=== PATIENT | female | born 1940 | race Caucasian/White ===

== ENCOUNTER 2017-01-26 20:40 | Observation (INO) | payer MEDICARE, BC, MEDICAID ==
[2017-01-26] MEDS ORDERED: methylPREDNISolone Sodium Succinate 125 MG/2 ML SDV IVPUSH ONE (20:51)
[2017-01-26] MEDS ORDERED: Albuterol/Ipratropium 3.0-0.5 MG/3 ML Neb Soln NEB ONE (20:51)
[2017-01-26] MEDS ORDERED: LORazepam 2 MG/ML MDV IVPUSH ONE (20:51)
[2017-01-26] MEDS ORDERED: Morphine 2 MG/ML Syringe IVPUSH PRN (22:24)
[2017-01-26] MEDS ORDERED: Ondansetron 4 MG/2 ML SDV IV PRN (22:24)
[2017-01-26] MEDS ORDERED: Furosemide 20 MG/2 ML VIAL IVPUSH ONE (22:24)
[2017-01-26] MEDS ORDERED: LORazepam 2 MG/ML MDV IV PRN (22:24)
[2017-01-26] MEDS ORDERED: Ketorolac 30 MG/ML SDV IM PRN (22:24)
[2017-01-26] MEDS ORDERED: Non-Formulary Medication 1 Each (Fluticasone/Salmeterol [Advair 250-50 Diskus] 1 EACH) INH SCH (22:30)
--- NOTE | 2017-01-26 23:43 | ER ---
DATE SEEN: 01/26/2017 TIME SEEN: 2224 hours. REASON FOR VISIT: Shortness of breath. HISTORY OF PRESENT ILLNESS: This is a 76-year-old female coming with shortness of breath and wheezing that started suddenly, and called the ambulance. Has a history of COPD and continues to smoke. She also complains of leg pain and swelling bilaterally, cough x3 days. No fever. PAST MEDICAL HISTORY: COPD; diabetic neuropathy; type 2 diabetes, uncontrolled. ALLERGIES: Reviewed. MEDICATIONS: Reviewed. PHYSICAL EXAMINATION: GENERAL: Not in any cardiopulmonary distress. VITAL SIGNS: Blood pressure is 145/60, temperature is 99.0. EARS, NOSE, AND THROAT: Negative. CHEST: End-expiratory rhonchi. CARDIOVASCULAR: Normal. EXTREMITIES: 1+ nonpitting edema. Right extremity is tender. LABORATORY DATA: White cell count is 15.1. Troponin 0.01. Chest x-ray nonacute. IMPRESSION: Chronic obstructive pulmonary disease exacerbation. PLAN: I will admit for observation. I gave one dose of DuoNeb and 0.5 mg of Xanax, also lorazepam. She declined Solu-Medrol. We will continue with the DuoNeb p.r.n. and Dr. Hernandez will take over in the morning. /[id number] HANNAH/DEN
[2017-01-27] MEDS: Sodium Chloride 0.9% 10 ML Syringe FLUSH PRN ×2 (00:09→01:08)
[2017-01-27] MEDS ORDERED: ADVAIR INH SCH (00:32)
[2017-01-27] MEDS ORDERED: Bisacodyl 10 MG Supp ONE (03:58)
[2017-01-27] MEDS ORDERED: Bisacodyl 10 MG Supp RECTAL PRN (04:00)
[2017-01-27] MEDS ORDERED: Levothyroxine 75 MCG Tab**OWN MED PO SCH (06:00)
[2017-01-27] MEDS ORDERED: Albuterol/Ipratropium 3.0-0.5 MG/3 ML Neb Soln NEB SCH (07:00)
[2017-01-27 08:41] VITALS: BP 107/52
--- NOTE | 2017-01-27 10:41 | PCM.HP ---
H&P History of Present Illness - General Date of Service: 01/27/17 Source of Information: Patient History Limitations: Reports: No limitations - History of Present Illness Initial Comments - Free Text/Narative: This is a 76-year-old female patient with a history of COPD. She states she had leg swelling yesterday and excruciating pain the costs her to be short of breath. So she called the ambulance and came to the ER. She was admitted for observation. She refused any treatment including steroids. Chest x-ray showed no CHF or pneumonia. Patient states she's feeling better now. Legs still swollen. She has a little bit of a cough. No fevers, chills. But she says she feels warm and cold all the time but never has a fever. Bilateral Leg Pain Score (Numeric/FACES): 10 - Related Data Allergies/Adverse Reactions: Allergies Allergy/AdvReac Type Severity Reaction Status Date / Time perfume Allergy Intermediate Shortness Verified 01/26/17 20:52 of Breath ceftriaxone sodium Allergy Hives Verified 01/26/17 20:52 [From Rocephin] ciprofloxacin [From Cipro] Allergy Hives Verified 01/26/17 20:52 ciprofloxacin HCl Allergy Hives Verified 01/26/17 20:52 [From Cipro] Penicillins Allergy Hives Verified 01/26/17 20:52 pneumococcal vaccine Allergy Swelling Verified 01/26/17 20:52 [Pneumococcal Vaccine] Home Medications: Home Meds Albuterol [Ventolin HFA] 2 puff INH Q4HR PRN 03/07/14 [History] Levothyroxine 75 mcg PO DAILY@0600 05/22/15 [History] Simvastatin [Zocor] 20 mg PO BEDTIME 05/23/15 [History] Fluticasone/Salmeterol [Advair 250-50 Diskus] 1 each INH BID 10/10/16 [History] Furosemide [Lasix] 40 mg PO DAILY@0600 10/11/16 [History] Past Medical History HEENT History: Reports: Cataract, Impaired vision Cardiovascular History: Reports: SOB on exertion Respiratory History: Reports: COPD Gastrointestinal History: Reports: Bowel obstruction, Other (see below) Other Gastrointestinal History: Had abdominal surgery but patient is not certain what was all involved. 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 Psychiatric History: Reports: Anxiety Endocrine/Metabolic History: Reports: Diabetes, type II, Other (see below) Other Endocrine/Metabolic History: Thyroidectomy 2007 Oncologic (Cancer) History: Reports: Colon, Other (see below) Other Oncologic History: according to the report. pt denies. Dermatologic History: Reports: Cellulitis, Other (see below) Other Dermatologic History: Lymphedema. - Infectious Disease History Infectious Disease History: Reports: Chicken pox, Mumps, Other (see below) Other Infectious Disease History: She is not certain if she had Rubella or Rubeola. - Past Surgical History HEENT Surgical History: Reports: Cataract surgery, Other (see below) Other HEENT Surgeries/Procedures: Excess skin removed from the eyelid. GI Surgical History: Reports: Cholecystectomy Female Surgical History: Reports: Other (see below) Other Female Surgeries/Procedures: Vag hyst. Endocrine Surgical History: Reports: Thyroidectomy Social & Family History - Family History Family Medical History: Noncontributory Dermatologic: Reports: None Oncologic: Reports: Other (see below) Other Oncologic Family History: Patient doesn't recall the type. - Tobacco Use Smoking Status *Q: Current Every Day Smoker Years of Tobacco use: 65 Packs/Tins Daily: 0.5 Used Tobacco, but Quit: Yes Month Tobacco Last Used: Nov Second Hand Smoke Exposure: Yes - Caffeine Use Caffeine Use: Reports: Coffee - Alcohol Use Days Per Week of Alcohol Use: 0 - Recreational Drug Use Recreational Drug Use: No - Living Situation & Occupation Living situation: Reports: alone H&P Review of Systems - Review of Systems: Review Of Systems: See Below General: Reports: no symptoms HEENT: Reports: no symptoms Pulmonary: Reports: Shortness of Breath, Cough, Sputum Cardiovascular: Reports: no symptoms Gastrointestinal: Reports: No symptoms Genitourinary: Reports: no symptoms Musculoskeletal: Reports: other (Bilateral leg pain) Skin: Reports: no symptoms Psychiatric: Reports: no symptoms Neurological: Reports: No Symptoms Hematologic/Lymphatic: Reports: no symptoms Exam - Exam Exam: See Below - Vital Signs Vital Signs: Last Vital Signs Temp 97.5 F 01/27/17 08:40 Pulse 76 01/27/17 08:40 Resp 18 01/27/17 08:40 BP 107/52 L 01/27/17 08:40 Pulse Ox 93 L 01/27/17 08:40 Weight: 204 lb 11.2 oz - Exam General: alert, oriented, cooperative HEENT: PERRLA, EACs clear, EOMI, Hearing intact, Mucosa moist & pink, Posterior pharynx clear, TMs clear Neck: supple, trachea midline, 2 Lungs: Clear to auscultation, Normal respiratory effort, Decreased breath sounds. No: Crackles, Rales, Rhonchi Cardiovascular: regular rate, regular rhythm. No: systolic murmur, diastolic murmur Abdomen: normal bowel sounds, soft. No: guarding, rigidity, rebound, tenderness Back Exam: normal inspection, full range of motion Extremities: edema (Bilateral legs 1-2+) Skin: warm Neuro Extensive - Mental Status: alert, oriented x3, normal cognition Neuro Extensive - Motor, Sensory, Reflexes: normal gait Psychiatric: alert, agitated - Patient Data Result Diagrams: 01/26/17 21:10 01/26/17 21:10 *Q Meaningful Use (ADM) - VTE *Q VTE Criteria *Q: - Stroke *Q Stroke Criteria *Q: - AMI *Q AMI Criteria *Q: - Problem List (1) COPD with exacerbation SNOMED Code(s): 966862952, 046942825 ICD Code: J44.1 - CHRONIC OBSTRUCTIVE PULMONARY DISEASE W (ACUTE) EXACERBATION Status: Acute (2) Leg edema SNOMED Code(s): 732935590 ICD Code: R60.0 - LOCALIZED EDEMA Status: Acute Qualifiers: Laterality: bilateral Qualified Code(s): R60.0 - Localized edema Problem List Initiated/Reviewed/Updated: Yes Orders Last 24hrs: Active Orders 24 hr Category Date Time Status Ready for Discharge [RC] PER UNIT ROUTINE Care 01/27/17 08:58 Active Saline Lock Insert [OM.PC] Routine Oth 01/27/17 00:02 Ordered Assessment/Plan Comment:: The patient was admitted for observation. She feels better now. She wants to go home. She does not want any steroids, Lasix or anything for pain. She states she will use her home medications. She also refuses home health. So I will discharge her to home on her regular medicines and 2. She can follow-up with her primary in 7-10 days. Before that if she's decompensating.
--- NOTE | 2017-01-27 10:42 | PCM.DCSUM1 ---
Discharge Summary - Hospital Course Free Text/Narrative:: Patient was admitted. She received some nebulizer treatments and her normal O2. She refuses corticosteroids. She refused any Lasix. By the morning she felt much better and stated she wanted to go home. He did not want to stay. She did not want anything for pain or for her leg swelling. She also refused home health care. Brief History: This is a 76-year-old female patient with a history of COPD. She states she had leg swelling yesterday and excruciating pain the costs her to be short of breath. So she called the ambulance and came to the ER. She was admitted for observation. She refused any treatment including steroids. Chest x-ray showed no CHF or pneumonia. Patient states she's feeling better now. Legs still swollen. She has a little bit of a cough. No fevers, chills. But she says she feels warm and cold all the time but never has a fever. - Discharge Data Discharge Date: 01/27/17 Discharge Disposition: Home, Self-Care 01 Condition: Fair - Discharge Diagnosis/Problem(s) (1) COPD with exacerbation SNOMED Code(s): 069084763, [id number] ICD Code: J44.1 - CHRONIC OBSTRUCTIVE PULMONARY DISEASE W (ACUTE) EXACERBATION Status: Acute (2) Leg edema SNOMED Code(s): 070649850 ICD Code: R60.0 - LOCALIZED EDEMA Status: Acute Qualifiers: Laterality: bilateral Qualified Code(s): R60.0 - Localized edema - Patient Instructions Diet: Regular Diet as Tolerated Activity: As Tolerated Driving: May Drive Today Showering/Bathing: May Shower Notify Provider of: Increased Pain, Swelling and Redness Other/Special Instructions: 1. Recheck with Dr. Alanis in 7-10 days. - Discharge Plan Home Medications: Home Meds Albuterol [Ventolin HFA] 2 puff INH Q4HR PRN 03/07/14 [History] Levothyroxine 75 mcg PO DAILY@0600 05/22/15 [History] Simvastatin [Zocor] 20 mg PO BEDTIME 05/23/15 [History] Fluticasone/Salmeterol [Advair 250-50 Diskus] 1 each INH BID 10/10/16 [History] Furosemide [Lasix] 40 mg PO DAILY@0600 10/11/16 [History] Patient Handouts: Chronic Obstructive Pulmonary Disease Exacerbation, Easy-to- Read Forms: ED Department Discharge Referrals: Tushar Lopez MD [Primary Care Provider] - - Discharge Summary/Plan Comment DC Time >30 min.: No - Patient Data Vitals - Most Recent: Last Vital Signs Temp 97.5 F 01/27/17 08:40 Pulse 76 01/27/17 08:40 Resp 18 01/27/17 08:40 BP 107/52 L 01/27/17 08:40 Pulse Ox 93 L 01/27/17 08:40 Weight - Most Recent: 204 lb 11.2 oz I&O - Last 24 hours: Intake & Output 01/26/17 01/27/17 01/27/17 22:59 06:59 14:59 Intake Total 100 200 Output Total 0 Balance 100 200 Med Orders - Current: Current Medications Discontinued Medications Albuterol/Ipratropium (Duoneb 3.0-0.5 Mg/3 Ml) 3 ml NEB ONETIME ONE Stop: 01/26/17 20:52 Last Admin: 01/26/17 21:33 Dose: 3 ml Albuterol/Ipratropium (Duoneb 3.0-0.5 Mg/3 Ml) 3 ml NEB QIDRT [facility] Last Admin: 01/27/17 07:40 Dose: 3 ml Bisacodyl (Dulcolax) 10 mg RECTAL DAILY PRN PRN Reason: Constipation Last Admin: 01/27/17 04:03 Dose: 10 mg Bisacodyl (Dulcolax) Confirm Administered Dose 10 mg .ROUTE .STK-MED ONE Stop: 01/27/17 03:59 Last Admin: 01/27/17 04:03 Dose: Not Given Furosemide (Lasix) 20 mg IVPUSH ONETIME ONE Stop: 01/26/17 22:25 Last Admin: 01/27/17 00:06 Dose: 20 mg Ketorolac Tromethamine (Toradol) 15 mg IM Q6H PRN PRN Reason: Pain (moderate 4-6) Levothyroxine Sodium (Levothyroxine) 75 mcg PO DAILY@0600 [facility] Last Admin: 01/27/17 05:27 Dose: 75 mcg Lorazepam (Ativan) 0.5 mg IVPUSH ONETIME ONE Stop: 01/26/17 20:52 Last Admin: 01/26/17 21:33 Dose: 0.5 mg Lorazepam (Ativan) 0.5 mg IV Q6H PRN PRN Reason: Anxiety Methylprednisolone Sodium Succinate (Solu-Medrol) 125 mg IVPUSH ONETIME ONE Stop: 01/26/17 20:52 Last Admin: 01/26/17 22:17 Dose: Not Given Morphine Sulfate (Morphine) 2 mg IVPUSH Q4H PRN PRN Reason: Breakthrough Pain Last Admin: 01/27/17 01:07 Dose: 2 mg Non-Formulary Medication (Fluticasone/Salmeterol [Advair 250-50 Diskus]) 1 each INH BID [facility] Last Admin: 01/27/17 00:26 Dose: 1 each Ondansetron HCl (Zofran) 4 mg IV Q4H PRN PRN Reason: Nausea/Vomiting Patient's Own Medication 1 Each Advair 250/50 0 each INH BID MYKE Last Admin: 01/27/17 08:49 Dose: 1 each Simvastatin (Zocor) 20 mg PO BEDTIME MYKE Sodium Chloride (Saline Flush) 10 ml FLUSH ASDIRECTED PRN PRN Reason: Keep Vein Open Last Admin: 01/27/17 01:08 Dose: 10 ml *Q Meaningful Use (DIS) - VTE *Q VTE Criteria *Q: - Stroke *Q Stroke Criteria *Q: - AMI *Q AMI Criteria *Q:
--- NOTE | 2017-01-27 12:33 | CR ---
INDICATION: COPD. CHEST: A single AP upright portable view of the chest, 01/26/2017, was compared with 11/03/2016 and 10/10/2016, revealing the heart to appear fairly normal in size and shape. The aorta is calcified slightly in the arch area. Overlying EKG leads are noted. The lungs appear to be hyperaerated, suggesting COPD. Heavy markings at the lung bases are again noted, likely fibrotic in nature, and due to overlying breast tissue. No consolidating pneumonia or definite effusion was seen. IMPRESSION: 1. No definite acute process. 2. Probable COPD. 3. Mild ASD aorta. 4. Heavy markings at the lung bases likely fibrotic in nature, but making it difficult to entirely exclude minimal patchy bronchopneumonia. Report was called to Dr. Hernandez at approximately 1010 hours, 01/27/2017. [facility]
[2017-01-27] MEDS ORDERED: Simvastatin 20 MG Tab PO SCH (21:00)
== END 2017-01-27 09:45 | disposition home or self-care (01) ==
LOC: FB.ED 20:40 → FB.MS 22:29
PROVIDERS: ADMIT Family Medicine; ATTEND Family Medicine
DX: J44.1 Chronic obstructive pulmonary disease with (acute) exacerbation (principal); R60.0 Localized edema; F41.9 Anxiety disorder, unspecified; E11.9 Type 2 diabetes mellitus without complications; E89.0 Postprocedural hypothyroidism; F17.200 Nicotine dependence, unspecified, uncomplicated; R06.02 Shortness of breath; Z85.038 Personal history of other malignant neoplasm of large intestine; Z90.49 Acquired absence of other specified parts of digestive tract; Z90.710 Acquired absence of both cervix and uterus; Z98.890 Other specified postprocedural states; Z79.899 Other long term (current) drug therapy; Z91.048 Other nonmedicinal substance allergy status; Z88.1 Allergy status to other antibiotic agents; Z88.0 Allergy status to penicillin; Z88.7 Allergy status to serum and vaccine
CPT/HCPCS: 36415; 71010; 80053; 83880; 84484; 85025; 94640; 94664; 96374; 96375; 99285; A9270; G0378; J1940; J2060; J2270; J7050; J7620; 99218; 99283

== ENCOUNTER 2019-02-02 02:42 | Emergency (ER) | payer MEDICARE, BC, MEDICAID ==
[2019-02-02] MEDS ORDERED: Albuterol/Ipratropium 3.0-0.5 MG/3 ML Neb Soln NEB ONE (02:49)
[2019-02-02] MEDS ORDERED: Ondansetron 4 MG/2 ML SDV IVPUSH ONE (02:49)
[2019-02-02] MEDS ORDERED: methylPREDNISolone Sodium Succinate 125 MG/2 ML SDV IVPUSH ONE (02:49)
[2019-02-02] MEDS ORDERED: Pantoprazole 40 MG Vial IVPUSH ONE (02:51)
--- NOTE | 2019-02-02 02:57 | EDM.PDOC ---
ED HPI GENERAL MEDICAL PROBLEM - General Stated Complaint: ABD PAIN Time Seen by Provider: 02/02/19 02:42 Source of Information: Reports: Patient, EMS History Limitations: Reports: Respiratory Distress - History of Present Illness INITIAL COMMENTS - FREE TEXT/NARRATIVE: 78 y.o.w.f with a H/O COPD on 4 liters home O2 by [place], lives at her own home, came by EMS to the Ed due to upper and lower abd. pain. No Trauma. No F/C. Pt was tender to palpitation at her mid upper abd. and did not allow to be palpated at her lower abd. Last BM SUTURE WINDER HAND. No urinary symptoms. Pt has a breathing machine at home. No C/P no F/C. No other acute med issues. BP 117/54 Pulse ox 90% on 4 liters O2 by NV, RR 16 Pulse 76 Temp 36.9 Onset Date: 02/01/19 Onset Time: 22:00 Duration: Hour(s):, Getting Worse, Intermittent Location: Reports: Chest, Abdomen Quality: Reports: Dull, Same as Previous Episode Severity: Moderate Improves with: Reports: Rest Worsens with: Reports: Movement Context: Reports: Other Associated Symptoms: Reports: Shortness of Breath - Related Data Allergies Allergy/AdvReac Type Severity Reaction Status Date / Time perfume Allergy Intermediate Shortness Verified 02/02/19 08:46 of Breath ceftriaxone sodium Allergy Hives Verified 02/02/19 08:46 [From Rocephin] ciprofloxacin [From Cipro] Allergy Hives Verified 02/02/19 08:46 ciprofloxacin HCl Allergy Hives Verified 02/02/19 08:46 [From Cipro] Penicillins Allergy Hives Verified 02/02/19 08:46 pneumococcal vaccine Allergy Swelling Verified 02/02/19 08:46 [Pneumococcal Vaccine] Home Meds: Home Meds Albuterol [Ventolin HFA] 2 puff INH Q4HR PRN 03/07/14 [History] Levothyroxine 75 mcg PO DAILY@0600 05/22/15 [History] Simvastatin [Zocor] 20 mg PO BEDTIME 05/23/15 [History] Fluticasone/Salmeterol [Advair 250-50 Diskus] 1 each INH BID 10/10/16 [History] Furosemide [Lasix] 40 mg PO DAILY@0600 01/03/17 [History] Past Medical History HEENT History: Reports: Cataract, Impaired Vision Cardiovascular History: Reports: SOB on Exertion Respiratory History: Reports: COPD Gastrointestinal History: Reports: Bowel Obstruction, Other (See Below) Other Gastrointestinal History: Had abdominal surgery but patient is not certain what was all involved. SOCIAL DIRECTOR History: Reports: Musculoskeletal History: Reports: Other (See Below) Other Musculoskeletal History: Possibly some arthritis. Psychiatric History: Reports: Anxiety Endocrine/Metabolic History: Reports: Diabetes, Type II, Other (See Below) Other Endocrine/Metabolic History: Thyroidectomy 2007 Oncologic (Cancer) History: Reports: Colon, Other (See Below) Other Oncologic History: according to the report. pt denies. Dermatologic History: Reports: Cellulitis, Other (See Below) Other Dermatologic History: Lymphedema. - Infectious Disease History Infectious Disease History: Reports: Chicken Pox, Mumps, Other (See Below) Other Infectious Disease History: She is not certain if she had Rubella or Rubeola. - Past Surgical History HEENT Surgical History: Reports: Cataract Surgery, Other (See Below) Female Surgical History: Reports: Other (See Below) Social & Family History - Family History Family Medical History: Noncontributory Dermatologic: Reports: None Oncologic: Reports: Other (See Below) Other Oncologic Family History: Patient doesn't recall the type. - Caffeine Use Caffeine Use: Reports: Coffee - Living Situation & Occupation Living situation: Reports: Alone ED ROS GENERAL - Review of Systems Review Of Systems: See Below Constitutional: Reports: No Symptoms HEENT: Reports: No Symptoms Respiratory: Reports: Shortness of Breath Cardiovascular: Reports: No Symptoms Endocrine: Reports: No Symptoms GI/Abdominal: Reports: Abdominal Pain (upper and lower abd. ) : Reports: No Symptoms Musculoskeletal: Reports: No Symptoms Skin: Reports: No Symptoms Neurological: Reports: No Symptoms Psychiatric: Reports: No Symptoms Hematologic/Lymphatic: Reports: No Symptoms Immunologic: Reports: No Symptoms ED EXAM, GI/ABD - Physical Exam Exam: See Below Exam Limited By: Respiratory Distress General Appearance: Alert, WD/WN, Moderate Distress Eyes: Bilateral: Normal Appearance Ears: Normal External Exam Nose: Normal Inspection, Normal Mucosa Throat/Mouth: Normal Lips, Normal Oropharynx, Normal Voice, No Airway Compromise Head: Atraumatic, Normocephalic Neck: Normal Inspection, Supple, Non-Tender Respiratory/Chest: Respiratory Distress, Decreased Breath Sounds Cardiovascular: Normal Peripheral Pulses, Regular Rate, Rhythm, No Edema, No Gallop GI/Abdominal Exam: Tender (mid upper and loawe abd.) (Female) Exam: Deferred Rectal (Female) Exam: Deferred Back Exam: Normal Inspection, Full Range of Motion Extremities: Normal Inspection, Normal Range of Motion, Non-Tender, No Pedal Edema, Normal Capillary Refill Neurological: Alert, Oriented, CN II-XII Intact, Normal Cognition Psychiatric: Normal Affect, Normal Mood Skin Exam: Warm, Dry, Intact, Normal Color, No Rash Lymphatic: No Adenopathy Course - Vital Signs Text/Narrative:: 78 y.o.w.f with a H/O COPD on 4 liters home O2 by [place], lives at her own home, came by EMS to the Ed due to upper and lower abd. pain. No Trauma. No F/C. Pt was tender to palpitation at her mid upper abd. and did not allow to be palpated at her lower abd. Last BM SUTURE WINDER HAND. No urinary symptoms. Pt has a breathing machine at home. No C/P no F/C. No other acute med issues. BP 117/54 Pulse ox 90% on 4 liters O2 by [place], RR 16 Pulse 76 Temp 36.9 PE: WNWD W F in resp distress and abd. pain Imaging: Pt Refused Labs/IV: Pt refused Impression: COPD, epigastric pain Tx: Duoneb, Solu Medrol Reexam: Pt stated she fels 100% better and wants to be D/C'd. Her abd pain subsided. She has a neb machine at home and has enough Albut/Atrovent at home. Pt refuse I Vs, lab work NS and further neb Txs and meds. Pt had now bilat air movement. Her pulse ox was 94% on 4 liters home O2 Plan: D/C with instructions Last Recorded V/S: Last Vital Signs Temp 36.9 C 02/02/19 03:06 Pulse 70 02/02/19 05:30 Resp 18 02/02/19 05:30 BP 116/54 L 02/02/19 05:30 Pulse Ox 94 L 02/02/19 05:30 - Orders/Labs/Meds Orders: Active Orders 24 hr Category Date Time Status RT Aerosol Therapy [RC] ASDIRECTED Care 02/02/19 02:49 Active UA W/MICROSCOPIC [URIN] Stat Lab 02/02/19 02:51 Ordered Labs: Laboratory Tests 02/02/19 02/02/19 02/02/19 Range/Units 03:10 03:10 03:10 WBC 8.1 (4.5-12.0) X10-3/uL RBC 4.30 (3.23-5.20) x10(6)uL Hgb 12.3 (11.5-15.5) g/dL Hct 37.4 (30.0-51.3) % MCV 87.1 (80-96) fL MCH 28.6 (27.7-33.6) pg MCHC 32.8 (32.2-35.4) g/dL RDW 14.4 (11.5-15.5) % Plt Count 341 (125-369) X10(3)uL MPV 7.7 (7.4-10.4) fL Neut % (Auto) 72.5 (46-82) % Lymph % (Auto) 17.6 (13-37) % Morehouse % (Auto) 4.7 (4-12) % Eos % (Auto) 5 (1.0-5.0) % Baso % (Auto) 1 (0-2) % Neut # (Auto) 5.8 (1.6-8.3) # Lymph # (Auto) 1.4 (0.6-5.0) # Morehouse # (Auto) 0.4 (0.0-1.3) # Eos # (Auto) 0.4 (0.0-0.8) # Baso # (Auto) 0.1 (0.0-0.2) # PT 8.9 (8.7-11.1) INR 0.92 (0.89-1.13) Sodium 140 (135-145) mmol/L Potassium 3.5 (3.5-5.3) mmol/L Chloride 99 L (100-110) mmol/L Carbon Dioxide 37 H (21-32) mmol/L BUN 21 H (7-18) mg/dL Creatinine 1.0 (0.55-1.02) mg/dL Est Cr Clr Drug Dosing TNP Estimated GFR (MDRD) 54 L (>60) BUN/Creatinine Ratio 21.0 H (9-20) Glucose 177 H (80-116) mg/dL Calcium 9.7 (8.6-10.2) mg/dL Total Bilirubin (0.1-1.3) mg/dL Direct Bilirubin (0.10-0.20) mg/dL AST (5-25) IU/L ALT (12-36) U/L Alkaline Phosphatase (56-112) IU/L Total Protein (6.0-8.0) g/dL Albumin (3.2-4.6) g/dL Amylase (25-115) U/L 02/02/19 Range/Units 03:10 WBC (4.5-12.0) X10-3/uL RBC (3.23-5.20) x10(6)uL Hgb (11.5-15.5) g/dL Hct (30.0-51.3) % MCV (80-96) fL MCH (27.7-33.6) pg MCHC (32.2-35.4) g/dL RDW (11.5-15.5) % Plt Count (125-369) X10(3)uL MPV (7.4-10.4) fL Neut % (Auto) (46-82) % Lymph % (Auto) (13-37) % Morehouse % (Auto) (4-12) % Eos % (Auto) (1.0-5.0) % Baso % (Auto) (0-2) % Neut # (Auto) (1.6-8.3) # Lymph # (Auto) (0.6-5.0) # Morehouse # (Auto) (0.0-1.3) # Eos # (Auto) (0.0-0.8) # Baso # (Auto) (0.0-0.2) # PT (8.7-11.1) INR (0.89-1.13) Sodium (135-145) mmol/L Potassium (3.5-5.3) mmol/L Chloride (100-110) mmol/L Carbon Dioxide (21-32) mmol/L BUN (7-18) mg/dL Creatinine (0.55-1.02) mg/dL Est Cr Clr Drug Dosing Estimated GFR (MDRD) (>60) BUN/Creatinine Ratio (9-20) Glucose (80-116) mg/dL Calcium (8.6-10.2) mg/dL Total Bilirubin 0.3 (0.1-1.3) mg/dL Direct Bilirubin 0.09 L (0.10-0.20) mg/dL AST 18 (5-25) IU/L ALT 24 (12-36) U/L Alkaline Phosphatase 100 (56-112) IU/L Total Protein 7.2 (6.0-8.0) g/dL Albumin 3.9 (3.2-4.6) g/dL Amylase 59 (25-115) U/L Meds: Medications Discontinued Medications Generic Name Dose Route Start Last Admin Trade Name Freq PRN Reason Stop Dose Admin Albuterol/Ipratropium 3 ml 02/02/19 02:49 02/02/19 03:50 Duoneb 3.0-0.5 Mg/3 Ml NEB 02/02/19 02:50 3 ml ONETIME ONE Administration Al Hydroxide/Mg Hydroxide 15 0 ml 02/02/19 03:52 02/02/19 08:49 ml/ Lidocaine HCl 15 ml PO 02/02/19 03:53 Not Given ONETIME ONE Methylprednisolone Sodium Succinate 125 mg 02/02/19 02:49 02/02/19 08:48 Solu-Medrol IVPUSH 02/02/19 02:50 Not Given ONETIME ONE Ondansetron HCl 8 mg 02/02/19 02:49 02/02/19 08:48 Zofran IVPUSH 02/02/19 02:50 Not Given ONETIME ONE Ondansetron HCl 4 mg 02/02/19 04:39 02/02/19 08:48 Zofran Odt PO 02/02/19 04:40 Not Given ONETIME STA Pantoprazole Sodium 40 mg 02/02/19 02:51 02/02/19 08:48 Protonix Iv IVPUSH 02/02/19 02:52 Not Given ONETIME ONE Departure - Departure Time of Disposition: 05:18 Disposition: Home, Self-Care 01 Condition: Good Clinical Impression: Epigastric abdominal pain COPD (chronic obstructive pulmonary disease) Qualifiers: COPD type: COPD with acute exacerbation Qualified Code(s): J44.1 - Chronic obstructive pulmonary disease with (acute) exacerbation - Discharge Information Instructions: Gastritis, Adult, [id number], Chronic Obstructive Pulmonary Disease, [id number] Referrals: Tushar Lopez MD [Primary Care Provider] - Forms: ED Department Discharge Additional Instructions: Please cont your current meds, please f/u with your PMD, come back if your symptoms get worse acutely - My Orders Last 24 Hours: My Active Orders 02/02/19 02:49 RT Aerosol Therapy [RC] ASDIRECTED 02/02/19 02:51 UA W/MICROSCOPIC [URIN] Stat - Assessment/Plan Last 24 Hours: My Active Orders 02/02/19 02:49 RT Aerosol Therapy [RC] ASDIRECTED 02/02/19 02:51 UA W/MICROSCOPIC [URIN] Stat
[2019-02-02] MEDS ORDERED: Alum Hydroxide/Mag Hydroxide 15 ML, Lidocaine 2% 15 ML PO ONE ×2 (03:52)
[2019-02-02] MEDS ORDERED: Ondansetron 4 MG Tab.DIS PO STA (04:39)
[2019-02-02 09:08] VITALS: BP 116/54
== END 2019-02-02 05:30 | disposition home or self-care (01) ==
LOC: FB.ED 02:42
DX: J44.1 Chronic obstructive pulmonary disease with (acute) exacerbation (principal); E11.9 Type 2 diabetes mellitus without complications; R10.13 Epigastric pain; Z88.1 Allergy status to other antibiotic agents; Z79.899 Other long term (current) drug therapy
CPT/HCPCS: 36415; 80048; 80076; 82150; 85025; 85610; 94640; 99284; J7620-GY

== ENCOUNTER 2019-05-10 20:40 | Emergency (ER) | payer MEDICARE, BC ==
[2019-05-10 21:00] VITALS: PULSE 85
--- NOTE | 2019-05-10 22:01 | EDM.PDOC ---
ED HPI GENERAL MEDICAL PROBLEM - General Chief Complaint: Lower Extremity Injury/Pain Stated Complaint: DIFFICULTY BREATHING Time Seen by Provider: 05/10/19 21:30 Source of Information: Reports: Patient History Limitations: Reports: No Limitations - History of Present Illness INITIAL COMMENTS - FREE TEXT/NARRATIVE: c/o swell and red LE b/l very pleasant pt who lives alone in [facility], states she has had swelling in her legs for past 5m son took her directly to [facility] 2w ago and she was admitted and given meds in her IV, she thinks she was given an antbx altho after 5d she was not sent home on one, d/c meds were the same as admission meds, swelling and redness did go down, now has come back saw PCP Dr Lopez 3d ago, no change in meds, no labs done, she had a f/u with Dr Lopez today but did not have a ride to his office comes via EMS to ED vehemently denies falling at home in recent months, uses walker was given oxycontin at [facility] in [place], says "I do not want that stuff", "I am not a pill popper" no f/c/d, no n/v, good appetite vss here has been putting baby oil on her legs 4m ago with WBC 8.1, BUN/creat 21/1.0, BNP 20 from 2y ago, last trop neg does smoke a few cigs daily, had 3 cigs today on O2 4 l/min via NC 24h/d at home Treatments TREE SCOUT: Reports: Oxygen Bilateral lower legs Pain Score (Numeric/FACES): 10 - Related Data Allergies Allergy/AdvReac Type Severity Reaction Status Date / Time perfume Allergy Intermediate Shortness Verified 05/10/19 20:49 of Breath ceftriaxone sodium Allergy Hives Verified 05/10/19 20:49 [From Rocephin] ciprofloxacin [From Cipro] Allergy Hives Verified 05/10/19 20:49 ciprofloxacin HCl Allergy Hives Verified 05/10/19 20:49 [From Cipro] Penicillins Allergy Hives Verified 05/10/19 20:49 pneumococcal vaccine Allergy Swelling Verified 05/10/19 20:49 [Pneumococcal Vaccine] Home Meds: Home Meds Albuterol [Ventolin HFA] 2 puff INH Q4HR PRN 03/07/14 [History] Simvastatin [Zocor] 20 mg PO BEDTIME 05/23/15 [History] Furosemide [Lasix] 40 mg PO DAILY 10/11/16 [History] ALPRAZolam [Alprazolam] 0.25 mg BID 05/10/19 [History] Fluticasone/Salmeterol [Advair 250-50 Diskus] 1 puff BID 05/10/19 [History] Levothyroxine [Synthroid] 100 mcg PO ACBREAKFAST 05/10/19 [History] metFORMIN HCl [Metformin HCl ER] 500 mg DAILY 05/10/19 [History] Past Medical History HEENT History: Reports: Cataract, Impaired Vision Cardiovascular History: Reports: High Cholesterol, SOB on Exertion Respiratory History: Reports: COPD Other Respiratory History: O2 con't @ 4L/NC Gastrointestinal History: Reports: Bowel Obstruction, Other (See Below) Other Gastrointestinal History: Had abdominal surgery but patient is not certain what was all involved. 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 Neurological History: Reports: Migraines Psychiatric History: Reports: Anxiety Endocrine/Metabolic History: Reports: Diabetes, Type II, Obesity/BMI 30+ Other Endocrine/Metabolic History: Thyroidectomy 2007 Hematologic History: Reports: Blood Transfusion(s) Oncologic (Cancer) History: Reports: Colon, Other (See Below) Other Oncologic History: according to the report. pt denies. Dermatologic History: Reports: Cellulitis, Other (See Below) Other Dermatologic History: Lymphedema. - Infectious Disease History Infectious Disease History: Reports: Chicken Pox, Measles, Mumps Other Infectious Disease History: She is not certain if she had Rubella or Rubeola. - Past Surgical History Head Surgeries/Procedures: Reports: None HEENT Surgical History: Reports: Adenoidectomy, Cataract Surgery, Tonsillectomy , Other (See Below) Other HEENT Surgeries/Procedures: bilat cataract surgery, GI Surgical History: Reports: Cholecystectomy, Colon, Colonoscopy, EGD, Hernia Repair/Other Female Surgical History: Reports: Hysterectomy, Other (See Below) Endocrine Surgical History: Reports: Thyroidectomy Social & Family History - Family History Family Medical History: Noncontributory Dermatologic: Reports: None Oncologic: Reports: Other (See Below) Other Oncologic Family History: Patient doesn't recall the type. - Tobacco Use Smoking Status *Q: Current Every Day Smoker Years of Tobacco use: 65 Packs/Tins Daily: 0.2 - Caffeine Use Caffeine Use: Reports: Coffee - Recreational Drug Use Recreational Drug Use: No - Living Situation & Occupation Living situation: Reports: Alone Review of Systems - Review of Systems Review Of Systems: See Below Constitutional: Reports: No Symptoms Eyes: Reports: No Symptoms Ears: Reports: No Symptoms Nose: Reports: No Symptoms Mouth/Throat: Reports: No Symptoms Respiratory: Reports: No Symptoms Cardiovascular: Reports: No Symptoms GI/Abdominal: Reports: No Symptoms Genitourinary: Reports: No Symptoms Musculoskeletal: Reports: No Symptoms Skin: Reports: Rash, Erythema, Other (swell LEs) Neurological: Reports: No Symptoms Psychiatric: Reports: No Symptoms ED EXAM, GENERAL - Physical Exam Exam: See Below Exam Limited By: No Limitations General Appearance: Alert, WD/WN, No Apparent Distress Nose: Normal Inspection, Normal Mucosa, No Blood Throat/Mouth: Normal Inspection, Normal Lips Head: Atraumatic Neck: Normal Inspection, Supple, Non-Tender, Full Range of Motion. No: Lymphadenopathy (R), Lymphadenopathy (L) Respiratory/Chest: Other (fair AE, scattered exp wheeze, dec'd AE at bases, dry crackles on inspiration at bases, no dyspnea, no cough, no retractions, no purse lips, no accessory muscles) Cardiovascular: Regular Rate, Rhythm, Other (2/6 STARLA at LSB, quiet precordium) GI/Abdominal: Normal Bowel Sounds, Soft, Non-Tender, No Organomegaly, No Distention Back Exam: Normal Inspection, Full Range of Motion Extremities: Other (2+ edema to knees, symmetric, shiny hairless skin, some epidermal peel altho limited, skin soft and pliable (pt has been putting baby oil on both LEs), some redness up 1/3 pretib b/l without warmth, c/w plethoric skin with stasis, no hyperpigmentation, no ulcers, no weeping, skin intact) Neurological: Alert, Oriented, CN II-XII Intact, Normal Cognition, No Motor/ Sensory Deficits Psychiatric: Normal Affect, Normal Mood Skin Exam: Warm, Intact Lymphatic: No Adenopathy Course - Vital Signs Last Recorded V/S: Last Vital Signs Temp 36.8 C 08/02/19 20:40 Pulse 85 05/10/19 20:40 Resp 20 05/10/19 20:40 BP 142/53 H 05/10/19 20:40 Pulse Ox 93 L 05/10/19 20:40 - Orders/Labs/Meds Labs: Laboratory Tests 05/10/19 05/10/19 05/10/19 Range/Units 21:00 21:00 21:00 WBC 9.6 (4.5-12.0) X10-3/uL RBC 4.42 (3.23-5.20) x10(6)uL Hgb 12.3 (11.5-15.5) g/dL Hct 38.7 (30.0-51.3) % MCV 87.5 (80-96) fL MCH 27.9 (27.7-33.6) pg MCHC 31.8 L (32.2-35.4) g/dL RDW 14.7 (11.5-15.5) % Plt Count 430 H (125-369) X10(3)uL MPV 8.3 (7.4-10.4) fL Neut % (Auto) 74.0 (46-82) % Lymph % (Auto) 16.3 (13-37) % [place] % (Auto) 6.3 (4-12) % Eos % (Auto) 3 (1.0-5.0) % Baso % (Auto) 0 (0-2) % Neut # (Auto) 7.1 (1.6-8.3) # Lymph # (Auto) 1.6 (0.6-5.0) # [place] # (Auto) 0.6 (0.0-1.3) # Eos # (Auto) 0.3 (0.0-0.8) # Baso # (Auto) 0.0 (0.0-0.2) # Sodium 143 (135-145) mmol/L Potassium 3.5 (3.5-5.3) mmol/L Chloride 98 L (100-110) mmol/L Carbon Dioxide 41 H* (21-32) mmol/L BUN 16 (7-18) mg/dL Creatinine 0.9 (0.55-1.02) mg/dL Est Cr Clr Drug Dosing 43.77 mL/min Estimated GFR (MDRD) > 60 (>60) BUN/Creatinine Ratio 17.8 (9-20) Glucose 182 H (80-116) mg/dL Calcium 9.8 (8.6-10.2) mg/dL C-Reactive Protein 0.6 (0.5-0.9) mg/dL - Re-Assessments/Exams Free Text/Narrative Re-Assessment/Exam: 05/10/19 22:37 labs reviewed, no evidence of infection (WBC wnl, CRP wnl, no shift), bicarb 41 renal function wnl will increase furosemide from 40 mg qd to 60 mg qd, there is some risk of volume contraction alkalosis altho options are limited pt not able to use support stockings as she cannot put them on by herself, however she and Dr Lopez are discussing moving into a fci Departure - Departure Time of Disposition: 22:40 Disposition: DC/Tfer to Medicaid [facility] Condition: Good Clinical Impression: Venous stasis dermatitis of both lower extremities - Discharge Information *PRESCRIPTION DRUG MONITORING PROGRAM REVIEWED*: Not Applicable *COPY OF PRESCRIPTION DRUG MONITORING REPORT IN PATIENT ESTRELLA: Not Applicable Instructions: Stasis Dermatitis, Peripheral Edema Referrals: Tushar Lopez MD [Primary Care Provider] - Forms: ED Department Discharge Additional Instructions: Continue current meds. For fluid and swelling, increase furosemide 40 mg from 1 tab daily to 1 and 1/2 tabs daily. Elevated your legs as high as your heart for 30 minutes 1 to 2 times daily. Use support stockings when out of bed. Obtain help from family and friends to put them on. For pain, take acetaminophen 325 mg 2 tabs 4 times a day. See Dr Lopez in 4-5 days. Call your Physician or Return to Emergency Department if: * Your condition worsens in any way. * You develop fever greater than 100.4. * You have vomiting that does not stop with medications. * You have pain that is not controlled with medications.
[2019-05-10 23:23] VITALS: BP 135/68
== END 2019-05-10 22:58 | disposition home or self-care (01) ==
LOC: FB.ED 20:40
DX: I87.2 Venous insufficiency (chronic) (peripheral) (principal); E11.9 Type 2 diabetes mellitus without complications; F41.9 Anxiety disorder, unspecified; F17.210 Nicotine dependence, cigarettes, uncomplicated; J44.9 Chronic obstructive pulmonary disease, unspecified; E78.00 Pure hypercholesterolemia, unspecified; Z79.899 Other long term (current) drug therapy; Z88.1 Allergy status to other antibiotic agents; Z88.7 Allergy status to serum and vaccine; Z88.0 Allergy status to penicillin; Z91.09 Other allergy status, other than to drugs and biological substances
CPT/HCPCS: 36415; 80048; 85025; 86140; 99283

== ENCOUNTER 2020-02-04 03:39 | Emergency (ER) | payer MEDICARE, BC ==
[2020-02-04] MEDS ORDERED: Albuterol/Ipratropium 3.0-0.5 MG/3 ML Neb Soln NEB STA (04:18)
[2020-02-04] MEDS ORDERED: methylPREDNISolone Sodium Succinate 125 MG/2 ML SDV IVPUSH STA (04:18)
[2020-02-04] MEDS ORDERED: Morphine 2 MG/ML Syringe IVPUSH ONE (04:19)
--- NOTE | 2020-02-04 04:26 | EDM.PDOC ---
ED HPI GENERAL MEDICAL PROBLEM - General Chief Complaint: Respiratory Problem Time Seen by Provider: 02/04/20 03:45 Source of Information: Reports: Patient History Limitations: Reports: No Limitations - History of Present Illness INITIAL COMMENTS - FREE TEXT/NARRATIVE: Patient presented to the ED because of increasing dyspnea for several days. There is no increase in cough or sputum production, no fever or chills. She has a h/o COPD and is on home O2 VNC and neb treatment but didn't provide much relief. - Related Data Allergies Allergy/AdvReac Type Severity Reaction Status Date / Time perfume Allergy Intermediate Shortness Verified 05/10/19 20:49 of Breath ceftriaxone sodium Allergy Hives Verified 05/10/19 20:49 [From Rocephin] ciprofloxacin [From Cipro] Allergy Hives Verified 05/10/19 20:49 ciprofloxacin HCl Allergy Hives Verified 05/10/19 20:49 [From Cipro] Penicillins Allergy Hives Verified 05/10/19 20:49 pneumococcal vaccine Allergy Swelling Verified 05/10/19 20:49 [Pneumococcal Vaccine] Home Meds: Home Meds Albuterol [Ventolin HFA] 2 puff INH Q4HR PRN 03/07/14 [History] Simvastatin [Zocor] 20 mg PO BEDTIME 05/23/15 [History] Furosemide [Lasix] 40 mg PO DAILY 10/11/16 [History] ALPRAZolam [Alprazolam] 0.25 mg BID 05/10/19 [History] Fluticasone Propion/Salmeterol [Advair 250-50 Diskus] 1 puff BID 05/10/19 [ History] Levothyroxine [Synthroid] 100 mcg PO ACBREAKFAST 05/10/19 [History] metFORMIN HCl [Metformin HCl ER] 500 mg DAILY 05/10/19 [History] Azithromycin [Zithromax] 250 mg PO DAILY #6 tablet 02/04/20 [Rx] predniSONE [Prednisone] 40 mg PO DAILY #10 tablet 02/04/20 [Rx] Past Medical History HEENT History: Reports: Cataract, Impaired Vision Cardiovascular History: Reports: High Cholesterol, SOB on Exertion Respiratory History: Reports: COPD Other Respiratory History: O2 con't @ 4L/NC Gastrointestinal History: Reports: Bowel Obstruction, Other (See Below) Other Gastrointestinal History: Had abdominal surgery but patient is not certain what was all involved. 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 Neurological History: Reports: Migraines Psychiatric History: Reports: Anxiety Endocrine/Metabolic History: Reports: Diabetes, Type II, Obesity/BMI 30+ Other Endocrine/Metabolic History: Thyroidectomy 2007 Hematologic History: Reports: Blood Transfusion(s) Oncologic (Cancer) History: Reports: Colon, Other (See Below) Other Oncologic History: according to the report. pt denies. Dermatologic History: Reports: Cellulitis, Other (See Below) Other Dermatologic History: Lymphedema. - Infectious Disease History Infectious Disease History: Reports: Chicken Pox, Measles, Mumps Other Infectious Disease History: She is not certain if she had Rubella or Rubeola. - Past Surgical History Head Surgeries/Procedures: Reports: None HEENT Surgical History: Reports: Adenoidectomy, Cataract Surgery, Tonsillectomy , Other (See Below) Other HEENT Surgeries/Procedures: bilat cataract surgery, GI Surgical History: Reports: Cholecystectomy, Colon, Colonoscopy, EGD, Hernia Repair/Other Female Surgical History: Reports: Hysterectomy, Other (See Below) Endocrine Surgical History: Reports: Thyroidectomy Social & Family History - Family History Family Medical History: Noncontributory Dermatologic: Reports: None Oncologic: Reports: Other (See Below) Other Oncologic Family History: Patient doesn't recall the type. - Caffeine Use Caffeine Use: Reports: Coffee - Living Situation & Occupation Living situation: Reports: Alone ED ROS GENERAL - Review of Systems Review Of Systems: See Below Constitutional: Reports: No Symptoms HEENT: Reports: No Symptoms Respiratory: Reports: No Symptoms Cardiovascular: Reports: No Symptoms Endocrine: Reports: No Symptoms GI/Abdominal: Reports: No Symptoms : Reports: No Symptoms Musculoskeletal: Reports: No Symptoms Skin: Reports: No Symptoms ED EXAM, GENERAL - Physical Exam Exam: See Below Exam Limited By: No Limitations General Appearance: Alert Ears: Normal TMs Nose: Normal Inspection, Normal Mucosa Throat/Mouth: Normal Inspection Head: Atraumatic, Normocephalic Neck: Normal Inspection, Supple Respiratory/Chest: No Respiratory Distress, Wheezing Cardiovascular: Normal Peripheral Pulses, Regular Rate, Rhythm, No Edema, No JVD , No Murmur, No Rub Course - Vital Signs Text/Narrative:: breathing improved with the above treatment. She has everything that what she need in treating her COPD exacerbation at home which includes: oxygen.neb treatments. I will start her on steroids for 5 days and z-misa x 5 days. Last Recorded V/S: Last Vital Signs Temp 36.1 C 02/04/20 03:39 Pulse 74 02/04/20 03:39 Resp 14 02/04/20 03:39 BP 124/39 L 02/04/20 03:39 Pulse Ox 100 02/04/20 03:39 - Orders/Labs/Meds Orders: Active Orders 24 hr Category Date Time Status EKG Documentation Completion [RC] ASDIRECTED Care 02/04/20 04:17 Active RT Aerosol Therapy [RC] ASDIRECTED Care 02/04/20 04:18 Active Chest 1V Frontal [CR] Stat Exams 02/04/20 04:16 Taken PRO B-TYPE NATRIUR PEPT,BNPPRO [CHEM] Stat Lab 02/04/20 04:35 Received TROPONIN I [CHEM] Stat Lab 02/04/20 04:35 Received Sodium Chloride 0.9% [Normal Saline] 1,000 ml Med 02/04/20 05:00 Active IV ASDIRECTED EKG 12 Lead [EK] Routine Ther 02/04/20 04:16 Ordered Medication Orders Sodium Chloride (Normal Saline) 1,000 mls @ 999 mls/hr IV ASDIRECTED MYKE Last Admin: 02/04/20 04:52 Dose: 999 mls/hr Labs: Laboratory Tests 02/04/20 02/04/20 Range/Units 04:35 04:35 WBC 9.9 (4.5-12.0) X10-3/uL RBC 3.97 (3.23-5.20) x10(6)uL Hgb 11.4 L (11.5-15.5) g/dL Hct 34.7 (30.0-51.3) % MCV 87.4 (80-96) fL MCH 28.8 (27.7-33.6) pg MCHC 32.9 (32.2-35.4) g/dL RDW 13.5 (11.5-15.5) % Plt Count 363 (125-369) X10(3)uL MPV 7.3 L (7.4-10.4) fL Neut % (Auto) 80.3 (46-82) % Lymph % (Auto) 10.7 L (13-37) % [place] % (Auto) 5.3 (4-12) % Eos % (Auto) 3 (1.0-5.0) % Baso % (Auto) 0 (0-2) % Neut # (Auto) 8.0 (1.6-8.3) # Lymph # (Auto) 1.1 (0.6-5.0) # [place] # (Auto) 0.5 (0.0-1.3) # Eos # (Auto) 0.3 (0.0-0.8) # Baso # (Auto) 0.0 (0.0-0.2) # Sodium 142 (135-145) mmol/L Potassium 3.6 (3.5-5.3) mmol/L Chloride 97 L (100-110) mmol/L Carbon Dioxide 42 H* (21-32) mmol/L BUN 22 H (7-18) mg/dL Creatinine 1.0 (0.55-1.02) mg/dL Est Cr Clr Drug Dosing TNP Estimated GFR (MDRD) 53 L (>60) BUN/Creatinine Ratio 22.0 H (9-20) Glucose 166 H (80-116) mg/dL Calcium 9.2 (8.6-10.2) mg/dL Total Bilirubin 0.4 (0.1-1.3) mg/dL AST 22 D (5-25) IU/L ALT 24 (12-36) U/L Alkaline Phosphatase 121 H (56-112) IU/L Total Protein 7.5 (6.0-8.0) g/dL Albumin 3.6 (3.2-4.6) g/dL Globulin 3.9 g/dL Albumin/Globulin Ratio 0.9 Meds: Medications Generic Name Dose Route Start Last Admin Trade Name Freq PRN Reason Stop Dose Admin Sodium Chloride 1,000 mls @ 999 mls/hr 02/04/20 05:00 02/04/20 04:52 Normal Saline IV 999 mls/hr ASDIRECTED MYKE Administration Discontinued Medications Generic Name Dose Route Start Last Admin Trade Name Freq PRN Reason Stop Dose Admin Albuterol/Ipratropium 6 ml 02/04/20 04:18 02/04/20 04:29 Duoneb 3.0-0.5 Mg/3 Ml NEB 02/04/20 04:19 6 ml NOW STA Administration Methylprednisolone Sodium Succinate 125 mg 02/04/20 04:18 02/04/20 04:28 Solu-Medrol IVPUSH 02/04/20 04:19 125 mg NOW STA Administration Morphine Sulfate 4 mg 02/04/20 04:19 02/04/20 04:28 Morphine IVPUSH 02/04/20 04:20 4 mg ONETIME ONE Administration Departure - Departure Time of Disposition: 05:30 Disposition: Home, Self-Care 01 Condition: Good Clinical Impression: COPD exacerbation, COPD with exacerbation - Discharge Information Prescriptions: Azithromycin [Zithromax] 250 mg PO DAILY #6 tablet predniSONE [Prednisone] 40 mg PO DAILY #10 tablet Referrals: Tushar Lopez MD [Primary Care Provider] - Forms: ED Department Discharge Additional Instructions: Please read discharge instructions on COPD exacerbation use your oxygen at home @ 2-4 liters/min z-misa as directed neb treatment every 4-6 hours as needed for shortness of breath and wheezing prednisone 20 mg, take 2 tablets daily for 5 days starting this morning miralax poder(buy 1 large can at [employer]), dissolve 2 scoops in 2 glasses of water and drink th entire solution with 1 bottle of magnesium citrate(over the counter). repeat this once daily until you have a good bowel movement. Sepsis Event Note - Evaluation Sepsis Screening Result: No Definite Risk - Focused Exam Vital Signs: Vital Signs Temp Pulse Resp BP Pulse Ox 02/04/20 03:39 36.1 C 74 14 124/39 L 100 Date Exam was Performed: 02/04/20 Time Exam was Performed: 05:06 - My Orders Last 24 Hours: My Active Orders 02/04/20 04:16 Chest 1V Frontal [CR] Stat EKG 12 Lead [EK] Routine 02/04/20 04:17 EKG Documentation Completion [RC] ASDIRECTED 02/04/20 04:18 RT Aerosol Therapy [RC] ASDIRECTED 02/04/20 04:35 PRO B-TYPE NATRIUR PEPT,BNPPRO [CHEM] Stat TROPONIN I [CHEM] Stat 02/04/20 05:00 Sodium Chloride 0.9% [Normal Saline] 1,000 ml IV ASDIRECTED - Assessment/Plan Last 24 Hours: My Active Orders 02/04/20 04:16 Chest 1V Frontal [CR] Stat EKG 12 Lead [EK] Routine 02/04/20 04:17 EKG Documentation Completion [RC] ASDIRECTED 02/04/20 04:18 RT Aerosol Therapy [RC] ASDIRECTED 02/04/20 04:35 PRO B-TYPE NATRIUR PEPT,BNPPRO [CHEM] Stat TROPONIN I [CHEM] Stat 02/04/20 05:00 Sodium Chloride 0.9% [Normal Saline] 1,000 ml IV ASDIRECTED
[2020-02-04] MEDS ORDERED: Sodium Chloride 0.9% 1,000 ML IV SCH (05:00)
[2020-02-04 07:12] VITALS: BP 140/62; PULSE 75
--- NOTE | 2020-02-04 10:22 | CR ---
INDICATION: Dyspnea. CHEST ONE VIEW: Portable AP upright view of the chest 02/04/2020 was compared with 01/26/2017 and 11/03/2016. The heart did not appear grossly enlarged allowing for the AP positioning. The aorta is calcified in the arch area. Overlying EKG leads are noted. A definite active infiltrate or effusion was not identified with pulmonary markings slightly less prominent than on the last examination -- no consolidating pneumonia or effusion was identified. The lungs may be somewhat hyperaerated. PA and lateral views of the chest may be helpful for further evaluation when clinically possible. IMPRESSION: No definite acute process -- PA and lateral views of the chest may be helpful for further evaluation, when clinically possible. MTDD
== END 2020-02-04 05:35 | disposition home or self-care (01) ==
LOC: FB.ED 03:39
DX: J44.1 Chronic obstructive pulmonary disease with (acute) exacerbation (principal); E11.9 Type 2 diabetes mellitus without complications; Z79.84 Long term (current) use of oral hypoglycemic drugs; E66.9 Obesity, unspecified; Z68.42 Body mass index [BMI] 45.0-49.9, adult; F41.9 Anxiety disorder, unspecified; Z91.09 Other allergy status, other than to drugs and biological substances; Z88.1 Allergy status to other antibiotic agents; Z88.0 Allergy status to penicillin; E78.00 Pure hypercholesterolemia, unspecified
CPT/HCPCS: 36415; 71045; 80053; 83880; 84484; 85025; 93005; 94640; 96361; 96374; 96375; 99284; 99285-25; J2270; J2930; J7030; J7620-GY

== ENCOUNTER 2020-02-16 18:55 | Emergency (ER) | payer MEDICARE, BC ==
[2020-02-16] MEDS ORDERED: Albuterol 0.083% 2.5 MG/3 ML Neb Soln INH ONE (18:56)
[2020-02-16] MEDS ORDERED: methylPREDNISolone Sodium Succinate 125 MG/2 ML SDV IVPUSH ONE (19:23)
--- NOTE | 2020-02-16 19:32 | EDM.PDOC ---
ED HPI GENERAL MEDICAL PROBLEM - General Chief Complaint: Respiratory Problem Stated Complaint: SOB Time Seen by Provider: 02/16/20 19:21 Source of Information: Reports: Patient, Other History Limitations: Reports: No Limitations - History of Present Illness INITIAL COMMENTS - FREE TEXT/NARRATIVE: 79 yo F with h/o chronic respiratory Failure secondary to Oxygen dependent COPD. Presents to the ER with SOB, generalized weakness and chest congestion. Symptoms have been ongoing for the past several days and seem to be getting worse. Patient reports that she ran out of her Nebs. No fever, recent travel, Chest pain, abdominal pain, Nausea or vomiting. Patient presented to the ER for further evaluation. Onset: Other (ongoing for the past several days. ) Duration: Getting Worse, Intermittent, Recurring Location: Reports: Chest Worsens with: Reports: Breathing - Related Data Allergies Allergy/AdvReac Type Severity Reaction Status Date / Time perfume Allergy Intermediate Shortness Verified 02/16/20 19:20 of Breath ceftriaxone sodium Allergy Hives Verified 02/16/20 19:20 [From Rocephin] ciprofloxacin [From Cipro] Allergy Hives Verified 02/16/20 19:20 ciprofloxacin HCl Allergy Hives Verified 02/16/20 19:20 [From Cipro] Penicillins Allergy Hives Verified 02/16/20 19:20 pneumococcal vaccine Allergy Swelling Verified 02/16/20 19:20 [Pneumococcal Vaccine] Home Meds: Home Meds Albuterol [Ventolin HFA] 2 puff INH Q4HR PRN 03/07/14 [History] Simvastatin [Zocor] 20 mg PO BEDTIME 05/23/15 [History] Furosemide [Lasix] 40 mg PO DAILY 10/11/16 [History] ALPRAZolam [Alprazolam] 0.25 mg PO BID 05/10/19 [History] Fluticasone Propion/Salmeterol [Advair 250-50 Diskus] 1 puff INH BID 05/10/19 [ History] Levothyroxine [Synthroid] 100 mcg PO ACBREAKFAST 05/10/19 [History] metFORMIN HCl [Metformin HCl ER] 500 mg PO DAILY 05/10/19 [History] Albuterol Sulfate 2.5 mg IH QID 02/16/20 [History] Azithromycin [Zithromax] 250 mg PO DAILY #6 tab 02/16/20 [Rx] predniSONE 40 mg PO DAILY 5 Days #10 tab 02/16/20 [Rx] Past Medical History HEENT History: Reports: Cataract, Impaired Vision Cardiovascular History: Reports: High Cholesterol, SOB on Exertion Respiratory History: Reports: COPD Other Respiratory History: O2 con't @ 4L/NC Gastrointestinal History: Reports: Bowel Obstruction, Other (See Below) Other Gastrointestinal History: Had abdominal surgery but patient is not certain what was all involved. Genitourinary History: Reports: UTI, Recurrent [employer] M[employer]ER History: Reports: Other [employer] M[employer]ER History: Musculoskeletal History: Reports: Arthritis Other Musculoskeletal History: Possibly some arthritis. Neurological History: Reports: Migraines Psychiatric History: Reports: Anxiety Endocrine/Metabolic History: Reports: Diabetes, Type II, Obesity/BMI 30+ Other Endocrine/Metabolic History: Thyroidectomy 2007 Hematologic History: Reports: Blood Transfusion(s) Oncologic (Cancer) History: Reports: Colon, Other (See Below) Other Oncologic History: according to the report. pt denies. Dermatologic History: Reports: Cellulitis, Other (See Below) Other Dermatologic History: Lymphedema. - Infectious Disease History Infectious Disease History: Reports: Chicken Pox, Measles, Mumps Other Infectious Disease History: She is not certain if she had Rubella or Rubeola. - Past Surgical History Head Surgeries/Procedures: Reports: None HEENT Surgical History: Reports: Adenoidectomy, Cataract Surgery, Tonsillectomy , Other (See Below) Other HEENT Surgeries/Procedures: bilat cataract surgery, GI Surgical History: Reports: Cholecystectomy, Colon, Colonoscopy, EGD, Hernia Repair/Other Female Surgical History: Reports: Hysterectomy, Other (See Below) Endocrine Surgical History: Reports: Thyroidectomy Social & Family History - Family History Family Medical History: Noncontributory Dermatologic: Reports: None Oncologic: Reports: Other (See Below) Other Oncologic Family History: Patient doesn't recall the type. - Caffeine Use Caffeine Use: Reports: Coffee - Living Situation & Occupation Living situation: Reports: Alone ED ROS GENERAL - Review of Systems Review Of Systems: See Below Constitutional: Reports: Malaise, Weakness HEENT: Reports: No Symptoms Respiratory: Reports: Shortness of Breath, Wheezing, Sputum Cardiovascular: Reports: Dyspnea on Exertion, Edema (mild ankle edema) Endocrine: Reports: No Symptoms GI/Abdominal: Reports: No Symptoms : Reports: No Symptoms Musculoskeletal: Reports: No Symptoms Skin: Reports: No Symptoms Neurological: Reports: No Symptoms Psychiatric: Reports: No Symptoms Hematologic/Lymphatic: Reports: No Symptoms Immunologic: Reports: No Symptoms ED EXAM, GENERAL - Physical Exam Exam: See Below Exam Limited By: No Limitations General Appearance: Alert, WD/WN, No Apparent Distress Eye Exam: Bilateral Eye: PERRL Nose: Normal Inspection, Normal Mucosa Throat/Mouth: Normal Inspection, Normal Lips, Normal Oropharynx Head: Atraumatic, Normocephalic Neck: Normal Inspection, Supple, Non-Tender, Full Range of Motion Respiratory/Chest: Wheezing, Other (Bilateral wheezze.) Cardiovascular: No JVD, No Murmur GI/Abdominal: Normal Bowel Sounds, Soft, Non-Tender, No Organomegaly Back Exam: Normal Inspection, Full Range of Motion Extremities: Pedal Edema (mild ankle edema) Neurological: Alert, Oriented, CN II-XII Intact, Normal Cognition, Normal Gait, Normal Reflexes Psychiatric: Normal Affect, Normal Mood Lymphatic: No Adenopathy Course - Vital Signs Last Recorded V/S: Last Vital Signs Temp 36.1 C 02/16/20 18:55 Pulse 74 02/16/20 18:55 Resp 16 02/16/20 18:55 BP 130/95 H 02/16/20 18:55 Pulse Ox 97 02/16/20 18:55 - Orders/Labs/Meds Orders: Active Orders 24 hr Category Date Time Status Oxygen Therapy, ED [RC] ASDIRECTED Care 02/16/20 19:00 Active RT Aerosol Therapy [RC] ASDIRECTED Care 02/16/20 19:27 Active CXR [Chest 2V] [CR] Stat Exams 02/16/20 19:22 Taken Albuterol/Ipratropium [DuoNeb 3.0-0.5 MG/3 ML] Med 02/16/20 19:30 Active 3 ml NEB Q1H Sodium Chloride 0.9% [Saline Flush] Med 02/16/20 20:16 Active 10 ml FLUSH ASDIRECTED PRN Medication Orders Albuterol/Ipratropium (Duoneb 3.0-0.5 Mg/3 Ml) 3 ml NEB Q1H MYKE Last Admin: 02/16/20 20:52 Dose: 3 ml Admin: 02/16/20 19:45 Dose: 3 ml Sodium Chloride (Saline Flush) 10 ml FLUSH ASDIRECTED PRN PRN Reason: Keep Vein Open Last Admin: 02/16/20 20:17 Dose: 10 ml Labs: Laboratory Tests 02/16/20 02/16/20 02/16/20 Range/Units 19:30 19:30 19:30 WBC 9.3 (4.5-12.0) X10-3/uL RBC 3.95 (3.23-5.20) x10(6)uL Hgb 11.5 (11.5-15.5) g/dL Hct 35.1 (30.0-51.3) % MCV 88.7 (80-96) fL MCH 29.1 (27.7-33.6) pg MCHC 32.8 (32.2-35.4) g/dL RDW 14.1 (11.5-15.5) % Plt Count 374 H (125-369) X10(3)uL Sodium 141 (135-145) mmol/L Potassium 4.1 (3.5-5.3) mmol/L Chloride 102 D (100-110) mmol/L Carbon Dioxide 41 H* (21-32) mmol/L BUN 12 D (7-18) mg/dL Creatinine 0.8 (0.55-1.02) mg/dL Est Cr Clr Drug Dosing TNP Estimated GFR (MDRD) > 60 (>60) BUN/Creatinine Ratio 15.0 (9-20) Glucose 171 H (80-116) mg/dL Calcium 8.8 (8.6-10.2) mg/dL Total Bilirubin 0.2 (0.1-1.3) mg/dL AST 16 D (5-25) IU/L ALT 24 (12-36) U/L Alkaline Phosphatase 105 (56-112) IU/L C-Reactive Protein 3.3 H* (0.5-0.9) mg/dL NT-Pro-B Natriuret Pep (<=450) pg/mL Total Protein 6.8 (6.0-8.0) g/dL Albumin 3.1 L (3.2-4.6) g/dL Globulin 3.7 g/dL Albumin/Globulin Ratio 0.8 02/16/20 Range/Units 19:30 WBC (4.5-12.0) X10-3/uL RBC (3.23-5.20) x10(6)uL Hgb (11.5-15.5) g/dL Hct (30.0-51.3) % MCV (80-96) fL MCH (27.7-33.6) pg MCHC (32.2-35.4) g/dL RDW (11.5-15.5) % Plt Count (125-369) X10(3)uL Sodium (135-145) mmol/L Potassium (3.5-5.3) mmol/L Chloride (100-110) mmol/L Carbon Dioxide (21-32) mmol/L BUN (7-18) mg/dL Creatinine (0.55-1.02) mg/dL Est Cr Clr Drug Dosing Estimated GFR (MDRD) (>60) BUN/Creatinine Ratio (9-20) Glucose (80-116) mg/dL Calcium (8.6-10.2) mg/dL Total Bilirubin (0.1-1.3) mg/dL AST (5-25) IU/L ALT (12-36) U/L Alkaline Phosphatase (56-112) IU/L C-Reactive Protein (0.5-0.9) mg/dL NT-Pro-B Natriuret Pep 157 (<=450) pg/mL Total Protein (6.0-8.0) g/dL Albumin (3.2-4.6) g/dL Globulin g/dL Albumin/Globulin Ratio Meds: Medications Generic Name Dose Route Start Last Admin Trade Name Freq PRN Reason Stop Dose Admin Albuterol/Ipratropium 3 ml 02/16/20 19:30 02/16/20 20:52 Duoneb 3.0-0.5 Mg/3 Ml NEB 3 ml Q1H MYKE Administration Sodium Chloride 10 ml 02/16/20 20:16 02/16/20 20:17 Saline Flush FLUSH 10 ml ASDIRECTED PRN Administration Keep Vein Open Discontinued Medications Generic Name Dose Route Start Last Admin Trade Name Freq PRN Reason Stop Dose Admin Methylprednisolone Sodium Succinate 125 mg 02/16/20 19:23 02/16/20 20:15 Solu-Medrol IVPUSH 02/16/20 19:24 125 mg ONETIME ONE Administration Departure - Departure Time of Disposition: 21:26 Disposition: Home, Self-Care 01 Condition: Fair Clinical Impression: COPD, Moderate chronic obstructive pulmonary disease, COPD with exacerbation, Alkalosis, metabolic - Discharge Information *PRESCRIPTION DRUG MONITORING PROGRAM REVIEWED*: Not Applicable *COPY OF PRESCRIPTION DRUG MONITORING REPORT IN PATIENT ESTRELLA: Not Applicable Prescriptions: Azithromycin [Zithromax] 250 mg PO DAILY #6 tab predniSONE 40 mg PO DAILY 5 Days #10 tab Instructions: Chronic Obstructive Pulmonary Disease Exacerbation, [id number] , Shortness of Breath, Adult, [id number] Referrals: Tushar Lopez MD [Primary Care Provider] - Forms: ED Department Discharge Additional Instructions: Follow with PCP in 3-5 days Return if symptoms worsen Please Hold Lasix for 2 days due to Contraction Alkalosis Call your Physician or Return to Emergency Department if: * Your condition worsens in any way. * You develop fever greater than 100.4. * You have vomitting that does not stop with medications. * You have pain that is not controlled with medications. Sepsis Event Note - Evaluation Sepsis Screening Result: No Definite Risk - Focused Exam Vital Signs: Vital Signs Temp Pulse Resp BP Pulse Ox 02/16/20 18:55 36.1 C 74 16 130/95 H 97 Date Exam was Performed: 02/16/20 Time Exam was Performed: 21:23 - My Orders Last 24 Hours: My Active Orders 02/16/20 19:00 Oxygen Therapy, ED [RC] ASDIRECTED 02/16/20 19:22 CXR [Chest 2V] [CR] Stat 02/16/20 19:27 RT Aerosol Therapy [RC] ASDIRECTED 02/16/20 19:30 Albuterol/Ipratropium [DuoNeb 3.0-0.5 MG/3 ML] 3 ml NEB Q1H 02/16/20 20:16 Sodium Chloride 0.9% [Saline Flush] 10 ml FLUSH ASDIRECTED PRN - Assessment/Plan Last 24 Hours: My Active Orders 02/16/20 19:00 Oxygen Therapy, ED [RC] ASDIRECTED 02/16/20 19:22 CXR [Chest 2V] [CR] Stat 02/16/20 19:27 RT Aerosol Therapy [RC] ASDIRECTED 02/16/20 19:30 Albuterol/Ipratropium [DuoNeb 3.0-0.5 MG/3 ML] 3 ml NEB Q1H 02/16/20 20:16 Sodium Chloride 0.9% [Saline Flush] 10 ml FLUSH ASDIRECTED PRN
[2020-02-16] MEDS: Albuterol/Ipratropium 3.0-0.5 MG/3 ML Neb Soln NEB SCH ×2 (19:45→20:52)
[2020-02-16] MEDS ORDERED: Sodium Chloride 0.9% 10 ML Syringe FLUSH PRN (20:16)
[2020-02-16 21:35] VITALS: BP 133/49; PULSE 68
== END 2020-02-16 21:45 | disposition home or self-care (01) ==
LOC: FB.ED 18:55
DX: J44.1 Chronic obstructive pulmonary disease with (acute) exacerbation (principal); E87.3 Alkalosis; E78.00 Pure hypercholesterolemia, unspecified; F41.9 Anxiety disorder, unspecified; E11.9 Type 2 diabetes mellitus without complications; E66.9 Obesity, unspecified; Z91.048 Other nonmedicinal substance allergy status; Z88.1 Allergy status to other antibiotic agents; Z88.0 Allergy status to penicillin; Z88.7 Allergy status to serum and vaccine; Z79.899 Other long term (current) drug therapy; Z79.84 Long term (current) use of oral hypoglycemic drugs
CPT/HCPCS: 36415; 71046; 80053; 83880; 85027; 86140; 94640; 96374; 99285; J2930; J7620-GY

== ENCOUNTER 2020-04-23 21:07 | Emergency (ER) | payer MEDICARE, BC, OTHER ==
[2020-04-23] MEDS ORDERED: predniSONE 20 MG Tab PO ONE (21:08)
[2020-04-23] MEDS ORDERED: Albuterol/Ipratropium 3.0-0.5 MG/3 ML Neb Soln NEB ONE (21:39)
[2020-04-23] MEDS ORDERED: LORazepam 2 MG/ML SDV IVPUSH ONE (21:39)
--- NOTE | 2020-04-23 21:54 | EDM.PDOC ---
ED HPI GENERAL MEDICAL PROBLEM - General Chief Complaint: Respiratory Problem Stated Complaint: SOB Time Seen by Provider: 04/23/20 21:49 Source of Information: Reports: Patient History Limitations: Reports: No Limitations - History of Present Illness INITIAL COMMENTS - FREE TEXT/NARRATIVE: Jacey has had difficulty breathing since this morning. She has end stage COPD on 4 L of home o2. She was not responding to home nebs, No fever or cough.No chest pain. Jacey was at [facility] 1 month ago for COPD exacerbation. She has anxiety,DM2,untreated,and peripheral neuropathy.She also continues to smoke. - Related Data Allergies Allergy/AdvReac Type Severity Reaction Status Date / Time perfume Allergy Intermediate Shortness Verified 04/23/20 21:11 of Breath ceftriaxone sodium Allergy Hives Verified 04/23/20 21:11 [From Rocephin] ciprofloxacin [From Cipro] Allergy Hives Verified 04/23/20 21:11 ciprofloxacin HCl Allergy Hives Verified 04/23/20 21:11 [From Cipro] Penicillins Allergy Hives Verified 04/23/20 21:11 pneumococcal vaccine Allergy Swelling Verified 04/23/20 21:11 [Pneumococcal Vaccine] Home Meds: Home Meds Albuterol [Ventolin HFA] 2 puff INH Q4HR PRN 03/07/14 [History] Simvastatin [Zocor] 20 mg PO BEDTIME 05/23/15 [History] Furosemide [Lasix] 40 mg PO DAILY 10/11/16 [History] ALPRAZolam [Alprazolam] 0.25 mg PO BID 05/10/19 [History] Fluticasone Propion/Salmeterol [Advair 250-50 Diskus] 1 puff INH BID 05/10/19 [History] Levothyroxine [Synthroid] 100 mcg PO ACBREAKFAST 05/10/19 [History] Albuterol Sulfate 2.5 mg IH QID 02/16/20 [History] Past Medical History HEENT History: Reports: Cataract, Impaired Vision Cardiovascular History: Reports: High Cholesterol, SOB on Exertion Respiratory History: Reports: Bronchitis, Recurrent, COPD Other Respiratory History: Uses home O2. Gastrointestinal History: Reports: Bowel Obstruction, Other (See Below) Other Gastrointestinal History: Had abdominal surgery but patient is not certain what was all involved. 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 Hematologic History: Reports: Blood Transfusion(s) Oncologic (Cancer) History: Reports: Colon, Other (See Below) Other Oncologic History: According to the report, patient denies. Dermatologic History: Reports: Cellulitis, Other (See Below) Other Dermatologic History: Lymphedema. - Infectious Disease History Infectious Disease History: Reports: Mumps Other Infectious Disease History: She is not certain if she had Rubella or Rubeola. - Past Surgical History Head Surgeries/Procedures: Reports: None HEENT Surgical History: Reports: Adenoidectomy, Cataract Surgery, Tonsillectomy, Other (See Below) Other HEENT Surgeries/Procedures: Bilateral cataract surgery. GI Surgical History: Reports: Cholecystectomy, Colon, Colonoscopy, EGD, Hernia Repair/Other Female Surgical History: Reports: Hysterectomy Endocrine Surgical History: Reports: Thyroidectomy Musculoskeletal Surgical History: Reports: None Social & Family History - Family History Family Medical History: Noncontributory Dermatologic: Reports: None Oncologic: Reports: Other (See Below) Other Oncologic Family History: Patient doesn't recall the type. - Tobacco Use Smoking Status *Q: Current Every Day Smoker Years of Tobacco use: 65 Packs/Tins Daily: 0.2 - Caffeine Use Caffeine Use: Reports: Coffee, Tea - Recreational Drug Use Recreational Drug Use: No - Living Situation & Occupation Living situation: Reports: Alone ED ROS GENERAL - Review of Systems Review Of Systems: Comprehensive ROS is negative, except as noted in HPI. ED EXAM, GENERAL - Physical Exam Exam: See Below Exam Limited By: No Limitations General Appearance: Alert, WD/WN, Mild Distress Ears: Normal External Exam Ear Exam: Bilateral Ear: Auricle Normal, Canal Normal, TM normal Nose: Normal Inspection Throat/Mouth: Normal Inspection Head: Atraumatic, Normocephalic Respiratory/Chest: No Accessory Muscle Use, Decreased Breath Sounds, Other (Mouth Breathing) GI/Abdominal: Normal Bowel Sounds, Soft (Female) Exam: Deferred Rectal (Female) Exam: Deferred Extremities: Normal Inspection Neurological: Alert, Oriented, CN II-XII Intact EKG INTERPRETATION EKG Date: 04/23/20 Rhythm: NSR Course - Vital Signs Last Recorded V/S: Last Vital Signs Temp 97.9 F 04/23/20 21:07 Pulse 73 04/23/20 22:52 Resp 21 H 04/23/20 22:52 BP 116/42 L 04/23/20 22:52 Pulse Ox 96 04/23/20 22:52 - Orders/Labs/Meds Orders: Active Orders 24 hr Category Date Time Status EKG Documentation Completion [RC] ASDIRECTED Care 04/23/20 21:24 Active Oxygen Therapy Adult [Oxygen Therapy, ED] [RC] Care 04/23/20 21:07 Active ASDIRECTED RT Aerosol Therapy [RC] ASDIRECTED Care 04/23/20 21:39 Active Chest 1V Frontal [CR] Stat Exams 04/23/20 21:24 Taken EKG 12 Lead [EK] Routine Ther 04/23/20 21:24 Ordered Labs: Laboratory Tests 04/23/20 04/23/20 04/23/20 Range/Units 21:22 21:22 21:22 WBC 10.1 (4.5-12.0) X10-3/uL RBC 4.30 (3.23-5.20) x10(6)uL Hgb 11.6 (11.5-15.5) g/dL Hct 37.6 (30.0-51.3) % MCV 87.4 (80-96) fL MCH 27.0 L (27.7-33.6) pg MCHC 30.9 L (32.2-35.4) g/dL RDW 14.1 (11.5-15.5) % Plt Count 420 H (125-369) X10(3)uL MPV 7.2 L (7.4-10.4) fL Neut % (Auto) 72.2 (46-82) % Lymph % (Auto) 15.6 (13-37) % [place] % (Auto) 7.8 (4-12) % Eos % (Auto) 4 (1.0-5.0) % Baso % (Auto) 1 (0-2) % Neut # (Auto) 7.2 (1.6-8.3) # Lymph # (Auto) 1.6 (0.6-5.0) # [place] # (Auto) 0.8 (0.0-1.3) # Eos # (Auto) 0.4 (0.0-0.8) # Baso # (Auto) 0.1 (0.0-0.2) # POC VBG pH (7.31-7.41) POC VBG pCO2 (41-51) mmHG POC VBG HCO3 (23-28) mmol/L POC VBG Total CO2 (24-29) mmol/L POC VBG Base Excess (-2-3) mmol/L Sodium 142 (135-145) mmol/L Potassium 4.2 (3.5-5.3) mmol/L Chloride 99 L (100-110) mmol/L Carbon Dioxide 44 H* (21-32) mmol/L BUN 19 H (7-18) mg/dL Creatinine 0.9 (0.55-1.02) mg/dL Est Cr Clr Drug Dosing 43.05 mL/min Estimated GFR (MDRD) > 60 (>60) BUN/Creatinine Ratio 21.1 H (9-20) Glucose 186 H (80-116) mg/dL Calcium 9.2 (8.6-10.2) mg/dL Total Bilirubin 0.3 (0.1-1.3) mg/dL AST 15 (5-25) IU/L ALT 18 D (12-36) U/L Alkaline Phosphatase 124 H (56-112) IU/L Troponin I 21.6 (4.0-60.3) pg/mL NT-Pro-B Natriuret Pep 43 (<=450) pg/mL Total Protein 7.6 (6.0-8.0) g/dL Albumin 3.8 (3.2-4.6) g/dL Globulin 3.8 g/dL Albumin/Globulin Ratio 1.0 SARS Virus RNA (PCR) (NEGATIVE) 04/23/20 04/23/20 Range/Units 21:22 21:48 WBC (4.5-12.0) X10-3/uL RBC (3.23-5.20) x10(6)uL Hgb (11.5-15.5) g/dL Hct (30.0-51.3) % MCV (80-96) fL MCH (27.7-33.6) pg MCHC (32.2-35.4) g/dL RDW (11.5-15.5) % Plt Count (125-369) X10(3)uL MPV (7.4-10.4) fL Neut % (Auto) (46-82) % Lymph % (Auto) (13-37) % [place] % (Auto) (4-12) % Eos % (Auto) (1.0-5.0) % Baso % (Auto) (0-2) % Neut # (Auto) (1.6-8.3) # Lymph # (Auto) (0.6-5.0) # [place] # (Auto) (0.0-1.3) # Eos # (Auto) (0.0-0.8) # Baso # (Auto) (0.0-0.2) # POC VBG pH 7.44 H (7.31-7.41) POC VBG pCO2 61.2 H (41-51) mmHG POC VBG HCO3 41.2 H (23-28) mmol/L POC VBG Total CO2 43 H (24-29) mmol/L POC VBG Base Excess 17 H (-2-3) mmol/L Sodium (135-145) mmol/L Potassium (3.5-5.3) mmol/L Chloride (100-110) mmol/L Carbon Dioxide (21-32) mmol/L BUN (7-18) mg/dL Creatinine (0.55-1.02) mg/dL Est Cr Clr Drug Dosing mL/min Estimated GFR (MDRD) (>60) BUN/Creatinine Ratio (9-20) Glucose (80-116) mg/dL Calcium (8.6-10.2) mg/dL Total Bilirubin (0.1-1.3) mg/dL AST (5-25) IU/L ALT (12-36) U/L Alkaline Phosphatase (56-112) IU/L Troponin I (4.0-60.3) pg/mL NT-Pro-B Natriuret Pep (<=450) pg/mL Total Protein (6.0-8.0) g/dL Albumin (3.2-4.6) g/dL Globulin g/dL Albumin/Globulin Ratio SARS Virus RNA (PCR) Negative (NEGATIVE) Meds: Medications Discontinued Medications Generic Name Dose Route Start Last Admin Trade Name Sophie PRN Reason Stop Dose Admin Albuterol/Ipratropium 3 ml 04/23/20 21:39 04/23/20 21:48 Duoneb 3.0-0.5 Mg/3 Ml NEB 04/23/20 21:40 3 ml ONETIME ONE Administration Lorazepam 0.5 mg 04/23/20 21:39 04/23/20 21:47 Ativan IVPUSH 04/23/20 21:40 0.5 mg ONETIME ONE Administration Departure - Departure Time of Disposition: 23:53 Disposition: Home, Self-Care 01 Clinical Impression: COPD (chronic obstructive pulmonary disease) - Discharge Information Instructions: Chronic Obstructive Pulmonary Disease, Home Oxygen Use, Adult, Prednisone tablets Referrals: PCP,None [Primary Care Provider] - Forms: ED Department Discharge Additional Instructions: Hooked to your oxygen concentrator at home mari and somebody from [facility] will visit you tomorrow and bring you oxygen tank. Take the prednisone 1 tablet 2x a day. Follow up with your Primary Care Provider as needed. May come bcak here at the Emergency room if you develop chest pain with roc rtness of breath or any other concerning signs and symptoms. Sepsis Event Note (ED) - Evaluation Sepsis Screening Result: No Definite Risk - Focused Exam Vital Signs: Vital Signs Temp Pulse Resp BP Pulse Ox Pulse Ox 04/23/20 22:52 73 21 H 116/42 L 96 04/23/20 22:45 96 17 112/34 L 95 04/23/20 22:04 74 17 115/40 L 97 04/23/20 21:07 97.9 F 82 25 H 149/74 H 3 L 100 - Problem List & Annotations (1) COPD (chronic obstructive pulmonary disease) SNOMED Code(s): 50442779 Code(s): J44.9 - CHRONIC OBSTRUCTIVE PULMONARY DISEASE, UNSPECIFIED Status: Acute Current Visit: Yes Qualifiers: COPD type: COPD with acute exacerbation Qualified Code(s): J44.1 - Chronic obstructive pulmonary disease with (acute) exacerbation (2) Diabetes mellitus type 2 SNOMED Code(s): 43272159 Code(s): E11.9 - TYPE 2 DIABETES MELLITUS WITHOUT COMPLICATIONS Status: Chronic Current Visit: No Annotation/Comment:: A1c mildly elevated to 6.8%. No bs over 200 mg/dL. (3) Tobacco abuse disorder SNOMED Code(s): 414722537 Code(s): Z72.0 - TOBACCO USE Status: Chronic Current Visit: No Annotation/Comment:: Offered nicotine patch. Patient declined. (4) Neuropathy, peripheral SNOMED Code(s): 876950086 Code(s): G62.9 - POLYNEUROPATHY, UNSPECIFIED Status: Chronic Current Visit: No Annotation/Comment:: Ultram on a as necessary basis. (5) Venous stasis dermatitis of both lower extremities SNOMED Code(s): 60672397 Code(s): I87.2 - VENOUS INSUFFICIENCY (CHRONIC) (PERIPHERAL) Status: Acute Current Visit: No - Problem List Review Problem List Initiated/Reviewed/Updated: Yes - My Orders Last 24 Hours: My Active Orders 04/23/20 21:07 Oxygen Therapy Adult [Oxygen Therapy, ED] [RC] ASDIRECTED 04/23/20 21:24 EKG Documentation Completion [RC] ASDIRECTED Chest 1V Frontal [CR] Stat EKG 12 Lead [EK] Routine 04/23/20 21:39 RT Aerosol Therapy [RC] ASDIRECTED - Assessment/Plan Last 24 Hours: My Active Orders 04/23/20 21:07 Oxygen Therapy Adult [Oxygen Therapy, ED] [RC] ASDIRECTED 04/23/20 21:24 EKG Documentation Completion [RC] ASDIRECTED Chest 1V Frontal [CR] Stat EKG 12 Lead [EK] Routine 04/23/20 21:39 RT Aerosol Therapy [RC] ASDIRECTED Plan: Alllabs reviewed,including COVID. CXR neg. DC home with Pred 20 mg po bid.
[2020-04-23 22:53] VITALS: BP 116/42; PULSE 73
== END 2020-04-24 | disposition home or self-care (01) ==
LOC: FB.ED 21:07
DX: J44.9 Chronic obstructive pulmonary disease, unspecified (principal); F41.9 Anxiety disorder, unspecified; E11.9 Type 2 diabetes mellitus without complications; E03.9 Hypothyroidism, unspecified; E66.9 Obesity, unspecified; F17.210 Nicotine dependence, cigarettes, uncomplicated; Z68.32 Body mass index [BMI] 32.0-32.9, adult; Z20.828 Contact with and (suspected) exposure to other viral communicable diseases; Z91.048 Other nonmedicinal substance allergy status; Z88.1 Allergy status to other antibiotic agents; Z88.0 Allergy status to penicillin; Z88.8 Allergy status to other drugs, medicaments and biological substances; E78.00 Pure hypercholesterolemia, unspecified; Z99.81 Dependence on supplemental oxygen
CPT/HCPCS: 36415; 71045; 80053; 82803; 83880; 84484; 85025; 93005; 94640; 96374; 99285; J2060; J7512; U0002; 99284; J7620-GY

== ENCOUNTER 2020-07-06 18:58 | Inpatient (IN) | payer MEDICARE, BC, OTHER ==
--- NOTE | 2020-07-06 19:49 | EDM.PDOC ---
ED HPI GENERAL MEDICAL PROBLEM - General Chief Complaint: Respiratory Problem Stated Complaint: SOB Time Seen by Provider: 07/06/20 19:15 Source of Information: Reports: Patient History Limitations: Reports: No Limitations - History of Present Illness INITIAL COMMENTS - FREE TEXT/NARRATIVE: Patient presented to the ED because of dyspnea and weakness which started 1 week ago and is progressively getting worse. There is no associated fever, chills, cough or cold symptoms. There is no chest pain, leg edema. She also c/o abdominal pain over the LLQ and suprapubic area. Denies any nausea/vomiting but has been constipated for 1 week now. No urinary symptoms such as dysuria, urgency or frequency. She has a history of COPD on home oxygen and neb treatments but have not been helping her dyspnea. She also has a history of CAD, underwent an angiogram and echo 4 years ago and she doesn't know the results of the test mentioned. Treatments [employer] DIRECTOR: Reports: Oxygen - Related Data Allergies Allergy/AdvReac Type Severity Reaction Status Date / Time perfume Allergy Intermediate Shortness Verified 07/06/20 19:05 of Breath ceftriaxone sodium Allergy Hives Verified 07/06/20 19:05 [From Rocephin] ciprofloxacin [From Cipro] Allergy Hives Verified 07/06/20 19:05 ciprofloxacin HCl Allergy Hives Verified 07/06/20 19:05 [From Cipro] Penicillins Allergy Hives Verified 07/06/20 19:05 pneumococcal vaccine Allergy Swelling Verified 07/06/20 19:05 [Pneumococcal Vaccine] Home Meds: Home Meds Albuterol [Ventolin HFA] 2 puff INH Q4HR PRN 03/07/14 [History] Simvastatin [Zocor] 20 mg PO BEDTIME 05/23/15 [History] Furosemide [Lasix] 40 mg PO DAILY 10/11/16 [History] Fluticasone Propion/Salmeterol [Advair 250-50 Diskus] 1 puff INH BID 05/10/19 [History] Levothyroxine [Synthroid] 100 mcg PO ACBREAKFAST 05/10/19 [History] Albuterol Sulfate 2.5 mg IH QID 02/16/20 [History] ALPRAZolam [Xanax] 0.5 mg PO BID 07/06/20 [History] metFORMIN [Glucophage XR] 500 mg PO DAILY 07/06/20 [History] Past Medical History HEENT History: Reports: Cataract, Impaired Vision Cardiovascular History: Reports: High Cholesterol, SOB on Exertion Respiratory History: Reports: Bronchitis, Recurrent, COPD Other Respiratory History: Uses home O2. Gastrointestinal History: Reports: Bowel Obstruction, Other (See Below) Other Gastrointestinal History: Had abdominal surgery but patient is not certain what was all involved. Genitourinary History: Reports: UTI, Recurrent DOMESTIC TRAVEL CONSULTANT History: Reports: Other DOMESTIC TRAVEL CONSULTANT History: Musculoskeletal History: Reports: Arthritis, Fracture Other Musculoskeletal History: Possibly some arthritis, hx fx R 3rd digit, R gt toe Neurological History: Reports: Migraines Psychiatric History: Reports: Anxiety Endocrine/Metabolic History: Reports: Diabetes, Type II, Hypothyroidism, Obesity/BMI 30+ Other Endocrine/Metabolic History: Thyroidectomy 2007. Hematologic History: Reports: Blood Transfusion(s) Oncologic (Cancer) History: Reports: Colon, Other (See Below) Other Oncologic History: According to the report, patient denies. Dermatologic History: Reports: Cellulitis, Other (See Below) Other Dermatologic History: Lymphedema. - Infectious Disease History Infectious Disease History: Reports: Mumps Other Infectious Disease History: She is not certain if she had Rubella or Rubeola. - Past Surgical History Head Surgeries/Procedures: Reports: None HEENT Surgical History: Reports: Adenoidectomy, Cataract Surgery, Tonsillectomy, Other (See Below) Other HEENT Surgeries/Procedures: Bilateral cataract surgery. GI Surgical History: Reports: Cholecystectomy, Colon, Colonoscopy, EGD, Hernia Repair/Other Female Surgical History: Reports: Hysterectomy Endocrine Surgical History: Reports: Thyroidectomy Musculoskeletal Surgical History: Reports: None Social & Family History - Family History Family Medical History: Noncontributory Dermatologic: Reports: None Oncologic: Reports: Other (See Below) Other Oncologic Family History: Patient doesn't recall the type. - Tobacco Use Smoking Status *Q: Current Every Day Smoker Years of Tobacco use: 68 Packs/Tins Daily: 0.1 - Caffeine Use Caffeine Use: Reports: Coffee - Recreational Drug Use Recreational Drug Use: No - Living Situation & Occupation Living situation: Reports: Alone ED ROS GENERAL - Review of Systems Review Of Systems: See Below Constitutional: Reports: Weakness, Fatigue HEENT: Reports: No Symptoms Respiratory: Reports: Shortness of Breath, Wheezing Cardiovascular: Reports: No Symptoms Endocrine: Reports: No Symptoms GI/Abdominal: Reports: Abdominal Pain, Constipation : Reports: No Symptoms Musculoskeletal: Reports: No Symptoms Skin: Reports: No Symptoms Neurological: Reports: No Symptoms Psychiatric: Reports: No Symptoms ED EXAM, GENERAL - Physical Exam Exam: See Below Exam Limited By: No Limitations General Appearance: Alert, No Apparent Distress Eye Exam: Bilateral Eye: PERRL Ears: Normal External Exam, Normal Canal, Hearing Grossly Normal Nose: Normal Inspection, Normal Mucosa, No Blood Throat/Mouth: Normal Inspection, Normal Lips, Normal Teeth, Normal Gums, Normal Oropharynx, Normal Voice Head: Atraumatic, Normocephalic Neck: Normal Inspection, Supple, Non-Tender, Full Range of Motion Respiratory/Chest: Decreased Breath Sounds, Rales, Wheezing Cardiovascular: Normal Peripheral Pulses, Regular Rate, Rhythm, No Edema, No Gallop, No JVD, No Murmur, No Rub GI/Abdominal: Normal Bowel Sounds, Soft, Other (tenderness over the LLQ and suprapubia area) Back Exam: Normal Inspection, Full Range of Motion Extremities: Normal Inspection, Normal Range of Motion, Non-Tender, No Pedal Edema, Normal Capillary Refill Neurological: Alert, Oriented, CN II-XII Intact, Normal Cognition Psychiatric: Normal Affect, Normal Mood Skin Exam: Warm Course - Vital Signs Text/Narrative:: Labs/EKG/CXR/CT abd-pelvis was discussed with patient and verbalized full understanding Duoneb x1 Solumedrol 125 mg IV Bactrim DS po x1 Ativan 1 mg IV x1 NS @ 125 ml/hr Last Recorded V/S: Last Vital Signs Temp 36.4 C 07/06/20 21:35 Pulse 74 07/06/20 21:35 Resp 20 07/06/20 21:35 BP 122/43 L 07/06/20 21:35 Pulse Ox 96 07/06/20 21:35 - Orders/Labs/Meds Orders: Active Orders 24 hr Category Date Time Status Patient Status [ADT] Routine ADT 07/06/20 21:36 Ordered EKG Documentation Completion [RC] ASDIRECTED Care 07/06/20 19:23 Active Intake and Output [RC] QSHIFT Care 07/06/20 21:41 Ordered Oxygen Therapy [RC] PRN Care 07/06/20 21:36 Ordered Oxygen Therapy, ED [RC] ASDIRECTED Care 07/06/20 19:00 Active Pulse Oximetry [RC] CONTINUOUS Care 07/06/20 21:41 Ordered RT Aerosol Therapy [RC] ASDIRECTED Care 07/06/20 21:47 Ordered Up With Assistance [RC] ASDIRECTED Care 07/06/20 21:36 Ordered VTE/DVT Education [RC] Per Unit Routine Care 07/06/20 21:36 Ordered Vital Signs [RC] Q4H Care 07/06/20 21:36 Ordered Heart Healthy Diet [DIET] Diet 07/07/20 Breakfast Ordered Abdomen Pelvis w Cont [CT] Stat Exams 07/06/20 19:36 Ordered Chest 1V Frontal [CR] Stat Exams 07/06/20 19:22 Taken BASIC METABOLIC PANEL,BMP [CHEM] AM Lab 07/07/20 05:11 Ordered CULTURE URINE [RM] Stat Lab 07/06/20 21:36 Ordered Albuterol [Proventil Neb Soln] Med 07/06/20 21:36 Ordered 2.5 mg NEB Q2H PRN Albuterol/Ipratropium [DuoNeb 3.0-0.5 MG/3 ML] Med 07/07/20 07:00 Ordered 3 ml NEB QIDRT Docusate Sodium/Sennosides [Senna Plus] Med 07/06/20 21:36 Ordered 1 tab PO BID PRN Enoxaparin [Lovenox] Med 07/06/20 21:45 Ordered 40 mg SUBCUT Q24H Ondansetron [Zofran] Med 07/06/20 21:36 Ordered 4 mg IV Q4H PRN Sodium Chloride 0.9% @ 125 MLS/HR (1000ml) Med 07/06/20 21:45 Ordered Sodium Chloride 0.9% [Normal Saline] 1,000 ml IV ASDIRECTED Sodium Chloride 0.9% [Saline Flush] Med 07/06/20 19:34 Active 10 ml FLUSH ASDIRECTED PRN Sulfamethoxazole/Trimethoprim [Septra DS] Med 07/06/20 22:00 Ordered 1 tab PO BID methylPREDNISolone Sod Succ [Solu-MEDROL] Med 07/06/20 21:45 Ordered 125 mg IVPUSH Q8H Saline Lock Insert [OM.PC] Routine Oth 07/06/20 19:34 Ordered Sequential Compression Device [OM.PC] Per Unit Routine Oth 07/06/20 21:42 Ordered Resuscitation Status Routine Resus Stat 07/06/20 21:36 Ordered EKG 12 Lead [EK] Routine Ther 07/06/20 19:22 Ordered Medication Orders Albuterol (Proventil Neb Soln) 2.5 mg NEB Q2H PRN PRN Reason: Shortness Of Breath/wheezing Albuterol/Ipratropium (Duoneb 3.0-0.5 Mg/3 Ml) 3 ml NEB QIDRT MYKE Enoxaparin Sodium (Lovenox) 40 mg SUBCUT Q24H MYKE Sodium Chloride (Normal Saline) 1,000 mls @ 125 mls/hr IV ASDIRECTED MYKE Methylprednisolone Sodium Succinate (Solu-Medrol) 125 mg IVPUSH Q8H MYKE Ondansetron HCl (Zofran) 4 mg IV Q4H PRN PRN Reason: Nausea/Vomiting Senna/Docusate Sodium (Senna Plus) 1 tab PO BID PRN PRN Reason: Constipation Sodium Chloride (Saline Flush) 10 ml FLUSH ASDIRECTED PRN PRN Reason: Keep Vein Open Last Admin: 07/06/20 20:15 Dose: 10 ml Documented by: ULICES Trimethoprim/Sulfamethoxazole (Septra Ds) 1 tab PO BID [facility] Labs: Laboratory Tests 07/06/20 07/06/20 07/06/20 Range/Units 19:10 19:10 19:10 WBC 9.3 (4.5-12.0) X10-3/uL RBC 4.14 (3.23-5.20) x10(6)uL Hgb 11.2 L (11.5-15.5) g/dL Hct 36.3 (30.0-51.3) % MCV 87.6 (80-96) fL MCH 27.0 L (27.7-33.6) pg MCHC 30.9 L (32.2-35.4) g/dL RDW 14.0 (11.5-15.5) % Plt Count 349 (125-369) X10(3)uL MPV 7.5 (7.4-10.4) fL Neut % (Auto) 69.1 (46-82) % Lymph % (Auto) 16.9 (13-37) % Winn % (Auto) 7.2 (4-12) % Eos % (Auto) 4 (1.0-5.0) % Baso % (Auto) 3 H (0-2) % Neut # (Auto) 6.3 (1.6-8.3) # Lymph # (Auto) 1.6 (0.6-5.0) # Winn # (Auto) 0.7 (0.0-1.3) # Eos # (Auto) 0.4 (0.0-0.8) # Baso # (Auto) 0.3 H (0.0-0.2) # Sodium 144 (135-145) mmol/L Potassium 4.1 (3.5-5.3) mmol/L Chloride 95 L (100-110) mmol/L Carbon Dioxide 45 H* (21-32) mmol/L BUN 17 (7-18) mg/dL Creatinine 0.7 (0.55-1.02) mg/dL Est Cr Clr Drug Dosing 55.35 mL/min Estimated GFR (MDRD) > 60 (>60) BUN/Creatinine Ratio 24.3 H (9-20) Glucose 166 H (80-116) mg/dL Calcium 9.7 (8.6-10.2) mg/dL Total Bilirubin 0.4 (0.1-1.3) mg/dL AST 18 D (5-25) IU/L ALT 16 D (12-36) U/L Alkaline Phosphatase 125 H (56-112) IU/L Troponin I 18.3 (4.0-60.3) pg/mL NT-Pro-B Natriuret Pep 100 (<=450) pg/mL Total Protein 7.2 (6.0-8.0) g/dL Albumin 3.6 (3.2-4.6) g/dL Globulin 3.6 g/dL Albumin/Globulin Ratio 1.0 Amylase 56 (25-115) U/L Lipase 68 L (73-393) U/L TSH, Ultra Sensitive 3.64 (0.36-3.74) IU/mL Urine Color (YELLOW) Urine Appearance (CLEAR) Urine pH (5.0-6.5) Ur Specific [place] (1.010-1.025) Urine Protein (NEGATIVE) mg/dL Urine Glucose (UA) (NORMAL) mg/dL Urine Ketones (NEGATIVE) mg/dL Urine Occult Blood (NEGATIVE) Urine Nitrite (NEGATIVE) Urine Bilirubin (NEGATIVE) Urine Urobilinogen (NEGATIVE) mg/dL Ur Leukocyte Esterase (NEGATIVE) Urine RBC (0-5) Urine WBC (0-5) Ur Squamous Epith Cells (NS,R,O) Urine Bacteria (NS) 07/06/20 Range/Units 21:10 WBC (4.5-12.0) X10-3/uL RBC (3.23-5.20) x10(6)uL Hgb (11.5-15.5) g/dL Hct (30.0-51.3) % MCV (80-96) fL MCH (27.7-33.6) pg MCHC (32.2-35.4) g/dL RDW (11.5-15.5) % Plt Count (125-369) X10(3)uL MPV (7.4-10.4) fL Neut % (Auto) (46-82) % Lymph % (Auto) (13-37) % Winn % (Auto) (4-12) % Eos % (Auto) (1.0-5.0) % Baso % (Auto) (0-2) % Neut # (Auto) (1.6-8.3) # Lymph # (Auto) (0.6-5.0) # Winn # (Auto) (0.0-1.3) # Eos # (Auto) (0.0-0.8) # Baso # (Auto) (0.0-0.2) # Sodium (135-145) mmol/L Potassium (3.5-5.3) mmol/L Chloride (100-110) mmol/L Carbon Dioxide (21-32) mmol/L BUN (7-18) mg/dL Creatinine (0.55-1.02) mg/dL Est Cr Clr Drug Dosing mL/min Estimated GFR (MDRD) (>60) BUN/Creatinine Ratio (9-20) Glucose (80-116) mg/dL Calcium (8.6-10.2) mg/dL Total Bilirubin (0.1-1.3) mg/dL AST (5-25) IU/L ALT (12-36) U/L Alkaline Phosphatase (56-112) IU/L Troponin I (4.0-60.3) pg/mL NT-Pro-B Natriuret Pep (<=450) pg/mL Total Protein (6.0-8.0) g/dL Albumin (3.2-4.6) g/dL Globulin g/dL Albumin/Globulin Ratio Amylase (25-115) U/L Lipase (73-393) U/L TSH, Ultra Sensitive (0.36-3.74) IU/mL Urine Color Yellow (YELLOW) Urine Appearance Slightly cloudy (CLEAR) Urine pH 5.0 (5.0-6.5) Ur Specific [place] 1.005 L (1.010-1.025) Urine Protein Trace (NEGATIVE) mg/dL Urine Glucose (UA) Normal (NORMAL) mg/dL Urine Ketones Negative (NEGATIVE) mg/dL Urine Occult Blood Moderate H (NEGATIVE) Urine Nitrite Negative (NEGATIVE) Urine Bilirubin Negative (NEGATIVE) Urine Urobilinogen Normal (NEGATIVE) mg/dL Ur Leukocyte Esterase Large H (NEGATIVE) Urine RBC 10-20 H (0-5) Urine WBC 5-10 H (0-5) Ur Squamous Epith Cells Moderate H (NS,R,O) Urine Bacteria Few H (NS) Meds: Medications Generic Name Dose Route Start Last Admin Trade Name Freq PRN Reason Stop Dose Admin Albuterol 2.5 mg 07/06/20 21:36 Proventil Neb Soln NEB Q2H PRN Shortness Of Breath/wheezing Albuterol/Ipratropium 3 ml 07/07/20 07:00 Duoneb 3.0-0.5 Mg/3 Ml NEB QIDRT MYKE Enoxaparin Sodium 40 mg 07/06/20 21:45 Lovenox SUBCUT Q24H MYKE Sodium Chloride 1,000 mls @ 125 mls/hr 07/06/20 21:45 Normal Saline IV ASDIRECTED MYKE Methylprednisolone Sodium Succinate 125 mg 07/06/20 21:45 Solu-Medrol IVPUSH Q8H MYKE Ondansetron HCl 4 mg 07/06/20 21:36 Zofran IV Q4H PRN Nausea/Vomiting Senna/Docusate Sodium 1 tab 07/06/20 21:36 Senna Plus PO BID PRN Constipation Sodium Chloride 10 ml 07/06/20 19:34 07/06/20 20:15 Saline Flush FLUSH 10 ml ASDIRECTED PRN Administration Keep Vein Open Trimethoprim/Sulfamethoxazole 1 tab 07/06/20 22:00 Septra Ds PO BID MYKE Discontinued Medications Generic Name Dose Route Start Last Admin Trade Name Freq PRN Reason Stop Dose Admin Iopamidol 100 ml 07/06/20 19:50 07/06/20 20:10 Isovue-370 (76%) IV 07/06/20 19:51 100 ml . DIRECTED ONE Administration Lorazepam 1 mg 07/06/20 20:07 07/06/20 20:12 Ativan IVPUSH 07/06/20 20:08 1 mg NOW STA Administration Departure - Departure Time of Disposition: 21:00 Disposition: Refer to Observation Condition: Good Clinical Impression: Weakness, UTI (urinary tract infection), Dehydration, COPD exacerbation, Constipation - Discharge Information Forms: ED Department Discharge Sepsis Event Note (ED) - Evaluation Sepsis Screening Result: No Definite Risk - Focused Exam Vital Signs: Vital Signs Temp Temp Pulse Pulse Resp BP BP 07/06/20 21:35 36.4 C 74 20 122/43 L 07/06/20 18:58 36.3 C 80 22 H 141/54 H Pulse Ox 07/06/20 21:35 96 07/06/20 18:58 97 - My Orders Last 24 Hours: My Active Orders 07/06/20 19:00 Oxygen Therapy, ED [RC] ASDIRECTED 07/06/20 19:22 Chest 1V Frontal [CR] Stat EKG 12 Lead [EK] Routine 07/06/20 19:23 EKG Documentation Completion [RC] ASDIRECTED 07/06/20 19:34 Sodium Chloride 0.9% [Saline Flush] 10 ml FLUSH ASDIRECTED PRN Saline Lock Insert [OM.PC] Routine 07/06/20 19:36 Abdomen Pelvis w Cont [CT] Stat 07/06/20 21:36 Patient Status [ADT] Routine Oxygen Therapy [RC] PRN Up With Assistance [RC] ASDIRECTED VTE/DVT Education [RC] Per Unit Routine Vital Signs [RC] Q4H CULTURE URINE [RM] Stat Albuterol [Proventil Neb Soln] 2.5 mg NEB Q2H PRN Docusate Sodium/Sennosides [Senna Plus] 1 tab PO BID PRN Ondansetron [Zofran] 4 mg IV Q4H PRN Resuscitation Status Routine 07/06/20 21:41 Intake and Output [RC] QSHIFT Pulse Oximetry [RC] CONTINUOUS 07/06/20 21:42 Sequential Compression Device [OM.PC] Per Unit Routine 07/06/20 21:45 Enoxaparin [Lovenox] 40 mg SUBCUT Q24H Sodium Chloride 0.9% @ 125 MLS/HR (1000ml) Sodium Chloride 0.9% [Normal Saline] 1,000 ml IV ASDIRECTED methylPREDNISolone Sod Succ [Solu-MEDROL] 125 mg IVPUSH Q8H 07/06/20 21:47 RT Aerosol Therapy [RC] ASDIRECTED 07/06/20 22:00 Sulfamethoxazole/Trimethoprim [Septra DS] 1 tab PO BID 07/07/20 05:11 BASIC METABOLIC PANEL,BMP [CHEM] AM 07/07/20 Breakfast Heart Healthy Diet [DIET] 07/07/20 07:00 Albuterol/Ipratropium [DuoNeb 3.0-0.5 MG/3 ML] 3 ml NEB QIDRT - Assessment/Plan Last 24 Hours: My Active Orders 07/06/20 19:00 Oxygen Therapy, ED [RC] ASDIRECTED 07/06/20 19:22 Chest 1V Frontal [CR] Stat EKG 12 Lead [EK] Routine 07/06/20 19:23 EKG Documentation Completion [RC] ASDIRECTED 07/06/20 19:34 Sodium Chloride 0.9% [Saline Flush] 10 ml FLUSH ASDIRECTED PRN Saline Lock Insert [OM.PC] Routine 07/06/20 19:36 Abdomen Pelvis w Cont [CT] Stat 07/06/20 21:36 Patient Status [ADT] Routine Oxygen Therapy [RC] PRN Up With Assistance [RC] ASDIRECTED VTE/DVT Education [RC] Per Unit Routine Vital Signs [RC] Q4H CULTURE URINE [RM] Stat Albuterol [Proventil Neb Soln] 2.5 mg NEB Q2H PRN Docusate Sodium/Sennosides [Senna Plus] 1 tab PO BID PRN Ondansetron [Zofran] 4 mg IV Q4H PRN Resuscitation Status Routine 07/06/20 21:41 Intake and Output [RC] QSHIFT Pulse Oximetry [RC] CONTINUOUS 07/06/20 21:42 Sequential Compression Device [OM.PC] Per Unit Routine 07/06/20 21:45 Enoxaparin [Lovenox] 40 mg SUBCUT Q24H Sodium Chloride 0.9% @ 125 MLS/HR (1000ml) Sodium Chloride 0.9% [Normal Saline] 1,000 ml IV ASDIRECTED methylPREDNISolone Sod Succ [Solu-MEDROL] 125 mg IVPUSH Q8H 07/06/20 21:47 RT Aerosol Therapy [RC] ASDIRECTED 07/06/20 22:00 Sulfamethoxazole/Trimethoprim [Septra DS] 1 tab PO BID 07/07/20 05:11 BASIC METABOLIC PANEL,BMP [CHEM] AM 07/07/20 Breakfast Heart Healthy Diet [DIET] 07/07/20 07:00 Albuterol/Ipratropium [DuoNeb 3.0-0.5 MG/3 ML] 3 ml NEB QIDRT
[2020-07-06] MEDS ORDERED: Iopamidol 755 Mg/ML 100 ML Bottle IV ONE (19:50)
[2020-07-06] MEDS ORDERED: LORazepam 2 MG/ML SDV IVPUSH STA (20:07)
[2020-07-06] MEDS: Sodium Chloride 0.9% 10 ML Syringe FLUSH PRN (20:15)
[2020-07-06] MEDS ORDERED: Ondansetron 4 MG/2 ML SDV IV PRN (21:36)
[2020-07-06] MEDS ORDERED: Sodium Chloride 0.9% 1,000 ML IV SCH (21:45)
[2020-07-06] MEDS: Sulfamethoxazole/Trimethoprim 800-160 MG Tab PO SCH (21:58)
[2020-07-06] MEDS: methylPREDNISolone Sodium Succinate 125 MG/2 ML SDV IVPUSH SCH (21:58)
[2020-07-06] MEDS: Enoxaparin 40 MG/0.4 ML Syringe SUBCUT SCH (22:04)
[2020-07-07] MEDS: Albuterol 0.083% 2.5 MG/3 ML Neb Soln NEB PRN ×3 (00:55→08:51)
[2020-07-07] MEDS ORDERED: Furosemide 40 MG/4 ML VIAL IVPUSH ONE (03:54)
[2020-07-07] MEDS ORDERED: Albuterol/Ipratropium 3.0-0.5 MG/3 ML Neb Soln ONE (04:59)
[2020-07-07] MEDS: Albuterol/Ipratropium 3.0-0.5 MG/3 ML Neb Soln NEB SCH ×4 (06:06→20:15)
[2020-07-07] MEDS: methylPREDNISolone Sodium Succinate 125 MG/2 ML SDV IVPUSH SCH ×3 (06:06→20:47)
[2020-07-07] MEDS ORDERED: Sodium Phosphate,Monobasic/Sodium Phosphate,Dibasic Enema 133 ML Bottle RECTAL ONE (08:45)
[2020-07-07] MEDS: Sulfamethoxazole/Trimethoprim 800-160 MG Tab PO SCH (08:51)
--- NOTE | 2020-07-07 09:06 | PCM.HP.2 ---
H&P History of Present Illness - General Date of Service: 07/07/20 Admit Problem/Dx: Admission Diagnosis/Problem Admission Diagnosis/Problem COPD with acute lower respiratory infection Source of Information: Patient, Old Records History Limitations: Reports: No Limitations - History of Present Illness Initial Comments - Free Text/Narative: Jacey was admitted through the ED last night due to respiratory distress,weakness. She presented with progressive SOB x 1 week,associated with profound weakness. She has a h/o SAMRA,COPD( endstage).uncontrolled DM2 and chronic constipation. She further has a h/o Tobacco abuse. She denied fever,chest pain or unitary symptoms.Rota lives alone. - Related Data Allergies/Adverse Reactions: Allergies Allergy/AdvReac Type Severity Reaction Status Date / Time perfume Allergy Intermediate Shortness Verified 07/06/20 19:05 of Breath ceftriaxone sodium Allergy Hives Verified 07/06/20 19:05 [From Rocephin] ciprofloxacin [From Cipro] Allergy Hives Verified 07/06/20 19:05 ciprofloxacin HCl Allergy Hives Verified 07/06/20 19:05 [From Cipro] Penicillins Allergy Hives Verified 07/06/20 19:05 pneumococcal vaccine Allergy Swelling Verified 07/06/20 19:05 [Pneumococcal Vaccine] Home Medications: Home Meds Albuterol [Ventolin HFA] 2 puff INH Q4HR PRN 03/07/14 [History] Simvastatin [Zocor] 20 mg PO BEDTIME 05/23/15 [History] Furosemide [Lasix] 40 mg PO DAILY 10/11/16 [History] Fluticasone Propion/Salmeterol [Advair 250-50 Diskus] 1 puff INH BID 05/10/19 [History] Levothyroxine [Synthroid] 100 mcg PO ACBREAKFAST 05/10/19 [History] Albuterol Sulfate 2.5 mg IH QID 02/16/20 [History] ALPRAZolam [Xanax] 0.5 mg PO BID PRN 07/06/20 [History] metFORMIN [Glucophage XR] 500 mg PO DAILY 07/06/20 [History] Past Medical History HEENT History: Reports: Cataract, Impaired Vision Cardiovascular History: Reports: High Cholesterol, SOB on Exertion Respiratory History: Reports: Bronchitis, Recurrent, COPD Other Respiratory History: Uses home O2. Gastrointestinal History: Reports: Bowel Obstruction, Other (See Below) Other Gastrointestinal History: Had abdominal surgery but patient is not certain what was all involved. Genitourinary History: Reports: UTI, Recurrent [employer] History: Reports: Other OB/BYN History: Musculoskeletal History: Reports: Arthritis, Fracture Other Musculoskeletal History: Possibly some arthritis, hx fx R 3rd digit, R gt toe Neurological History: Reports: Migraines Psychiatric History: Reports: Anxiety Endocrine/Metabolic History: Reports: Diabetes, Type II, Hypothyroidism, Obesity/BMI 30+ Other Endocrine/Metabolic History: Thyroidectomy 2007. Hematologic History: Reports: Blood Transfusion(s) Oncologic (Cancer) History: Reports: Colon, Other (See Below) Other Oncologic History: According to the report, patient denies. Dermatologic History: Reports: Cellulitis, Other (See Below) Other Dermatologic History: Lymphedema. - Infectious Disease History Infectious Disease History: Reports: Mumps Other Infectious Disease History: She is not certain if she had Rubella or Rubeola. - Past Surgical History Head Surgeries/Procedures: Reports: None HEENT Surgical History: Reports: Adenoidectomy, Cataract Surgery, Tonsillectomy, Other (See Below) Other HEENT Surgeries/Procedures: Bilateral cataract surgery. GI Surgical History: Reports: Cholecystectomy, Colon, Colonoscopy, EGD, Hernia Repair/Other Female Surgical History: Reports: Hysterectomy Endocrine Surgical History: Reports: Thyroidectomy Musculoskeletal Surgical History: Reports: None Social & Family History - Family History Family Medical History: Noncontributory Dermatologic: Reports: None Oncologic: Reports: Other (See Below) Other Oncologic Family History: Patient doesn't recall the type. - Tobacco Use Smoking Status *Q: Current Every Day Smoker Years of Tobacco use: 50 Packs/Tins Daily: 1 Second Hand Smoke Exposure: Yes - Caffeine Use Caffeine Use: Reports: Coffee Other Caffeine Use: 3-5 cups coffee/day - Recreational Drug Use Recreational Drug Use: No - Living Situation & Occupation Living situation: Reports: Alone H&P Review of Systems - Review of Systems: Review Of Systems: Comprehensive ROS is negative, except as noted in HPI. Exam - Exam Exam: See Below - Vital Signs Vital Signs: Last Vital Signs Temp 97.8 F 07/07/20 08:00 Pulse 85 07/07/20 08:00 Resp 20 07/07/20 08:00 BP 114/65 07/07/20 08:00 Pulse Ox 88 L 07/07/20 08:00 Weight: 86.296 kg - Exam Quality Assessment: Supplemental Oxygen General: Alert, Oriented, 4 HEENT: PERRLA, Hearing Intact, Mucosa Moist & [place], Nares Patent, Normal Nasal Septum, Posterior Pharynx Clear, Conjunctiva Clear, EOMI, EACs Clear, TMs Clear Neck: Supple, Trachea Midline, 2 Lungs: Rhonchi Cardiovascular: Regular Rate, Regular Rhythm GI/Abdominal Exam: Tender (Female) Exam: Deferred Rectal (Female) Exam: Deferred Back Exam: Normal Inspection, Full Range of Motion, NT Extremities: Joint Swelling Skin: Warm, Dry, Intact Neurological: Cranial Nerves Intact, Reflexes Equal Bilateral Neuro Extensive - Mental Status: Alert, Oriented x3, Normal Mood/Affect, Normal Cognition Neuro Extensive - Motor, Sensory, Reflexes: CN II-XII Intact, Normal Gait, Normal Reflexes Psychiatric: Alert - Patient Data Lab Results Last 24 hrs: Laboratory Results - last 24 hr 07/06/20 07/06/20 07/06/20 Range/Units 19:10 19:10 19:10 WBC 9.3 (4.5-12.0) X10-3/uL RBC 4.14 (3.23-5.20) x10(6)uL Hgb 11.2 L (11.5-15.5) g/dL Hct 36.3 (30.0-51.3) % MCV 87.6 (80-96) fL MCH 27.0 L (27.7-33.6) pg MCHC 30.9 L (32.2-35.4) g/dL RDW 14.0 (11.5-15.5) % Plt Count 349 (125-369) X10(3)uL MPV 7.5 (7.4-10.4) fL Neut % (Auto) 69.1 (46-82) % Lymph % (Auto) 16.9 (13-37) % [place] % (Auto) 7.2 (4-12) % Eos % (Auto) 4 (1.0-5.0) % Baso % (Auto) 3 H (0-2) % Neut # (Auto) 6.3 (1.6-8.3) # Lymph # (Auto) 1.6 (0.6-5.0) # [place] # (Auto) 0.7 (0.0-1.3) # Eos # (Auto) 0.4 (0.0-0.8) # Baso # (Auto) 0.3 H (0.0-0.2) # Sodium 144 (135-145) mmol/L Potassium 4.1 (3.5-5.3) mmol/L Chloride 95 L (100-110) mmol/L Carbon Dioxide 45 H* (21-32) mmol/L BUN 17 (7-18) mg/dL Creatinine 0.7 (0.55-1.02) mg/dL Est Cr Clr Drug Dosing 55.35 mL/min Estimated GFR (MDRD) > 60 (>60) BUN/Creatinine Ratio 24.3 H (9-20) Glucose 166 H (80-116) mg/dL Calcium 9.7 (8.6-10.2) mg/dL Total Bilirubin 0.4 (0.1-1.3) mg/dL AST 18 D (5-25) IU/L ALT 16 D (12-36) U/L Alkaline Phosphatase 125 H (56-112) IU/L Troponin I 18.3 (4.0-60.3) pg/mL NT-Pro-B Natriuret Pep 100 (<=450) pg/mL Total Protein 7.2 (6.0-8.0) g/dL Albumin 3.6 (3.2-4.6) g/dL Globulin 3.6 g/dL Albumin/Globulin Ratio 1.0 Amylase 56 (25-115) U/L Lipase 68 L (73-393) U/L TSH, Ultra Sensitive 3.64 (0.36-3.74) IU/mL Urine Color (YELLOW) Urine Appearance (CLEAR) Urine pH (5.0-6.5) Ur Specific [place] (1.010-1.025) Urine Protein (NEGATIVE) mg/dL Urine Glucose (UA) (NORMAL) mg/dL Urine Ketones (NEGATIVE) mg/dL Urine Occult Blood (NEGATIVE) Urine Nitrite (NEGATIVE) Urine Bilirubin (NEGATIVE) Urine Urobilinogen (NEGATIVE) mg/dL Ur Leukocyte Esterase (NEGATIVE) Urine RBC (0-5) Urine WBC (0-5) Ur Squamous Epith Cells (NS,R,O) Urine Bacteria (NS) 09/28/20 Range/Units 21:10 WBC (4.5-12.0) X10-3/uL RBC (3.23-5.20) x10(6)uL Hgb (11.5-15.5) g/dL Hct (30.0-51.3) % MCV (80-96) fL MCH (27.7-33.6) pg MCHC (32.2-35.4) g/dL RDW (11.5-15.5) % Plt Count (125-369) X10(3)uL MPV (7.4-10.4) fL Neut % (Auto) (46-82) % Lymph % (Auto) (13-37) % [place] % (Auto) (4-12) % Eos % (Auto) (1.0-5.0) % Baso % (Auto) (0-2) % Neut # (Auto) (1.6-8.3) # Lymph # (Auto) (0.6-5.0) # [place] # (Auto) (0.0-1.3) # Eos # (Auto) (0.0-0.8) # Baso # (Auto) (0.0-0.2) # Sodium (135-145) mmol/L Potassium (3.5-5.3) mmol/L Chloride (100-110) mmol/L Carbon Dioxide (21-32) mmol/L BUN (7-18) mg/dL Creatinine (0.55-1.02) mg/dL Est Cr Clr Drug Dosing mL/min Estimated GFR (MDRD) (>60) BUN/Creatinine Ratio (9-20) Glucose (80-116) mg/dL Calcium (8.6-10.2) mg/dL Total Bilirubin (0.1-1.3) mg/dL AST (5-25) IU/L ALT (12-36) U/L Alkaline Phosphatase (56-112) IU/L Troponin I (4.0-60.3) pg/mL NT-Pro-B Natriuret Pep (<=450) pg/mL Total Protein (6.0-8.0) g/dL Albumin (3.2-4.6) g/dL Globulin g/dL Albumin/Globulin Ratio Amylase (25-115) U/L Lipase (73-393) U/L TSH, Ultra Sensitive (0.36-3.74) IU/mL Urine Color Yellow (YELLOW) Urine Appearance Slightly cloudy (CLEAR) Urine pH 5.0 (5.0-6.5) Ur Specific [place] 1.005 L (1.010-1.025) Urine Protein Trace (NEGATIVE) mg/dL Urine Glucose (UA) Normal (NORMAL) mg/dL Urine Ketones Negative (NEGATIVE) mg/dL Urine Occult Blood Moderate H (NEGATIVE) Urine Nitrite Negative (NEGATIVE) Urine Bilirubin Negative (NEGATIVE) Urine Urobilinogen Normal (NEGATIVE) mg/dL Ur Leukocyte Esterase Large H (NEGATIVE) Urine RBC 10-20 H (0-5) Urine WBC 5-10 H (0-5) Ur Squamous Epith Cells Moderate H (NS,R,O) Urine Bacteria Few H (NS) Result Diagrams: 07/06/20 19:10 07/06/20 19:10 EKG INTERPRETATION Rhythm: NSR Sepsis Event Note - Evaluation Sepsis Screening Result: No Definite Risk - Focused Exam Vital Signs: Vital Signs Temp Pulse Resp BP Pulse Ox Pulse Ox 07/07/20 08:00 97.8 F 85 20 114/65 88 L 07/07/20 06:18 83 18 88 L 07/07/20 06:06 88 L 07/07/20 03:41 98.1 F 85 22 H 131/51 L 88 L 07/07/20 03:25 83 L 07/07/20 01:15 87 20 90 L 07/06/20 22:30 97.8 F 84 18 163/53 H 92 L 07/06/20 21:35 97.6 F 74 20 122/43 L 96 - Problem List (1) COPD exacerbation SNOMED Code(s): 573100854 ICD Code: J44.1 - CHRONIC OBSTRUCTIVE PULMONARY DISEASE W (ACUTE) EXACERBATION Status: Acute Current Visit: Yes (2) Constipation SNOMED Code(s): 16919358 ICD Code: K59.00 - CONSTIPATION, UNSPECIFIED Status: Acute Current Visit: Yes Qualifiers: Constipation type: slow transit constipation Qualified Code(s): K59.01 - Slow transit constipation (3) Weakness SNOMED Code(s): 65245803 ICD Code: R53.1 - WEAKNESS Status: Acute Current Visit: Yes (4) Alkalosis, metabolic SNOMED Code(s): 5026122 ICD Code: E87.3 - ALKALOSIS Status: Acute Current Visit: No (5) Diabetes mellitus type 2 SNOMED Code(s): 68893158 ICD Code: E11.9 - TYPE 2 DIABETES MELLITUS WITHOUT COMPLICATIONS Status: Chronic Current Visit: No Problem Details: A1c mildly elevated to 6.8%. No bs over 200 mg/dL. (6) Hypothyroidism SNOMED Code(s): 89576342 ICD Code: E03.9 - HYPOTHYROIDISM, UNSPECIFIED Status: Chronic Current Visit: No Problem Details: TSH elevated and restarted her levothyroxine at prior dose. have her in clinic for recheck in 4 wks. (7) Neuropathy, peripheral SNOMED Code(s): 338505955 ICD Code: G62.9 - POLYNEUROPATHY, UNSPECIFIED Status: Chronic Current Visit: No Problem Details: Ultram on a as necessary basis. (8) Non-adherence to medical treatment SNOMED Code(s): 020842005 ICD Code: Z91.19 - PATIENT'S NONCOMPLIANCE W OTH MEDICAL TREATMENT AND ANGELA MEN Status: Chronic Priority: High Current Visit: No Problem Details: Education chronic conditions, medical management, indications, side effects and risks nonadherence. (9) Supplemental oxygen dependent SNOMED Code(s): 155406317070 ICD Code: Z99.81 - DEPENDENCE ON SUPPLEMENTAL OXYGEN Status: Chronic Priority: High Current Visit: No Problem Details: (10) Tobacco abuse disorder SNOMED Code(s): 021077924 ICD Code: Z72.0 - TOBACCO USE Status: Chronic Current Visit: No Problem Details: Offered nicotine patch. Patient declined. (11) Anxiety SNOMED Code(s): 08428852 ICD Code: F41.9 - ANXIETY DISORDER, UNSPECIFIED Status: Acute Current Visit: Yes (12) Asymptomatic bacteriuria SNOMED Code(s): 560475248 ICD Code: R82.71 - BACTERIURIA Status: Acute Current Visit: Yes Problem List Initiated/Reviewed/Updated: Yes Orders Last 24hrs: Active Orders 24 hr Category Date Time Status Patient Status Manage Transfer [TRANSFER] Routine ADT 07/07/20 08:39 Active Patient Status [ADT] Routine ADT 07/06/20 21:36 Active Blood Glucose Check, Bedside [RC] TIDMEALS Care 07/07/20 08:42 Active Insert Cam Catheter [Insert Urinary Catheter] [OM.PC] Care 07/07/20 04:00 Ordered Q24H Intake and Output [RC] 06,14,22 Care 07/06/20 21:41 Active Oxygen Therapy [RC] PRN Care 07/06/20 21:36 Active RT Aerosol Therapy [RC] ASDIRECTED Care 07/06/20 21:47 Active Remove Cam Catheter [Urinary Catheter Removal] [RC] Care 07/07/20 08:45 Active PER UNIT ROUTINE Up With Assistance [RC] ASDIRECTED Care 07/06/20 21:36 Active Urinary Catheter Assessment [RC] QSHIFT Care 07/07/20 03:55 Active VTE/DVT Education [RC] Per Unit Routine Care 07/06/20 21:36 Active Vital Signs [RC] 08,12,16,20,00,04 Care 07/06/20 21:36 Active OT Evaluation and Treatment [CONS] Routine Cons 07/07/20 08:42 Active PT Evaluation and Treatment [CONS] Routine Cons 07/07/20 08:42 Active Consistent Carbohydrate Diet [DIET] Diet 07/07/20 Lunch Active Heart Healthy Diet [DIET] Diet 07/07/20 Breakfast Active Abdomen Pelvis w Cont [CT] Stat Exams 07/06/20 19:36 Taken Chest 1V Frontal [CR] Stat Exams 07/06/20 19:22 Taken BASIC METABOLIC PANEL,BMP [CHEM] AM Lab 07/07/20 05:11 Ordered BASIC METABOLIC PANEL,BMP [CHEM] AM Lab 07/08/20 05:11 Ordered CORONAVIRUS COVID-19 PCR PHL Routine Lab 07/07/20 08:42 Ordered CULTURE URINE [RM] Stat Lab 07/06/20 21:10 Received GLYCOSYLATED HEMOGLOBIN,HGBA1C [CHEM] Routine Lab 07/07/20 08:42 Ordered ALPRAZolam [Xanax] Med 07/07/20 08:45 Active 0.5 mg PO BID PRN Albuterol [Proventil Neb Soln] Med 07/06/20 21:36 Active 2.5 mg NEB Q2H PRN Albuterol/Ipratropium [DuoNeb 3.0-0.5 MG/3 ML] Med 07/07/20 07:00 Active 3 ml NEB QIDRT Docusate Sodium/Sennosides [Senna Plus] Med 07/06/20 21:36 Active 1 tab PO BID PRN Enoxaparin [Lovenox] Med 07/06/20 21:45 Active 40 mg SUBCUT Q24H Furosemide [Lasix] Med 07/07/20 09:00 Active 40 mg PO DAILY Insulin Lispro [HumaLOG] Med 07/07/20 12:00 Active See Protocol SUBCUT TIDMEALS Levothyroxine [Synthroid] Med 07/07/20 09:00 Active 100 mcg PO DAILY@0600 Mometasone/Formoterol [Dulera 200-5 MCG] Med 07/07/20 09:00 Active 2 puff IH BID Ondansetron [Zofran] Med 07/06/20 21:36 Active 4 mg IV Q4H PRN Simvastatin [Zocor] Med 07/07/20 21:00 Active 20 mg PO BEDTIME Sodium Chloride 0.9% [Saline Flush] Med 07/06/20 19:34 Active 10 ml FLUSH ASDIRECTED PRN Sulfamethoxazole/Trimethoprim [Septra DS] Med 07/06/20 22:00 Active 1 tab PO BID metFORMIN [Glucophage XR] Med 07/07/20 09:00 Hold 500 mg PO DAILY methylPREDNISolone Sod Succ [Solu-MEDROL] Med 07/06/20 21:45 Active 125 mg IVPUSH Q8H Saline Lock Insert [OM.PC] Routine Oth 07/06/20 19:34 Ordered Sequential Compression Device [OM.PC] Per Unit Routine Oth 07/06/20 21:42 Ordered Resuscitation Status Routine Resus Stat 07/06/20 21:36 Ordered EKG 12 Lead [EK] Routine Ther 07/06/20 19:22 Ordered Medication Orders Albuterol (Proventil Neb Soln) 2.5 mg NEB Q2H PRN PRN Reason: Shortness Of Breath/wheezing Last Admin: 07/07/20 08:51 Dose: 2.5 mg Documented by: Admin: 07/07/20 03:25 Dose: 2.5 mg Documented by: Admin: 07/07/20 00:55 Dose: 2.5 mg Documented by: SANAM Albuterol/Ipratropium (Duoneb 3.0-0.5 Mg/3 Ml) 3 ml NEB QIDRT MYKE Last Admin: 07/07/20 06:06 Dose: 3 ml Documented by: SANAM Alprazolam (Xanax) 0.5 mg PO BID PRN PRN Reason: Anxiety Enoxaparin Sodium (Lovenox) 40 mg SUBCUT Q24H [facility] Last Admin: 07/06/20 22:04 Dose: 40 mg Documented by: ULICES Furosemide (Lasix) 40 mg PO DAILY [facility] Insulin Human Lispro (Humalog) 0 unit SUBCUT TIDMEALS [facility]; Protocol Levothyroxine Sodium (Synthroid) 100 mcg PO DAILY@0600 [facility] Metformin HCl (Glucophage Xr) 500 mg PO DAILY [facility] Methylprednisolone Sodium Succinate (Solu-Medrol) 125 mg IVPUSH Q8H [facility] Last Admin: 07/07/20 06:06 Dose: 125 mg Documented by: Admin: 07/06/20 21:58 Dose: 125 mg Documented by: ULICES Mometasone Furoate/Formoterol Fumar (Dulera 200-5 Mcg) 2 puff IH BID [facility] Ondansetron HCl (Zofran) 4 mg IV Q4H PRN PRN Reason: Nausea/Vomiting Senna/Docusate Sodium (Senna Plus) 1 tab PO BID PRN PRN Reason: Constipation Last Admin: 07/06/20 22:04 Dose: 1 tab Documented by: ULICES Simvastatin (Zocor) 20 mg PO BEDTIME [facility] Sodium Chloride (Saline Flush) 10 ml FLUSH ASDIRECTED PRN PRN Reason: Keep Vein Open Last Admin: 07/06/20 20:15 Dose: 10 ml Documented by: ULICES Trimethoprim/Sulfamethoxazole (Septra Ds) 1 tab PO BID [facility] Last Admin: 07/07/20 08:51 Dose: 1 tab Documented by: Admin: 07/06/20 21:58 Dose: 1 tab Documented by: ULICES Assessment/Plan Comment:: Admit to inpatient. I have continued O2 supplementation to maintain sats at 88%. I recommend no antibiotics at this time,but Soulemdrol should suffice. I did order COVID. Try Enema for constipation.PT and OT for strengthening. Accu checks. BENNETT cam.
[2020-07-07] MEDS: Levothyroxine 100 MCG Tab PO SCH (09:54)
[2020-07-07 09:55] LABS: HEMOGLOBIN A1C 7.7 % (<5.7)
[2020-07-07] MEDS: Furosemide 40 MG Tab PO SCH (09:55)
[2020-07-07] MEDS: Formoterol/Mometasone 200-5 MCG 8.8 GM Inhaler IH SCH ×2 (09:55→20:14)
[2020-07-07] MEDS ORDERED: Insulin Lispro 100 Unit/ML 3 ML KwikPen SUBCUT ONE (11:51)
[2020-07-07] MEDS: Insulin Lispro 100 Unit/ML 3 ML KwikPen SUBCUT SCH ×2 (11:52→17:46)
[2020-07-07] MEDS: Sodium Chloride 0.9% 10 ML Syringe FLUSH PRN ×2 (13:21→20:48)
[2020-07-07] MEDS ORDERED: Acetaminophen 325 MG Tab PO PRN (16:20)
[2020-07-07] MEDS: Simvastatin 20 MG Tab PO SCH (20:15)
[2020-07-07] MEDS: Enoxaparin 40 MG/0.4 ML Syringe SUBCUT SCH (20:46)
[2020-07-08] MEDS: Levothyroxine 100 MCG Tab PO SCH (05:47)
[2020-07-08] MEDS: methylPREDNISolone Sodium Succinate 125 MG/2 ML SDV IVPUSH SCH ×3 (05:51→21:00)
[2020-07-08] MEDS: Sodium Chloride 0.9% 10 ML Syringe FLUSH PRN ×3 (05:56→21:10)
[2020-07-08] MEDS: Albuterol/Ipratropium 3.0-0.5 MG/3 ML Neb Soln NEB SCH ×4 (06:00→20:55)
[2020-07-08] MEDS: Insulin Lispro 100 Unit/ML 3 ML KwikPen SUBCUT SCH ×3 (08:18→17:49)
[2020-07-08] MEDS: Formoterol/Mometasone 200-5 MCG 8.8 GM Inhaler IH SCH ×2 (08:18→20:54)
[2020-07-08] MEDS: Furosemide 40 MG Tab PO SCH (08:19)
--- NOTE | 2020-07-08 19:22 | PCM.PN ---
- General Info Date of Service: 07/08/20 Subjective Update: Doing better. Still Short of breath on ambulation,sugars stabilizing - Review of Systems General: Reports: Weakness Pulmonary: Reports: Shortness of Breath, Cough Cardiovascular: Reports: Dyspnea on Exertion Gastrointestinal: Reports: Constipation Genitourinary: Reports: No Symptoms Musculoskeletal: Reports: No Symptoms - Patient Data Vitals - Most Recent: Last Vital Signs Temp 97.1 F 07/08/20 16:00 Pulse 74 07/08/20 16:00 Resp 20 07/08/20 16:00 BP 120/62 07/08/20 16:00 Pulse Ox 93 L 07/08/20 16:00 Weight - Most Recent: 86.296 kg I&O - Last 24 Hours: Intake & Output 07/08/20 07/08/20 07/08/20 06:59 14:59 22:59 Intake Total 200 Output Total 600 Balance -400 Lab Results Last 24 Hours: Laboratory Results - last 24 hr 07/08/20 07/08/20 07/08/20 Range/Units 07:51 11:13 17:05 POC Glucose 274 H 314 H 285 H (74-100) mg/dL Que Results Last 24 Hours: Microbiology 07/06/20 21:10 Urine Culture - Final Urine, Clean Catch MIXED POSITIVE BERTRAM DAY 2 Med Orders - Current: Current Medications Acetaminophen (Tylenol) 650 mg PO Q4H PRN PRN Reason: Pain Albuterol (Proventil Neb Soln) 2.5 mg NEB Q2H PRN PRN Reason: Shortness Of Breath/wheezing Last Admin: 07/07/20 08:51 Dose: 2.5 mg Documented by: Albuterol/Ipratropium (Duoneb 3.0-0.5 Mg/3 Ml) 3 ml NEB QIDRT [facility] Last Admin: 07/08/20 16:41 Dose: 3 ml Documented by: Alprazolam (Xanax) 0.5 mg PO BID PRN PRN Reason: Anxiety Enoxaparin Sodium (Lovenox) 40 mg SUBCUT Q24H [facility] Last Admin: 07/07/20 20:46 Dose: 40 mg Documented by: Furosemide (Lasix) 40 mg PO DAILY [facility] Last Admin: 07/08/20 08:19 Dose: 40 mg Documented by: Insulin Human Lispro (Humalog) 0 unit SUBCUT TIDMEALS [facility]; Protocol Last Admin: 07/08/20 17:49 Dose: 3 unit Documented by: Levothyroxine Sodium (Synthroid) 100 mcg PO DAILY@0600 [facility] Last Admin: 07/08/20 05:47 Dose: 100 mcg Documented by: Metformin HCl (Glucophage Xr) 500 mg PO DAILY [facility] Methylprednisolone Sodium Succinate (Solu-Medrol) 125 mg IVPUSH Q8H [facility] Last Admin: 07/08/20 14:56 Dose: 125 mg Documented by: Mometasone Furoate/Formoterol Fumar (Dulera 200-5 Mcg) 2 puff IH BID [facility] Last Admin: 07/08/20 08:18 Dose: 2 puff Documented by: Ondansetron HCl (Zofran) 4 mg IV Q4H PRN PRN Reason: Nausea/Vomiting Senna/Docusate Sodium (Senna Plus) 1 tab PO BID PRN PRN Reason: Constipation Last Admin: 07/06/20 22:04 Dose: 1 tab Documented by: Simvastatin (Zocor) 20 mg PO BEDTIME [facility] Last Admin: 07/07/20 20:15 Dose: 20 mg Documented by: Sodium Chloride (Saline Flush) 10 ml FLUSH ASDIRECTED PRN PRN Reason: Keep Vein Open Last Admin: 07/08/20 14:57 Dose: 10 ml Documented by: Discontinued Medications Albuterol/Ipratropium (Duoneb 3.0-0.5 Mg/3 Ml) Confirm Administered Dose 3 ml .ROUTE .STK-MED ONE Stop: 07/07/20 05:00 Last Admin: 07/07/20 06:13 Dose: Not Given Documented by: Furosemide (Lasix) 40 mg IVPUSH NOW ONE Stop: 07/07/20 03:55 Last Admin: 07/07/20 04:24 Dose: 40 mg Documented by: Sodium Chloride (Normal Saline) 1,000 mls @ 125 mls/hr IV ASDIRECTED [facility] Last Admin: 07/06/20 21:55 Dose: 125 mls/hr Documented by: Iopamidol (Isovue-370 (76%)) 100 ml IV . DIRECTED ONE Stop: 07/06/20 19:51 Last Admin: 07/06/20 20:10 Dose: 100 ml Documented by: Lorazepam (Ativan) 1 mg IVPUSH NOW STA Stop: 07/06/20 20:08 Last Admin: 07/06/20 20:12 Dose: 1 mg Documented by: Sodium Biphosphate/Sodium Phosphate (Fleet Enema) 133 ml RECTAL ONETIME ONE Stop: 07/07/20 08:46 Last Admin: 07/07/20 10:34 Dose: 133 ml Documented by: Trimethoprim/Sulfamethoxazole (Septra Ds) 1 tab PO BID [facility] Last Admin: 07/07/20 08:51 Dose: 1 tab Documented by: - Exam Quality Assessment: Supplemental Oxygen General: Alert HEENT: Pupils Equal Lungs: Clear to Auscultation Cardiovascular: Regular Rate Sepsis Event Note - Evaluation Sepsis Screening Result: No Definite Risk - Focused Exam Vital Signs: Vital Signs Temp Pulse Resp BP Pulse Ox 07/08/20 16:00 97.1 F 74 20 120/62 93 L 07/08/20 08:00 97.1 F 75 20 125/65 89 L - Problem List & Annotations (1) COPD exacerbation SNOMED Code(s): 900744139 Code(s): J44.1 - CHRONIC OBSTRUCTIVE PULMONARY DISEASE W (ACUTE) EXACERBATION Status: Acute Current Visit: Yes (2) Constipation SNOMED Code(s): 90339761 Code(s): K59.00 - CONSTIPATION, UNSPECIFIED Status: Acute Current Visit: Yes Qualifiers: Constipation type: slow transit constipation Qualified Code(s): K59.01 - Slow transit constipation (3) Weakness SNOMED Code(s): 51863536 Code(s): R53.1 - WEAKNESS Status: Acute Current Visit: Yes (4) Alkalosis, metabolic SNOMED Code(s): 1921249 Code(s): E87.3 - ALKALOSIS Status: Acute Current Visit: No (5) Diabetes mellitus type 2 SNOMED Code(s): 29360969 Code(s): E11.9 - TYPE 2 DIABETES MELLITUS WITHOUT COMPLICATIONS Status: Chronic Current Visit: No Annotation/Comment:: A1c mildly elevated to 6.8%. No bs over 200 mg/dL. (6) Hypothyroidism SNOMED Code(s): 59312527 Code(s): E03.9 - HYPOTHYROIDISM, UNSPECIFIED Status: Chronic Current Visit: No Annotation/Comment:: TSH elevated and restarted her levothyroxine at prior dose. have her in clinic for recheck in 4 wks. (7) Neuropathy, peripheral SNOMED Code(s): 921079239 Code(s): G62.9 - POLYNEUROPATHY, UNSPECIFIED Status: Chronic Current Visit: No Annotation/Comment:: Ultram on a as necessary basis. (8) Non-adherence to medical treatment SNOMED Code(s): 234006673 Code(s): Z91.19 - PATIENT'S NONCOMPLIANCE W OTH MEDICAL TREATMENT AND REGIMEN Status: Chronic Priority: High Current Visit: No Annotation/Comment:: Education chronic conditions, medical management, indications, side effects and risks nonadherence. (9) Supplemental oxygen dependent SNOMED Code(s): 471054618229 Code(s): Z99.81 - DEPENDENCE ON SUPPLEMENTAL OXYGEN Status: Chronic Priority: High Current Visit: No Annotation/Comment:: (10) Tobacco abuse disorder SNOMED Code(s): 710818888 Code(s): Z72.0 - TOBACCO USE Status: Chronic Current Visit: No Annotation/Comment:: Offered nicotine patch. Patient declined. (11) Anxiety SNOMED Code(s): 13323702 Code(s): F41.9 - ANXIETY DISORDER, UNSPECIFIED Status: Acute Current Visit: Yes (12) Asymptomatic bacteriuria SNOMED Code(s): 525413019 Code(s): R82.71 - BACTERIURIA Status: Acute Current Visit: Yes - Problem List Review Problem List Initiated/Reviewed/Updated: Yes - My Orders Last 24 Hours: My Active Orders 07/07/20 21:00 Simvastatin [Zocor] 20 mg PO BEDTIME 07/08/20 08:03 Communication Order [RC] ASDIRECTED 07/09/20 09:00 metFORMIN [Glucophage XR] 500 mg PO DAILY - Plan Plan:: Continue curent therapy. PT and OT to consult. One more day of IV abx. Possible DC on Monday
[2020-07-08] MEDS: Simvastatin 20 MG Tab PO SCH (20:55)
[2020-07-08] MEDS: Enoxaparin 40 MG/0.4 ML Syringe SUBCUT SCH (21:02)
[2020-07-08] MEDS: ALPRAZolam 0.5 MG Tab PO PRN (22:54)
[2020-07-09] MEDS: methylPREDNISolone Sodium Succinate 125 MG/2 ML SDV IVPUSH SCH (06:22)
[2020-07-09] MEDS: Levothyroxine 100 MCG Tab PO SCH (06:22)
[2020-07-09] MEDS: Sodium Chloride 0.9% 10 ML Syringe FLUSH PRN (06:32)
[2020-07-09] MEDS: Albuterol/Ipratropium 3.0-0.5 MG/3 ML Neb Soln NEB SCH ×4 (06:32→21:23)
[2020-07-09] MEDS: Insulin Lispro 100 Unit/ML 3 ML KwikPen SUBCUT SCH ×3 (08:14→18:28)
[2020-07-09] MEDS: Formoterol/Mometasone 200-5 MCG 8.8 GM Inhaler IH SCH ×2 (08:14→21:21)
[2020-07-09] MEDS: metFORMIN 500 MG Tab.ER PO SCH (08:15)
[2020-07-09] MEDS: Furosemide 40 MG Tab PO SCH (08:15)
[2020-07-09] MEDS ORDERED: Aluminum Hydroxide/Magnesium Hydroxide Susp 30 ML Cup PO ONE (14:01)
[2020-07-09] MEDS: predniSONE 20 MG Tab PO SCH (18:30)
--- NOTE | 2020-07-09 21:09 | PCM.PN ---
- General Info Date of Service: 07/09/20 Subjective Update: Doing better. Still Short of breath on ambulation,sugars stabilizing Functional Status: Reports: Pain Controlled - Review of Systems General: Reports: No Symptoms HEENT: Reports: No Symptoms Pulmonary: Reports: Shortness of Breath Cardiovascular: Reports: No Symptoms Gastrointestinal: Reports: Nausea - Patient Data Vitals - Most Recent: Last Vital Signs Temp 97.8 F 07/09/20 16:00 Pulse 85 07/09/20 16:00 Resp 18 07/09/20 16:00 BP 134/58 L 07/09/20 16:00 Pulse Ox 94 L 07/09/20 16:00 Weight - Most Recent: 86.296 kg I&O - Last 24 Hours: Intake & Output 07/09/20 07/09/20 07/09/20 06:59 14:59 22:59 Intake Total 200 Output Total 600 Balance -400 Lab Results Last 24 Hours: Laboratory Results - last 24 hr 07/09/20 07/09/20 07/09/20 Range/Units 06:24 11:14 17:30 Glucose (80-116) mg/dL POC Glucose 349 H 373 H 464 H* (74-100) mg/dL 07/09/20 Range/Units 17:55 Glucose 377 H (80-116) mg/dL POC Glucose (74-100) mg/dL Med Orders - Current: Current Medications Acetaminophen (Tylenol) 650 mg PO Q4H PRN PRN Reason: Pain Albuterol (Proventil Neb Soln) 2.5 mg NEB Q2H PRN PRN Reason: Shortness Of Breath/wheezing Last Admin: 07/07/20 08:51 Dose: 2.5 mg Documented by: Albuterol/Ipratropium (Duoneb 3.0-0.5 Mg/3 Ml) 3 ml NEB QIDRT [facility] Last Admin: 07/09/20 17:31 Dose: 3 ml Documented by: Alprazolam (Xanax) 0.5 mg PO BID PRN PRN Reason: Anxiety Last Admin: 07/08/20 22:54 Dose: 0.5 mg Documented by: Enoxaparin Sodium (Lovenox) 40 mg SUBCUT Q24H [facility] Last Admin: 07/08/20 21:02 Dose: 40 mg Documented by: Furosemide (Lasix) 40 mg PO DAILY [facility] Last Admin: 07/09/20 08:15 Dose: 40 mg Documented by: Insulin Human Lispro (Humalog) 0 unit SUBCUT TIDMEALS [facility]; Protocol Last Admin: 07/09/20 18:28 Dose: 5 unit Documented by: Levothyroxine Sodium (Synthroid) 100 mcg PO DAILY@0600 [facility] Last Admin: 07/09/20 06:22 Dose: 100 mcg Documented by: Metformin HCl (Glucophage Xr) 500 mg PO DAILY [facility] Last Admin: 07/09/20 08:15 Dose: 500 mg Documented by: Mometasone Furoate/Formoterol Fumar (Dulera 200-5 Mcg) 2 puff IH BID [facility] Last Admin: 07/09/20 08:14 Dose: 2 puff Documented by: Ondansetron HCl (Zofran) 4 mg IV Q4H PRN PRN Reason: Nausea/Vomiting Prednisone (Prednisone) 20 mg PO BIDMEALS [facility] Last Admin: 07/09/20 18:30 Dose: 20 mg Documented by: Senna/Docusate Sodium (Senna Plus) 1 tab PO BID PRN PRN Reason: Constipation Last Admin: 07/06/20 22:04 Dose: 1 tab Documented by: Simvastatin (Zocor) 20 mg PO BEDTIME [facility] Last Admin: 07/08/20 20:55 Dose: 20 mg Documented by: Sodium Chloride (Saline Flush) 10 ml FLUSH ASDIRECTED PRN PRN Reason: Keep Vein Open Last Admin: 07/09/20 06:32 Dose: 10 ml Documented by: Discontinued Medications Al Hydroxide/Mg Hydroxide (Mag-Al Susp) 30 ml PO ONETIME ONE Stop: 07/09/20 14:02 Last Admin: 07/09/20 15:08 Dose: 30 ml Documented by: Albuterol/Ipratropium (Duoneb 3.0-0.5 Mg/3 Ml) Confirm Administered Dose 3 ml .ROUTE .STK-MED ONE Stop: 07/07/20 05:00 Last Admin: 07/07/20 06:13 Dose: Not Given Documented by: Furosemide (Lasix) 40 mg IVPUSH NOW ONE Stop: 07/07/20 03:55 Last Admin: 07/07/20 04:24 Dose: 40 mg Documented by: Sodium Chloride (Normal Saline) 1,000 mls @ 125 mls/hr IV ASDIRECTED [facility] Last Admin: 07/06/20 21:55 Dose: 125 mls/hr Documented by: Iopamidol (Isovue-370 (76%)) 100 ml IV . DIRECTED ONE Stop: 07/06/20 19:51 Last Admin: 07/06/20 20:10 Dose: 100 ml Documented by: Lorazepam (Ativan) 1 mg IVPUSH NOW STA Stop: 07/06/20 20:08 Last Admin: 07/06/20 20:12 Dose: 1 mg Documented by: Methylprednisolone Sodium Succinate (Solu-Medrol) 125 mg IVPUSH Q8H [facility] Last Admin: 07/09/20 06:22 Dose: 125 mg Documented by: Sodium Biphosphate/Sodium Phosphate (Fleet Enema) 133 ml RECTAL ONETIME ONE Stop: 07/07/20 08:46 Last Admin: 07/07/20 10:34 Dose: 133 ml Documented by: Trimethoprim/Sulfamethoxazole (Septra Ds) 1 tab PO BID [facility] Last Admin: 07/07/20 08:51 Dose: 1 tab Documented by: - Exam Quality Assessment: Supplemental Oxygen General: Alert, Other Neck: Supple Lungs: Clear to Auscultation Cardiovascular: Regular Rate Sepsis Event Note - Evaluation Sepsis Screening Result: No Definite Risk - Focused Exam Vital Signs: Vital Signs Temp Pulse Resp BP Pulse Ox 07/09/20 16:00 97.8 F 85 18 134/58 L 94 L - Problem List & Annotations (1) COPD exacerbation SNOMED Code(s): 104341162 Code(s): J44.1 - CHRONIC OBSTRUCTIVE PULMONARY DISEASE W (ACUTE) EXACERBATION Status: Acute Current Visit: Yes (2) Constipation SNOMED Code(s): 28436661 Code(s): K59.00 - CONSTIPATION, UNSPECIFIED Status: Acute Current Visit: Yes Qualifiers: Constipation type: slow transit constipation Qualified Code(s): K59.01 - Slow transit constipation (3) Weakness SNOMED Code(s): 49855497 Code(s): R53.1 - WEAKNESS Status: Acute Current Visit: Yes (4) Alkalosis, metabolic SNOMED Code(s): 7616099 Code(s): E87.3 - ALKALOSIS Status: Acute Current Visit: No (5) Diabetes mellitus type 2 SNOMED Code(s): 91122806 Code(s): E11.9 - TYPE 2 DIABETES MELLITUS WITHOUT COMPLICATIONS Status: Chronic Current Visit: No Annotation/Comment:: A1c mildly elevated to 6.8%. No bs over 200 mg/dL. (6) Hypothyroidism SNOMED Code(s): 28651470 Code(s): E03.9 - HYPOTHYROIDISM, UNSPECIFIED Status: Chronic Current Visit: No Annotation/Comment:: TSH elevated and restarted her levothyroxine at prior dose. have her in clinic for recheck in 4 wks. (7) Neuropathy, peripheral SNOMED Code(s): 397953175 Code(s): G62.9 - POLYNEUROPATHY, UNSPECIFIED Status: Chronic Current Visit: No Annotation/Comment:: Ultram on a as necessary basis. (8) Non-adherence to medical treatment SNOMED Code(s): 308295778 Code(s): Z91.19 - PATIENT'S NONCOMPLIANCE W OTH MEDICAL TREATMENT AND REGIMEN Status: Chronic Priority: High Current Visit: No Annotation/Comment:: Education chronic conditions, medical management, indications, side effects and risks nonadherence. (9) Supplemental oxygen dependent SNOMED Code(s): 838456572425 Code(s): Z99.81 - DEPENDENCE ON SUPPLEMENTAL OXYGEN Status: Chronic Priority: High Current Visit: No Annotation/Comment:: (10) Tobacco abuse disorder SNOMED Code(s): 205637368 Code(s): Z72.0 - TOBACCO USE Status: Chronic Current Visit: No Annotation/Comment:: Offered nicotine patch. Patient declined. (11) Anxiety SNOMED Code(s): 42410178 Code(s): F41.9 - ANXIETY DISORDER, UNSPECIFIED Status: Acute Current Vi sit: Yes (12) Asymptomatic bacteriuria SNOMED Code(s): 275873277 Code(s): R82.71 - BACTERIURIA Status: Acute Current Visit: Yes - Problem List Review Problem List Initiated/Reviewed/Updated: Yes - My Orders Last 24 Hours: My Active Orders 07/09/20 08:23 Peripheral IV Discontinue [OM.PC] Routine 07/09/20 09:00 metFORMIN [Glucophage XR] 500 mg PO DAILY 07/09/20 18:00 predniSONE 20 mg PO BIDMEALS - Plan Plan:: Continue curent therapy. PT and OT to consult.Change Solumedrol to oral. DC home tomorrow
[2020-07-09] MEDS: Simvastatin 20 MG Tab PO SCH (21:21)
[2020-07-09] MEDS: ALPRAZolam 0.5 MG Tab PO PRN (21:25)
[2020-07-09] MEDS: Enoxaparin 40 MG/0.4 ML Syringe SUBCUT SCH (21:26)
[2020-07-10] MEDS: Levothyroxine 100 MCG Tab PO SCH (05:06)
[2020-07-10] MEDS: ALPRAZolam 0.5 MG Tab PO PRN (05:12)
[2020-07-10] MEDS: Albuterol/Ipratropium 3.0-0.5 MG/3 ML Neb Soln NEB SCH (06:03)
[2020-07-10 06:06] VITALS: PULSE 68
[2020-07-10 06:44] VITALS: BP 138/69
[2020-07-10] MEDS: predniSONE 20 MG Tab PO SCH (08:51)
[2020-07-10] MEDS: metFORMIN 500 MG Tab.ER PO SCH (08:51)
[2020-07-10] MEDS: Furosemide 40 MG Tab PO SCH (08:51)
[2020-07-10] MEDS: Formoterol/Mometasone 200-5 MCG 8.8 GM Inhaler IH SCH (08:52)
--- NOTE | 2020-07-10 21:56 | DISCH ---
DISCHARGE DATE: 07/10/2020 PRIMARY FINAL DIAGNOSIS: Severe exacerbation of chronic obstructive pulmonary disease. OTHER DIAGNOSES: Chronic osteoarthritis, type 2 diabetes, hypothyroidism, anxiety. OPERATIONS: None. COMPLICATIONS: None. SUMMARY: Jacey is an 80-year-old woman with history of COPD who was admitted through the emergency room because of an exacerbation of shortness of breath. She was also having chronic constipation problems. On admission, she was started on vigorous pulmonary toilet, steroids, and given laxatives and enema and suppository. Over the subsequent two days, her breathing slowly improved. She continued to remain on 4 L of nasal cannula oxygen and then had a cough that was initially productive of yellow-green phlegm and is now clear. By 07/10/2020, she was strong enough for discharge. She is sent home to continue medications as follows: Prednisone 10 mg b.i.d. x1 week, albuterol nebulizer q.i.d., Ventolin inhaler two puffs every 4 hours p.r.n., simvastatin 20 mg daily, metformin 500 mg daily, levothyroxine 100 mcg daily, furosemide 40 mg daily, Advair 250 one puff b.i.d., Senokot-S one b.i.d., alprazolam 0.5 mg b.i.d., Tylenol p.r.n., MiraLAX 1 scoop full daily. She is to have follow up with Dr. Lopez as an outpatient. We will have home health care follow her for evaluation of her lungs, breathing, oxygen requirements, medications, etc. /[id number] ALFRED/DEN
== END 2020-07-10 10:50 | disposition home health service (06) | DRG 191 ==
LOC: FB.ED 18:58 → FB.MS 21:52 → OBSVTOIN 07-07 08:39
PROVIDERS: ADMIT Emergency Medicine; ATTEND Family Medicine
DX: J44.0 Chronic obstructive pulmonary disease with (acute) lower respiratory infection (principal); J44.1 Chronic obstructive pulmonary disease with (acute) exacerbation; E87.3 Alkalosis; N39.0 Urinary tract infection, site not specified; E03.9 Hypothyroidism, unspecified; R53.1 Weakness; M19.90 Unspecified osteoarthritis, unspecified site; H54.7 Unspecified visual loss; K59.09 Other constipation; E78.00 Pure hypercholesterolemia, unspecified; Z87.440 Personal history of urinary (tract) infections; F41.9 Anxiety disorder, unspecified; Z20.828 Contact with and (suspected) exposure to other viral communicable diseases; E89.0 Postprocedural hypothyroidism; Z98.42 Cataract extraction status, left eye; Z98.41 Cataract extraction status, right eye; Z98.890 Other specified postprocedural states; Z90.49 Acquired absence of other specified parts of digestive tract; Z90.710 Acquired absence of both cervix and uterus; F17.210 Nicotine dependence, cigarettes, uncomplicated; E66.9 Obesity, unspecified; F17.200 Nicotine dependence, unspecified, uncomplicated; K59.01 Slow transit constipation; E11.42 Type 2 diabetes mellitus with diabetic polyneuropathy; Z91.048 Other nonmedicinal substance allergy status; R82.71 Bacteriuria; E86.0 Dehydration; Z88.1 Allergy status to other antibiotic agents; Z88.0 Allergy status to penicillin; Z88.7 Allergy status to serum and vaccine; Z88.8 Allergy status to other drugs, medicaments and biological substances; Z98.49 Cataract extraction status, unspecified eye; Z79.890 Hormone replacement therapy; Z79.84 Long term (current) use of oral hypoglycemic drugs; Z79.899 Other long term (current) drug therapy; Z91.19 Patient's noncompliance with other medical treatment and regimen; Z99.81 Dependence on supplemental oxygen; Z68.32 Body mass index [BMI] 32.0-32.9, adult
CPT/HCPCS: 36415; 51702 ×2; 71045; 74177; 80053; 81001; 82150; 83690; 83880; 84443; 84484; 85025; 87086; 93005; 94640 ×3; 96361 ×4; 96374; 96375 ×3; 96376; 99283; 99285 ×2; A9270 ×2; G0378 ×3; J1650; J1940; J2060; J2930 ×2; J7030; Q9967; 80048; 82947; 82962; 83036; 94760; 99222; 99231; 99232; 99238; J1815; J7512; J7620-GY; U0002

== ENCOUNTER 2020-12-20 19:09 | Emergency (ER) | payer MEDICARE, BC ==
[2020-12-20] MEDS ORDERED: methylPREDNISolone Sodium Succinate 125 MG/2 ML SDV IVPUSH ONE (19:28)
[2020-12-20] MEDS ORDERED: Azithromycin 500 MG in Sodium Chloride 0.9% 250 ML IV ONE (19:29)
[2020-12-20] MEDS ORDERED: Budesonide 0.5 MG/2 ML Neb Susp NEB ONE (19:34)
--- NOTE | 2020-12-20 19:35 | EDM.PDOC ---
ED HPI GENERAL MEDICAL PROBLEM - General Chief Complaint: Respiratory Problem Stated Complaint: SOB Time Seen by Provider: 12/20/20 19:15 Source of Information: Reports: Patient History Limitations: Reports: No Limitations - History of Present Illness INITIAL COMMENTS - FREE TEXT/NARRATIVE: brought in by EMS states she developed sob today about 2 pm used Neb at 430pm and breathing still worse no fever has COPD on 4 litersof oxygen at home states she is not in contact with any one with COVId Does not take test and has not recieved vaccines Onset: Today Onset Date: 12/20/20 Onset Time: 14:00 Duration: Getting Worse Location: Reports: Chest Quality: Reports: Dull Severity: Moderate Improves with: Reports: None Worsens with: Reports: None Associated Symptoms: Denies: Cough - Related Data Allergies Allergy/AdvReac Type Severity Reaction Status Date / Time perfume Allergy Intermediate Shortness Verified 07/06/20 19:05 of Breath ceftriaxone sodium Allergy Hives Verified 07/06/20 19:05 [From Rocephin] ciprofloxacin [From Cipro] Allergy Hives Verified 07/06/20 19:05 ciprofloxacin HCl Allergy Hives Verified 07/06/20 19:05 [From Cipro] Penicillins Allergy Hives Verified 07/06/20 19:05 pneumococcal vaccine Allergy Swelling Verified 07/06/20 19:05 [Pneumococcal Vaccine] Home Meds: Home Meds Albuterol [Ventolin HFA] 2 puff INH Q4HR PRN 03/07/14 [History] Simvastatin [Zocor] 20 mg PO BEDTIME 05/23/15 [History] Furosemide [Lasix] 40 mg PO DAILY 10/11/16 [History] Fluticasone Propion/Salmeterol [Advair 250-50 Diskus] 1 puff INH BID 05/10/19 [History] Levothyroxine [Synthroid] 100 mcg PO ACBREAKFAST 05/10/19 [History] Albuterol Sulfate 2.5 mg IH QID 02/16/20 [History] ALPRAZolam [Xanax] 0.5 mg PO BID PRN 07/06/20 [History] metFORMIN [Glucophage XR] 500 mg PO DAILY 07/06/20 [History] Docusate Sodium/Sennosides [Senna Plus] 1 tab PO BID PRN tablet 10/02/20 [Rx] Lactulose [Chronulac] 20 gm PO DAILY PRN #500 ml 07/10/20 [Rx] predniSONE [Prednisone] 10 mg PO BID #15 tablet 07/10/20 [Rx] Azithromycin [Zithromax] 500 mg PO DAILY #7 tab 12/20/20 [Rx] predniSONE [Prednisone] 40 mg PO DAILY #10 tablet 12/20/20 [Rx] Past Medical History HEENT History: Reports: Cataract, Impaired Vision Cardiovascular History: Reports: High Cholesterol, SOB on Exertion Respiratory History: Reports: Bronchitis, Recurrent, COPD Other Respiratory History: Uses home O2. Gastrointestinal History: Reports: Bowel Obstruction, Other (See Below) Other Gastrointestinal History: Had abdominal surgery but patient is not certain what was all involved. 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 Hematologic History: Reports: Blood Transfusion(s) Oncologic (Cancer) History: Reports: Colon, Other (See Below) Other Oncologic History: According to the report, patient denies. Dermatologic History: Reports: Cellulitis, Other (See Below) Other Dermatologic History: Lymphedema. - Infectious Disease History Infectious Disease History: Reports: Mumps Other Infectious Disease History: She is not certain if she had Rubella or Rubeola. - Past Surgical History Head Surgeries/Procedures: Reports: None HEENT Surgical History: Reports: Adenoidectomy, Cataract Surgery, Tonsillectomy, Other (See Below) Other HEENT Surgeries/Procedures: Bilateral cataract surgery. GI Surgical History: Reports: Cholecystectomy, Colon, Colonoscopy, EGD, Hernia Repair/Other Female Surgical History: Reports: Hysterectomy Endocrine Surgical History: Reports: Thyroidectomy Musculoskeletal Surgical History: Reports: None Social & Family History - Family History Family Medical History: No Pertinent Family History Dermatologic: Reports: None Oncologic: Reports: Other (See Below) Other Oncologic Family History: Patient doesn't recall the type. - Caffeine Use Caffeine Use: Reports: Coffee Other Caffeine Use: 3-5 cups coffee/day - Living Situation & Occupation Living situation: Reports: Alone ED ROS GENERAL - Review of Systems Review Of Systems: See Below Constitutional: Reports: No Symptoms, Malaise, Weakness HEENT: Reports: No Symptoms Respiratory: Reports: Shortness of Breath, Wheezing, Cough Cardiovascular: Reports: No Symptoms Endocrine: Reports: No Symptoms GI/Abdominal: Reports: No Symptoms Musculoskeletal: Reports: No Symptoms Skin: Reports: No Symptoms Neurological: Reports: No Symptoms Psychiatric: Reports: No Symptoms Hematologic/Lymphatic: Reports: No Symptoms Immunologic: Reports: No Symptoms ED EXAM, GENERAL - Physical Exam Exam: See Below Exam Limited By: No Limitations General Appearance: Alert, WD/WN, Mild Distress Eye Exam: Bilateral Eye: EOMI Nose: Normal Inspection Throat/Mouth: Normal Oropharynx Head: Atraumatic, Normocephalic Neck: Supple, Non-Tender Respiratory/Chest: Decreased Breath Sounds, Rales, Rhonchi, Wheezing Cardiovascular: Regular Rate, Rhythm GI/Abdominal: Soft, Non-Tender Back Exam: Normal Inspection, Decreased Range of Motion Extremities: Normal Inspection, Non-Tender, No Pedal Edema Neurological: Alert, Oriented, CN II-XII Intact, Normal Cognition, Normal Gait Psychiatric: Normal Affect, Normal Mood Skin Exam: Warm Course - Vital Signs Last Recorded V/S: Last Vital Signs Temp 36.4 C 12/20/20 19:15 Pulse 77 12/20/20 21:08 Resp 16 12/20/20 19:15 BP 140/55 L 12/20/20 19:15 Pulse Ox 94 L 12/20/20 21:34 - Orders/Labs/Meds Orders: Active Orders 24 hr Category Date Time Status Chest 1V Frontal [CR] Stat Exams 12/20/20 19:27 Taken Labs: Laboratory Tests 12/20/20 12/20/20 12/20/20 Range/Units 19:40 19:40 19:40 WBC 8.7 (3.0-10.3) x10-3/uL RBC 4.05 (3.60-5.20) x10(6)uL Hgb 11.3 L (11.4-15.5) g/dL Hct 35.8 (34.2-48.2) % MCV 88.5 (76.7-100.5) fL MCH 27.9 (23.9-33.9) pg MCHC 31.5 L (31.9-34.8) g/dL RDW 14.7 (12.3-16.5) % Plt Count 334 (151-488) x10(3)uL MPV 8.1 (7.1-12.4) fL Neut % (Auto) 76.9 H (30.8-76.2) % Lymph % (Auto) 11.4 L (18.4-52.1) % [place] % (Auto) 7.3 (4.4-15.7) % Eos % (Auto) 3.6 (0.6-8.1) % Baso % (Auto) 0.8 (0.2-1.5) % Neut # (Auto) 6.7 H (1.5-6.3) x10-3/uL Lymph # (Auto) 1.0 (1.0-4.4) x10-3/uL [place] # (Auto) 0.6 (0.3-1.0) x10-3/uL Eos # (Auto) 0.3 (0.0-0.8) x10-3/uL Baso # (Auto) 0.1 (0.0-0.1) x10-3/uL D-Dimer, Quantitative 0.48 (0.0-0.59) mg/LFEU POC VBG pH (7.32-7.43) pH Units POC VBG pCO2 (41-51) mmHg POC VBG HCO3 (21-29) mmol/L VBG Base Excess (-2-3) mmol/L O2 Delivery Device Sodium 142 (135-145) mmol/L Potassium 4.3 (3.5-5.3) mmol/L Chloride 98 L (100-110) mmol/L Carbon Dioxide 42 H* (21-32) mmol/L BUN 20 H (7-18) mg/dL Creatinine 1.0 (0.55-1.02) mg/dL Est Cr Clr Drug Dosing TNP Estimated GFR (MDRD) 53 L (>60) BUN/Creatinine Ratio 20.0 (9-20) Glucose 206 H D (80-116) mg/dL Calcium 8.7 (8.6-10.2) mg/dL Total Bilirubin 0.3 (0.1-1.3) mg/dL AST 16 D (5-25) IU/L ALT 19 D (12-36) U/L Alkaline Phosphatase 98 (56-112) IU/L NT-Pro-B Natriuret Pep (<=450) pg/mL Total Protein 7.1 (6.0-8.0) g/dL Albumin 3.4 (3.2-4.6) g/dL Globulin 3.7 g/dL Albumin/Globulin Ratio 0.9 SARS-CoV-2 RNA (ERINN) (NEGATIVE) 12/20/20 12/20/20 12/20/20 Range/Units 19:40 19:40 20:36 WBC (3.0-10.3) x10-3/uL RBC (3.60-5.20) x10(6)uL Hgb (11.4-15.5) g/dL Hct (34.2-48.2) % MCV (76.7-100.5) fL MCH (23.9-33.9) pg MCHC (31.9-34.8) g/dL RDW (12.3-16.5) % Plt Count (151-488) x10(3)uL MPV (7.1-12.4) fL Neut % (Auto) (30.8-76.2) % Lymph % (Auto) (18.4-52.1) % [place] % (Auto) (4.4-15.7) % Eos % (Auto) (0.6-8.1) % Baso % (Auto) (0.2-1.5) % Neut # (Auto) (1.5-6.3) x10-3/uL Lymph # (Auto) (1.0-4.4) x10-3/uL [place] # (Auto) (0.3-1.0) x10-3/uL Eos # (Auto) (0.0-0.8) x10-3/uL Baso # (Auto) (0.0-0.1) x10-3/uL D-Dimer, Quantitative (0.0-0.59) mg/LFEU POC VBG pH 7.32 (7.32-7.43) pH Units POC VBG pCO2 82 H (41-51) mmHg POC VBG HCO3 42 H (21-29) mmol/L VBG Base Excess 16 H (-2-3) mmol/L O2 Delivery Device Nasal cannula Sodium (135-145) mmol/L Potassium (3.5-5.3) mmol/L Chloride (100-110) mmol/L Carbon Dioxide (21-32) mmol/L BUN (7-18) mg/dL Creatinine (0.55-1.02) mg/dL Est Cr Clr Drug Dosing Estimated GFR (MDRD) (>60) BUN/Creatinine Ratio (9-20) Glucose (80-116) mg/dL Calcium (8.6-10.2) mg/dL Total Bilirubin (0.1-1.3) mg/dL AST (5-25) IU/L ALT (12-36) U/L Alkaline Phosphatase (56-112) IU/L NT-Pro-B Natriuret Pep 134 (<=450) pg/mL Total Protein (6.0-8.0) g/dL Albumin (3.2-4.6) g/dL Globulin g/dL Albumin/Globulin Ratio SARS-CoV-2 RNA (ERINN) Negative (NEGATIVE) Meds: Medications Discontinued Medications Generic Name Dose Route Start Last Admin Trade Name Freq PRN Reason Stop Dose Admin Albuterol/Ipratropium 3 ml 12/20/20 21:30 12/20/20 21:34 Albuterol/Ipratropium 3.0-0.5 Mg/3 Ml Neb Soln NEB 12/20/20 21:31 3 ml ONETIME ONE Administration Budesonide 0.5 mg 12/20/20 19:34 12/20/20 21:08 Budesonide 0.5 Mg/2 Ml Neb Susp NEB 12/20/20 19:35 0.5 mg ONETIME ONE Administration Azithromycin 500 mg/ Sodium 250 mls @ 250 mls/hr 12/20/20 19:29 12/20/20 20:43 Chloride IV 12/20/20 20:28 250 mls/hr ONETIME ONE Administration Methylprednisolone Sodium Succinate 125 mg 12/20/20 19:28 12/20/20 20:43 Methylprednisolone Sodium Succinate 125 Mg/2 Ml Sdv IVPUSH 12/20/20 19:29 125 mg ONETIME ONE Administration - Re-Assessments/Exams Free Text/Narrative Re-Assessment/Exam: 12/21/20 01:09 had Kang virus screen then then was given IV solumedrol NEB x2 and iv zithromax breathing stabilized and she was discharged home on oral meds Departure - Departure Time of Disposition: 22:30 Disposition: Home, Self-Care 01 Condition: Fair Clinical Impression: COPD, Moderate chronic obstructive pulmonary disease, Acute bronchiolitis - Discharge Information *PRESCRIPTION DRUG MONITORING PROGRAM REVIEWED*: Not Applicable *COPY OF PRESCRIPTION DRUG MONITORING REPORT IN PATIENT ESTRELLA: Not Applicable Prescriptions: predniSONE [Prednisone] 40 mg PO DAILY #10 tablet Azithromycin [Zithromax] 500 mg PO DAILY #7 tab Instructions: Chronic Obstructive Pulmonary Disease Exacerbation, [id number], Form - COPD Action Plan Referrals: PCP,None [Primary Care Provider] - Forms: ED Department Discharge Additional Instructions: 1) patient encouraged to keep oxygen via nasal cannula to <4 liters 2) Call PCP with any concerns Sepsis Event Note (ED) - Focused Exam Vital Signs: Vital Signs Temp Pulse Resp BP Pulse Ox Pulse Ox 12/20/20 21:34 94 L 12/20/20 21:08 77 93 L 12/20/20 19:15 36.4 C 16 140/55 L 94 L 12/20/20 19:09 36.4 C 80 16 140/55 L 94 L - My Orders Last 24 Hours: My Active Orders 12/20/20 19:27 Chest 1V Frontal [CR] Stat - Assessment/Plan Last 24 Hours: My Active Orders 12/20/20 19:27 Chest 1V Frontal [CR] Stat
[2020-12-20 20:00] LABS: HCO3 VENOUS,POC 42 mmol/L (21-29); PCO2 VENOUS,POC 82 mmHg (41-51); PH VENOUS,POC 7.32 pH Units (7.32-7.43)
[2020-12-20 20:01] LABS: BASE EXCESS VENOUS,POC 16 mmol/L (-2-3)
[2020-12-20 21:28] VITALS: BP 140/55
[2020-12-20] MEDS ORDERED: Albuterol/Ipratropium 3.0-0.5 MG/3 ML Neb Soln NEB ONE (21:30)
[2020-12-20 23:19] VITALS: PULSE 77
--- NOTE | 2020-12-21 12:00 | CR ---
INDICATION: Shortness of breath. CHEST, ONE VIEW: AP upright view of the chest was obtained 12/20/20 and compared with 07/06/20 and 04/23/20. The heart did not appear grossly enlarged. Overlying EKG leads are noted. The aorta is calcified in the arch area. There appears to be some chronic infiltrate which appears more prominent at the left lung base with heavy markings at the right lung base. These findings may be on the basis of areas of patchy pneumonia with one area of somewhat nodular density at the left lower lung field laterally. The possibility of an abscess or even a neoplasm cannot be entirely excluded. This should be correlated clinically. The lungs appear to be somewhat hyperaerated. IMPRESSION: 1. Heavy markings at both lung bases with a somewhat nodular area at the left lung base. Findings may be on the basis of infectious disease but should be correlated clinically as fibrosis and/or neoplasia is difficult to entirely exclude in the area of nodularity. 2. ASD aorta. 3. Hyperaeration suggested. MTDD
== END 2020-12-20 22:30 | disposition home or self-care (01) ==
LOC: FB.ED 19:09
DX: J44.0 Chronic obstructive pulmonary disease with (acute) lower respiratory infection (principal); J21.9 Acute bronchiolitis, unspecified; E78.00 Pure hypercholesterolemia, unspecified; E11.9 Type 2 diabetes mellitus without complications; E03.9 Hypothyroidism, unspecified; E66.9 Obesity, unspecified; Z68.33 Body mass index [BMI] 33.0-33.9, adult; Z79.899 Other long term (current) drug therapy; Z79.84 Long term (current) use of oral hypoglycemic drugs; Z91.048 Other nonmedicinal substance allergy status; Z88.1 Allergy status to other antibiotic agents; Z88.0 Allergy status to penicillin; Z88.7 Allergy status to serum and vaccine; Z20.822 Contact with and (suspected) exposure to COVID-19
CPT/HCPCS: 36410; 36415; 71045; 80053; 83880; 85025; 85379; 94640; 96365; 96375; 99283; 99285-25; J0456; J2930; J7050; J7620-GY; U0002

== ENCOUNTER 2021-02-01 20:21 | Emergency (ER) | payer MEDICARE, BC ==
[2021-02-01] MEDS ORDERED: LORazepam 2 MG/ML SDV IM STA (20:57)
--- NOTE | 2021-02-01 21:16 | EDM.PDOC ---
ED HPI GENERAL MEDICAL PROBLEM - General Chief Complaint: General Stated Complaint: Weakness, Anxiety Time Seen by Provider: 02/01/21 20:50 Source of Information: Reports: Patient, Family History Limitations: Reports: No Limitations - History of Present Illness INITIAL COMMENTS - FREE TEXT/NARRATIVE: Patient presented to the Ed because of weakness and anxiety for several days. She is taking xanax 0.5 mg however it doesn't seem to help anymore according to her. She c/o dyspnea due to her COPD and is on home oxygen at 4L/min. She still smokes inspite of her COPD. There is no fever/chills/cough or cold symptoms. There is no associated N/V/D. - Related Data Allergies Allergy/AdvReac Type Severity Reaction Status Date / Time perfume Allergy Intermediate Shortness Verified 07/06/20 19:05 of Breath ceftriaxone sodium Allergy Hives Verified 07/06/20 19:05 [From Rocephin] ciprofloxacin [From Cipro] Allergy Hives Verified 07/06/20 19:05 ciprofloxacin HCl Allergy Hives Verified 07/06/20 19:05 [From Cipro] Penicillins Allergy Hives Verified 07/06/20 19:05 pneumococcal vaccine Allergy Swelling Verified 07/06/20 19:05 [Pneumococcal Vaccine] Home Meds: Home Meds Albuterol [Ventolin HFA] 2 puff INH Q4HR PRN 03/07/14 [History] Simvastatin [Zocor] 20 mg PO BEDTIME 05/23/15 [History] Furosemide [Lasix] 40 mg PO DAILY 10/11/16 [History] Fluticasone Propion/Salmeterol [Advair 250-50 Diskus] 1 puff INH BID 05/10/19 [History] Levothyroxine [Synthroid] 100 mcg PO ACBREAKFAST 05/10/19 [History] Albuterol Sulfate 2.5 mg IH QID 02/16/20 [History] ALPRAZolam [Xanax] 0.5 mg PO BID PRN 07/06/20 [History] metFORMIN [Glucophage XR] 500 mg PO DAILY 07/06/20 [History] Docusate Sodium/Sennosides [Senna Plus] 1 tab PO BID PRN tablet 07/10/20 [Rx] Lactulose [Chronulac] 20 gm PO DAILY PRN #500 ml 07/10/20 [Rx] predniSONE [Prednisone] 10 mg PO BID #15 tablet 07/10/20 [Rx] Azithromycin [Zithromax] 500 mg PO DAILY #7 tab 12/20/20 [Rx] predniSONE [Prednisone] 40 mg PO DAILY #10 tablet 12/20/20 [Rx] Past Medical History HEENT History: Reports: Cataract, Impaired Vision Cardiovascular History: Reports: High Cholesterol, SOB on Exertion Respiratory History: Reports: Bronchitis, Recurrent, COPD Other Respiratory History: Uses home O2. Gastrointestinal History: Reports: Bowel Obstruction, Other (See Below) Other Gastrointestinal History: Had abdominal surgery but patient is not certain what was all involved. 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 Hematologic History: Reports: Blood Transfusion(s) Oncologic (Cancer) History: Reports: Colon, Other (See Below) Other Oncologic History: According to the report, patient denies. Dermatologic History: Reports: Cellulitis, Other (See Below) Other Dermatologic History: Lymphedema. - Infectious Disease History Infectious Disease History: Reports: Mumps Other Infectious Disease History: She is not certain if she had Rubella or Rubeola. - Past Surgical History Head Surgeries/Procedures: Reports: None HEENT Surgical History: Reports: Adenoidectomy, Cataract Surgery, Tonsillectomy, Other (See Below) Other HEENT Surgeries/Procedures: Bilateral cataract surgery. GI Surgical History: Reports: Cholecystectomy, Colon, Colonoscopy, EGD, Hernia Repair/Other Female Surgical History: Reports: Hysterectomy Endocrine Surgical History: Reports: Thyroidectomy Musculoskeletal Surgical History: Reports: None Social & Family History - Family History Family Medical History: No Pertinent Family History Dermatologic: Reports: None Oncologic: Reports: Other (See Below) Other Oncologic Family History: Patient doesn't recall the type. - Caffeine Use Caffeine Use: Reports: Coffee Other Caffeine Use: 3-5 cups coffee/day - Living Situation & Occupation Living situation: Reports: Alone ED ROS GENERAL - Review of Systems Review Of Systems: See Below Constitutional: Reports: Weakness, Fatigue HEENT: Reports: No Symptoms Respiratory: Reports: Shortness of Breath, Cough Cardiovascular: Reports: No Symptoms Endocrine: Reports: No Symptoms GI/Abdominal: Reports: No Symptoms : Reports: No Symptoms Musculoskeletal: Reports: No Symptoms Skin: Reports: No Symptoms Neurological: Reports: No Symptoms Psychiatric: Reports: No Symptoms ED EXAM, GENERAL - Physical Exam Exam: See Below Exam Limited By: No Limitations General Appearance: Alert, No Apparent Distress Ears: Normal External Exam, Normal [place] Nose: Normal Inspection, Normal Mucosa Throat/Mouth: Normal Inspection, Normal Lips Head: Atraumatic, Normocephalic Neck: Normal Inspection, Supple, Non-Tender, Full Range of Motion Respiratory/Chest: No Respiratory Distress, Lungs Clear, Normal Breath Sounds, No Accessory Muscle Use, Chest Non-Tender Cardiovascular: Normal Peripheral Pulses, Regular Rate, Rhythm, No Edema, No JVD, No Murmur, No Rub GI/Abdominal: Normal Bowel Sounds, Soft, Non-Tender, No Organomegaly, No Distention, No Abnormal Bruit, No Mass Back Exam: Normal Inspection, Full Range of Motion Extremities: Normal Inspection, Normal Range of Motion, Non-Tender, No Pedal Edema Neurological: Alert, Oriented, CN II-XII Intact Course - Vital Signs Text/Narrative:: Labs-pending Refused CXR,UA Ativan 1 mg IM Patient want to leeave LUCA after she had her ativan. She said I just want you to mail the result. I told her she need to request the medical records. - Orders/Labs/Meds Orders: Active Orders 24 hr Category Date Time Status UA W/MICROSCOPIC [URIN] Stat Lab 02/01/21 20:56 Ordered Labs: Laboratory Tests 02/01/21 02/01/21 02/01/21 Range/Units 21:10 21:10 21:10 WBC 9.1 (3.0-10.3) x10-3/uL RBC 4.35 (3.60-5.20) x10(6)uL Hgb 12.1 (11.4-15.5) g/dL Hct 38.0 (34.2-48.2) % MCV 87.4 (76.7-100.5) fL MCH 27.7 (23.9-33.9) pg MCHC 31.7 L (31.9-34.8) g/dL RDW 14.6 (12.3-16.5) % Plt Count 324 (151-488) x10(3)uL MPV 7.6 (7.1-12.4) fL Neut % (Auto) 74.2 (30.8-76.2) % Lymph % (Auto) 15.7 L (18.4-52.1) % [place] % (Auto) 7.2 (4.4-15.7) % Eos % (Auto) 2.3 (0.6-8.1) % Baso % (Auto) 0.6 (0.2-1.5) % Neut # (Auto) 6.7 H (1.5-6.3) x10-3/uL Lymph # (Auto) 1.4 (1.0-4.4) x10-3/uL [place] # (Auto) 0.7 (0.3-1.0) x10-3/uL Eos # (Auto) 0.2 (0.0-0.8) x10-3/uL Baso # (Auto) 0.1 (0.0-0.1) x10-3/uL Sodium 141 (135-145) mmol/L Potassium 3.9 (3.5-5.3) mmol/L Chloride 96 L (100-110) mmol/L Carbon Dioxide 45 H* (21-32) mmol/L BUN 16 (7-18) mg/dL Creatinine 0.9 (0.55-1.02) mg/dL Est Cr Clr Drug Dosing TNP Estimated GFR (MDRD) > 60 (>60) BUN/Creatinine Ratio 17.8 (9-20) Glucose 185 H (80-116) mg/dL Calcium 8.6 (8.6-10.2) mg/dL Total Bilirubin 0.3 (0.1-1.3) mg/dL AST 14 D (5-25) IU/L ALT 17 D (12-36) U/L Alkaline Phosphatase 135 H (56-112) IU/L Troponin I 21.8 (4.0-60.3) pg/mL Total Protein 7.5 (6.0-8.0) g/dL Albumin 3.5 (3.2-4.6) g/dL Globulin 4.0 g/dL Albumin/Globulin Ratio 0.9 Meds: Medications Discontinued Medications Generic Name Dose Route Start Last Admin Trade Name Sophie PRN Reason Stop Dose Admin Lorazepam 1 mg 02/01/21 20:57 02/01/21 21:04 Lorazepam 2 Mg/Ml Sdv IM 02/01/21 20:58 1 mg NOW STA Administration Departure - Departure Time of Disposition: 21:20 Disposition: Home, Self-Care 01 Condition: Good Clinical Impression: Anxiety, Weakness COPD (chronic obstructive pulmonary disease) Qualifiers: COPD type: COPD with acute exacerbation Qualified Code(s): J44.1 - Chronic obstructive pulmonary disease with (acute) exacerbation - Discharge Information Instructions: Weakness, [id number], Managing Anxiety, Adult Referrals: PCP,None [Primary Care Provider] - Forms: ED Department Discharge Additional Instructions: Please read discharge instructions on anxiety and weakness Continue your medications Follow up this week for your anxiety - My Orders Last 24 Hours: My Active Orders 02/01/21 20:56 UA W/MICROSCOPIC [URIN] Stat - Assessment/Plan Last 24 Hours: My Active Orders 02/01/21 20:56 UA W/MICROSCOPIC [URIN] Stat
[2021-02-02 09:18] VITALS: BP 147/55; PULSE 73
== END 2021-02-01 21:40 | disposition home or self-care (01) ==
LOC: FB.ED 20:21
DX: F41.9 Anxiety disorder, unspecified (principal); J44.1 Chronic obstructive pulmonary disease with (acute) exacerbation; E78.00 Pure hypercholesterolemia, unspecified; E03.9 Hypothyroidism, unspecified; E11.9 Type 2 diabetes mellitus without complications; E66.8 Other obesity; Z68.31 Body mass index [BMI] 31.0-31.9, adult; Z88.0 Allergy status to penicillin; Z88.1 Allergy status to other antibiotic agents; Z91.048 Other nonmedicinal substance allergy status; Z88.7 Allergy status to serum and vaccine; Z79.84 Long term (current) use of oral hypoglycemic drugs
CPT/HCPCS: 36415; 80053; 84484; 85025; 96372; 99285; J2060

== ENCOUNTER 2021-02-05 10:04 | Emergency (ER) | payer MEDICARE, BC ==
--- NOTE | 2021-02-05 10:27 | EDM.PDOC ---
ED HPI GENERAL MEDICAL PROBLEM - General Time Seen by Provider: 02/05/21 10:15 Source of Information: Reports: Patient History Limitations: Reports: No Limitations - History of Present Illness INITIAL COMMENTS - FREE TEXT/NARRATIVE: c/o RLQ pain on O2 via NC, 3.5 l/min at home altho does retain CO2 into the 80s, placed on 3 l/min here here in ED 4d ago with c/o weakness, w/u neg lives alone in apartment now with pain/ache in RLQ x 3h, had a small BM not eaten today no f/c/d at home, no fever by EMS or here PMH: includes end stage COPD labs: 4d ago: CBC neg, B/cr 16/0.2, CO2 45 1y ago: CRP 3.3, A1C 7.7 4y ago: BNP 20 R abdomen Pain Score (Numeric/FACES): 3 - Related Data Allergies Allergy/AdvReac Type Severity Reaction Status Date / Time perfume Allergy Intermediate Shortness Verified 02/02/21 09:07 of Breath ceftriaxone sodium Allergy Hives Verified 02/02/21 09:07 [From Rocephin] ciprofloxacin [From Cipro] Allergy Hives Verified 02/02/21 09:07 ciprofloxacin HCl Allergy Hives Verified 02/02/21 09:07 [From Cipro] Penicillins Allergy Hives Verified 02/02/21 09:07 pneumococcal vaccine Allergy Swelling Verified 02/02/21 09:07 [Pneumococcal Vaccine] Home Meds: Home Meds Albuterol [Ventolin HFA] 2 puff INH Q4HR PRN 03/07/14 [History] Simvastatin [Zocor] 20 mg PO BEDTIME 05/23/15 [History] Furosemide [Lasix] 40 mg PO DAILY 10/11/16 [History] Fluticasone Propion/Salmeterol [Advair 250-50 Diskus] 1 puff INH BID 05/10/19 [History] Levothyroxine [Synthroid] 100 mcg PO ACBREAKFAST 05/10/19 [History] Albuterol Sulfate 2.5 mg IH QID 02/16/20 [History] ALPRAZolam [Xanax] 0.5 mg PO BID PRN 07/06/20 [History] metFORMIN [Glucophage XR] 500 mg PO DAILY 07/06/20 [History] Azithromycin [Zithromax] 500 mg PO DAILY #7 tab 12/20/20 [Rx] Past Medical History HEENT History: Reports: Cataract, Impaired Vision Cardiovascular History: Reports: High Cholesterol, SOB on Exertion Respiratory History: Reports: Bronchitis, Recurrent, COPD Other Respiratory History: Uses home O2. Gastrointestinal History: Reports: Bowel Obstruction, Other (See Below) Other Gastrointestinal History: Had abdominal surgery but patient is not certain what was all involved. 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 History of fracture right 3rd digit and right great toe. Neurological History: Reports: Migraines Psychiatric History: Reports: Anxiety Endocrine/Metabolic History: Reports: Diabetes, Type II, Hypothyroidism, Obesity/BMI 30+ Other Endocrine/Metabolic History: Thyroidectomy 2007. Hematologic History: Reports: Blood Transfusion(s) Oncologic (Cancer) History: Reports: Colon, Other (See Below) Other Oncologic History: Colon CA--uncertain. Dermatologic History: Reports: Cellulitis, Other (See Below) Other Dermatologic History: Lymphedema. - Infectious Disease History Infectious Disease History: Reports: Mumps Other Infectious Disease History: She is not certain if she had Rubella or Rubeola. - Past Surgical History Head Surgeries/Procedures: Reports: None HEENT Surgical History: Reports: Adenoidectomy, Cataract Surgery, Tonsillectomy, Other (See Below) Other HEENT Surgeries/Procedures: Bilateral cataract surgery. GI Surgical History: Reports: Cholecystectomy, Colon, Colonoscopy, EGD, Hernia Repair/Other Female Surgical History: Reports: Hysterectomy Endocrine Surgical History: Reports: Thyroidectomy Musculoskeletal Surgical History: Reports: None Social & Family History - Family History Family Medical History: No Pertinent Family History Dermatologic: Reports: None Oncologic: Reports: Other (See Below) Other Oncologic Family History: Patient doesn't recall the type. - Caffeine Use Caffeine Use: Reports: Coffee Other Caffeine Use: 3-5 cups coffee/day - Living Situation & Occupation Living situation: Reports: Alone ED ROS GENERAL - Review of Systems Review Of Systems: See Below Constitutional: Reports: No Symptoms HEENT: Reports: No Symptoms Respiratory: Reports: Shortness of Breath Cardiovascular: Reports: No Symptoms Endocrine: Reports: No Symptoms GI/Abdominal: Reports: Abdominal Pain, Constipation. Denies: Nausea, Vomiting : Reports: No Symptoms Musculoskeletal: Reports: No Symptoms Skin: Reports: No Symptoms Neurological: Reports: No Symptoms Psychiatric: Reports: No Symptoms Hematologic/Lymphatic: Reports: No Symptoms Immunologic: Reports: No Symptoms ED EXAM, GI/ABD - Physical Exam Exam: See Below Exam Limited By: No Limitations General Appearance: Alert, WD/WN, Other (fatigue, mild dyspnea as per baseline) Throat/Mouth: Normal Inspection Head: Atraumatic Neck: Normal Inspection Respiratory/Chest: Other (poor AE, no cough) Cardiovascular: Regular Rate, Rhythm GI/Abdominal Exam: Other (alert, sit in w/c, mild tender to R of umbilicus, no guard/rebound) Back Exam: No: CVA Tenderness (R), CVA Tenderness (L) Extremities: No Pedal Edema Neurological: Alert, Oriented, CN II-XII Intact, Normal Cognition, No Motor/Sensory Deficits Skin Exam: Warm, Dry, Intact, Normal Color, No Rash Lymphatic: No Adenopathy Course - Vital Signs Last Recorded V/S: Last Vital Signs Temp 36.8 C 02/05/21 10:04 Pulse 79 02/05/21 10:04 Resp 24 H 02/05/21 10:04 BP 123/57 L 02/05/21 10:04 Pulse Ox 3 L 02/05/21 10:04 - Orders/Labs/Meds Orders: Active Orders 24 hr Category Date Time Status RT Aerosol Therapy [RC] ASDIRECTED Care 02/05/21 12:21 Active Abdomen 2V AP Flat Upright [CR] Stat Exams 02/05/21 10:20 Taken CORONAVIRUS COVID-19 ERINN [MOLEC] Stat Lab 02/05/21 10:17 Ordered CULTURE BLOOD [BC] Urgent Lab 02/05/21 10:20 Received CULTURE BLOOD [BC] Urgent Lab 02/05/21 10:30 Received Blood Culture x2 Reflex Set [OM.PC] Urgent Oth 02/05/21 10:17 Ordered Labs: Laboratory Tests 02/05/21 02/05/21 02/05/21 Range/Units 10:20 10:20 10:20 WBC 8.6 (3.0-10.3) x10-3/uL RBC 4.25 (3.60-5.20) x10(6)uL Hgb 12.1 (11.4-15.5) g/dL Hct 37.3 (34.2-48.2) % MCV 87.7 (76.7-100.5) fL MCH 28.5 (23.9-33.9) pg MCHC 32.5 (31.9-34.8) g/dL RDW 14.8 (12.3-16.5) % Plt Count 292 (151-488) x10(3)uL MPV 7.9 (7.1-12.4) fL Neut % (Auto) 80.2 H (30.8-76.2) % Lymph % (Auto) 11.1 L (18.4-52.1) % [place] % (Auto) 6.0 (4.4-15.7) % Eos % (Auto) 2.1 (0.6-8.1) % Baso % (Auto) 0.6 (0.2-1.5) % Neut # (Auto) 6.9 H (1.5-6.3) x10-3/uL Lymph # (Auto) 0.9 L (1.0-4.4) x10-3/uL [place] # (Auto) 0.5 (0.3-1.0) x10-3/uL Eos # (Auto) 0.2 (0.0-0.8) x10-3/uL Baso # (Auto) 0.1 (0.0-0.1) x10-3/uL POC VBG pH (7.32-7.43) pH Units POC VBG pCO2 (41-51) mmHg POC VBG HCO3 (21-29) mmol/L VBG Base Excess (-2-3) mmol/L O2 Delivery Device Sodium 140 (135-145) mmol/L Potassium 3.9 (3.5-5.3) mmol/L Chloride 94 L (100-110) mmol/L Carbon Dioxide 43 H* (21-32) mmol/L BUN 12 (7-18) mg/dL Creatinine 1.0 (0.55-1.02) mg/dL Est Cr Clr Drug Dosing TNP Estimated GFR (MDRD) 53 L (>60) BUN/Creatinine Ratio 12.0 (9-20) Glucose 200 H (80-116) mg/dL Lactic Acid (0.4-2.0) mmol/L Calcium 8.8 (8.6-10.2) mg/dL Total Bilirubin 0.3 (0.1-1.3) mg/dL AST 13 (5-25) IU/L ALT 20 D (12-36) U/L Alkaline Phosphatase 134 H (56-112) IU/L C-Reactive Protein 1.1 H (0.5-0.9) mg/dL Total Protein 7.5 (6.0-8.0) g/dL Albumin 3.6 (3.2-4.6) g/dL Globulin 3.9 g/dL Albumin/Globulin Ratio 0.9 Lipase 67 L (73-393) U/L Urine Color (YELLOW) Urine Appearance (CLEAR) Urine pH (5.0-6.5) Ur Specific [place] (1.010-1.025) Urine Protein (NEGATIVE) mg/dL Urine Glucose (UA) (NORMAL) mg/dL Urine Ketones (NEGATIVE) mg/dL Urine Occult Blood (NEGATIVE) Urine Nitrite (NEGATIVE) Urine Bilirubin (NEGATIVE) Urine Urobilinogen (NEGATIVE) mg/dL Ur Leukocyte Esterase (NEGATIVE) Urine WBC (0-5) Ur Squamous Epith Cells (NS,R,O) Ur Renal Epithelial Cell (NS) Urine Bacteria (NS) 02/05/21 02/05/21 02/05/21 Range/Units 10:20 10:20 11:05 WBC (3.0-10.3) x10-3/uL RBC (3.60-5.20) x10(6)uL Hgb (11.4-15.5) g/dL Hct (34.2-48.2) % MCV (76.7-100.5) fL MCH (23.9-33.9) pg MCHC (31.9-34.8) g/dL RDW (12.3-16.5) % Plt Count (151-488) x10(3)uL MPV (7.1-12.4) fL Neut % (Auto) (30.8-76.2) % Lymph % (Auto) (18.4-52.1) % [place] % (Auto) (4.4-15.7) % Eos % (Auto) (0.6-8.1) % Baso % (Auto) (0.2-1.5) % Neut # (Auto) (1.5-6.3) x10-3/uL Lymph # (Auto) (1.0-4.4) x10-3/uL [place] # (Auto) (0.3-1.0) x10-3/uL Eos # (Auto) (0.0-0.8) x10-3/uL Baso # (Auto) (0.0-0.1) x10-3/uL POC VBG pH 7.33 (7.32-7.43) pH Units POC VBG pCO2 90 H (41-51) mmHg POC VBG HCO3 47 H (21-29) mmol/L VBG Base Excess 21 H (-2-3) mmol/L O2 Delivery Device Nasal cannula Sodium (135-145) mmol/L Potassium (3.5-5.3) mmol/L Chloride (100-110) mmol/L Carbon Dioxide (21-32) mmol/L BUN (7-18) mg/dL Creatinine (0.55-1.02) mg/dL Est Cr Clr Drug Dosing Estimated GFR (MDRD) (>60) BUN/Creatinine Ratio (9-20) Glucose (80-116) mg/dL Lactic Acid 1.3 (0.4-2.0) mmol/L Calcium (8.6-10.2) mg/dL Total Bilirubin (0.1-1.3) mg/dL AST (5-25) IU/L ALT (12-36) U/L Alkaline Phosphatase (56-112) IU/L C-Reactive Protein (0.5-0.9) mg/dL Total Protein (6.0-8.0) g/dL Albumin (3.2-4.6) g/dL Globulin g/dL Albumin/Globulin Ratio Lipase (73-393) U/L Urine Color Yellow (YELLOW) Urine Appearance Slightly cloudy (CLEAR) Urine pH 7.0 H (5.0-6.5) Ur Specific [place] 1.010 (1.010-1.025) Urine Protein Negative (NEGATIVE) mg/dL Urine Glucose (UA) Normal (NORMAL) mg/dL Urine Ketones Negative (NEGATIVE) mg/dL Urine Occult Blood Negative (NEGATIVE) Urine Nitrite Negative (NEGATIVE) Urine Bilirubin Negative (NEGATIVE) Urine Urobilinogen Normal (NEGATIVE) mg/dL Ur Leukocyte Esterase Moderate H (NEGATIVE) Urine WBC 5-10 H (0-5) Ur Squamous Epith Cells Few H (NS,R,O) Ur Renal Epithelial Cell Few H (NS) Urine Bacteria Few H (NS) Meds: Medications Discontinued Medications Generic Name Dose Route Start Last Admin Trade Name Freq PRN Reason Stop Dose Admin Albuterol/Ipratropium 3 ml 02/05/21 12:21 Albuterol/Ipratropium 3.0-0.5 Mg/3 Ml Neb Soln NEB 02/05/21 12:22 ONETIME ONE - Re-Assessments/Exams Free Text/Narrative Re-Assessment/Exam: 02/05/21 13:32 KUB 2v d/w Dr Wood who identified nothing acute, there is stool throughout including in the R colon pt is retaining with pCO2, she uses 3 to 3.5 l/min O2 via NC at home, strongly encouraged to use no more than 2.5 l/min although 1.5 or 2 l/min would be better, pt told that too much oxygen can kill here still smoking Departure - Departure Time of Disposition: 12:50 Disposition: Home, Self-Care 01 Condition: Good Clinical Impression: Constipation Qualifiers: Constipation type: slow transit constipation Qualified Code(s): K59.01 - Slow transit constipation - Discharge Information *PRESCRIPTION DRUG MONITORING PROGRAM REVIEWED*: Not Applicable *COPY OF PRESCRIPTION DRUG MONITORING REPORT IN PATIENT ESTRELLA: Not Applicable Additional Instructions: Drink a 10-ounce bottle of magnesium citrate this afternoon and a second one in the morning. Use moist heat for 10 minutes several times a day for pain. To keep stools soft, take Miralaz 17 gm powder on your food or in 8 ounces of fluids daily. See your doctor in 1 week for further recommendations. Sepsis Event Note (ED) - Focused Exam Vital Signs: Vital Signs Temp Pulse Resp BP Pulse Ox 02/05/21 10:04 36.8 C 79 24 H 123/57 L 3 L - My Orders Last 24 Hours: My Active Orders 02/05/21 10:17 CORONAVIRUS COVID-19 ERINN [MOLEC] Stat Blood Culture x2 Reflex Set [OM.PC] Urgent 02/05/21 10:20 Abdomen 2V AP Flat Upright [CR] Stat CULTURE BLOOD [BC] Urgent 02/05/21 10:30 CULTURE BLOOD [BC] Urgent 02/05/21 12:21 RT Aerosol Therapy [RC] ASDIRECTED - Assessment/Plan Last 24 Hours: My Active Orders 02/05/21 10:17 CORONAVIRUS COVID-19 ERINN [MOLEC] Stat Blood Culture x2 Reflex Set [OM.PC] Urgent 02/05/21 10:20 Abdomen 2V AP Flat Upright [CR] Stat CULTURE BLOOD [BC] Urgent 02/05/21 10:30 CULTURE BLOOD [BC] Urgent 02/05/21 12:21 RT Aerosol Therapy [RC] ASDIRECTED
[2021-02-05 11:04] LABS: PH VENOUS,POC 7.33 pH Units (7.32-7.43)
[2021-02-05 11:05] LABS: BASE EXCESS VENOUS,POC 21 mmol/L (-2-3); HCO3 VENOUS,POC 47 mmol/L (21-29); PCO2 VENOUS,POC 90 mmHg (41-51)
[2021-02-05] MEDS ORDERED: Albuterol/Ipratropium 3.0-0.5 MG/3 ML Neb Soln NEB ONE (12:21)
[2021-02-05 15:26] VITALS: BP 145/59; PULSE 79
--- NOTE | 2021-02-05 15:41 | CR ---
INDICATION: Right flank and right lower quadrant pain - constipation. No appendectomy history. ABDOMEN, TWO-VIEW: Five images of the abdomen were obtained in supine and upright projections 02/05/21 and compared with 05/26/10. Evidence of cholecystectomy is again noted. Overlying snaps are noted. The pattern of gas and feces is nonspecific, without evidence of free air or obstruction. No organomegaly, mass lesions or pathologic calcifications are noted except for aortoiliac and femoral artery calcifications. A few phleboliths are also noted in the pelvis. Degenerative disk disease is suggested at L4-5 with narrowing of that disk space, which appears progressive compared with 2010. IMPRESSION: 1. Nonacute abdomen. 2. Postcholecystectomy. 3. ASD. MTDD
== END 2021-02-05 14:05 | disposition home or self-care (01) ==
LOC: FB.ED 10:04
DX: K59.01 Slow transit constipation (principal); E78.00 Pure hypercholesterolemia, unspecified; J44.9 Chronic obstructive pulmonary disease, unspecified; E11.9 Type 2 diabetes mellitus without complications; E03.9 Hypothyroidism, unspecified; E66.9 Obesity, unspecified; Z88.1 Allergy status to other antibiotic agents; Z88.0 Allergy status to penicillin; Z88.7 Allergy status to serum and vaccine; Z79.899 Other long term (current) drug therapy; Z79.84 Long term (current) use of oral hypoglycemic drugs; Z68.31 Body mass index [BMI] 31.0-31.9, adult; Z91.048 Other nonmedicinal substance allergy status
CPT/HCPCS: 36415; 74019; 80053; 81001; 83605; 83690; 85025; 86140; 87040; 99284-25

== ENCOUNTER 2021-02-27 18:46 | Observation (INO) | payer MEDICARE, BC ==
[2021-02-27] MEDS ORDERED: Ondansetron 4 MG/2 ML SDV IVPUSH STA (19:22)
[2021-02-27] MEDS ORDERED: Sodium Chloride 0.9% 10 ML Syringe FLUSH PRN (19:22)
[2021-02-27] MEDS ORDERED: Sodium Chloride 0.9% 1,000 ML IV SCH ×2 (19:30→21:30)
--- NOTE | 2021-02-27 20:17 | EDM.PDOC ---
ED HPI GENERAL MEDICAL PROBLEM - General Chief Complaint: General Time Seen by Provider: 02/27/21 19:25 Source of Information: Reports: Patient History Limitations: Reports: No Limitations - History of Present Illness INITIAL COMMENTS - FREE TEXT/NARRATIVE: Patient is an 80 YO WF who presented to the ED because of weakness, poor oral intake and nausea which started yesterday. Ms Paez also comlains of dysuria and frequency for 3 days, denies having any flank or abdominal pain. She said she is very weak and can't get up on her own. There is no fever but has chills and has dry cough but nothing more than usual. Denies having any dyspnea and is on home oxygen, inhalers, neb treatment for her COPD. She has a history of DM2 that is poorly controlled and is not aware that she is diabetic. - Related Data Allergies Allergy/AdvReac Type Severity Reaction Status Date / Time perfume Allergy Intermediate Shortness Verified 02/27/21 21:01 of Breath ceftriaxone sodium Allergy Hives Verified 02/27/21 21:01 [From Rocephin] ciprofloxacin [From Cipro] Allergy Hives Verified 02/27/21 21:01 ciprofloxacin HCl Allergy Hives Verified 02/27/21 21:01 [From Cipro] Penicillins Allergy Hives Verified 02/27/21 21:01 pneumococcal vaccine Allergy Swelling Verified 02/27/21 21:01 [Pneumococcal Vaccine] Home Meds: Home Meds Albuterol [Ventolin HFA] 2 puff INH Q4HR PRN 03/07/14 [History] Simvastatin [Zocor] 20 mg PO BEDTIME 05/23/15 [History] Furosemide [Lasix] 40 mg PO DAILY 10/11/16 [History] Fluticasone Propion/Salmeterol [Advair 250-50 Diskus] 1 puff INH BID 05/10/19 [History] Levothyroxine [Synthroid] 100 mcg PO ACBREAKFAST 05/10/19 [History] Albuterol Sulfate 2.5 mg IH QID 02/16/20 [History] ALPRAZolam [Xanax] 0.5 mg PO BID PRN 07/06/20 [History] metFORMIN [Glucophage XR] 500 mg PO DAILY 07/06/20 [History] Azithromycin [Zithromax] 500 mg PO DAILY #7 tab 12/20/20 [Rx] polyethylene glycoL 3350 [MiraLAX] 17 gm PO DAILY #1 cont 02/05/21 [Rx] Past Medical History HEENT History: Reports: Cataract, Impaired Vision Cardiovascular History: Reports: High Cholesterol, SOB on Exertion Respiratory History: Reports: Bronchitis, Recurrent, COPD Other Respiratory History: Uses home O2. Gastrointestinal History: Reports: Bowel Obstruction, Other (See Below) Other Gastrointestinal History: Had abdominal surgery but patient is not certain what was all involved. Genitourinary History: Reports: UTI, Recurrent [employer] History: Reports: Other [employer] History: Musculoskeletal History: Reports: Arthritis, Fracture Other Musculoskeletal History: Possibly some arthritis. History of fracture right 3rd digit and right great toe. Neurological History: Reports: Migraines Psychiatric History: Reports: Anxiety Endocrine/Metabolic History: Reports: Diabetes, Type II, Hypothyroidism, Obesity/BMI 30+ Other Endocrine/Metabolic History: Thyroidectomy 2007. Hematologic History: Reports: Blood Transfusion(s) Oncologic (Cancer) History: Reports: Colon, Other (See Below) Other Oncologic History: Colon CA--uncertain. Dermatologic History: Reports: Cellulitis, Other (See Below) Other Dermatologic History: Lymphedema. - Infectious Disease History Infectious Disease History: Reports: Mumps Other Infectious Disease History: She is not certain if she had Rubella or Rubeola. - Past Surgical History Head Surgeries/Procedures: Reports: None HEENT Surgical History: Reports: Adenoidectomy, Cataract Surgery, Tonsillectomy, Other (See Below) Other HEENT Surgeries/Procedures: Bilateral cataract surgery. GI Surgical History: Reports: Cholecystectomy, Colon, Colonoscopy, EGD, Hernia Repair/Other Other GI Surgeries/Procedures: History of pssible colon blockage. Female Surgical History: Reports: Hysterectomy Other Female Surgeries/Procedures: Vaginal hysterectomy. Endocrine Surgical History: Reports: Thyroidectomy Musculoskeletal Surgical History: Reports: None Social & Family History - Family History Family Medical History: No Pertinent Family History Dermatologic: Reports: None Oncologic: Reports: Other (See Below) Other Oncologic Family History: Patient doesn't recall the type. - Caffeine Use Caffeine Use: Reports: Coffee Other Caffeine Use: 3-5 cups coffee/day - Living Situation & Occupation Living situation: Reports: Alone ED ROS GENERAL - Review of Systems Review Of Systems: See Below Constitutional: Reports: Chills, Weakness HEENT: Reports: No Symptoms Respiratory: Reports: Cough Cardiovascular: Reports: No Symptoms Endocrine: Reports: No Symptoms GI/Abdominal: Reports: Nausea : Reports: No Symptoms Musculoskeletal: Reports: No Symptoms Skin: Reports: No Symptoms Neurological: Reports: No Symptoms Psychiatric: Reports: No Symptoms ED EXAM, GENERAL - Physical Exam Exam: See Below Exam Limited By: No Limitations General Appearance: Alert, No Apparent Distress Eye Exam: Bilateral Eye: PERRL Ears: Normal External Exam, Normal Canal Nose: Normal Inspection, Normal Mucosa, No Blood Throat/Mouth: Normal Inspection, Normal Lips, Normal Teeth Head: Atraumatic, Normocephalic Neck: Normal Inspection, Supple, Non-Tender, Full Range of Motion Respiratory/Chest: No Respiratory Distress, Lungs Clear, Normal Breath Sounds, No Accessory Muscle Use, Chest Non-Tender Cardiovascular: Normal Peripheral Pulses, Regular Rate, Rhythm, No Edema, No JVD, No Murmur, No Rub GI/Abdominal: Normal Bowel Sounds, Soft, Non-Tender, No Organomegaly, No Distention, No Abnormal Bruit Back Exam: Normal Inspection, Full Range of Motion Extremities: Normal Inspection, Normal Range of Motion, Non-Tender Neurological: Alert, Oriented, CN II-XII Intact, Normal Cognition, Normal Gait, Normal Reflexes, No Motor/Sensory Deficits Course - Vital Signs Text/Narrative:: Lab and CXR result was reviewed and discussed with patient NS 1 L bolus Zofran 4 mg IV X1 Covid test-negative Code Status: DNR/DNI Will start patient with ertapenem as she has multiple allergies:PCN,Quinolones, and Cephalosporins Last Recorded V/S: Last Vital Signs Temp 36.6 C 02/27/21 19:10 Pulse 84 02/27/21 19:10 Resp BP 134/42 L 02/27/21 19:10 Pulse Ox 97 02/27/21 19:10 - Orders/Labs/Meds Orders: Active Orders 24 hr Category Date Time Status Patient Status [ADT] Routine ADT 02/27/21 21:27 Ordered Intake and Output [RC] QSHIFT Care 02/27/21 21:29 Ordered Oxygen Therapy [RC] PRN Care 02/27/21 21:27 Ordered Pulse Oximetry [RC] PRN Care 02/27/21 21:29 Ordered RT Aerosol Therapy [RC] ASDIRECTED Care 02/27/21 21:40 Ordered RT Post Treatment Assessment [RC] Click to Edit Care 02/27/21 21:40 Ordered Up With Assistance [RC] ASDIRECTED Care 02/27/21 21:27 Ordered VTE/DVT Education [RC] Per Unit Routine Care 02/27/21 21:27 Ordered Vital Signs [RC] Q4H Care 02/27/21 21:27 Ordered Heart Healthy Diet [DIET] Diet 02/28/21 Breakfast Ordered Chest 1V Frontal [CR] Stat Exams 02/27/21 19:22 Taken BASIC METABOLIC PANEL,BMP [CHEM] AM Lab 02/28/21 05:11 Ordered CBC WITH AUTO DIFF [HEME] AM Lab 02/28/21 05:11 Ordered CULTURE BLOOD [BC] Urgent Lab 02/27/21 20:35 Received CULTURE BLOOD [BC] Urgent Lab 02/27/21 20:40 Received CULTURE URINE [RM] Stat Lab 02/27/21 20:58 Received ALPRAZolam [Xanax] Med 02/27/21 21:37 Ordered 0.5 mg PO BID PRN Albuterol [Proventil Neb Soln] Med 02/28/21 09:00 Ordered 2.5 mg INH QID Albuterol [Ventolin HFA] Med 02/27/21 21:37 Ordered 2 puff INH Q4HR PRN Docusate Sodium/Sennosides [Senna Plus] Med 02/27/21 21:27 Ordered 1 tab PO BID PRN Enoxaparin [Lovenox] Med 02/27/21 21:30 Ordered 40 mg SUBCUT Q24H Ertapenem [INVanz] 1 gm Med 02/27/21 21:45 Ordered Sodium Chloride 0.9% [Normal Saline] 50 ml IV DAILY Fluticasone Propion/Salmeterol [Advair 250-50 Diskus] Med 02/28/21 09:00 Ordered 1 puff INH BID Levothyroxine [Synthroid] Med 02/28/21 07:30 Ordered 100 mcg PO ACBREAKFAST Ondansetron [Zofran] Med 02/27/21 21:27 Ordered 4 mg IV Q4H PRN Simvastatin [Zocor] Med 02/28/21 21:00 Ordered 20 mg PO BEDTIME Sodium Chloride 0.9% @ 100 MLS/HR(1,000ml) Med 02/27/21 21:30 Ordered Sodium Chloride 0.9% [Normal Saline] 1,000 ml IV ASDIRECTED Sodium Chloride 0.9% [Normal Saline] 1,000 ml Med 02/27/21 19:30 Active IV ASDIRECTED Sodium Chloride 0.9% [Saline Flush] Med 02/27/21 19:22 Active 10 ml FLUSH ASDIRECTED PRN metFORMIN [Glucophage XR] Med 02/28/21 09:00 Ordered 500 mg PO DAILY polyethylene glycoL 3350 [MiraLAX] Med 02/28/21 09:00 Ordered 17 gm PO DAILY Blood Culture x2 Reflex Set [OM.PC] Urgent Oth 02/27/21 20:18 Ordered Saline Lock Insert [OM.PC] Routine Oth 02/27/21 19:22 Ordered Sequential Compression Device [OM.PC] Per Unit Routine Oth 02/27/21 21:29 Ordered Resuscitation Status Routine Resus Stat 02/27/21 21:27 Ordered Medication Orders Albuterol (Albuterol 8 Gm Inhaler) gm INH Q4HR PRN PRN Reason: Shortness of Breath Albuterol (Albuterol 0.083% 2.5 Mg/3 Ml Neb Soln) 2.5 mg INH QID [facility] Alprazolam (Alprazolam 0.5 Mg Tab) 0.5 mg PO BID PRN PRN Reason: Anxiety Enoxaparin Sodium (Enoxaparin 40 Mg/0.4 Ml Syringe) 40 mg SUBCUT Q24H [facility] Sodium Chloride (Normal Saline) 1,000 mls @ 999 mls/hr IV ASDIRECTED [facility] Last Admin: 02/27/21 20:25 Dose: 999 mls/hr Documented by: BRENLOR Sodium Chloride (Normal Saline) 1,000 mls @ 100 mls/hr IV ASDIRECTED [facility] Ertapenem 1 gm/ Sodium (Chloride) 50 mls @ 100 mls/hr IV DAILY [facility] Levothyroxine Sodium (Levothyroxine 100 Mcg Tab) 100 mcg PO ACBREAKFAST [facility] Metformin HCl (Metformin 500 Mg Tab.Er) 500 mg PO DAILY [facility] Non-Formulary Medication (Fluticasone Propion/Salmeterol [Advair 250-50 Diskus]) 1 puff INH BID [facility] Ondansetron HCl (Ondansetron 4 Mg/2 Ml Sdv) 4 mg IV Q4H PRN PRN Reason: Nausea/Vomiting Polyethylene Glycol (Polyethylene Glycol 3350 Powder 238 Gm Bot) 17 gm PO DAILY [facility] Senna/Docusate Sodium (Docusate Sodium/Sennosides 50-8.6 Mg Tab) 1 tab PO BID PRN PRN Reason: Constipation Simvastatin (Simvastatin 20 Mg Tab) 20 mg PO BEDTIME [facility] Sodium Chloride (Sodium Chloride 0.9% 10 Ml Syringe) 10 ml FLUSH ASDIRECTED PRN PRN Reason: Keep Vein Open Labs: Laboratory Tests 02/27/21 02/27/21 02/27/21 Range/Units 19:36 19:36 19:36 WBC 17.9 H (3.0-10.3) x10-3/uL RBC 4.11 (3.60-5.20) x10(6)uL Hgb 11.6 (11.4-15.5) g/dL Hct 36.0 (34.2-48.2) % MCV 87.5 (76.7-100.5) fL MCH 28.1 (23.9-33.9) pg MCHC 32.1 (31.9-34.8) g/dL RDW 14.4 (12.3-16.5) % Plt Count 326 (151-488) x10(3)uL MPV 7.6 (7.1-12.4) fL Add Manual Diff Yes Neutrophils % (Manual) 86 H (46-82) % Lymphocytes % (Manual) 4 L (13-37) % Monocytes % (Manual) 10 (4-12) % Sodium 141 (135-145) mmol/L Potassium 4.2 (3.5-5.3) mmol/L Chloride 96 L (100-110) mmol/L Carbon Dioxide 46 H* (21-32) mmol/L BUN 16 (7-18) mg/dL Creatinine 0.9 (0.55-1.02) mg/dL Est Cr Clr Drug Dosing TNP Estimated GFR (MDRD) > 60 (>60) BUN/Creatinine Ratio 17.8 (9-20) Glucose 222 H (80-116) mg/dL Lactic Acid (0.4-2.0) mmol/L Calcium 8.4 L (8.6-10.2) mg/dL Total Bilirubin 0.3 (0.1-1.3) mg/dL AST 14 (5-25) IU/L ALT 21 (12-36) U/L Alkaline Phosphatase 114 H (56-112) IU/L Troponin I 16.2 (4.0-60.3) pg/mL Total Protein 7.2 (6.0-8.0) g/dL Albumin 3.4 (3.2-4.6) g/dL Globulin 3.8 g/dL Albumin/Globulin Ratio 0.9 Urine Color (YELLOW) Urine Appearance (CLEAR) Urine pH (5.0-6.5) Ur Specific [place] (1.010-1.025) Urine Protein (NEGATIVE) mg/dL Urine Glucose (UA) (NORMAL) mg/dL Urine Ketones (NEGATIVE) mg/dL Urine Occult Blood (NEGATIVE) Urine Nitrite (NEGATIVE) Urine Bilirubin (NEGATIVE) Urine Urobilinogen (NEGATIVE) mg/dL Ur Leukocyte Esterase (NEGATIVE) Urine RBC (0-5) Urine WBC (0-5) Ur Squamous Epith Cells (NS,R,O) Urine Bacteria (NS) SARS-CoV-2 RNA (ERINN) (NEGATIVE) 02/27/21 02/27/21 02/27/21 Range/Units 20:40 20:45 20:58 WBC (3.0-10.3) x10-3/uL RBC (3.60-5.20) x10(6)uL Hgb (11.4-15.5) g/dL Hct (34.2-48.2) % MCV (76.7-100.5) fL MCH (23.9-33.9) pg MCHC (31.9-34.8) g/dL RDW (12.3-16.5) % Plt Count (151-488) x10(3)uL MPV (7.1-12.4) fL Add Manual Diff Neutrophils % (Manual) (46-82) % Lymphocytes % (Manual) (13-37) % Monocytes % (Manual) (4-12) % Sodium (135-145) mmol/L Potassium (3.5-5.3) mmol/L Chloride (100-110) mmol/L Carbon Dioxide (21-32) mmol/L BUN (7-18) mg/dL Creatinine (0.55-1.02) mg/dL Est Cr Clr Drug Dosing Estimated GFR (MDRD) (>60) BUN/Creatinine Ratio (9-20) Glucose (80-116) mg/dL Lactic Acid 0.8 (0.4-2.0) mmol/L Calcium (8.6-10.2) mg/dL Total Bilirubin (0.1-1.3) mg/dL AST (5-25) IU/L ALT (12-36) U/L Alkaline Phosphatase (56-112) IU/L Troponin I (4.0-60.3) pg/mL Total Protein (6.0-8.0) g/dL Albumin (3.2-4.6) g/dL Globulin g/dL Albumin/Globulin Ratio Urine Color [place] (YELLOW) Urine Appearance Slightly cloudy (CLEAR) Urine pH 5.0 (5.0-6.5) Ur Specific [place] 1.020 (1.010-1.025) Urine Protein Negative (NEGATIVE) mg/dL Urine Glucose (UA) Normal (NORMAL) mg/dL Urine Ketones 15 H (NEGATIVE) mg/dL Urine Occult Blood Moderate H (NEGATIVE) Urine Nitrite Negative (NEGATIVE) Urine Bilirubin Small H (NEGATIVE) Urine Urobilinogen 1 H (NEGATIVE) mg/dL Ur Leukocyte Esterase Large H (NEGATIVE) Urine RBC 5-10 H (0-5) Urine WBC 30-40 H (0-5) Ur Squamous Epith Cells Few H (NS,R,O) Urine Bacteria Moderate H (NS) SARS-CoV-2 RNA (ERINN) Negative (NEGATIVE) Meds: Medications Generic Name Dose Route Start Last Admin Trade Name Freq PRN Reason Stop Dose Admin Albuterol gm 02/27/21 21:37 Albuterol 8 Gm Inhaler INH Q4HR PRN Shortness of Breath Albuterol 2.5 mg 02/28/21 09:00 Albuterol 0.083% 2.5 Mg/3 Ml Neb Soln INH QID [facility] Alprazolam 0.5 mg 02/27/21 21:37 Alprazolam 0.5 Mg Tab PO BID PRN Anxiety Enoxaparin Sodium 40 mg 02/27/21 21:30 Enoxaparin 40 Mg/0.4 Ml Syringe SUBCUT Q24H [facility] Sodium Chloride 1,000 mls @ 999 mls/hr 02/27/21 19:30 02/27/21 20:25 Normal Saline IV 999 mls/hr ASDIRECTED [facility] Administration Sodium Chloride 1,000 mls @ 100 mls/hr 02/27/21 21:30 Normal Saline IV ASDIRECTED [facility] Ertapenem 1 gm/ Sodium 50 mls @ 100 mls/hr 02/27/21 21:45 Chloride IV DAILY [facility] Levothyroxine Sodium 100 mcg 02/28/21 07:30 Levothyroxine 100 Mcg Tab PO ACBREAKFAST [facility] Metformin HCl 500 mg 02/28/21 09:00 Metformin 500 Mg Tab.Er PO DAILY [facility] Non-Formulary Medication 1 puff 02/28/21 09:00 Fluticasone Propion/Salmeterol [Advair 250-50 Diskus] INH BID [facility] Ondansetron HCl 4 mg 02/27/21 21:27 Ondansetron 4 Mg/2 Ml Sdv IV Q4H PRN Nausea/Vomiting Polyethylene Glycol 17 gm 02/28/21 09:00 Polyethylene Glycol 3350 Powder 238 Gm Bot PO DAILY [facility] Senna/Docusate Sodium 1 tab 02/27/21 21:27 Docusate Sodium/Sennosides 50-8.6 Mg Tab PO BID PRN Constipation Simvastatin 20 mg 02/28/21 21:00 Simvastatin 20 Mg Tab PO BEDTIME [facility] Sodium Chloride 10 ml 02/27/21 19:22 Sodium Chloride 0.9% 10 Ml Syringe FLUSH ASDIRECTED PRN Keep Vein Open Discontinued Medications Generic Name Dose Route Start Last Admin Trade Name Freq PRN Reason Stop Dose Admin Ondansetron HCl 4 mg 02/27/21 19:22 02/27/21 20:28 Ondansetron 4 Mg/2 Ml Sdv IVPUSH 02/27/21 19:23 4 mg NOW STA Administration Departure - Departure Time of Disposition: 22:00 Disposition: Refer to Observation Condition: Good Clinical Impression: UTI (urinary tract infection), Weakness, Dehydration, Diabetes mellitus type 2 COPD (chronic obstructive pulmonary disease) Qualifiers: COPD type: COPD with acute exacerbation Qualified Code(s): J44.1 - Chronic obstructive pulmonary disease with (acute) exacerbation - Discharge Information Referrals: PCP,Unknown [Primary Care Provider] - Forms: ED Department Discharge Sepsis Event Note (ED) - Focused Exam Vital Signs: Vital Signs Temp Pulse BP Pulse Ox 02/27/21 19:10 36.6 C 84 134/42 L 97 - My Orders Last 24 Hours: My Active Orders 05/22/21 19:22 Chest 1V Frontal [CR] Stat Sodium Chloride 0.9% [Saline Flush] 10 ml FLUSH ASDIRECTED PRN Saline Lock Insert [OM.PC] Routine 02/27/21 19:30 Sodium Chloride 0.9% [Normal Saline] 1,000 ml IV ASDIRECTED 02/27/21 20:18 Blood Culture x2 Reflex Set [OM.PC] Urgent 02/27/21 20:35 CULTURE BLOOD [BC] Urgent 02/27/21 20:40 CULTURE BLOOD [BC] Urgent 02/27/21 20:58 CULTURE URINE [RM] Stat 02/27/21 21:27 Patient Status [ADT] Routine Oxygen Therapy [RC] PRN Up With Assistance [RC] ASDIRECTED VTE/DVT Education [RC] Per Unit Routine Vital Signs [RC] Q4H Docusate Sodium/Sennosides [Senna Plus] 1 tab PO BID PRN Ondansetron [Zofran] 4 mg IV Q4H PRN Resuscitation Status Routine 02/27/21 21:29 Intake and Output [RC] QSHIFT Pulse Oximetry [RC] PRN Sequential Compression Device [OM.PC] Per Unit Routine 02/27/21 21:30 Enoxaparin [Lovenox] 40 mg SUBCUT Q24H Sodium Chloride 0.9% @ 100 MLS/HR(1,000ml) Sodium Chloride 0.9% [Normal Saline] 1,000 ml IV ASDIRECTED 02/27/21 21:37 ALPRAZolam [Xanax] 0.5 mg PO BID PRN Albuterol [Ventolin HFA] 2 puff INH Q4HR PRN 02/27/21 21:40 RT Aerosol Therapy [RC] ASDIRECTED RT Post Treatment Assessment [RC] Click to Edit 02/27/21 21:45 Ertapenem [INVanz] 1 gm Sodium Chloride 0.9% [Normal Saline] 50 ml IV DAILY 02/28/21 05:11 BASIC METABOLIC PANEL,BMP [CHEM] AM CBC WITH AUTO DIFF [HEME] AM 02/28/21 Breakfast Heart Healthy Diet [DIET] 02/28/21 07:30 Levothyroxine [Synthroid] 100 mcg PO ACBREAKFAST 02/28/21 09:00 Albuterol [Proventil Neb Soln] 2.5 mg INH QID Fluticasone Propion/Salmeterol [Advair 250-50 Diskus] 1 puff INH BID metFORMIN [Glucophage XR] 500 mg PO DAILY polyethylene glycoL 3350 [MiraLAX] 17 gm PO DAILY 02/28/21 21:00 Simvastatin [Zocor] 20 mg PO BEDTIME - Assessment/Plan Last 24 Hours: My Active Orders 02/27/21 19:22 Chest 1V Frontal [CR] Stat Sodium Chloride 0.9% [Saline Flush] 10 ml FLUSH ASDIRECTED PRN Saline Lock Insert [OM.PC] Routine 02/27/21 19:30 Sodium Chloride 0.9% [Normal Saline] 1,000 ml IV ASDIRECTED 02/27/21 20:18 Blood Culture x2 Reflex Set [OM.PC] Urgent 02/27/21 20:35 CULTURE BLOOD [BC] Urgent 02/27/21 20:40 CULTURE BLOOD [BC] Urgent 02/27/21 20:58 CULTURE URINE [RM] Stat 02/27/21 21:27 Patient Status [ADT] Routine Oxygen Therapy [RC] PRN Up With Assistance [RC] ASDIRECTED VTE/DVT Education [RC] Per Unit Routine Vital Signs [RC] Q4H Docusate Sodium/Sennosides [Senna Plus] 1 tab PO BID PRN Ondansetron [Zofran] 4 mg IV Q4H PRN Resuscitation Status Routine 02/27/21 21:29 Intake and Output [RC] QSHIFT Pulse Oximetry [RC] PRN Sequential Compression Device [OM.PC] Per Unit Routine 02/27/21 21:30 Enoxaparin [Lovenox] 40 mg SUBCUT Q24H Sodium Chloride 0.9% @ 100 MLS/HR(1,000ml) Sodium Chloride 0.9% [Normal Saline] 1,000 ml IV ASDIRECTED 02/27/21 21:37 ALPRAZolam [Xanax] 0.5 mg PO BID PRN Albuterol [Ventolin HFA] 2 puff INH Q4HR PRN 02/27/21 21:40 RT Aerosol Therapy [RC] ASDIRECTED RT Post Treatment Assessment [RC] Click to Edit 02/27/21 21:45 Ertapenem [INVanz] 1 gm Sodium Chloride 0.9% [Normal Saline] 50 ml IV DAILY 02/28/21 05:11 BASIC METABOLIC PANEL,BMP [CHEM] AM CBC WITH AUTO DIFF [HEME] AM 02/28/21 Breakfast Heart Healthy Diet [DIET] 02/28/21 07:30 Levothyroxine [Synthroid] 100 mcg PO ACBREAKFAST 02/28/21 09:00 Albuterol [Proventil Neb Soln] 2.5 mg INH QID Fluticasone Propion/Salmeterol [Advair 250-50 Diskus] 1 puff INH BID metFORMIN [Glucophage XR] 500 mg PO DAILY polyethylene glycoL 3350 [MiraLAX] 17 gm PO DAILY 02/28/21 21:00 Simvastatin [Zocor] 20 mg PO BEDTIME
[2021-02-27] MEDS ORDERED: Ondansetron 4 MG/2 ML SDV IV PRN (21:27)
[2021-02-27] MEDS ORDERED: Enoxaparin 40 MG/0.4 ML Syringe SUBCUT SCH (21:30)
[2021-02-27] MEDS ORDERED: ALPRAZolam 0.5 MG Tab PO PRN (21:37)
[2021-02-27] MEDS ORDERED: Albuterol 8 GM Inhaler INH PRN (21:37)
[2021-02-27] MEDS: Ertapenem 1 GM in Sodium Chloride 0.9% 50 ML IV SCH (23:29)
[2021-02-28] MEDS ORDERED: ALPRAZOLAM 0.5 MG PO PRN (06:58)
[2021-02-28] MEDS ORDERED: ALBUTEROL INH PRN (06:58)
[2021-02-28] MEDS ORDERED: LEVOTHYROXINE 100 MCG PO SCH (07:30)
[2021-02-28] MEDS: Albuterol 0.083% 2.5 MG/3 ML Neb Soln INH SCH ×2 (08:02→10:50)
[2021-02-28] MEDS: Ertapenem 1 GM in Sodium Chloride 0.9% 50 ML IV SCH (08:41)
[2021-02-28] MEDS ORDERED: Polyethylene Glycol 3350 Powder 238 GM Bot PO SCH (09:00)
[2021-02-28] MEDS ORDERED: METFORMIN 500 MG PO SCH (09:00)
[2021-02-28] MEDS ORDERED: FLUTICASONE INH SCH (09:00)
[2021-02-28] MEDS ORDERED: SALMETEROL INH SCH (09:00)
--- NOTE | 2021-02-28 09:41 | PCM.HP.2 ---
H&P History of Present Illness - General Date of Service: 02/28/21 Admit Problem/Dx: Admission Diagnosis/Problem Admission Diagnosis/Problem Weakness Source of Information: Patient, Old Records, Provider History Limitations: Reports: No Limitations - History of Present Illness Initial Comments - Free Text/Narative: 80-year-old lady with a significant past medical history that includes COPD with home O2 use at 4 L came to the emergency room last night because she was afraid that she was sick because she had increased cough with sputum production and felt like she was going to vomit when she would cough. She also complained of weakness and dysuria. She lives alone and uses a walker at home. Urinalysis showed a possible urinary tract infection and the patient was diagnosed with COPD exacerbation. Because of multiple allergies the patient was given ertapenem in the emergency department and received a second dose of ertapenem this morning. Onset of Symptoms: Reports: Gradual - Related Data Allergies/Adverse Reactions: Allergies Allergy/AdvReac Type Severity Reaction Status Date / Time perfume Allergy Intermediate Shortness Verified 02/27/21 21:01 of Breath ceftriaxone sodium Allergy Hives Verified 02/27/21 21:01 [From Rocephin] ciprofloxacin [From Cipro] Allergy Hives Verified 02/27/21 21:01 ciprofloxacin HCl Allergy Hives Verified 02/27/21 21:01 [From Cipro] Penicillins Allergy Hives Verified 02/27/21 21:01 pneumococcal vaccine Allergy Swelling Verified 02/27/21 21:01 [Pneumococcal Vaccine] Home Medications: Home Meds Albuterol [Ventolin HFA] 2 puff INH Q4HR PRN 03/07/14 [History] Simvastatin [Zocor] 20 mg PO BEDTIME 05/23/15 [History] Furosemide [Lasix] 40 mg PO DAILY 10/11/16 [History] Fluticasone Propion/Salmeterol [Advair 250-50 Diskus] 1 puff INH BID 05/10/19 [History] Levothyroxine [Synthroid] 100 mcg PO ACBREAKFAST 05/10/19 [History] Albuterol Sulfate 2.5 mg IH QID 02/16/20 [History] ALPRAZolam [Xanax] 0.5 mg PO BID PRN 07/06/20 [History] metFORMIN [Glucophage XR] 500 mg PO DAILY 07/06/20 [History] Past Medical History HEENT History: Reports: Cataract, Impaired Vision Cardiovascular History: Reports: High Cholesterol, SOB on Exertion Respiratory History: Reports: Bronchitis, Recurrent, COPD Other Respiratory History: Uses home O2. Gastrointestinal History: Reports: Bowel Obstruction, Other (See Below) Other Gastrointestinal History: Had abdominal surgery but patient is not certain what was all involved. Genitourinary History: Reports: UTI, Recurrent FUR GLOSSER History: Reports: Other OB/BYN History: Musculoskeletal History: Reports: Arthritis, Fracture Other Musculoskeletal History: Possibly some arthritis. History of fracture right 3rd digit and right great toe. Neurological History: Reports: Migraines Psychiatric History: Reports: Anxiety Endocrine/Metabolic History: Reports: Diabetes, Type II, Hypothyroidism, Obesity/BMI 30+ Other Endocrine/Metabolic History: Thyroidectomy 2007. Hematologic History: Reports: Blood Transfusion(s) Oncologic (Cancer) History: Reports: Colon, Other (See Below) Other Oncologic History: Colon CA--uncertain. Dermatologic History: Reports: Cellulitis, Other (See Below) Other Dermatologic History: Lymphedema. - Infectious Disease History Infectious Disease History: Reports: Mumps Other Infectious Disease History: She is not certain if she had Rubella or Rubeola. - Past Surgical History Head Surgeries/Procedures: Reports: None HEENT Surgical History: Reports: Adenoidectomy, Cataract Surgery, Tonsillectomy, Other (See Below) Other HEENT Surgeries/Procedures: Bilateral cataract surgery. GI Surgical History: Reports: Cholecystectomy, Colon, Colonoscopy, EGD, Hernia Repair/Other Other GI Surgeries/Procedures: History of pssible colon blockage. Female Surgical History: Reports: Hysterectomy Other Female Surgeries/Procedures: Vaginal hysterectomy. Endocrine Surgical History: Reports: Thyroidectomy Musculoskeletal Surgical History: Reports: None Social & Family History - Family History Family Medical History: No Pertinent Family History Dermatologic: Reports: None Oncologic: Reports: Other (See Below) Other Oncologic Family History: Patient doesn't recall the type. - Tobacco Use Tobacco Use Status *Q: Light Tobacco User Years of Tobacco use: 67 Packs/Tins Daily: 0.1 - Caffeine Use Caffeine Use: Reports: Coffee Other Caffeine Use: 3-5 cups coffee/day Caffeine Use Comment: 3-4 cups/day - Recreational Drug Use Recreational Drug Use: No - Living Situation & Occupation Living situation: Reports: Alone H&P Review of Systems - Review of Systems: Review Of Systems: See Below General: Reports: Weakness HEENT: Reports: No Symptoms Pulmonary: Reports: Cough, Sputum. Denies: Shortness of Breath Cardiovascular: Reports: No Symptoms Gastrointestinal: Reports: No Symptoms Genitourinary: Denies: Dysuria Musculoskeletal: Reports: No Symptoms Skin: Reports: No Symptoms Psychiatric: Reports: No Symptoms Neurological: Reports: No Symptoms Hematologic/Lymphatic: Reports: No Symptoms Immunologic: Reports: No Symptoms Exam - Exam Exam: See Below - Vital Signs Vital Signs: Last Vital Signs Temp 37.0 C 02/28/21 00:00 Pulse 77 02/28/21 00:00 Resp 16 02/28/21 00:00 BP 128/53 L 02/28/21 00:00 Pulse Ox 96 02/28/21 00:00 Weight: 86.5 kg - Exam Quality Assessment: Supplemental Oxygen, DVT Prophylaxis, Skin Breakdown General: Alert, Oriented, Cooperative HEENT: EOMI Lungs: Decreased Breath Sounds, Crackles, Wheezing Cardiovascular: Regular Rate, Regular Rhythm, Other (Heart sounds are distant and difficult to auscultate) GI/Abdominal Exam: Normal Bowel Sounds Back Exam: Normal Inspection Extremities: Pedal Edema Peripheral Pulses: 2+: Brachial (L), Brachial (R) Skin: Warm, Dry Neurological: Cranial Nerves Intact Neuro Extensive - Mental Status: Alert, Oriented x3, Normal Mood/Affect Psychiatric: Alert, Normal Affect, Normal Mood - Patient Data Lab Results Last 24 hrs: Laboratory Results - last 24 hr 02/27/21 02/27/21 02/27/21 Range/Units 19:36 19:36 19:36 WBC 17.9 H (3.0-10.3) x10-3/uL RBC 4.11 (3.60-5.20) x10(6)uL Hgb 11.6 (11.4-15.5) g/dL Hct 36.0 (34.2-48.2) % MCV 87.5 (76.7-100.5) fL MCH 28.1 (23.9-33.9) pg MCHC 32.1 (31.9-34.8) g/dL RDW 14.4 (12.3-16.5) % Plt Count 326 (151-488) x10(3)uL MPV 7.6 (7.1-12.4) fL Neut % (Auto) (30.8-76.2) % Lymph % (Auto) (18.4-52.1) % [place] % (Auto) (4.4-15.7) % Eos % (Auto) (0.6-8.1) % Baso % (Auto) (0.2-1.5) % Neut # (Auto) (1.5-6.3) x10-3/uL Lymph # (Auto) (1.0-4.4) x10-3/uL [place] # (Auto) (0.3-1.0) x10-3/uL Eos # (Auto) (0.0-0.8) x10-3/uL Baso # (Auto) (0.0-0.1) x10-3/uL Add Manual Diff Yes Neutrophils % (Manual) 86 H (46-82) % Lymphocytes % (Manual) 4 L (13-37) % Monocytes % (Manual) 10 (4-12) % Sodium 141 (135-145) mmol/L Potassium 4.2 (3.5-5.3) mmol/L Chloride 96 L (100-110) mmol/L Carbon Dioxide 46 H* (21-32) mmol/L BUN 16 (7-18) mg/dL Creatinine 0.9 (0.55-1.02) mg/dL Est Cr Clr Drug Dosing TNP Estimated GFR (MDRD) > 60 (>60) BUN/Creatinine Ratio 17.8 (9-20) Glucose 222 H (80-116) mg/dL Lactic Acid (0.4-2.0) mmol/L Calcium 8.4 L (8.6-10.2) mg/dL Total Bilirubin 0.3 (0.1-1.3) mg/dL AST 14 (5-25) IU/L ALT 21 (12-36) U/L Alkaline Phosphatase 114 H (56-112) IU/L Troponin I 16.2 (4.0-60.3) pg/mL Total Protein 7.2 (6.0-8.0) g/dL Albumin 3.4 (3.2-4.6) g/dL Globulin 3.8 g/dL Albumin/Globulin Ratio 0.9 Urine Color (YELLOW) Urine Appearance (CLEAR) Urine pH (5.0-6.5) Ur Specific [place] (1.010-1.025) Urine Protein (NEGATIVE) mg/dL Urine Glucose (UA) (NORMAL) mg/dL Urine Ketones (NEGATIVE) mg/dL Urine Occult Blood (NEGATIVE) Urine Nitrite (NEGATIVE) Urine Bilirubin (NEGATIVE) Urine Urobilinogen (NEGATIVE) mg/dL Ur Leukocyte Esterase (NEGATIVE) Urine RBC (0-5) Urine WBC (0-5) Ur Squamous Epith Cells (NS,R,O) Urine Bacteria (NS) SARS-CoV-2 RNA (ERINN) (NEGATIVE) 02/27/21 02/27/21 02/27/21 Range/Units 20:40 20:45 20:58 WBC (3.0-10.3) x10-3/uL RBC (3.60-5.20) x10(6)uL Hgb (11.4-15.5) g/dL Hct (34.2-48.2) % MCV (76.7-100.5) fL MCH (23.9-33.9) pg MCHC (31.9-34.8) g/dL RDW (12.3-16.5) % Plt Count (151-488) x10(3)uL MPV (7.1-12.4) fL Neut % (Auto) (30.8-76.2) % Lymph % (Auto) (18.4-52.1) % [place] % (Auto) (4.4-15.7) % Eos % (Auto) (0.6-8.1) % Baso % (Auto) (0.2-1.5) % Neut # (Auto) (1.5-6.3) x10-3/uL Lymph # (Auto) (1.0-4.4) x10-3/uL [place] # (Auto) (0.3-1.0) x10-3/uL Eos # (Auto) (0.0-0.8) x10-3/uL Baso # (Auto) (0.0-0.1) x10-3/uL Add Manual Diff Neutrophils % (Manual) (46-82) % Lymphocytes % (Manual) (13-37) % Monocytes % (Manual) (4-12) % Sodium (135-145) mmol/L Potassium (3.5-5.3) mmol/L Chloride (100-110) mmol/L Carbon Dioxide (21-32) mmol/L BUN (7-18) mg/dL Creatinine (0.55-1.02) mg/dL Est Cr Clr Drug Dosing Estimated GFR (MDRD) (>60) BUN/Creatinine Ratio (9-20) Glucose (80-116) mg/dL Lactic Acid 0.8 (0.4-2.0) mmol/L Calcium (8.6-10.2) mg/dL Total Bilirubin (0.1-1.3) mg/dL AST (5-25) IU/L ALT (12-36) U/L Alkaline Phosphatase (56-112) IU/L Troponin I (4.0-60.3) pg/mL Total Protein (6.0-8.0) g/dL Albumin (3.2-4.6) g/dL Globulin g/dL Albumin/Globulin Ratio Urine Color [place] (YELLOW) Urine Appearance Slightly cloudy (CLEAR) Urine pH 5.0 (5.0-6.5) Ur Specific [place] 1.020 (1.010-1.025) Urine Protein Negative (NEGATIVE) mg/dL Urine Glucose (UA) Normal (NORMAL) mg/dL Urine Ketones 15 H (NEGATIVE) mg/dL Urine Occult Blood Moderate H (NEGATIVE) Urine Nitrite Negative (NEGATIVE) Urine Bilirubin Small H (NEGATIVE) Urine Urobilinogen 1 H (NEGATIVE) mg/dL Ur Leukocyte Esterase Large H (NEGATIVE) Urine RBC 5-10 H (0-5) Urine WBC 30-40 H (0-5) Ur Squamous Epith Cells Few H (NS,R,O) Urine Bacteria Moderate H (NS) SARS-CoV-2 RNA (ERINN) Negative (NEGATIVE) 02/28/21 02/28/21 Range/Units 06:35 06:35 WBC 9.2 (3.0-10.3) x10-3/uL RBC 3.76 (3.60-5.20) x10(6)uL Hgb 10.6 L (11.4-15.5) g/dL Hct 33.0 L (34.2-48.2) % MCV 87.9 (76.7-100.5) fL MCH 28.1 (23.9-33.9) pg MCHC 32.0 (31.9-34.8) g/dL RDW 14.4 (12.3-16.5) % Plt Count 300 (151-488) x10(3)uL MPV 7.6 (7.1-12.4) fL Neut % (Auto) 79.0 H (30.8-76.2) % Lymph % (Auto) 12.1 L (18.4-52.1) % [place] % (Auto) 5.5 (4.4-15.7) % Eos % (Auto) 3.1 (0.6-8.1) % Baso % (Auto) 0.3 (0.2-1.5) % Neut # (Auto) 7.3 H (1.5-6.3) x10-3/uL Lymph # (Auto) 1.1 (1.0-4.4) x10-3/uL [place] # (Auto) 0.5 (0.3-1.0) x10-3/uL Eos # (Auto) 0.3 (0.0-0.8) x10-3/uL Baso # (Auto) 0.0 (0.0-0.1) x10-3/uL Add Manual Diff Neutrophils % (Manual) (46-82) % Lymphocytes % (Manual) (13-37) % Monocytes % (Manual) (4-12) % Sodium 144 (135-145) mmol/L Potassium 4.5 (3.5-5.3) mmol/L Chloride 101 D (100-110) mmol/L Carbon Dioxide 44 H* (21-32) mmol/L BUN 15 (7-18) mg/dL Creatinine 0.9 (0.55-1.02) mg/dL Est Cr Clr Drug Dosing 43.05 Estimated GFR (MDRD) > 60 (>60) BUN/Creatinine Ratio 16.7 (9-20) Glucose 159 H (80-116) mg/dL Lactic Acid (0.4-2.0) mmol/L Calcium 8.1 L (8.6-10.2) mg/dL Total Bilirubin (0.1-1.3) mg/dL AST (5-25) IU/L ALT (12-36) U/L Alkaline Phosphatase (56-112) IU/L Troponin I (4.0-60.3) pg/mL Total Protein (6.0-8.0) g/dL Albumin (3.2-4.6) g/dL Globulin g/dL Albumin/Globulin Ratio Urine Color (YELLOW) Urine Appearance (CLEAR) Urine pH (5.0-6.5) Ur Specific [place] (1.010-1.025) Urine Protein (NEGATIVE) mg/dL Urine Glucose (UA) (NORMAL) mg/dL Urine Ketones (NEGATIVE) mg/dL Urine Occult Blood (NEGATIVE) Urine Nitrite (NEGATIVE) Urine Bilirubin (NEGATIVE) Urine Urobilinogen (NEGATIVE) mg/dL Ur Leukocyte Esterase (NEGATIVE) Urine RBC (0-5) Urine WBC (0-5) Ur Squamous Epith Cells (NS,R,O) Urine Bacteria (NS) SARS-CoV-2 RNA (ERINN) (NEGATIVE) Result Diagrams: 02/28/21 06:35 02/28/21 06:35 Sepsis Event Note - Evaluation Sepsis Screening Result: No Definite Risk - Focused Exam Vital Signs: Vital Signs Temp Pulse Resp BP BP Pulse Ox 02/28/21 00:00 37.0 C 77 16 128/53 L 96 02/27/21 22:30 37.1 C 81 18 111/42 L 02/27/21 22:10 36.8 C 79 16 114/44 L 96 - Problem List (1) Obesity SNOMED Code(s): 364106267, 950614899 ICD Code: E66.9 - OBESITY, UNSPECIFIED Status: Chronic Current Visit: Yes (2) Palliative care encounter SNOMED Code(s): 581526035, 422346138 ICD Code: Z51.5 - ENCOUNTER FOR PALLIATIVE CARE Status: Acute Current Visit: Yes (3) UTI (urinary tract infection) SNOMED Code(s): 96045507 ICD Code: N39.0 - URINARY TRACT INFECTION, SITE NOT SPECIFIED Status: Acute Current Visit: Yes (4) Weakness SNOMED Code(s): 78557350 ICD Code: R53.1 - WEAKNESS Status: Acute Current Visit: Yes (5) Diabetes mellitus type 2 SNOMED Code(s): 67071233 ICD Code: E11.9 - TYPE 2 DIABETES MELLITUS WITHOUT COMPLICATIONS Status: Chronic Current Visit: Yes Problem Details: A1c mildly elevated to 6.8%. No bs over 200 mg/dL. (6) COPD with exacerbation SNOMED Code(s): 671262757, 211232121 ICD Code: J44.1 - CHRONIC OBSTRUCTIVE PULMONARY DISEASE W (ACUTE) EXACERBATION Status: Acute Current Visit: No (7) Leg edema SNOMED Code(s): 729833869 ICD Code: R60.0 - LOCALIZED EDEMA Status: Chronic Current Visit: No (8) Hypothyroidism SNOMED Code(s): 67687556 ICD Code: E03.9 - HYPOTHYROIDISM, UNSPECIFIED Status: Chronic Current Visit: No Problem Details: TSH elevated and restarted her levothyroxine at prior dose. have her in clinic for recheck in 4 wks. (9) Supplemental oxygen dependent SNOMED Code(s): 440579362813 ICD Code: Z99.81 - DEPENDENCE ON SUPPLEMENTAL OXYGEN Status: Chronic Priority: High Current Visit: No Problem Details: (10) Tobacco abuse disorder SNOMED Code(s): 957904396 ICD Code: Z72.0 - TOBACCO USE Status: Chronic Current Visit: No Problem Details: Offered nicotine patch. Patient declined. Problem List Initiated/Reviewed/Updated: Yes Orders Last 24hrs: Active Orders 24 hr Category Date Time Status Patient Status [ADT] Routine ADT 02/27/21 21:27 Active Intake and Output [RC] QSHIFT Care 02/27/21 21:29 Active Oxygen Therapy [RC] PRN Care 02/27/21 21:27 Active Oxygen Therapy, ED [RC] ASDIRECTED Care 02/27/21 19:00 Active Pulse Oximetry [RC] PRN Care 02/27/21 21:29 Active RT Aerosol Therapy [RC] ASDIRECTED Care 02/27/21 21:40 Active RT Post Treatment Assessment [RC] Click to Edit Care 02/27/21 21:40 Active Up With Assistance [RC] ASDIRECTED Care 02/27/21 21:27 Active VTE/DVT Education [RC] Per Unit Routine Care 02/27/21 21:27 Active Vital Signs [RC] Q4H Care 02/27/21 21:27 Active OT Evaluation and Treatment [CONS] Routine Cons 02/27/21 21:44 Active PT Evaluation and Treatment [CONS] Routine Cons 02/27/21 21:44 Active Heart Healthy Diet [DIET] Diet 02/28/21 Breakfast Active Chest 1V Frontal [CR] Stat Exams 02/27/21 19:22 Taken CULTURE BLOOD [BC] Urgent Lab 02/27/21 20:35 Received CULTURE BLOOD [BC] Urgent Lab 02/27/21 20:40 Received CULTURE URINE [RM] Stat Lab 02/27/21 20:58 Received ALPRAZolam [Xanax] Med 02/28/21 06:58 Active 0.5 mg PO BID PRN Albuterol [Proventil Neb Soln] Med 02/28/21 09:00 Active 2.5 mg INH QID Albuterol [Ventolin HFA] Med 02/28/21 06:58 Active 0 gm INH Q4H PRN Docusate Sodium/Sennosides [Senna Plus] Med 02/27/21 21:27 Active 1 tab PO BID PRN Enoxaparin [Lovenox] Med 02/27/21 21:30 Active 40 mg SUBCUT Q24H Ertapenem [INVanz] 1 gm Med 02/27/21 22:00 Active Sodium Chloride 0.9% [Normal Saline] 50 ml IV DAILY Fluticasone Propion/Salmeterol [Advair 250-50 Diskus] Med 02/28/21 09:00 Active 1 puff INH BID Levothyroxine [Synthroid] Med 02/28/21 07:30 Active 100 mcg PO ACBREAKFAST Ondansetron [Zofran] Med 02/27/21 21:27 Active 4 mg IV Q4H PRN Simvastatin [Zocor] Med 02/28/21 21:00 Active 20 mg PO BEDTIME Sodium Chloride 0.9% [Normal Saline] 1,000 ml Med 02/27/21 19:30 Active IV ASDIRECTED Sodium Chloride 0.9% [Normal Saline] 1,000 ml Med 02/27/21 21:30 Active IV ASDIRECTED Sodium Chloride 0.9% [Saline Flush] Med 02/27/21 19:22 Active 10 ml FLUSH ASDIRECTED PRN metFORMIN [Glucophage XR] Med 02/28/21 09:00 Active 500 mg PO DAILY polyethylene glycoL 3350 [MiraLAX] Med 02/28/21 09:00 Active 17 gm PO DAILY Blood Culture x2 Reflex Set [OM.PC] Urgent Oth 02/27/21 20:18 Ordered Saline Lock Insert [OM.PC] Routine Oth 02/27/21 19:22 Ordered Sequential Compression Device [OM.PC] Per Unit Routine Oth 02/27/21 21:29 Ordered Resuscitation Status Routine Resus Stat 02/27/21 21:27 Ordered Medication Orders Albuterol (Albuterol 0.083% 2.5 Mg/3 Ml Neb Soln) 2.5 mg INH QID [facility] Last Admin: 02/28/21 08:02 Dose: 2.5 mg Documented by: AG Albuterol (Albuterol 8 Gm Inhaler Own Med) 0 gm INH Q4H PRN PRN Reason: Shortness of Breath Alprazolam (Alprazolam 0.5 Mg Tab Own Med) 0.5 mg PO BID PRN PRN Reason: Anxiety Last Admin: 02/28/21 08:04 Dose: 0.5 mg Documented by: AG Enoxaparin Sodium (Enoxaparin 40 Mg/0.4 Ml Syringe) 40 mg SUBCUT Q24H [facility] Last Admin: 02/27/21 23:01 Dose: 40 mg Documented by: JHONATHAN Sodium Chloride (Normal Saline) 1,000 mls @ 999 mls/hr IV ASDIRECTED [facility] Last Admin: 02/27/21 20:25 Dose: 999 mls/hr Documented by: BRENLOR Sodium Chloride (Normal Saline) 1,000 mls @ 100 mls/hr IV ASDIRECTED [facility] Ertapenem 1 gm/ Sodium (Chloride) 50 mls @ 100 mls/hr IV DAILY [facility] Last Admin: 02/28/21 08:41 Dose: 100 mls/hr Documented by: Admin: 02/27/21 23:29 Dose: 100 mls/hr Documented by: JHONATHAN Levothyroxine Sodium (Levothyroxine 100 Mcg Tab Own Med) 100 mcg PO ACBREAKFAST [facility] Last Admin: 02/28/21 08:01 Dose: 100 mcg Documented by: AG Metformin HCl (Metformin 500 Mg Tab.ErOwn Med) 500 mg PO DAILY [facility] Last Admin: 02/28/21 08:02 Dose: 500 mg Documented by: AG Fluticasone /Salmeterol [Advair 250-50 Diskus] Own Med 1 puff INH BID [facility] Last Admin: 02/28/21 08:01 Dose: 1 puff Documented by: AG Ondansetron HCl (Ondansetron 4 Mg/2 Ml Sdv) 4 mg IV Q4H PRN PRN Reason: Nausea/Vomiting Polyethylene Glycol (Polyethylene Glycol 3350 Powder 238 Gm Bot) 17 gm PO DAILY [facility] Last Admin: 02/28/21 08:15 Dose: Not Given Documented by: AG Senna/Docusate Sodium (Docusate Sodium/Sennosides 50-8.6 Mg Tab) 1 tab PO BID PRN PRN Reason: Constipation Simvastatin (Simvastatin 20 Mg Tab) 20 mg PO BEDTIME [facility] Sodium Chloride (Sodium Chloride 0.9% 10 Ml Syringe) 10 ml FLUSH ASDIRECTED PRN PRN Reason: Keep Vein Open Assessment/Plan Comment:: 1. Patient was admitted to observation due to possible urinary tract infection and likely COPD exacerbation. Because of multiple allergies the patient was given ertapenem, she has now received 2 doses. Laboratory reports only normal pham growth at this point on urine culture. 2. Review of the patient's medical chart shows that her lower extremity edema is chronic and that she may have had a history of lower extremity venous stasis. Her last echocardiogram was 03/08/2014 and showed normal left ventricular size with lower limit of normal ejection fraction and hypokinesis of the mid apical anterior/basal mid anteroseptal and inferior septal michael. The patient would benefit from echocardiogram. He was noted to have severe right ventricular systolic pressure/pulmonary hypertension at 73 mmHg. 3. Patient will be treated for COPD exacerbation including azithromycin but there is no significant wheezing so we will withhold prednisone at this time. 4. Continue home medications for chronic conditions 5. DVT prophylaxis: Enoxaparin 6. Disposition: Patient states that she is back to her baseline function and that she wants to go home today. We will walk the patient around the unit and if she demonstrates that she can go home she will likely be discharged today. Patient will be discharged with azithromycin. She is already on home O2, 4 L. She will be advised to follow-up with her primary care physician this week and to seek cardiology evaluation for congestive heart failure and pulmonary hypertension.
[2021-02-28] MEDS ORDERED: Azithromycin 250 MG Tab PO SCH (10:00)
--- NOTE | 2021-02-28 10:16 | PCM.DCSUM1 ---
Discharge Summary - Hospital Course Free Text/Narrative:: 80-year-old lady with past medical history significant for severe lung disease/COPD, pulmonary hypertension is seen on a cardiogram with low normal ejection fraction came to the emergency department due to nausea secondary to coughing with increased sputum production, weakness, and dysuria. Urinalysis showed a possible urinary tract infection. Due to multiple drug allergies she was given ertapenem. She received a total of 2 doses of ertapenem. Laboratory reported only growth of normal pham at this point. Patient also likely has COPD exacerbation with increased cough, sputum production. Note that she adamantly denies any shortness of breath and she denies any chest pain. Patient states that she is back to her baseline functioning. She was able to walk down the hallway with supplemental oxygen and a walker. She does use 4 L of supplemental oxygen at home and states that she walks better with her walker at home. She has no steps at her home. She requested discharge. She is back to her baseline function and will be discharged today. She will be given an additional 2 days of azithromycin for COPD exacerbation. She is highly encouraged to follow-up with her primary care physician this week. Diagnosis: Stroke: No - Discharge Data Discharge Date: 02/28/21 Discharge Disposition: Home, Self-Care 01 Condition: Fair - Referral to Home Health Primary Care Physician: PCP Unknown - Discharge Diagnosis/Problem(s) (1) Obesity SNOMED Code(s): 799561926, 045375700 ICD Code: E66.9 - OBESITY, UNSPECIFIED Status: Chronic Current Visit: Yes (2) Palliative care encounter SNOMED Code(s): 604578717, 726047401 ICD Code: Z51.5 - ENCOUNTER FOR PALLIATIVE CARE Status: Acute Current Visit: Yes (3) UTI (urinary tract infection) SNOMED Code(s): 67094145 ICD Code: N39.0 - URINARY TRACT INFECTION, SITE NOT SPECIFIED Status: Acute Current Visit: Yes (4) Weakness SNOMED Code(s): 06986371 ICD Code: R53.1 - WEAKNESS Status: Acute Current Visit: Yes (5) Diabetes mellitus type 2 SNOMED Code(s): 03073271 ICD Code: E11.9 - TYPE 2 DIABETES MELLITUS WITHOUT COMPLICATIONS Status: Chronic Current Visit: Yes Problem Details: A1c mildly elevated to 6.8%. No bs over 200 mg/dL. (6) COPD with exacerbation SNOMED Code(s): 696120583, 984888330 ICD Code: J44.1 - CHRONIC OBSTRUCTIVE PULMONARY DISEASE W (ACUTE) EXACERBATION Status: Acute Current Visit: No (7) Leg edema SNOMED Code(s): 393677850 ICD Code: R60.0 - LOCALIZED EDEMA Status: Chronic Current Visit: No (8) Hypothyroidism SNOMED Code(s): 42870328 ICD Code: E03.9 - HYPOTHYROIDISM, UNSPECIFIED Status: Chronic Current Visit: No Problem Details: TSH elevated and restarted her levothyroxine at prior dose. have her in clinic for recheck in 4 wks. (9) Supplemental oxygen dependent SNOMED Code(s): 918162478607 ICD Code: Z99.81 - DEPENDENCE ON SUPPLEMENTAL OXYGEN Status: Chronic Priority: High Current Visit: No Problem Details: (10) Tobacco abuse disorder SNOMED Code(s): 446056021 ICD Code: Z72.0 - TOBACCO USE Status: Chronic Current Visit: No Problem Details: Offered nicotine patch. Patient declined. (11) Pulmonary hypertension SNOMED Code(s): 22831893 ICD Code: I27.20 - PULMONARY HYPERTENSION, UNSPECIFIED Status: Chronic Current Visit: Yes - Patient Summary/Data Consults: Consultations 02/27/21 21:44 OT Evaluation and Treatment [CONS] Routine Please Evaluate and Treat. OT Reason for Consult: Discharge Planning This query below is only for informational purposes and is not editable. Admission Diagnosis/Problem: Weakness PT Evaluation and Treatment [CONS] Routine Please Evaluate and Treat. PT Reason for Consult: Strengthening This query below is only for informational purposes and is not editable. Admission Diagnosis/Problem: Weakness - Patient Instructions Diet: Heart Healthy Diet Driving: Do Not Drive Showering/Bathing: May Shower - Discharge Plan *PRESCRIPTION DRUG MONITORING PROGRAM REVIEWED*: Not Applicable *COPY OF PRESCRIPTION DRUG MONITORING REPORT IN PATIENT ESTRELLA: Not Applicable Prescriptions/Med Rec: Azithromycin [Zithromax] 500 mg PO DAILY #2 tablet Home Medications: Home Meds Albuterol [Ventolin HFA] 2 puff INH Q4HR PRN 03/07/14 [History] Simvastatin [Zocor] 20 mg PO BEDTIME 05/23/15 [History] Furosemide [Lasix] 40 mg PO DAILY 10/11/16 [History] Fluticasone Propion/Salmeterol [Advair 250-50 Diskus] 1 puff INH BID 05/10/19 [History] Levothyroxine [Synthroid] 100 mcg PO ACBREAKFAST 05/10/19 [History] Albuterol Sulfate 2.5 mg IH QID 02/16/20 [History] ALPRAZolam [Xanax] 0.5 mg PO BID PRN 07/06/20 [History] metFORMIN [Glucophage XR] 500 mg PO DAILY 07/06/20 [History] Azithromycin [Zithromax] 500 mg PO DAILY #2 tablet 02/28/21 [Rx] Patient Handouts: Fall Prevention in the Home, Adult, [id number], Urinary Tract Infection, Adult, [id number] Forms: ED Department Discharge Referrals: PCP,Unknown [Primary Care Provider] - Tushar Lopez MD [ED Physician] - - Discharge Summary/Plan Comment DC Time >30 min.: No Discharge Summary/Plan Comment: Review of her medical records shows echocardiogram approximately 5 years ago that showed low normal systolic function with hypokinesis of several michael. More notable was right ventricular systolic pressure of 73 mmHg. Please follow- up on urine culture for possible needed additional treatment. Patient would also benefit from cardiac and pulmonary rehabilitation. She would likely qualify for home health and/or occupational/physical therapy. - General Info Date of Service: 02/28/21 Admission Dx/Problem (Free Text: Admission Diagnosis/Problem Admission Diagnosis/Problem Weakness Functional Status: Reports: Pain Controlled, Tolerating Diet, Ambulating, Urinating - Review of Systems General: Reports: Weakness, Fatigue HEENT: Reports: No Symptoms Pulmonary: Reports: Cough. Denies: Shortness of Breath Cardiovascular: Reports: No Symptoms Gastrointestinal: Reports: No Symptoms Genitourinary: Reports: No Symptoms Musculoskeletal: Reports: No Symptoms Skin: Reports: No Symptoms Neurological: Reports: No Symptoms Psychiatric: Reports: No Symptoms - Patient Data Vitals - Most Recent: Last Vital Signs Temp 37.0 C 02/28/21 00:00 Pulse 77 02/28/21 00:00 Resp 16 02/28/21 00:00 BP 128/53 L 02/28/21 00:00 Pulse Ox 96 02/28/21 00:00 Weight - Most Recent: 86.5 kg I&O - Last 24 hours: Intake & Output 02/27/21 02/28/21 02/28/21 22:59 06:59 14:59 Intake Total 1100 420 Output Total 100 Balance 1000 420 Lab Results - Last 24 hrs: Laboratory Results - last 24 hr 02/27/21 02/27/21 02/27/21 Range/Units 19:36 19:36 19:36 WBC 17.9 H (3.0-10.3) x10-3/uL RBC 4.11 (3.60-5.20) x10(6)uL Hgb 11.6 (11.4-15.5) g/dL Hct 36.0 (34.2-48.2) % MCV 87.5 (76.7-100.5) fL MCH 28.1 (23.9-33.9) pg MCHC 32.1 (31.9-34.8) g/dL RDW 14.4 (12.3-16.5) % Plt Count 326 (151-488) x10(3)uL MPV 7.6 (7.1-12.4) fL Neut % (Auto) (30.8-76.2) % Lymph % (Auto) (18.4-52.1) % [place] % (Auto) (4.4-15.7) % Eos % (Auto) (0.6-8.1) % Baso % (Auto) (0.2-1.5) % Neut # (Auto) (1.5-6.3) x10-3/uL Lymph # (Auto) (1.0-4.4) x10-3/uL [place] # (Auto) (0.3-1.0) x10-3/uL Eos # (Auto) (0.0-0.8) x10-3/uL Baso # (Auto) (0.0-0.1) x10-3/uL Add Manual Diff Yes Neutrophils % (Manual) 86 H (46-82) % Lymphocytes % (Manual) 4 L (13-37) % Monocytes % (Manual) 10 (4-12) % Sodium 141 (135-145) mmol/L Potassium 4.2 (3.5-5.3) mmol/L Chloride 96 L (100-110) mmol/L Carbon Dioxide 46 H* (21-32) mmol/L BUN 16 (7-18) mg/dL Creatinine 0.9 (0.55-1.02) mg/dL Est Cr Clr Drug Dosing TNP Estimated GFR (MDRD) > 60 (>60) BUN/Creatinine Ratio 17.8 (9-20) Glucose 222 H (80-116) mg/dL Lactic Acid (0.4-2.0) mmol/L Calcium 8.4 L (8.6-10.2) mg/dL Total Bilirubin 0.3 (0.1-1.3) mg/dL AST 14 (5-25) IU/L ALT 21 (12-36) U/L Alkaline Phosphatase 114 H (56-112) IU/L Troponin I 16.2 (4.0-60.3) pg/mL Total Protein 7.2 (6.0-8.0) g/dL Albumin 3.4 (3.2-4.6) g/dL Globulin 3.8 g/dL Albumin/Globulin Ratio 0.9 Urine Color (YELLOW) Urine Appearance (CLEAR) Urine pH (5.0-6.5) Ur Specific [place] (1.010-1.025) Urine Protein (NEGATIVE) mg/dL Urine Glucose (UA) (NORMAL) mg/dL Urine Ketones (NEGATIVE) mg/dL Urine Occult Blood (NEGATIVE) Urine Nitrite (NEGATIVE) Urine Bilirubin (NEGATIVE) Urine Urobilinogen (NEGATIVE) mg/dL Ur Leukocyte Esterase (NEGATIVE) Urine RBC (0-5) Urine WBC (0-5) Ur Squamous Epith Cells (NS,R,O) Urine Bacteria (NS) SARS-CoV-2 RNA (ERINN) (NEGATIVE) 02/27/21 02/27/21 02/27/21 Range/Units 20:40 20:45 20:58 WBC (3.0-10.3) x10-3/uL RBC (3.60-5.20) x10(6)uL Hgb (11.4-15.5) g/dL Hct (34.2-48.2) % MCV (76.7-100.5) fL MCH (23.9-33.9) pg MCHC (31.9-34.8) g/dL RDW (12.3-16.5) % Plt Count (151-488) x10(3)uL MPV (7.1-12.4) fL Neut % (Auto) (30.8-76.2) % Lymph % (Auto) (18.4-52.1) % [place] % (Auto) (4.4-15.7) % Eos % (Auto) (0.6-8.1) % Baso % (Auto) (0.2-1.5) % Neut # (Auto) (1.5-6.3) x10-3/uL Lymph # (Auto) (1.0-4.4) x10-3/uL [place] # (Auto) (0.3-1.0) x10-3/uL Eos # (Auto) (0.0-0.8) x10-3/uL Baso # (Auto) (0.0-0.1) x10-3/uL Add Manual Diff Neutrophils % (Manual) (46-82) % Lymphocytes % (Manual) (13-37) % Monocytes % (Manual) (4-12) % Sodium (135-145) mmol/L Potassium (3.5-5.3) mmol/L Chloride (100-110) mmol/L Carbon Dioxide (21-32) mmol/L BUN (7-18) mg/dL Creatinine (0.55-1.02) mg/dL Est Cr Clr Drug Dosing Estimated GFR (MDRD) (>60) BUN/Creatinine Ratio (9-20) Glucose (80-116) mg/dL Lactic Acid 0.8 (0.4-2.0) mmol/L Calcium (8.6-10.2) mg/dL Total Bilirubin (0.1-1.3) mg/dL AST (5-25) IU/L ALT (12-36) U/L Alkaline Phosphatase (56-112) IU/L Troponin I (4.0-60.3) pg/mL Total Protein (6.0-8.0) g/dL Albumin (3.2-4.6) g/dL Globulin g/dL Albumin/Globulin Ratio Urine Color [place] (YELLOW) Urine Appearance Slightly cloudy (CLEAR) Urine pH 5.0 (5.0-6.5) Ur Specific [place] 1.020 (1.010-1.025) Urine Protein Negative (NEGATIVE) mg/dL Urine Glucose (UA) Normal (NORMAL) mg/dL Urine Ketones 15 H (NEGATIVE) mg/dL Urine Occult Blood Moderate H (NEGATIVE) Urine Nitrite Negative (NEGATIVE) Urine Bilirubin Small H (NEGATIVE) Urine Urobilinogen 1 H (NEGATIVE) mg/dL Ur Leukocyte Esterase Large H (NEGATIVE) Urine RBC 5-10 H (0-5) Urine WBC 30-40 H (0-5) Ur Squamous Epith Cells Few H (NS,R,O) Urine Bacteria Moderate H (NS) SARS-CoV-2 RNA (ERINN) Negative (NEGATIVE) 02/28/21 02/28/21 Range/Units 06:35 06:35 WBC 9.2 (3.0-10.3) x10-3/uL RBC 3.76 (3.60-5.20) x10(6)uL Hgb 10.6 L (11.4-15.5) g/dL Hct 33.0 L (34.2-48.2) % MCV 87.9 (76.7-100.5) fL MCH 28.1 (23.9-33.9) pg MCHC 32.0 (31.9-34.8) g/dL RDW 14.4 (12.3-16.5) % Plt Count 300 (151-488) x10(3)uL MPV 7.6 (7.1-12.4) fL Neut % (Auto) 79.0 H (30.8-76.2) % Lymph % (Auto) 12.1 L (18.4-52.1) % [place] % (Auto) 5.5 (4.4-15.7) % Eos % (Auto) 3.1 (0.6-8.1) % Baso % (Auto) 0.3 (0.2-1.5) % Neut # (Auto) 7.3 H (1.5-6.3) x10-3/uL Lymph # (Auto) 1.1 (1.0-4.4) x10-3/uL [place] # (Auto) 0.5 (0.3-1.0) x10-3/uL Eos # (Auto) 0.3 (0.0-0.8) x10-3/uL Baso # (Auto) 0.0 (0.0-0.1) x10-3/uL Add Manual Diff Neutrophils % (Manual) (46-82) % Lymphocytes % (Manual) (13-37) % Monocytes % (Manual) (4-12) % Sodium 144 (135-145) mmol/L Potassium 4.5 (3.5-5.3) mmol/L Chloride 101 D (100-110) mmol/L Carbon Dioxide 44 H* (21-32) mmol/L BUN 15 (7-18) mg/dL Creatinine 0.9 (0.55-1.02) mg/dL Est Cr Clr Drug Dosing 43.05 Estimated GFR (MDRD) > 60 (>60) BUN/Creatinine Ratio 16.7 (9-20) Glucose 159 H (80-116) mg/dL Lactic Acid (0.4-2.0) mmol/L Calcium 8.1 L (8.6-10.2) mg/dL Total Bilirubin (0.1-1.3) mg/dL AST (5-25) IU/L ALT (12-36) U/L Alkaline Phosphatase (56-112) IU/L Troponin I (4.0-60.3) pg/mL Total Protein (6.0-8.0) g/dL Albumin (3.2-4.6) g/dL Globulin g/dL Albumin/Globulin Ratio Urine Color (YELLOW) Urine Appearance (CLEAR) Urine pH (5.0-6.5) Ur Specific [place] (1.010-1.025) Urine Protein (NEGATIVE) mg/dL Urine Glucose (UA) (NORMAL) mg/dL Urine Ketones (NEGATIVE) mg/dL Urine Occult Blood (NEGATIVE) Urine Nitrite (NEGATIVE) Urine Bilirubin (NEGATIVE) Urine Urobilinogen (NEGATIVE) mg/dL Ur Leukocyte Esterase (NEGATIVE) Urine RBC (0-5) Urine WBC (0-5) Ur Squamous Epith Cells (NS,R,O) Urine Bacteria (NS) SARS-CoV-2 RNA (ERINN) (NEGATIVE) Med Orders - Current: Current Medications Albuterol (Albuterol 0.083% 2.5 Mg/3 Ml Neb Soln) 2.5 mg INH QID MYKE Last Admin: 02/28/21 08:02 Dose: 2.5 mg Documented by: Albuterol (Albuterol 8 Gm Inhaler Own Med) 0 gm INH Q4H PRN PRN Reason: Shortness of Breath Alprazolam (Alprazolam 0.5 Mg Tab Own Med) 0.5 mg PO BID PRN PRN Reason: Anxiety Last Admin: 02/28/21 08:04 Dose: 0.5 mg Documented by: Azithromycin (Azithromycin 250 Mg Tab) 500 mg PO DAILY [facility] Stop: 03/02/21 23:59 Enoxaparin Sodium (Enoxaparin 40 Mg/0.4 Ml Syringe) 40 mg SUBCUT Q24H [facility] Last Admin: 02/27/21 23:01 Dose: 40 mg Documented by: Ertapenem 1 gm/ Sodium (Chloride) 50 mls @ 100 mls/hr IV DAILY [facility] Last Admin: 02/28/21 08:41 Dose: 100 mls/hr Documented by: Levothyroxine Sodium (Levothyroxine 100 Mcg Tab Own Med) 100 mcg PO ACBREAKFAST [facility] Last Admin: 02/28/21 08:01 Dose: 100 mcg Documented by: Metformin HCl (Metformin 500 Mg Tab.ErOwn Med) 500 mg PO DAILY [facility] Last Admin: 02/28/21 08:02 Dose: 500 mg Documented by: Fluticasone /Salmeterol [Advair 250-50 Diskus] Own Med 1 puff INH BID [facility] Last Admin: 02/28/21 08:01 Dose: 1 puff Documented by: Ondansetron HCl (Ondansetron 4 Mg/2 Ml Sdv) 4 mg IV Q4H PRN PRN Reason: Nausea/Vomiting Polyethylene Glycol (Polyethylene Glycol 3350 Powder 238 Gm Bot) 17 gm PO DAILY [facility] Last Admin: 02/28/21 08:15 Dose: Not Given Documented by: Senna/Docusate Sodium (Docusate Sodium/Sennosides 50-8.6 Mg Tab) 1 tab PO BID PRN PRN Reason: Constipation Simvastatin (Simvastatin 20 Mg Tab) 20 mg PO BEDTIME [facility] Sodium Chloride (Sodium Chloride 0.9% 10 Ml Syringe) 10 ml FLUSH ASDIRECTED PRN PRN Reason: Keep Vein Open Discontinued Medications Albuterol (Albuterol 8 Gm Inhaler) 0 gm INH Q4H PRN PRN Reason: Shortness of Breath Alprazolam (Alprazolam 0.5 Mg Tab) 0.5 mg PO BID PRN PRN Reason: Anxiety Sodium Chloride (Normal Saline) 1,000 mls @ 999 mls/hr IV ASDIRECTED [facility] Last Admin: 02/27/21 20:25 Dose: 999 mls/hr Documented by: Sodium Chloride (Normal Saline) 1,000 mls @ 100 mls/hr IV ASDIRECTED [facility] Ondansetron HCl (Ondansetron 4 Mg/2 Ml Sdv) 4 mg IVPUSH NOW STA Stop: 02/27/21 19:23 Last Admin: 02/27/21 20:28 Dose: 4 mg Documented by: Comments:: Patient was able to sit up and stand up from her bed without assistance and stand for physical examination. She was able to walk down the hallway with the aid of a walker and with her supplemental oxygen. She can only ambulate about a dozen steps before stopping to rest while leaning on her walker. Even though she appears to be somewhat short of breath she denies any shortness of breath. - Exam Quality Assessment: Reports: Supplemental Oxygen, DVT Prophylaxis, Skin Breakdown General: Reports: Alert, Oriented, Cooperative, No Acute Distress HEENT: Reports: EOMI Lungs: Reports: Decreased Breath Sounds, Crackles, Wheezing, Other (Significantly decreased breath sounds in the bilateral lower lobes with crackles and very mild end expiratory wheezes in the upper lung lung bruce) Cardiovascular: Reports: Regular Rate, Regular Rhythm, Other (Heart sounds are distant and difficult to auscultate) GI/Abdominal Exam: Normal Bowel Sounds Back Exam: Reports: Normal Inspection Extremities: Pedal Edema Skin: Reports: Warm, Dry Neurological: Reports: No New Focal Deficit Psy/Mental Status: Reports: Alert, Normal Affect, Normal Mood
[2021-02-28 10:46] VITALS: BP 115/50; PULSE 74
[2021-02-28] MEDS ORDERED: Simvastatin 20 MG Tab PO SCH (21:00)
--- NOTE | 2021-03-01 11:13 | CR ---
INDICATION: Cough, weakness, history of COPD. CHEST, ONE VIEW: AP upright portable view of the chest 02/27/21 was compared with 12/20/20 and 07/06/20. Heavy markings remain present at the lung bases, left much greater than right but with absence of a nodular appearance seen at the left lung base on the previous study. Findings may be on the basis of fibrosis or possibly minimal patchy bronchopneumonia or chronic inflammatory disease. The lungs appear to be somewhat hyperaerated. The heart did not appear grossly enlarged. The aorta is calcified in the arch area. Overlying snaps are noted. IMPRESSION: 1/ Heavy markings at the lung bases again noted, likely fibrotic in nature but cannot exclude chronic inflammatory disease or recurrent pneumonia especially on the left. Some atelectatic change may also be present, especially on the left. 2. ASD aorta. 3. Appearance of hyperaeration. MTDD
== END 2021-02-28 11:05 | disposition home health service (06) ==
LOC: FB.ED 18:46 → FB.MS 21:27
PROVIDERS: ADMIT Emergency Medicine; ATTEND Student in an Organized Health Care Education/Training Program
DX: J44.1 Chronic obstructive pulmonary disease with (acute) exacerbation (principal); E78.00 Pure hypercholesterolemia, unspecified; E11.9 Type 2 diabetes mellitus without complications; E03.9 Hypothyroidism, unspecified; E66.9 Obesity, unspecified; F17.210 Nicotine dependence, cigarettes, uncomplicated; Z20.822 Contact with and (suspected) exposure to COVID-19; Z99.81 Dependence on supplemental oxygen; Z91.048 Other nonmedicinal substance allergy status; Z88.8 Allergy status to other drugs, medicaments and biological substances; Z88.0 Allergy status to penicillin; Z88.7 Allergy status to serum and vaccine; Z79.899 Other long term (current) drug therapy; Z79.84 Long term (current) use of oral hypoglycemic drugs; Z79.890 Hormone replacement therapy
CPT/HCPCS: 36415; 71045; 80048; 80053; 81001; 83605; 84484; 85025; 87040; 87086; 96365; 96374; 96375; 99285-25; A9270-GY; J1335; J1650; J2405; J7030; U0002

== ENCOUNTER 2021-04-08 21:25 | Emergency (ER) | payer MEDICARE, BC ==
[2021-04-08] MEDS ORDERED: Sulfamethoxazole/Trimethoprim 800-160 MG Tab PO ONE (21:26)
--- NOTE | 2021-04-08 22:19 | EDM.PDOC ---
ED HPI GENERAL MEDICAL PROBLEM - General Chief Complaint: Genitourinary Problem Stated Complaint: Dysuria,constipation Time Seen by Provider: 04/08/21 21:30 Source of Information: Reports: Patient History Limitations: Reports: No Limitations - History of Present Illness INITIAL COMMENTS - FREE TEXT/NARRATIVE: Patient presented to the ED because of constipation and dysuria, frequency for 1 day. there is no N/V, no fever,chills, flank pain. lower abd WALLY Pain Score (Numeric/FACES): 10 - Related Data Allergies Allergy/AdvReac Type Severity Reaction Status Date / Time perfume Allergy Intermediate Shortness Verified 02/27/21 21:01 of Breath ceftriaxone sodium Allergy Hives Verified 02/27/21 21:01 [From Rocephin] ciprofloxacin [From Cipro] Allergy Hives Verified 02/27/21 21:01 ciprofloxacin HCl Allergy Hives Verified 02/27/21 21:01 [From Cipro] Penicillins Allergy Hives Verified 02/27/21 21:01 pneumococcal vaccine Allergy Swelling Verified 02/27/21 21:01 [Pneumococcal Vaccine] Home Meds: Home Meds Albuterol [Ventolin HFA] 2 puff INH Q4HR PRN 03/07/14 [History] Simvastatin [Zocor] 20 mg PO BEDTIME 05/23/15 [History] Furosemide [Lasix] 40 mg PO DAILY 10/11/16 [History] Fluticasone Propion/Salmeterol [Advair 250-50 Diskus] 1 puff INH BID 05/10/19 [History] Levothyroxine [Synthroid] 100 mcg PO ACBREAKFAST 05/10/19 [History] Albuterol Sulfate 2.5 mg IH QID 02/16/20 [History] ALPRAZolam [Xanax] 0.5 mg PO BID PRN 07/06/20 [History] metFORMIN [Glucophage XR] 500 mg PO DAILY 07/06/20 [History] Azithromycin [Zithromax] 500 mg PO DAILY #2 tablet 02/28/21 [Rx] Past Medical History HEENT History: Reports: Cataract, Impaired Vision Cardiovascular History: Reports: High Cholesterol, SOB on Exertion Respiratory History: Reports: Bronchitis, Recurrent, COPD Other Respiratory History: Uses home O2. Gastrointestinal History: Reports: Bowel Obstruction, Other (See Below) Other Gastrointestinal History: Had abdominal surgery but patient is not certain what was all involved. 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 History of fracture right 3rd digit and right great toe. Neurological History: Reports: Migraines Psychiatric History: Reports: Anxiety Endocrine/Metabolic History: Reports: Diabetes, Type II, Hypothyroidism, Obesity/BMI 30+ Other Endocrine/Metabolic History: Thyroidectomy 2007. Hematologic History: Reports: Blood Transfusion(s) Oncologic (Cancer) History: Reports: Colon, Other (See Below) Other Oncologic History: Colon CA--uncertain. Dermatologic History: Reports: Cellulitis, Other (See Below) Other Dermatologic History: Lymphedema. - Infectious Disease History Infectious Disease History: Reports: Mumps Other Infectious Disease History: She is not certain if she had Rubella or Rubeola. - Past Surgical History Head Surgeries/Procedures: Reports: None HEENT Surgical History: Reports: Adenoidectomy, Cataract Surgery, Tonsillectomy, Other (See Below) Other HEENT Surgeries/Procedures: Bilateral cataract surgery. GI Surgical History: Reports: Cholecystectomy, Colon, Colonoscopy, EGD, Hernia Repair/Other Other GI Surgeries/Procedures: History of pssible colon blockage. Female Surgical History: Reports: Hysterectomy Other Female Surgeries/Procedures: Vaginal hysterectomy. Endocrine Surgical History: Reports: Thyroidectomy Musculoskeletal Surgical History: Reports: None Social & Family History - Family History Family Medical History: No Pertinent Family History Dermatologic: Reports: None Oncologic: Reports: Other (See Below) Other Oncologic Family History: Patient doesn't recall the type. - Caffeine Use Caffeine Use: Reports: Coffee Other Caffeine Use: 3-5 cups coffee/day Caffeine Use Comment: 3-4 cups/day - Living Situation & Occupation Living situation: Reports: Alone ED ROS GENERAL - Review of Systems Review Of Systems: See Below Constitutional: Reports: No Symptoms HEENT: Reports: No Symptoms Respiratory: Reports: No Symptoms Cardiovascular: Reports: No Symptoms Endocrine: Reports: No Symptoms GI/Abdominal: Reports: Constipation : Reports: Dysuria, Frequency Musculoskeletal: Reports: No Symptoms Skin: Reports: No Symptoms ED EXAM, GI/ABD - Physical Exam Exam: See Below Exam Limited By: No Limitations General Appearance: Alert, No Apparent Distress Ears: Normal External Exam, Normal Canal Nose: Normal Inspection, Normal Mucosa, No Blood Throat/Mouth: Normal Inspection, Normal Lips, Normal Teeth Head: Atraumatic, Normocephalic Neck: Normal Inspection, Supple, Non-Tender, Full Range of Motion Respiratory/Chest: No Respiratory Distress, Lungs Clear, Normal Breath Sounds Cardiovascular: Normal Peripheral Pulses, Regular Rate, Rhythm, No Edema, No Gallop, No JVD, No Murmur, No Rub GI/Abdominal Exam: Normal Bowel Sounds, Soft, Non-Tender, No Organomegaly Back Exam: Normal Inspection, Full Range of Motion Extremities: Normal Inspection, Normal Range of Motion, Non-Tender Course - Vital Signs Text/Narrative:: U/A-see result Senna S 2 tablets PO x1 Miralax 34 gm in liquid solution PO x1 Last Recorded V/S: Last Vital Signs Temp 36.7 C 04/08/21 23:00 Pulse 68 04/08/21 23:00 Resp 20 04/08/21 23:00 BP 124/50 L 04/08/21 23:00 Pulse Ox 89 L 04/08/21 23:00 - Orders/Labs/Meds Labs: Laboratory Tests 04/08/21 Range/Units 22:03 Urine Color Yellow (YELLOW) Urine Appearance Clear (CLEAR) Urine pH 5.0 (5.0-6.5) Ur Specific [place] 1.010 (1.010-1.025) Urine Protein Negative (NEGATIVE) mg/dL Urine Glucose (UA) Normal (NORMAL) mg/dL Urine Ketones Negative (NEGATIVE) mg/dL Urine Occult Blood Moderate H (NEGATIVE) Urine Nitrite Negative (NEGATIVE) Urine Bilirubin Negative (NEGATIVE) Urine Urobilinogen Normal (NEGATIVE) mg/dL Ur Leukocyte Esterase Negative (NEGATIVE) Urine RBC 0-5 (0-5) Urine WBC 0-5 (0-5) Ur Squamous Epith Cells Few H (NS,R,O) Urine Bacteria Rare H (NS) Meds: Medications Discontinued Medications Generic Name Dose Route Start Last Admin Trade Name Freq PRN Reason Stop Dose Admin Magnesium Citrate 296 ml 04/08/21 22:42 04/08/21 22:53 Magnesium Citrate Solution 296 Ml Bottle PO 04/08/21 22:43 296 ml ONETIME ONE Administration Ondansetron HCl 4 mg 04/08/21 22:44 04/08/21 22:52 Ondansetron 4 Mg Tab.Dis PO 04/08/21 22:45 4 mg NOW STA Administration Polyethylene Glycol 34 gm 04/08/21 22:42 04/08/21 22:52 Polyethylene Glycol 3350 Powder 17 Gm Packet PO 04/08/21 22:43 34 gm NOW STA Administration Senna/Docusate Sodium 2 tab 04/08/21 22:42 04/08/21 22:53 Docusate Sodium/Sennosides 50-8.6 Mg Tab PO 04/08/21 22:43 2 tab ONETIME ONE Administration Departure - Departure Time of Disposition: 22:30 Disposition: Home, Self-Care 01 Condition: Good Clinical Impression: UTI, Urinary tract infectious disease Constipation Qualifiers: Constipation type: slow transit constipation Qualified Code(s): K59.01 - Slow transit constipation - Discharge Information Instructions: Chronic Constipation, Urinary Tract Infection, Adult Referrals: Tushar Lopez MD [Primary Care Provider] - Forms: ED Department Discharge Additional Instructions: Please read discharge instructions on UTI Increase fluid intake Bactrim DS twice daily for 5 days Take the entire bottle of magnesium citrate as soon as you get home Follow up as needed Sepsis Event Note (ED) - Focused Exam Vital Signs: Vital Signs Temp Pulse Resp BP Pulse Ox 04/08/21 23:00 36.7 C 68 20 124/50 L 89 L
[2021-04-08] MEDS: Ondansetron 4 MG Tab.DIS PO STA (22:52)
[2021-04-08] MEDS: Polyethylene Glycol 3350 Powder 17 GM Packet PO STA (22:52)
[2021-04-08] MEDS: Magnesium Citrate Solution 296 ML Bottle PO ONE (22:53)
[2021-04-09 00:10] VITALS: BP 124/50; PULSE 68
== END 2021-04-08 23:20 | disposition home or self-care (01) ==
LOC: FB.ED 21:25
DX: N39.0 Urinary tract infection, site not specified (principal); E78.00 Pure hypercholesterolemia, unspecified; J44.9 Chronic obstructive pulmonary disease, unspecified; E11.9 Type 2 diabetes mellitus without complications; E03.9 Hypothyroidism, unspecified; E66.9 Obesity, unspecified; Z68.32 Body mass index [BMI] 32.0-32.9, adult; Z79.84 Long term (current) use of oral hypoglycemic drugs; Z79.899 Other long term (current) drug therapy; Z91.048 Other nonmedicinal substance allergy status; Z88.7 Allergy status to serum and vaccine; Z88.1 Allergy status to other antibiotic agents
CPT/HCPCS: 81001; 99283; A9270

== ENCOUNTER 2021-04-14 20:26 | Inpatient (IN) | payer MEDICARE, BC, MEDICAID ==
--- NOTE | 2021-04-14 21:26 | EDM.PDOC ---
ED HPI GENERAL MEDICAL PROBLEM - General Chief Complaint: General Time Seen by Provider: 04/14/21 20:40 Source of Information: Reports: Patient History Limitations: Reports: No Limitations - History of Present Illness INITIAL COMMENTS - FREE TEXT/NARRATIVE: Patient presented to the ED because of weakness and increasing dyspnea for the past 3-4 days. She normally can get get up from her chair and walk 5-6 feet with the aid of her walker without any difficulty but now she struggles just getting up up from her chair. She also c/o dyspnea and cough more than usual. there is no associated fever, chills. No nausea,vomiting or diarrhea but her ap[petite has been poor recently. Ms. 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 - Related Data Allergies Allergy/AdvReac Type Severity Reaction Status Date / Time perfume Allergy Intermediate Shortness Verified 04/14/21 21:00 of Breath ceftriaxone sodium Allergy Hives Verified 04/14/21 21:00 [From Rocephin] ciprofloxacin [From Cipro] Allergy Hives Verified 04/14/21 21:00 ciprofloxacin HCl Allergy Hives Verified 04/14/21 21:00 [From Cipro] Penicillins Allergy Hives Verified 04/14/21 21:00 pneumococcal vaccine Allergy Swelling Verified 04/14/21 21:00 [Pneumococcal Vaccine] Home Meds: Home Meds Albuterol [Ventolin HFA] 2 puff INH Q4HR PRN 03/07/14 [History] Simvastatin [Zocor] 20 mg PO BEDTIME 05/23/15 [History] Furosemide [Lasix] 40 mg PO DAILY 10/11/16 [History] Fluticasone Propion/Salmeterol [Advair 250-50 Diskus] 1 puff INH BID 05/10/19 [History] Levothyroxine [Synthroid] 100 mcg PO ACBREAKFAST 05/10/19 [History] Albuterol Sulfate 2.5 mg IH QID 02/16/20 [History] ALPRAZolam [Xanax] 0.5 mg PO BID PRN 07/06/20 [History] metFORMIN [Glucophage XR] 500 mg PO DAILY 07/06/20 [History] busPIRone [Buspar] 7.5 mg PO BID 04/14/21 [History] Past Medical History HEENT History: Reports: Cataract, Impaired Vision Cardiovascular History: Reports: High Cholesterol, SOB on Exertion Respiratory History: Reports: Bronchitis, Recurrent, COPD Other Respiratory History: Uses home O2. Gastrointestinal History: Reports: Bowel Obstruction, Other (See Below) Other Gastrointestinal History: Had abdominal surgery but patient is not certain what was all involved. Genitourinary History: Reports: UTI, Recurrent [employer] History: Reports: Other [employer] History: Musculoskeletal History: Reports: Arthritis, Fracture Other Musculoskeletal History: Possibly some arthritis. History of fracture right 3rd digit and right great toe. Neurological History: Reports: Migraines Psychiatric History: Reports: Anxiety Endocrine/Metabolic History: Reports: Diabetes, Type II, Hypothyroidism, Obesity/BMI 30+ Other Endocrine/Metabolic History: Thyroidectomy 2007. Hematologic History: Reports: Blood Transfusion(s) Oncologic (Cancer) History: Reports: Colon, Other (See Below) Other Oncologic History: Colon CA--uncertain. Dermatologic History: Reports: Cellulitis, Other (See Below) Other Dermatologic History: Lymphedema. - Infectious Disease History Infectious Disease History: Reports: Mumps Other Infectious Disease History: She is not certain if she had Rubella or Rubeola. - Past Surgical History Head Surgeries/Procedures: Reports: None HEENT Surgical History: Reports: Adenoidectomy, Cataract Surgery, Tonsillectomy, Other (See Below) Other HEENT Surgeries/Procedures: Bilateral cataract surgery. GI Surgical History: Reports: Cholecystectomy, Colon, Colonoscopy, EGD, Hernia Repair/Other Other GI Surgeries/Procedures: History of pssible colon blockage. Female Surgical History: Reports: Hysterectomy Other Female Surgeries/Procedures: Vaginal hysterectomy. Endocrine Surgical History: Reports: Thyroidectomy Musculoskeletal Surgical History: Reports: None Social & Family History - Family History Family Medical History: No Pertinent Family History Dermatologic: Reports: None Oncologic: Reports: Other (See Below) Other Oncologic Family History: Patient doesn't recall the type. - Tobacco Use Tobacco Use Status *Q: Unknown Ever Used Tobacco - Caffeine Use Caffeine Use: Reports: Coffee Other Caffeine Use: 3-5 cups coffee/day Caffeine Use Comment: 3-4 cups/day - Living Situation & Occupation Living situation: Reports: Alone ED ROS GENERAL - Review of Systems Review Of Systems: See Below Constitutional: Reports: Weakness HEENT: Reports: No Symptoms Respiratory: Reports: Cough Cardiovascular: Reports: No Symptoms Endocrine: Reports: No Symptoms GI/Abdominal: Reports: No Symptoms : Reports: No Symptoms Musculoskeletal: Reports: No Symptoms Skin: Reports: No Symptoms Neurological: Reports: No Symptoms Psychiatric: Reports: No Symptoms Hematologic/Lymphatic: Reports: No Symptoms ED EXAM, GENERAL - Physical Exam Exam: See Below Exam Limited By: No Limitations General Appearance: Alert, No Apparent Distress Ears: Normal External Exam, Normal Canal Nose: Normal Inspection, Normal Mucosa, No Blood Throat/Mouth: Normal Inspection, Normal Lips, Normal Teeth Head: Atraumatic, Normocephalic Neck: Normal Inspection, Supple, Non-Tender, Full Range of Motion Respiratory/Chest: No Respiratory Distress, Decreased Breath Sounds, Crackles Cardiovascular: Normal Peripheral Pulses, Regular Rate, Rhythm, No JVD GI/Abdominal: Normal Bowel Sounds, Soft, Non-Tender, No Organomegaly, No Distention, No Abnormal Bruit Back Exam: Normal Inspection, Full Range of Motion Extremities: Normal Inspection, Pedal Edema Neurological: Alert, Oriented, CN II-XII Intact, Normal Cognition, Normal Reflexes, No Motor/Sensory Deficits Psychiatric: Normal Affect, Normal Mood Skin Exam: Warm #1 Interpretation EKG Date: 04/14/21 Time: 21:05 Rhythm: NSR Rate (Beats/Min): 67 [place]: Normal P-Wave: Present QRS: Normal ST-T: Normal QT: Normal Comparison: No Change EKG Interpretation Comments: NSR Non-specific T wave abnormality Course - Vital Signs Text/Narrative:: Lab/EKG/CXR result was reviewed and discussed with patient Last Recorded V/S: Last Vital Signs Temp 36.9 C 04/14/21 20:35 Pulse 72 04/14/21 20:35 Resp 18 04/14/21 20:35 BP 132/51 L 04/14/21 20:35 Pulse Ox 95 04/14/21 20:35 - Orders/Labs/Meds Orders: Active Orders 24 hr Category Date Time Status Patient Status [ADT] Routine ADT 04/14/21 22:06 Active EKG Documentation Completion [RC] ASDIRECTED Care 04/14/21 20:54 Active Height and Weight [RC] DAILY Care 04/14/21 22:06 Active Oxygen Therapy [RC] PRN Care 04/14/21 22:06 Active Pulse Oximetry [RC] CONTINUOUS Care 04/14/21 22:11 Active RT Aerosol Therapy [RC] ASDIRECTED Care 04/14/21 22:16 Active Up With Assistance [RC] ASDIRECTED Care 04/14/21 22:06 Active VTE/DVT Education [RC] Per Unit Routine Care 04/14/21 22:06 Active Vital Signs [RC] Q4H Care 04/14/21 22:06 Active OT Evaluation and Treatment [CONS] Routine Cons 04/14/21 22:06 Active PT Evaluation and Treatment [CONS] Routine Cons 04/14/21 22:06 Active Heart Healthy Diet [DIET] Diet 04/15/21 Breakfast Ordered Chest 1V Frontal [CR] Stat Exams 04/14/21 20:53 Taken BASIC METABOLIC PANEL,BMP [CHEM] AM Lab 04/15/21 05:11 Ordered CBC WITH AUTO DIFF [HEME] AM Lab 04/15/21 05:11 Ordered TSH ULTRASENSITIVE [CHEM] Stat Lab 04/15/21 05:11 Ordered ALPRAZolam [Xanax] Med 04/14/21 22:18 Active 0.5 mg PO BID PRN Albuterol [Proventil Neb Soln] Med 04/14/21 22:06 Active 2.5 mg NEB Q2H PRN Albuterol/Ipratropium [DuoNeb 3.0-0.5 MG/3 ML] Med 04/14/21 22:15 Active 3 ml NEB Q6H Azithromycin [Zithromax] Med 04/14/21 22:15 Active 500 mg PO Q24H Docusate Sodium/Sennosides [Senna Plus] Med 04/14/21 22:06 Active 1 tab PO BID PRN Enoxaparin [Lovenox] Med 04/14/21 22:15 Active 40 mg SUBCUT Q24H Furosemide [Lasix] Med 04/15/21 09:00 Active 40 mg PO DAILY Levothyroxine [Synthroid] Med 04/15/21 07:30 Active 100 mcg PO ACBREAKFAST Mometasone/Formoterol [Dulera 200-5 MCG] Med 04/15/21 09:00 Active 2 puff IH BID Simvastatin [Zocor] Med 04/15/21 21:00 Active 20 mg PO BEDTIME Sodium Chloride 0.9% [Saline Flush] Med 04/14/21 20:53 Active 10 ml FLUSH ASDIRECTED PRN Sulfamethoxazole/Trimethoprim [Septra DS] Med 04/14/21 22:30 Ordered 1 tab PO BID metFORMIN [Glucophage XR] Med 04/15/21 09:00 Active 500 mg PO DAILY methylPREDNISolone Sod Succ [Solu-MEDROL] Med 04/14/21 22:15 Active 125 mg IVPUSH Q8H Saline Lock Insert [OM.PC] Routine Oth 04/14/21 20:53 Ordered Sequential Compression Device [OM.PC] Per Unit Routine Oth 04/14/21 22:11 Ordered Resuscitation Status Routine Resus Stat 04/14/21 22:06 Ordered EKG 12 Lead [EK] Routine Ther 04/14/21 20:53 Ordered Medication Orders Albuterol (Albuterol 0.083% 2.5 Mg/3 Ml Neb Soln) 2.5 mg NEB Q2H PRN PRN Reason: Dyspnea Albuterol/Ipratropium (Albuterol/Ipratropium 3.0-0.5 Mg/3 Ml Neb Soln) 3 ml NEB Q6H MYKE Alprazolam (Alprazolam 0.5 Mg Tab) 0.5 mg PO BID PRN PRN Reason: Anxiety Azithromycin (Azithromycin 500 Mg Tab) 500 mg PO Q24H MYKE Enoxaparin Sodium (Enoxaparin 40 Mg/0.4 Ml Syringe) 40 mg SUBCUT Q24H MYKE Furosemide (Furosemide 40 Mg Tab) 40 mg PO DAILY MYKE Levothyroxine Sodium (Levothyroxine 100 Mcg Tab) 100 mcg PO ACBREAKFAST MYKE Metformin HCl (Metformin 500 Mg Tab.Er) 500 mg PO DAILY MYKE Methylprednisolone Sodium Succinate (Methylprednisolone Sodium Succinate 125 Mg/2 Ml Sdv) 125 mg IVPUSH Q8H MYKE Mometasone Furoate/Formoterol Fumar (Formoterol/Mometasone 200-5 Mcg 8.8 Gm Inhaler) 2 puff IH BID MYKE Senna/Docusate Sodium (Docusate Sodium/Sennosides 50-8.6 Mg Tab) 1 tab PO BID PRN PRN Reason: Constipation Simvastatin (Simvastatin 20 Mg Tab) 20 mg PO BEDTIME MYKE Sodium Chloride (Sodium Chloride 0.9% 10 Ml Syringe) 10 ml FLUSH ASDIRECTED PRN PRN Reason: Keep Vein Open Trimethoprim/Sulfamethoxazole (Sulfamethoxazole/Trimethoprim 800-160 Mg Tab) 1 tab PO BID [facility] Labs: Laboratory Tests 04/14/21 04/14/21 04/14/21 Range/Units 21:03 21:03 21:03 WBC 8.0 (3.0-10.3) x10-3/uL RBC 3.99 (3.60-5.20) x10(6)uL Hgb 11.3 L (11.4-15.5) g/dL Hct 35.1 (34.2-48.2) % MCV 88.0 (76.7-100.5) fL MCH 28.3 (23.9-33.9) pg MCHC 32.2 (31.9-34.8) g/dL RDW 14.7 (12.3-16.5) % Plt Count 302 (151-488) x10(3)uL MPV 7.7 (7.1-12.4) fL Neut % (Auto) 72.8 (30.8-76.2) % Lymph % (Auto) 16.0 L (18.4-52.1) % Bertie % (Auto) 7.8 (4.4-15.7) % Eos % (Auto) 2.7 (0.6-8.1) % Baso % (Auto) 0.7 (0.2-1.5) % Neut # (Auto) 5.8 (1.5-6.3) x10-3/uL Lymph # (Auto) 1.3 (1.0-4.4) x10-3/uL Bertie # (Auto) 0.6 (0.3-1.0) x10-3/uL Eos # (Auto) 0.2 (0.0-0.8) x10-3/uL Baso # (Auto) 0.1 (0.0-0.1) x10-3/uL Sodium 142 (135-145) mmol/L Potassium 4.5 (3.5-5.3) mmol/L Chloride 97 L (100-110) mmol/L Carbon Dioxide 41 H* (21-32) mmol/L BUN 19 H (7-18) mg/dL Creatinine 1.1 H (0.55-1.02) mg/dL Est Cr Clr Drug Dosing 34.64 mL/min Estimated GFR (MDRD) 48 L (>60) BUN/Creatinine Ratio 17.3 (9-20) Glucose 165 H (80-116) mg/dL Calcium 9.0 (8.6-10.2) mg/dL Total Bilirubin 0.2 (0.1-1.3) mg/dL AST 14 (5-25) IU/L ALT 20 (12-36) U/L Alkaline Phosphatase 121 H (56-112) IU/L Troponin I 14.8 (4.0-60.3) pg/mL NT-Pro-B Natriuret Pep 72 (<=450) pg/mL Total Protein 7.3 (6.0-8.0) g/dL Albumin 3.5 (3.2-4.6) g/dL Globulin 3.8 g/dL Albumin/Globulin Ratio 0.9 Urine Color (YELLOW) Urine Appearance (CLEAR) Urine pH (5.0-6.5) Ur Specific [place] (1.010-1.025) Urine Protein (NEGATIVE) mg/dL Urine Glucose (UA) (NORMAL) mg/dL Urine Ketones (NEGATIVE) mg/dL Urine Occult Blood (NEGATIVE) Urine Nitrite (NEGATIVE) Urine Bilirubin (NEGATIVE) Urine Urobilinogen (NEGATIVE) mg/dL Ur Leukocyte Esterase (NEGATIVE) Urine RBC (0-5) Urine WBC (0-5) Ur Squamous Epith Cells (NS,R,O) Urine Bacteria (NS) SARS-CoV-2 RNA (ERINN) (NEGATIVE) 04/14/21 04/14/21 Range/Units 21:09 22:05 WBC (3.0-10.3) x10-3/uL RBC (3.60-5.20) x10(6)uL Hgb (11.4-15.5) g/dL Hct (34.2-48.2) % MCV (76.7-100.5) fL MCH (23.9-33.9) pg MCHC (31.9-34.8) g/dL RDW (12.3-16.5) % Plt Count (151-488) x10(3)uL MPV (7.1-12.4) fL Neut % (Auto) (30.8-76.2) % Lymph % (Auto) (18.4-52.1) % Bertie % (Auto) (4.4-15.7) % Eos % (Auto) (0.6-8.1) % Baso % (Auto) (0.2-1.5) % Neut # (Auto) (1.5-6.3) x10-3/uL Lymph # (Auto) (1.0-4.4) x10-3/uL Bertie # (Auto) (0.3-1.0) x10-3/uL Eos # (Auto) (0.0-0.8) x10-3/uL Baso # (Auto) (0.0-0.1) x10-3/uL Sodium (135-145) mmol/L Potassium (3.5-5.3) mmol/L Chloride (100-110) mmol/L Carbon Dioxide (21-32) mmol/L BUN (7-18) mg/dL Creatinine (0.55-1.02) mg/dL Est Cr Clr Drug Dosing mL/min Estimated GFR (MDRD) (>60) BUN/Creatinine Ratio (9-20) Glucose (80-116) mg/dL Calcium (8.6-10.2) mg/dL Total Bilirubin (0.1-1.3) mg/dL AST (5-25) IU/L ALT (12-36) U/L Alkaline Phosphatase (56-112) IU/L Troponin I (4.0-60.3) pg/mL NT-Pro-B Natriuret Pep (<=450) pg/mL Total Protein (6.0-8.0) g/dL Albumin (3.2-4.6) g/dL Globulin g/dL Albumin/Globulin Ratio Urine Color Yellow (YELLOW) Urine Appearance Slightly cloudy (CLEAR) Urine pH 6.5 (5.0-6.5) Ur Specific [place] 1.010 (1.010-1.025) Urine Protein Negative (NEGATIVE) mg/dL Urine Glucose (UA) Normal (NORMAL) mg/dL Urine Ketones Negative (NEGATIVE) mg/dL Urine Occult Blood Negative (NEGATIVE) Urine Nitrite Negative (NEGATIVE) Urine Bilirubin Negative (NEGATIVE) Urine Urobilinogen Normal (NEGATIVE) mg/dL Ur Leukocyte Esterase Moderate H (NEGATIVE) Urine RBC 0-5 (0-5) Urine WBC 20-30 H (0-5) Ur Squamous Epith Cells Few H (NS,R,O) Urine Bacteria Moderate H (NS) SARS-CoV-2 RNA (ERINN) Negative (NEGATIVE) Meds: Medications Generic Name Dose Route Start Last Admin Trade Name Freq PRN Reason Stop Dose Admin Albuterol 2.5 mg 04/14/21 22:06 Albuterol 0.083% 2.5 Mg/3 Ml Neb Soln NEB Q2H PRN Dyspnea Albuterol/Ipratropium 3 ml 04/14/21 22:15 Albuterol/Ipratropium 3.0-0.5 Mg/3 Ml Neb Soln NEB Q6H MYKE Alprazolam 0.5 mg 04/14/21 22:18 Alprazolam 0.5 Mg Tab PO BID PRN Anxiety Azithromycin 500 mg 04/14/21 22:15 Azithromycin 500 Mg Tab PO Q24H MYKE Enoxaparin Sodium 40 mg 04/14/21 22:15 Enoxaparin 40 Mg/0.4 Ml Syringe SUBCUT Q24H MYKE Furosemide 40 mg 04/15/21 09:00 Furosemide 40 Mg Tab PO DAILY [facility] Levothyroxine Sodium 100 mcg 04/15/21 07:30 Levothyroxine 100 Mcg Tab PO ACBREAKFAST [facility] Metformin HCl 500 mg 04/15/21 09:00 Metformin 500 Mg Tab.Er PO DAILY [facility] Methylprednisolone Sodium Succinate 125 mg 04/14/21 22:15 Methylprednisolone Sodium Succinate 125 Mg/2 Ml Sdv IVPUSH Q8H [facility] Mometasone Furoate/Formoterol Fumar 2 puff 04/15/21 09:00 Formoterol/Mometasone 200-5 Mcg 8.8 Gm Inhaler IH BID MYKE Senna/Docusate Sodium 1 tab 04/14/21 22:06 Docusate Sodium/Sennosides 50-8.6 Mg Tab PO BID PRN Constipation Simvastatin 20 mg 04/15/21 21:00 Simvastatin 20 Mg Tab PO BEDTIME MYKE Sodium Chloride 10 ml 04/14/21 20:53 Sodium Chloride 0.9% 10 Ml Syringe FLUSH ASDIRECTED PRN Keep Vein Open Trimethoprim/Sulfamethoxazole 1 tab 04/14/21 22:30 Sulfamethoxazole/Trimethoprim 800-160 Mg Tab PO BID MYKE Departure - Departure Time of Disposition: 22:45 Disposition: Admitted As Inpatient 66 Condition: Good Clinical Impression: UTI (urinary tract infection), Weakness, Diabetes, CHF (congestive heart failure), Pulmonary hypertension, Supplemental oxygen dependent, Peripheral edema, Neuropathy, peripheral COPD (chronic obstructive pulmonary disease) Qualifiers: COPD type: COPD with acute exacerbation Qualified Code(s): J44.1 - Chronic obstructive pulmonary disease with (acute) exacerbation - Discharge Information Forms: ED Department Discharge Sepsis Event Note (ED) - Evaluation Sepsis Screening Result: No Definite Risk - Focused Exam Vital Signs: Vital Signs Temp Pulse Resp BP Pulse Ox 04/14/21 20:35 36.9 C 72 18 132/51 L 95 - My Orders Last 24 Hours: My Active Orders 04/14/21 20:53 Chest 1V Frontal [CR] Stat Sodium Chloride 0.9% [Saline Flush] 10 ml FLUSH ASDIRECTED PRN Saline Lock Insert [OM.PC] Routine EKG 12 Lead [EK] Routine 04/14/21 20:54 EKG Documentation Completion [RC] ASDIRECTED 04/14/21 22:06 Patient Status [ADT] Routine Height and Weight [RC] DAILY Oxygen Therapy [RC] PRN Up With Assistance [RC] ASDIRECTED VTE/DVT Education [RC] Per Unit Routine Vital Signs [RC] Q4H OT Evaluation and Treatment [CONS] Routine PT Evaluation and Treatment [CONS] Routine Albuterol [Proventil Neb Soln] 2.5 mg NEB Q2H PRN Docusate Sodium/Sennosides [Senna Plus] 1 tab PO BID PRN Resuscitation Status Routine 04/14/21 22:11 Pulse Oximetry [RC] CONTINUOUS Sequential Compression Device [OM.PC] Per Unit Routine 04/14/21 22:15 Albuterol/Ipratropium [DuoNeb 3.0-0.5 MG/3 ML] 3 ml NEB Q6H Azithromycin [Zithromax] 500 mg PO Q24H Enoxaparin [Lovenox] 40 mg SUBCUT Q24H methylPREDNISolone Sod Succ [Solu-MEDROL] 125 mg IVPUSH Q8H 04/14/21 22:16 RT Aerosol Therapy [RC] ASDIRECTED 04/14/21 22:18 ALPRAZolam [Xanax] 0.5 mg PO BID PRN 04/14/21 22:30 Sulfamethoxazole/Trimethoprim [Septra DS] 1 tab PO BID 04/15/21 05:11 BASIC METABOLIC PANEL,BMP [CHEM] AM CBC WITH AUTO DIFF [HEME] AM TSH ULTRASENSITIVE [CHEM] Stat 04/15/21 Breakfast Heart Healthy Diet [DIET] 04/15/21 07:30 Levothyroxine [Synthroid] 100 mcg PO ACBREAKFAST 04/15/21 09:00 Furosemide [Lasix] 40 mg PO DAILY Mometasone/Formoterol [Dulera 200-5 MCG] 2 puff IH BID metFORMIN [Glucophage XR] 500 mg PO DAILY 04/15/21 21:00 Simvastatin [Zocor] 20 mg PO BEDTIME - Assessment/Plan Last 24 Hours: My Active Orders 04/14/21 20:53 Chest 1V Frontal [CR] Stat Sodium Chloride 0.9% [Saline Flush] 10 ml FLUSH ASDIRECTED PRN Saline Lock Insert [OM.PC] Routine EKG 12 Lead [EK] Routine 04/14/21 20:54 EKG Documentation Completion [RC] ASDIRECTED 04/14/21 22:06 Patient Status [ADT] Routine Height and Weight [RC] DAILY Oxygen Therapy [RC] PRN Up With Assistance [RC] ASDIRECTED VTE/DVT Education [RC] Per Unit Routine Vital Signs [RC] Q4H OT Evaluation and Treatment [CONS] Routine PT Evaluation and Treatment [CONS] Routine Albuterol [Proventil Neb Soln] 2.5 mg NEB Q2H PRN Docusate Sodium/Sennosides [Senna Plus] 1 tab PO BID PRN Resuscitation Status Routine 04/14/21 22:11 Pulse Oximetry [RC] CONTINUOUS Sequential Compression Device [OM.PC] Per Unit Routine 04/14/21 22:15 Albuterol/Ipratropium [DuoNeb 3.0-0.5 MG/3 ML] 3 ml NEB Q6H Azithromycin [Zithromax] 500 mg PO Q24H Enoxaparin [Lovenox] 40 mg SUBCUT Q24H methylPREDNISolone Sod Succ [Solu-MEDROL] 125 mg IVPUSH Q8H 04/14/21 22:16 RT Aerosol Therapy [RC] ASDIRECTED 04/14/21 22:18 ALPRAZolam [Xanax] 0.5 mg PO BID PRN 04/14/21 22:30 Sulfamethoxazole/Trimethoprim [Septra DS] 1 tab PO BID 04/15/21 05:11 BASIC METABOLIC PANEL,BMP [CHEM] AM CBC WITH AUTO DIFF [HEME] AM TSH ULTRASENSITIVE [CHEM] Stat 04/15/21 Breakfast Heart Healthy Diet [DIET] 04/15/21 07:30 Levothyroxine [Synthroid] 100 mcg PO ACBREAKFAST 04/15/21 09:00 Furosemide [Lasix] 40 mg PO DAILY Mometasone/Formoterol [Dulera 200-5 MCG] 2 puff IH BID metFORMIN [Glucophage XR] 500 mg PO DAILY 04/15/21 21:00 Simvastatin [Zocor] 20 mg PO BEDTIME
[2021-04-14] MEDS ORDERED: Albuterol 0.083% 2.5 MG/3 ML Neb Soln NEB PRN (22:06)
[2021-04-14] MEDS ORDERED: Azithromycin 500 MG Tab PO SCH (22:15)
[2021-04-14] MEDS ORDERED: Enoxaparin 40 MG/0.4 ML Syringe SUBCUT SCH (22:15)
[2021-04-14] MEDS: Albuterol/Ipratropium 3.0-0.5 MG/3 ML Neb Soln NEB SCH (23:18)
[2021-04-14] MEDS: methylPREDNISolone Sodium Succinate 125 MG/2 ML SDV IVPUSH SCH (23:21)
[2021-04-14] MEDS: Sulfamethoxazole/Trimethoprim 800-160 MG Tab PO SCH (23:22)
[2021-04-14] MEDS: Sodium Chloride 0.9% 10 ML Syringe FLUSH PRN (23:25)
[2021-04-15] MEDS: ALPRAZolam 0.5 MG Tab PO PRN ×2 (02:33→19:54)
[2021-04-15] MEDS: Albuterol/Ipratropium 3.0-0.5 MG/3 ML Neb Soln NEB SCH ×4 (03:36→21:17)
[2021-04-15] MEDS: methylPREDNISolone Sodium Succinate 125 MG/2 ML SDV IVPUSH SCH (05:26)
[2021-04-15] MEDS: Sodium Chloride 0.9% 10 ML Syringe FLUSH PRN (06:25)
[2021-04-15] MEDS: Levothyroxine 100 MCG Tab PO SCH (06:32)
[2021-04-15] MEDS ORDERED: metFORMIN 500 MG Tab.ER PO SCH (09:00)
[2021-04-15] MEDS: Formoterol/Mometasone 200-5 MCG 8.8 GM Inhaler IH SCH ×2 (09:58→21:14)
[2021-04-15] MEDS: Sulfamethoxazole/Trimethoprim 800-160 MG Tab PO SCH (09:59)
[2021-04-15] MEDS: Furosemide 40 MG Tab PO SCH (10:00)
[2021-04-15 11:42] LABS: HEMOGLOBIN A1C 8.3 % (<5.7)
--- NOTE | 2021-04-15 11:55 | CR ---
INDICATION: Difficulty in breathing for 3 to 4 days. 120 pack years smoker. CHEST ONE VIEW: An AP portable upright view of the chest was obtained 04/14/21 and compared with 02/27/21 and 12/20/20. The infiltrate at the left lung base appears to be clearing with continued heavy markings in both lung bases which may be fibrotic in nature but does make it difficult to exclude continued minimal patchy bronchopneumonia and possibly some atelectasis at the left lung base. The lungs appear to be somewhat hyperaerated as previously. The heart did not appear grossly enlarged - no definite CHF is seen. The aorta is calcified in the arch area. IMPRESSION: 1. Improving appearance of the chest overall but still difficult to exclude minimal patchy bronchopneumonia at the lung bases although the left is improved. 2. ASD aorta. 3. Appearance of hyperaeration. MTDD
[2021-04-15] MEDS: busPIRone 15 MG Tab PO SCH ×2 (12:03→21:14)
--- NOTE | 2021-04-15 12:15 | HP ---
ADMISSION DATE: 04/14/2021 CHIEF COMPLAINT: Progressive respiratory difficulty and weakness. HISTORY OF PRESENT ILLNESS: Jacey Paez is an 81-year-old female, admitted through [facility] on the evening of 04/14/2021. She presented with increasing just general malaise, difficulty to care issues, complicated weakness, and shortness of breath. She has by report end-stage COPD. Her dyspnea, weakness, and difficulty with simple ambulation at home dictated intervention and care. There had had been no increase in cough, sputum, fever, or complicating health issues. DAILY MEDICATIONS: Include: 1. Albuterol HFA 2 puffs q.i.d. p.r.n. 2. BuSpar 7.5 mg b.i.d., anxiety. 3. Albuterol per Maxi Mist q.i.d. p.r.n. 4. Alprazolam 0.5 mg b.i.d., anxiety. 5. Advair 250/50, one puff b.i.d. 6. Furosemide 40 mg 1 p.o., edema. 7. Levothyroxine 100 mcg 1 p.o. daily, hypothyroidism. 8. Metformin XR 500 mg 1 p.o., hyperlipidemia. 9. Zocor 20 mg 1 p.o. daily, hyperlipidemia. 10.Diabetes. ALLERGIES: Allergic to perfumes, ceftriaxone, ciprofloxacin, penicillins, and pneumococcal vaccine. PAST MEDICAL HISTORY: Significant for bilateral cataract surgery, thyroid surgery for benign disease, hysterectomy with ovaries intact, and laparoscopic cholecystectomy. Chronic treated illnesses include COPD, anxiety, hypothyroidism, hyperlipidemia, and diabetes mellitus. No other operative procedures, hospitalizations, unusual childhood diseases, major injuries, or fractures. SOCIAL HISTORY: . Lives alone in her own apartment. Four children, 2 sons, 2 daughters, 6 grandchildren, 6 great grandchildren. Quit smoking 2 days ago, though long-term history of smoking. No alcohol. No vaping. No chewing. FAMILY HISTORY: Thyroid disease by report. REVIEW OF SYSTEMS: CONSTITUTIONAL: Feeling poorly. EYES: Sees well. EARS: Hears well. OROPHARYNX: Upper denture, lower partial. Wears corrective eyeglasses. CV: Denies chest pain, palpitations, syncope. RESPIRATORY: Chronic cough, shortness of breath, and wheezing. GI: Irregular stools. No blood in stools. : Voiding comfortably. No blood in urine. SKIN: No lesions, eruptions, or moles. ENDOCRINE: No excessive thirst, urination. ALLERGIES: Noted. PSYCHIATRIC: Mood, anxiety. PHYSICAL EXAMINATION: VITAL SIGNS: 36.1, 140/62, 20, 89% on 4 L. GENERAL: Elderly female, appears stated age. Obvious distress. Conversation difficult. HEENT: Funduscopic benign. Conjunctivae clear. Bright tympanic membranes. Clear nasal discharge. Mouth and oropharynx: Clear. Tongue midline. NECK: Benign. Thyroid, small thyroidectomy scar. CHEST: Coarse rhonchi. Late inspiratory wheezes. HEART: No ectopy or murmur. ABDOMEN: Benign. Surgical scars well healed. No hepatosplenomegaly. : Deferred. RECTAL: Deferred. EXTREMITIES: Well perfused. Mild venous stasis changes. Peripheral pulses intact. LABORATORY STUDIES: White count 8000, repeat 9800; hemoglobin 11.3, repeat 11.4. Electrolytes satisfactory. CO2 of 41, 41; GFR 48, 41; creatinine 1.1, 1.1. Mildly elevated alkaline phosphatase. Urine noted moderate leukocytes, 20- 30 white cells, moderate bacteria. COVID negative. ASSESSMENT: 1. Declining respiratory status, end-stage chronic obstructive pulmonary disease. 2. Living situation unsettled, uncomfortable. SECONDARY DIAGNOSES: 1. Multiple surgical procedures above. 2. Ead-gpisjee-vbsrhgolp diabetes mellitus. PLAN: Meds, care, and treatment appropriate. We will use Macrobid for UTI. No respiratory antibiotic required. Culture of the urine will be followed accordingly. We will check hemoglobin A1c. Intervention and care, treatment as appropriate. Long-term care situation likely upcoming and planned. /[id number] BETTY/DEN
[2021-04-15] MEDS: metFORMIN 500 MG Tab.ER PO SCH (17:43)
[2021-04-15] MEDS ORDERED: Azithromycin 500 MG Tab PO SCH (21:00)
[2021-04-15] MEDS: Enoxaparin 40 MG/0.4 ML Syringe SUBCUT SCH (21:14)
[2021-04-15] MEDS: Nitrofurantoin Monohydrate/Macrocrystalline 100 MG Cap PO SCH (21:14)
[2021-04-15] MEDS: Simvastatin 20 MG Tab PO SCH (21:17)
[2021-04-16] MEDS: Albuterol/Ipratropium 3.0-0.5 MG/3 ML Neb Soln NEB SCH ×4 (03:39→21:47)
[2021-04-16] MEDS: Levothyroxine 100 MCG Tab PO SCH (06:35)
[2021-04-16] MEDS: metFORMIN 500 MG Tab.ER PO SCH ×2 (07:53→18:02)
[2021-04-16] MEDS: predniSONE 20 MG Tab PO SCH (07:54)
--- NOTE | 2021-04-16 08:58 | PCM.PN ---
- General Info Date of Service: 04/16/21 Admission Dx/Problem (Free Text): Weakness, fatigue, shortness of breath, end-stage COPD Subjective Update: Patient complains of whole body pain but states that the pain is well controlled. She complains of significant fatigue and lethargy Functional Status: Reports: Pain Controlled, Tolerating Diet, Ambulating, Urinating - Review of Systems General: Reports: Weakness, Fatigue, Malaise HEENT: Reports: No Symptoms Pulmonary: Reports: Shortness of Breath, Wheezing Cardiovascular: Reports: No Symptoms Gastrointestinal: Reports: No Symptoms Genitourinary: Reports: No Symptoms Musculoskeletal: Reports: Other (Arthralgias, myalgias) Skin: Reports: No Symptoms Neurological: Reports: Headache Psychiatric: Reports: Anxiety - Patient Data Vitals - Most Recent: Last Vital Signs Temp 36.8 C 04/16/21 03:30 Pulse 78 04/16/21 03:30 Resp 20 04/16/21 03:30 BP 133/57 L 04/16/21 03:30 Pulse Ox 93 L 04/16/21 03:39 Weight - Most Recent: 83.971 kg I&O - Last 24 Hours: Intake & Output 04/15/21 04/16/21 04/16/21 22:59 06:59 14:59 Intake Total 240 Output Total 350 Balance -110 Lab Results Last 24 Hours: Laboratory Results - last 24 hr 04/15/21 04/15/21 04/15/21 Range/Units 06:15 10:26 21:36 ABG pH 7.39 (7.35-7.45) ABG pCO2 60 H (35-45) mmHg ABG pO2 56 L (83-108) mmHg ABG HCO3 36 H (22-26) mmol/L ABG O2 Saturation 87 L (96-97) % ABG Base Excess 8.7 H (-2-2) Joce Test N/a O2 Delivery Device Nasal cannula POC Glucose 293 H (80-116) mg/dL Hemoglobin A1c 8.3 H (<5.7) % 04/16/21 Range/Units 06:11 ABG pH (7.35-7.45) ABG pCO2 (35-45) mmHg ABG pO2 (83-108) mmHg ABG HCO3 (22-26) mmol/L ABG O2 Saturation (96-97) % ABG Base Excess (-2-2) Joce Test O2 Delivery Device POC Glucose 155 H D (80-116) mg/dL Hemoglobin A1c (<5.7) % Que Results Last 24 Hours: Microbiology 04/15/21 04:54 Urine Culture - Preliminary Urine, Clean Catch NO GROWTH AFTER 1 DAY Med Orders - Current: Current Medications Albuterol (Albuterol 0.083% 2.5 Mg/3 Ml Neb Soln) 2.5 mg NEB Q2H PRN PRN Reason: Dyspnea Last Admin: 04/15/21 19:14 Dose: 2.5 mg Documented by: Albuterol/Ipratropium (Albuterol/Ipratropium 3.0-0.5 Mg/3 Ml Neb Soln) 3 ml NEB Q6H [facility] Last Admin: 04/16/21 03:39 Dose: 3 ml Documented by: Alprazolam (Alprazolam 0.5 Mg Tab) 0.5 mg PO BID PRN PRN Reason: Anxiety Last Admin: 04/15/21 19:54 Dose: 0.5 mg Documented by: Buspirone HCl (Buspirone 15 Mg Tab) 15 mg PO BID [facility] Last Admin: 04/15/21 21:14 Dose: 15 mg Documented by: Enoxaparin Sodium (Enoxaparin 40 Mg/0.4 Ml Syringe) 40 mg SUBCUT Q24H [facility] Last Admin: 04/15/21 21:14 Dose: 40 mg Documented by: Furosemide (Furosemide 40 Mg Tab) 40 mg PO DAILY [facility] Last Admin: 04/15/21 10:00 Dose: 40 mg Documented by: Levothyroxine Sodium (Levothyroxine 100 Mcg Tab) 100 mcg PO ACBREAKFAST [facility] Last Admin: 04/16/21 06:35 Dose: 100 mcg Documented by: Metformin HCl (Metformin 500 Mg Tab.Er) 500 mg PO BIDMEALS [facility] Last Admin: 04/16/21 07:53 Dose: 500 mg Documented by: Mometasone Furoate/Formoterol Fumar (Formoterol/Mometasone 200-5 Mcg 8.8 Gm Inhaler) 2 puff IH BID [facility] Last Admin: 04/15/21 21:14 Dose: 2 puff Documented by: Nitrofurantoin Macrocrystals (Nitrofurantoin Monohydrate/Macrocrystalline 100 Mg Cap) 100 mg PO BID [facility] Stop: 04/19/21 23:59 Last Admin: 04/15/21 21:14 Dose: 100 mg Documented by: Prednisone (Prednisone 20 Mg Tab) 20 mg PO WITHBREAKFAST [facility] Last Admin: 04/16/21 07:54 Dose: 20 mg Documented by: Senna/Docusate Sodium (Docusate Sodium/Sennosides 50-8.6 Mg Tab) 1 tab PO BID PRN PRN Reason: Constipation Simvastatin (Simvastatin 20 Mg Tab) 20 mg PO BEDTIME [facility] Last Admin: 04/15/21 21:17 Dose: 20 mg Documented by: Sodium Chloride (Sodium Chloride 0.9% 10 Ml Syringe) 10 ml FLUSH ASDIRECTED PRN PRN Reason: Keep Vein Open Last Admin: 04/15/21 06:25 Dose: 10 ml Documented by: Discontinued Medications Azithromycin (Azithromycin 500 Mg Tab) 500 mg PO Q24H [facility] Last Admin: 04/14/21 23:22 Dose: 500 mg Documented by: Azithromycin (Azithromycin 500 Mg Tab) 500 mg PO Q24H [facility] Enoxaparin Sodium (Enoxaparin 40 Mg/0.4 Ml Syringe) 40 mg SUBCUT Q24H [facility] Last Admin: 04/14/21 23:23 Dose: 40 mg Documented by: Metformin HCl (Metformin 500 Mg Tab.Er) 500 mg PO DAILY [facility] Last Admin: 04/15/21 09:58 Dose: 500 mg Documented by: Methylprednisolone Sodium Succinate (Methylprednisolone Sodium Succinate 125 Mg/2 Ml Sdv) 125 mg IVPUSH Q8H [facility] Last Admin: 04/15/21 05:26 Dose: 125 mg Documented by: Trimethoprim/Sulfamethoxazole (Sulfamethoxazole/Trimethoprim 800-160 Mg Tab) 1 tab PO BID [facility] Last Admin: 04/15/21 09:59 Dose: 1 tab Documented by: Comments:: Patient has a bedside recliner and was lying in the recliner trying to sleep when I entered the room. She was easily arousable and pleasant. She was receiving supplemental oxygen via nasal cannula - Exam Quality Assessment: Supplemental Oxygen, DVT Prophylaxis General: Alert, Oriented, Cooperative, No Acute Distress HEENT: EOMI Lungs: Crackles, Other (Significantly decreased airflow bilateral lower and mid lung bruce with crackles, poor airflow bilateral upper lung bruce) Cardiovascular: Regular Rate, Regular Rhythm, Other (Heart sounds are distant and difficult to auscultate) GI/Abdominal Exam: Normal Bowel Sounds Extremities: Normal Inspection Peripheral Pulses: 2+: Radial (L), Radial (R), Dorsalis Pedis (L), Dorsalis Pedis (R) Skin: Warm, Dry, Intact Neurological: No New Focal Deficit Psy/Mental Status: Alert, Normal Affect, Normal Mood - Patient Data Lab Results Last 24 hrs: Laboratory Results - last 24 hr 04/15/21 04/15/21 04/15/21 Range/Units 06:15 10:26 21:36 ABG pH 7.39 (7.35-7.45) ABG pCO2 60 H (35-45) mmHg ABG pO2 56 L (83-108) mmHg ABG HCO3 36 H (22-26) mmol/L ABG O2 Saturation 87 L (96-97) % ABG Base Excess 8.7 H (-2-2) Joce Test N/a O2 Delivery Device Nasal cannula POC Glucose 293 H (80-116) mg/dL Hemoglobin A1c 8.3 H (<5.7) % 04/16/21 Range/Units 06:11 ABG pH (7.35-7.45) ABG pCO2 (35-45) mmHg ABG pO2 (83-108) mmHg ABG HCO3 (22-26) mmol/L ABG O2 Saturation (96-97) % ABG Base Excess (-2-2) Joce Test O2 Delivery Device POC Glucose 155 H D (80-116) mg/dL Hemoglobin A1c (<5.7) % Result Diagrams: 04/15/21 06:15 04/15/21 06:15 Que Results Last 24 hrs: Microbiology 04/15/21 04:54 Urine Culture - Preliminary Urine, Clean Catch NO GROWTH AFTER 1 DAY Sepsis Event Note - Evaluation Sepsis Screening Result: No Definite Risk - Focused Exam Vital Signs: Vital Signs Temp Pulse Resp BP Pulse Ox Pulse Ox 04/16/21 03:39 93 L 04/16/21 03:30 36.8 C 78 20 133/57 L 93 L 04/15/21 21:17 83 04/15/21 21:15 83 18 90 L - Problem List & Annotations (1) UTI (urinary tract infection) SNOMED Code(s): 37821456 Code(s): N39.0 - URINARY TRACT INFECTION, SITE NOT SPECIFIED Status: Acute Current Visit: Yes (2) Weakness SNOMED Code(s): 84919901 Code(s): R53.1 - WEAKNESS Status: Acute Current Visit: Yes (3) Supplemental oxygen dependent SNOMED Code(s): 896782703563 Code(s): Z99.81 - DEPENDENCE ON SUPPLEMENTAL OXYGEN Status: Chronic Priority: High Current Visit: Yes Annotation/Comment:: (4) Anxiety SNOMED Code(s): 67386201 Code(s): F41.9 - ANXIETY DISORDER, UNSPECIFIED Status: Chronic Current Visit: No (5) Palliative care encounter SNOMED Code(s): 872620261, 400057144 Code(s): Z51.5 - ENCOUNTER FOR PALLIATIVE CARE Status: Acute Current Visit: No (6) Coronary arteriosclerosis, CAD SNOMED Code(s): 42772982 Code(s): I25.10 - ATHSCL HEART DISEASE OF [place] CORONARY ARTERY W/O ANG PCTRS Status: Chronic Current Visit: No Annotation/Comment:: Continue ASA 81 mg daily. (7) Diabetes mellitus type 2 SNOMED Code(s): 70416206 Code(s): E11.9 - TYPE 2 DIABETES MELLITUS WITHOUT COMPLICATIONS Status: Chronic Current Visit: No Annotation/Comment:: A1c mildly elevated to 6.8%. No bs over 200 mg/dL. (8) Hypothyroidism SNOMED Code(s): 03660775 Code(s): E03.9 - HYPOTHYROIDISM, UNSPECIFIED Status: Chronic Current Visit: No Annotation/Comment:: TSH elevated and restarted her levothyroxine at prior dose. have her in clinic for recheck in 4 wks. (9) Non-adherence to medical treatment SNOMED Code(s): 969170026 Code(s): Z91.19 - PATIENT'S NONCOMPLIANCE W OTH MEDICAL TREATMENT AND REGIMEN Status: Chronic Priority: High Current Visit: No Annotation/Comment:: Education chronic conditions, medical management, indications, side effects and risks nonadherence. (10) Tobacco abuse disorder SNOMED Code(s): 191773967 Code(s): Z72.0 - TOBACCO USE Status: Chronic Current Visit: No Annot ation/Comment:: Offered nicotine patch. Patient declined. (11) COPD with exacerbation SNOMED Code(s): 326874735, 118573349 Code(s): J44.1 - CHRONIC OBSTRUCTIVE PULMONARY DISEASE W (ACUTE) EXACERBATION Status: Acute Current Visit: No - Problem List Review Problem List Initiated/Reviewed/Updated: Yes - Plan Plan:: 1. Patient admitted due to urinary tract infection, acute exacerbation of COPD, weakness, malaise, shortness of breath. Patient has end-stage COPD and has not been able to complete activities of daily living. He has had increasing difficulties with weakness, anxiety, shortness of breath. 2. UTI: Continue nitrofurantoin. Cultures are negative to date. Patient will be given a total of 3 days nitrofurantoin. 3. COPD with exacerbation continue steroids for total of 5 days, continue breathing treatments and inhalers. 4. Continue home medications for chronic comorbidities including diabetes mellitus, anxiety 5. DVT prophylaxis: Enoxaparin, 40 mg subcu daily 6. GI prophylaxis: Protonix 40 mg daily, heart healthy diet 7. Disposition: Patient is considering discharge to [facility]. She will consult with her family members. She has agreed to remain in the hospital for treatment over the weekend and possible discharge to nursing care facility early next week.
[2021-04-16] MEDS: Formoterol/Mometasone 200-5 MCG 8.8 GM Inhaler IH SCH ×3 (09:54→21:50)
[2021-04-16] MEDS: Nitrofurantoin Monohydrate/Macrocrystalline 100 MG Cap PO SCH ×2 (09:55→21:15)
[2021-04-16] MEDS: Furosemide 40 MG Tab PO SCH (09:56)
[2021-04-16] MEDS: busPIRone 15 MG Tab PO SCH ×2 (09:56→21:15)
[2021-04-16] MEDS: Pantoprazole 40 MG Tab.CR PO SCH (09:59)
[2021-04-16] MEDS: ALPRAZolam 0.5 MG Tab PO PRN ×2 (12:08→21:53)
[2021-04-16] MEDS: Simvastatin 20 MG Tab PO SCH (21:14)
[2021-04-16] MEDS: Enoxaparin 40 MG/0.4 ML Syringe SUBCUT SCH (21:15)
[2021-04-17] MEDS: Albuterol/Ipratropium 3.0-0.5 MG/3 ML Neb Soln NEB SCH ×4 (03:56→21:41)
[2021-04-17] MEDS: Pantoprazole 40 MG Tab.CR PO SCH (06:12)
[2021-04-17] MEDS: Levothyroxine 100 MCG Tab PO SCH ×2 (06:12→06:35)
--- NOTE | 2021-04-17 08:19 | PCM.PN ---
- General Info Date of Service: 04/17/21 Admission Dx/Problem (Free Text): Weakness, fatigue, shortness of breath, end-stage COPD Subjective Update: Patient states that she feels poorly today and that she cannot think of any reason to want to live to see [place]. She just wants to go to "the place [facility] old [place] " where she can eat what she wants and smoke a cigarette when she wants Functional Status: Reports: Pain Controlled, Tolerating Diet, Ambulating, Uri nating - Review of Systems General: Reports: Weakness, Fatigue, Malaise HEENT: Reports: No Symptoms Pulmonary: Reports: Shortness of Breath, Pleuritic Chest Pain, Cough Cardiovascular: Reports: No Symptoms Gastrointestinal: Reports: No Symptoms Genitourinary: Reports: No Symptoms Musculoskeletal: Reports: No Symptoms Skin: Reports: No Symptoms Neurological: Reports: No Symptoms Psychiatric: Reports: Depression - Patient Data Vitals - Most Recent: Last Vital Signs Temp 36.8 C 04/17/21 04:00 Pulse 66 04/17/21 04:00 Resp 18 04/17/21 04:00 BP 132/51 L 04/17/21 04:00 Pulse Ox 93 L 04/17/21 04:00 Weight - Most Recent: 83.971 kg Lab Results Last 24 Hours: Laboratory Results - last 24 hr 04/16/21 04/17/21 Range/Units 17:59 05:58 POC Glucose 184 H 129 H (80-116) mg/dL Que Results Last 24 Hours: Microbiology 04/15/21 04:54 Urine Culture - Final Urine, Clean Catch MIXED POSITIVE BERTRAM DAY 2 Med Orders - Current: Current Medications Albuterol (Albuterol 0.083% 2.5 Mg/3 Ml Neb Soln) 2.5 mg NEB Q2H PRN PRN Reason: Dyspnea Last Admin: 04/15/21 19:14 Dose: 2.5 mg Documented by: Albuterol/Ipratropium (Albuterol/Ipratropium 3.0-0.5 Mg/3 Ml Neb Soln) 3 ml NEB Q6H [facility] Last Admin: 04/17/21 03:56 Dose: 3 ml Documented by: Alprazolam (Alprazolam 0.5 Mg Tab) 0.5 mg PO BID PRN PRN Reason: Anxiety Last Admin: 04/16/21 21:53 Dose: 0.5 mg Documented by: Buspirone HCl (Buspirone 15 Mg Tab) 15 mg PO BID [facility] Last Admin: 04/16/21 21:15 Dose: 15 mg Documented by: Enoxaparin Sodium (Enoxaparin 40 Mg/0.4 Ml Syringe) 40 mg SUBCUT Q24H [facility] Last Admin: 04/16/21 21:15 Dose: 40 mg Documented by: Furosemide (Furosemide 40 Mg Tab) 40 mg PO DAILY [facility] Last Admin: 04/16/21 09:56 Dose: 40 mg Documented by: Levothyroxine Sodium (Levothyroxine 100 Mcg Tab) 100 mcg PO ACBREAKFAST [facility] Last Admin: 04/17/21 06:35 Dose: Not Given Documented by: Metformin HCl (Metformin 500 Mg Tab.Er) 500 mg PO BIDMEALS [facility] Last Admin: 04/16/21 18:02 Dose: 500 mg Documented by: Mometasone Furoate/Formoterol Fumar (Formoterol/Mometasone 200-5 Mcg 8.8 Gm Inhaler) 2 puff IH BID [facility] Last Admin: 04/16/21 21:50 Dose: 2 puff Documented by: Nitrofurantoin Macrocrystals (Nitrofurantoin Monohydrate/Macrocrystalline 100 Mg Cap) 100 mg PO BID [facility] Stop: 04/19/21 23:59 Last Admin: 04/16/21 21:15 Dose: 100 mg Documented by: Pantoprazole Sodium (Pantoprazole 40 Mg Tab.Cr) 40 mg PO 0600 [facility] Last Admin: 04/17/21 06:12 Dose: 40 mg Documented by: Prednisone (Prednisone 20 Mg Tab) 20 mg PO WITHBREAKFAST [facility] Last Admin: 04/16/21 07:54 Dose: 20 mg Documented by: Senna/Docusate Sodium (Docusate Sodium/Sennosides 50-8.6 Mg Tab) 1 tab PO BID PRN PRN Reason: Constipation Simvastatin (Simvastatin 20 Mg Tab) 20 mg PO BEDTIME [facility] Last Admin: 04/16/21 21:14 Dose: 20 mg Documented by: Sodium Chloride (Sodium Chloride 0.9% 10 Ml Syringe) 10 ml FLUSH ASDIRECTED PRN PRN Reason: Keep Vein Open Last Admin: 04/15/21 06:25 Dose: 10 ml Documented by: Discontinued Medications Azithromycin (Azithromycin 500 Mg Tab) 500 mg PO Q24H [facility] Last Admin: 04/14/21 23:22 Dose: 500 mg Documented by: Azithromycin (Azithromycin 500 Mg Tab) 500 mg PO Q24H [facility] Enoxaparin Sodium (Enoxaparin 40 Mg/0.4 Ml Syringe) 40 mg SUBCUT Q24H [facility] Last Admin: 04/14/21 23:23 Dose: 40 mg Documented by: Metformin HCl (Metformin 500 Mg Tab.Er) 500 mg PO DAILY [facility] Last Admin: 04/15/21 09:58 Dose: 500 mg Documented by: Methylprednisolone Sodium Succinate (Methylprednisolone Sodium Succinate 125 Mg/2 Ml Sdv) 125 mg IVPUSH Q8H [facility] Last Admin: 04/15/21 05:26 Dose: 125 mg Documented by: Trimethoprim/Sulfamethoxazole (Sulfamethoxazole/Trimethoprim 800-160 Mg Tab) 1 tab PO BID [facility] Last Admin: 04/15/21 09:59 Dose: 1 tab Documented by: Comments:: Patient was sitting in bedside chair. She has finished her breakfast this morning but is still hungry and wants a change in her diet. She appears fatigued. Nasal cannula in place - Exam Quality Assessment: Supplemental Oxygen, DVT Prophylaxis General: Alert, Oriented, Cooperative HEENT: EOMI Lungs: Decreased Breath Sounds, Crackles, Rhonchi Cardiovascular: Regular Rate, Regular Rhythm, Murmurs GI/Abdominal Exam: Normal Bowel Sounds, Non-Tender Extremities: Pedal Edema Peripheral Pulses: 1+: Dorsalis Pedis (L), Dorsalis Pedis (R), 2+: Radial (L), Radial (R) Skin: Warm, Dry, Intact Neurological: No New Focal Deficit Psy/Mental Status: Alert, Labile Mood, Depressed, Agitated - Patient Data Lab Results Last 24 hrs: Laboratory Results - last 24 hr 04/16/21 04/17/21 Range/Units 17:59 05:58 POC Glucose 184 H 129 H (80-116) mg/dL Result Diagrams: 04/15/21 06:15 04/15/21 06:15 Que Results Last 24 hrs: Microbiology 04/15/21 04:54 Urine Culture - Final Urine, Clean Catch MIXED POSITIVE BERTRAM DAY 2 Sepsis Event Note - Evaluation Sepsis Screening Result: No Definite Risk - Focused Exam Vital Signs: Vital Signs Temp Pulse Resp BP BP Pulse Ox 04/17/21 04:00 36.8 C 66 18 132/51 L 93 L 04/17/21 03:56 66 04/17/21 02:15 36.4 C 73 18 141/64 H 93 L 04/16/21 22:00 76 04/16/21 21:00 37.2 C 70 20 124/50 L 93 L - Problem List & Annotations (1) UTI (urinary tract infection) SNOMED Code(s): 57104500 Code(s): N39.0 - URINARY TRACT INFECTION, SITE NOT SPECIFIED Status: Acute Current Visit: Yes (2) Weakness SNOMED Code(s): 10647116 Code(s): R53.1 - WEAKNESS Status: Acute Current Visit: Yes (3) Supplemental oxygen dependent SNOMED Code(s): 068407916827 Code(s): Z99.81 - DEPENDENCE ON SUPPLEMENTAL OXYGEN Status: Chronic Priority: High Current Visit: Yes Annotation/Comment:: (4) Anxiety SNOMED Code(s): 36486369 Code(s): F41.9 - ANXIETY DISORDER, UNSPECIFIED Status: Chronic Current Visit: No (5) Palliative care encounter SNOMED Code(s): 972060539, 576795530 Code(s): Z51.5 - ENCOUNTER FOR PALLIATIVE CARE Status: Acute Current Visit: No (6) Coronary arteriosclerosis, CAD SNOMED Code(s): 10427668 Code(s): I25.10 - ATHSCL HEART DISEASE OF [place] CORONARY ARTERY W/O ANG PCTRS Status: Chronic Current Visit: No Annotation/Comment:: Continue ASA 81 mg daily. (7) Diabetes mellitus type 2 SNOMED Code(s): 20013608 Code(s): E11.9 - TYPE 2 DIABETES MELLITUS WITHOUT COMPLICATIONS Status: Chronic Current Visit: No Annotation/Comment:: A1c mildly elevated to 6.8%. No bs over 200 mg/dL. (8) Hypothyroidism SNOMED Code(s): 23619900 Code(s): E03.9 - HYPOTHYROIDISM, UNSPECIFIED Status: Chronic Current Visit: No Annotation/Comment:: TSH elevated and restarted her levothyroxine at prior dose. have her in clinic for recheck in 4 wks. (9) Non-adherence to medical treatment SNOMED Code(s): 788134262 Code(s): Z91.19 - PATIENT'S NONCOMPLIANCE W OTH MEDICAL TREATMENT AND REGIMEN Status: Chronic Priority: High Current Visit: No Annotation/Comment:: Education chronic conditions, medical management, indications, side effects and risks nonadherence. (10) Tobacco abuse disorder SNOMED Code(s): 194015896 Code(s): Z72.0 - TOBACCO USE Status: Chronic Current Visit: No Annotation/Comment:: Offered nicotine patch. Patient declined. (11) COPD with exacerbation SNOMED Code(s): 809339734, 014814197 Code(s): J44.1 - CHRONIC OBSTRUCTIVE PULMONARY DISEASE W (ACUTE) EXACERBATION Status: Acute Current Visit: No - Problem List Review Problem List Initiated/Reviewed/Updated: Yes - My Orders Last 24 Hours: My Active Orders 04/16/21 09:45 Pantoprazole [ProTONIX] 40 mg PO 0600 04/17/21 Lunch Regular Diet [DIET] - Plan Plan:: 1. Patient admitted due to urinary tract infection, acute exacerbation of COPD, weakness, malaise, shortness of breath. Patient has end-stage COPD and has not been able to complete activities of daily living. She has had increasing difficulties with weakness, anxiety, shortness of breath. 2. UTI: Continue nitrofurantoin. Cultures are negative to date. 3. COPD with exacerbation continue steroids for total of 5 days, continue breathing treatments and inhalers. 4. Continue home medications for chronic comorbidities including diabetes mellitus, anxiety 5. DVT prophylaxis: Enoxaparin, 40 mg subcu daily 6. GI prophylaxis: Protonix 40 mg daily 7. Disposition: [facility] to [facility].
[2021-04-17] MEDS: Formoterol/Mometasone 200-5 MCG 8.8 GM Inhaler IH SCH ×2 (08:36→20:39)
[2021-04-17] MEDS: ALPRAZolam 0.5 MG Tab PO PRN ×2 (08:36→21:41)
[2021-04-17] MEDS: Nitrofurantoin Monohydrate/Macrocrystalline 100 MG Cap PO SCH ×2 (08:36→20:39)
[2021-04-17] MEDS: busPIRone 15 MG Tab PO SCH ×2 (08:36→20:39)
[2021-04-17] MEDS: metFORMIN 500 MG Tab.ER PO SCH ×2 (08:36→17:04)
[2021-04-17] MEDS: predniSONE 20 MG Tab PO SCH (08:36)
[2021-04-17] MEDS: Furosemide 40 MG Tab PO SCH (08:36)
[2021-04-17] MEDS: Sodium Chloride 0.9% 10 ML Syringe FLUSH PRN (15:03)
[2021-04-17] MEDS: Enoxaparin 40 MG/0.4 ML Syringe SUBCUT SCH (20:39)
[2021-04-17] MEDS: Simvastatin 20 MG Tab PO SCH (20:39)
[2021-04-18] MEDS: Albuterol/Ipratropium 3.0-0.5 MG/3 ML Neb Soln NEB SCH ×4 (04:21→20:48)
[2021-04-18] MEDS: Levothyroxine 100 MCG Tab PO SCH ×2 (05:43→06:32)
[2021-04-18] MEDS: Pantoprazole 40 MG Tab.CR PO SCH (05:43)
--- NOTE | 2021-04-18 08:35 | PCM.PN ---
- General Info Date of Service: 04/18/21 Admission Dx/Problem (Free Text): Weakness, fatigue, shortness of breath, end-stage COPD Subjective Update: Patient has no new complaints today but continues to complain of severe fatigue and states that she slept well last night but still feels like sleeping Functional Status: Reports: Pain Controlled, Tolerating Diet, Ambulating, Urinating - Review of Systems General: Reports: Weakness, Fatigue HEENT: Reports: No Symptoms Pulmonary: Reports: No Symptoms Cardiovascular: Reports: No Symptoms Gastrointestinal: Reports: No Symptoms Genitourinary: Reports: No Symptoms Musculoskeletal: Reports: No Symptoms Skin: Reports: No Symptoms Neurological: Reports: No Symptoms Psychiatric: Reports: Depression - Patient Data Vitals - Most Recent: Last Vital Signs Temp 36.6 C 04/18/21 04:20 Pulse 65 04/18/21 04:20 Resp 16 04/18/21 04:20 BP 115/48 L 04/18/21 04:20 Pulse Ox 96 04/18/21 04:20 Weight - Most Recent: 83.971 kg I&O - Last 24 Hours: Intake & Output 04/17/21 04/18/21 04/18/21 22:59 06:59 14:59 Intake Total 640 480 Balance 640 480 Lab Results Last 24 Hours: Laboratory Results - last 24 hr 04/17/21 04/17/21 04/18/21 Range/Units 11:28 17:01 05:53 POC Glucose 235 H D 303 H 153 H D (80-116) mg/dL Med Orders - Current: Current Medications Albuterol (Albuterol 0.083% 2.5 Mg/3 Ml Neb Soln) 2.5 mg NEB Q2H PRN PRN Reason: Dyspnea Last Admin: 04/15/21 19:14 Dose: 2.5 mg Documented by: Albuterol/Ipratropium (Albuterol/Ipratropium 3.0-0.5 Mg/3 Ml Neb Soln) 3 ml NEB ,,, [facility] Alprazolam (Alprazolam 0.5 Mg Tab) 0.5 mg PO BID PRN PRN Reason: Anxiety Last Admin: 04/17/21 21:41 Dose: 0.5 mg Documented by: Buspirone HCl (Buspirone 15 Mg Tab) 15 mg PO BID [place] Last Admin: 04/17/21 20:39 Dose: 15 mg Documented by: Enoxaparin Sodium (Enoxaparin 40 Mg/0.4 Ml Syringe) 40 mg SUBCUT Q24H [facility] Last Admin: 04/17/21 20:39 Dose: 40 mg Documented by: Furosemide (Furosemide 40 Mg Tab) 40 mg PO DAILY [facility] Last Admin: 04/17/21 08:36 Dose: 40 mg Documented by: Levothyroxine Sodium (Levothyroxine 100 Mcg Tab) 100 mcg PO ACBREAKFAST [facility] Last Admin: 04/18/21 06:32 Dose: Not Given Documented by: Metformin HCl (Metformin 500 Mg Tab.Er) 500 mg PO BIDMEALS [facility] Last Admin: 04/17/21 17:04 Dose: 500 mg Documented by: Mometasone Furoate/Formoterol Fumar (Formoterol/Mometasone 200-5 Mcg 8.8 Gm Inhaler) 2 puff IH BID [facility] Last Admin: 04/17/21 20:39 Dose: 2 puff Documented by: Pantoprazole Sodium (Pantoprazole 40 Mg Tab.Cr) 40 mg PO 0600 [facility] Last Admin: 04/18/21 05:43 Dose: 40 mg Documented by: Prednisone (Prednisone 20 Mg Tab) 20 mg PO WITHBREAKFAST [facility] Last Admin: 04/17/21 08:36 Dose: 20 mg Documented by: Senna/Docusate Sodium (Docusate Sodium/Sennosides 50-8.6 Mg Tab) 1 tab PO BID PRN PRN Reason: Constipation Simvastatin (Simvastatin 20 Mg Tab) 20 mg PO BEDTIME [facility] Last Admin: 04/17/21 20:39 Dose: 20 mg Documented by: Sodium Chloride (Sodium Chloride 0.9% 10 Ml Syringe) 10 ml FLUSH ASDIRECTED PRN PRN Reason: Keep Vein Open Last Admin: 04/17/21 15:03 Dose: 10 ml Documented by: Discontinued Medications Albuterol/Ipratropium (Albuterol/Ipratropium 3.0-0.5 Mg/3 Ml Neb Soln) 3 ml NEB Q6H [facility] Last Admin: 04/18/21 04:21 Dose: 3 ml Documented by: Azithromycin (Azithromycin 500 Mg Tab) 500 mg PO Q24H [facility] Last Admin: 04/14/21 23:22 Dose: 500 mg Documented by: Azithromycin (Azithromycin 500 Mg Tab) 500 mg PO Q24H [facility] Enoxaparin Sodium (Enoxaparin 40 Mg/0.4 Ml Syringe) 40 mg SUBCUT Q24H [facility] Last Admin: 04/14/21 23:23 Dose: 40 mg Documented by: Metformin HCl (Metformin 500 Mg Tab.Er) 500 mg PO DAILY [facility] Last Admin: 04/15/21 09:58 Dose: 500 mg Documented by: Methylprednisolone Sodium Succinate (Methylprednisolone Sodium Succinate 125 Mg/2 Ml Sdv) 125 mg IVPUSH Q8H [facility] Last Admin: 04/15/21 05:26 Dose: 125 mg Documented by: Nitrofurantoin Macrocrystals (Nitrofurantoin Monohydrate/Macrocrystalline 100 Mg Cap) 100 mg PO BID [facility] Stop: 04/19/21 23:59 Last Admin: 04/17/21 20:39 Dose: 100 mg Documented by: Trimethoprim/Sulfamethoxazole (Sulfamethoxazole/Trimethoprim 800-160 Mg Tab) 1 tab PO BID [facility] Last Admin: 04/15/21 09:59 Dose: 1 tab Documented by: Comments:: Patient was sitting in bedside chair, resting, awake, alert, pleasant, nasal cannula in place - Exam Quality Assessment: Supplemental Oxygen, DVT Prophylaxis General: Alert, Oriented, Cooperative, No Acute Distress HEENT: EOMI Lungs: Decreased Breath Sounds, Crackles Cardiovascular: Regular Rate, Other (Heart sounds are distant and difficult to auscultate) GI/Abdominal Exam: Normal Bowel Sounds, Non-Tender Extremities: Normal Inspection Peripheral Pulses: 1+: Dorsalis Pedis (L), Dorsalis Pedis (R), 2+: Radial (L), Radial (R) Skin: Warm, Dry, Intact Neurological: No New Focal Deficit Psy/Mental Status: Alert, Normal Affect, Normal Mood - Patient Data Lab Results Last 24 hrs: Laboratory Results - last 24 hr 04/17/21 04/17/21 04/18/21 Range/Units 11:28 17:01 05:53 POC Glucose 235 H D 303 H 153 H D (80-116) mg/dL Result Diagrams: 04/15/21 06:15 04/15/21 06:15 Sepsis Event Note - Evaluation Sepsis Screening Result: No Definite Risk - Focused Exam Vital Signs: Vital Signs Temp Pulse Resp BP Pulse Ox 04/18/21 04:20 36.6 C 65 16 115/48 L 96 04/17/21 21:41 72 04/17/21 21:40 36.6 C 72 16 116/47 L 94 L - Problem List & Annotations (1) UTI (urinary tract infection) SNOMED Code(s): 92132862 Code(s): N39.0 - URINARY TRACT INFECTION, SITE NOT SPECIFIED Status: Resolved Current Visit: Yes (2) Weakness SNOMED Code(s): 57090623 Code(s): R53.1 - WEAKNESS Status: Acute Current Visit: Yes (3) Supplemental oxygen dependent SNOMED Code(s): 861960530985 Code(s): Z99.81 - DEPENDENCE ON SUPPLEMENTAL OXYGEN Status: Chronic Priority: High Current Visit: Yes Annotation/Comment:: (4) Anxiety SNOMED Code(s): 17123037 Code(s): F41.9 - ANXIETY DISORDER, UNSPECIFIED Status: Chronic Current Visit: No (5) Palliative care encounter SNOMED Code(s): 449630535, 123098442 Code(s): Z51.5 - ENCOUNTER FOR PALLIATIVE CARE Status: Acute Current Visit: No (6) Coronary arteriosclerosis, CAD SNOMED Code(s): 46085092 Code(s): I25.10 - ATHSCL HEART DISEASE OF [place] CORONARY ARTERY W/O ANG PCTRS Status: Chronic Current Visit: No Annotation/Comment:: Continue ASA 81 mg daily. (7) Diabetes mellitus type 2 SNOMED Code(s): 35141040 Code(s): E11.9 - TYPE 2 DIABETES MELLITUS WITHOUT COMPLICATIONS Status: Chr onic Current Visit: No Annotation/Comment:: A1c mildly elevated to 6.8%. No bs over 200 mg/dL. (8) Hypothyroidism SNOMED Code(s): 57898207 Code(s): E03.9 - HYPOTHYROIDISM, UNSPECIFIED Status: Chronic Current Visit: No Annotation/Comment:: TSH elevated and restarted her levothyroxine at prior dose. have her in clinic for recheck in 4 wks. (9) Non-adherence to medical treatment SNOMED Code(s): 614969090 Code(s): Z91.19 - PATIENT'S NONCOMPLIANCE W OTH MEDICAL TREATMENT AND REGIMEN Status: Chronic Priority: High Current Visit: No Annotation/Comment:: Education chronic conditions, medical management, indications, side effects and risks nonadherence. (10) Tobacco abuse disorder SNOMED Code(s): 073170650 Code(s): Z72.0 - TOBACCO USE Status: Chronic Current Visit: No [place] otation/Comment:: Offered nicotine patch. Patient declined. (11) COPD with exacerbation SNOMED Code(s): 499878956, 213961295 Code(s): J44.1 - CHRONIC OBSTRUCTIVE PULMONARY DISEASE W (ACUTE) EXACERBATION Status: Acute Current Visit: No - Problem List Review Problem List Initiated/Reviewed/Updated: Yes - My Orders Last 24 Hours: My Active Orders 04/17/21 10:30 Consult to Hospice [CONS] Routine Regular Diet [DIET] 04/18/21 11:00 Albuterol/Ipratropium [DuoNeb 3.0-0.5 MG/3 ML] 3 ml NEB ,,16, - Plan Plan:: 1. Patient admitted due to urinary tract infection, acute exacerbation of COPD, weakness, malaise, shortness of breath. Patient has end-stage COPD and has not been able to complete activities of daily living. She has had increasing difficulties with weakness, anxiety, shortness of breath. 2. UTI: Cultures are negative to date. Stop nitrofurantoin and treatment today. 3. COPD with exacerbation continue steroids for total of 5 days, today is day 3 of 5, continue breathing treatments and inhalers. 4. Continue home medications for chronic comorbidities including diabetes mellitus, anxiety 5. DVT prophylaxis: Enoxaparin, 40 mg subcu daily 6. GI prophylaxis: Protonix 40 mg daily 7. Disposition: Patient requested discharge to assisted. Patient spoke with palliative care yesterday.
[2021-04-18] MEDS: metFORMIN 500 MG Tab.ER PO SCH ×2 (08:43→17:30)
[2021-04-18] MEDS: Formoterol/Mometasone 200-5 MCG 8.8 GM Inhaler IH SCH ×2 (08:43→20:47)
[2021-04-18] MEDS: Furosemide 40 MG Tab PO SCH (08:43)
[2021-04-18] MEDS: busPIRone 15 MG Tab PO SCH ×2 (08:43→20:47)
[2021-04-18] MEDS: predniSONE 20 MG Tab PO SCH (08:43)
[2021-04-18] MEDS: ALPRAZolam 0.5 MG Tab PO PRN ×2 (10:51→21:02)
[2021-04-18] MEDS: Simvastatin 20 MG Tab PO SCH (20:48)
[2021-04-18] MEDS: Enoxaparin 40 MG/0.4 ML Syringe SUBCUT SCH (20:48)
[2021-04-19] MEDS: Albuterol/Ipratropium 3.0-0.5 MG/3 ML Neb Soln NEB SCH ×5 (05:50→20:19)
[2021-04-19] MEDS: Pantoprazole 40 MG Tab.CR PO SCH (05:50)
[2021-04-19] MEDS: Levothyroxine 100 MCG Tab PO SCH ×2 (05:51→06:44)
[2021-04-19] MEDS: busPIRone 15 MG Tab PO SCH ×2 (08:10→20:19)
[2021-04-19] MEDS: predniSONE 20 MG Tab PO SCH (08:10)
[2021-04-19] MEDS: metFORMIN 500 MG Tab.ER PO SCH ×2 (08:10→17:51)
[2021-04-19] MEDS: Formoterol/Mometasone 200-5 MCG 8.8 GM Inhaler IH SCH ×2 (08:10→20:19)
[2021-04-19] MEDS: Furosemide 40 MG Tab PO SCH (08:11)
--- NOTE | 2021-04-19 08:17 | PCM.PN ---
- General Info Date of Service: 04/19/21 Admission Dx/Problem (Free Text): Weakness, fatigue, shortness of breath, end-stage COPD Subjective Update: Patient has no new complaints today Functional Status: Reports: Pain Controlled, Tolerating Diet, Ambulating, Urinating - Review of Systems General: Reports: Weakness, Fatigue, Malaise HEENT: Reports: No Symptoms Pulmonary: Reports: No Symptoms Cardiovascular: Reports: No Symptoms Gastrointestinal: Reports: No Symptoms Genitourinary: Reports: No Symptoms Musculoskeletal: Reports: No Symptoms Skin: Reports: No Symptoms Neurological: Reports: No Symptoms Psychiatric: Reports: Mood Lability, Agitation - Patient Data Vitals - Most Recent: Last Vital Signs Temp 37.2 C 04/19/21 07:55 Pulse 71 04/19/21 07:55 Resp 14 04/19/21 07:55 BP 108/45 L 04/19/21 07:55 Pulse Ox 93 L 04/19/21 07:55 Weight - Most Recent: 83.971 kg Lab Results Last 24 Hours: Laboratory Results - last 24 hr 04/18/21 04/19/21 Range/Units 17:28 03:36 POC Glucose 329 H D 181 H D (80-116) mg/dL Med Orders - Current: Current Medications Albuterol (Albuterol 0.083% 2.5 Mg/3 Ml Neb Soln) 2.5 mg NEB Q2H PRN PRN Reason: Dyspnea Last Admin: 04/15/21 19:14 Dose: 2.5 mg Documented by: Albuterol/Ipratropium (Albuterol/Ipratropium 3.0-0.5 Mg/3 Ml Neb Soln) 3 ml NEB 07,,16, [facility] Last Admin: 04/19/21 06:44 Dose: Not Given Documented by: Alprazolam (Alprazolam 0.5 Mg Tab) 0.5 mg PO BID PRN PRN Reason: Anxiety Last Admin: 04/18/21 21:02 Dose: 0.5 mg Documented by: Buspirone HCl (Buspirone 15 Mg Tab) 15 mg PO BID [facility] Last Admin: 04/19/21 08:10 Dose: 15 mg Documented by: Enoxaparin Sodium (Enoxaparin 40 Mg/0.4 Ml Syringe) 40 mg SUBCUT Q24H [facility] Last Admin: 04/18/21 20:48 Dose: 40 mg Documented by: Furosemide (Furosemide 40 Mg Tab) 40 mg PO DAILY [facility] Last Admin: 04/19/21 08:11 Dose: 40 mg Documented by: Levothyroxine Sodium (Levothyroxine 100 Mcg Tab) 100 mcg PO ACBREAKFAST [facility] Last Admin: 04/19/21 06:44 Dose: Not Given Documented by: Metformin HCl (Metformin 500 Mg Tab.Er) 500 mg PO BIDMEALS [facility] Last Admin: 04/19/21 08:10 Dose: 500 mg Documented by: Mometasone Furoate/Formoterol Fumar (Formoterol/Mometasone 200-5 Mcg 8.8 Gm Inhaler) 2 puff IH BID [facility] Last Admin: 04/19/21 08:10 Dose: 2 puff Documented by: Pantoprazole Sodium (Pantoprazole 40 Mg Tab.Cr) 40 mg PO 0600 [facility] Last Admin: 04/19/21 05:50 Dose: 40 mg Documented by: Prednisone (Prednisone 20 Mg Tab) 20 mg PO WITHBREAKFAST [facility] Last Admin: 04/19/21 08:10 Dose: 20 mg Documented by: Senna/Docusate Sodium (Docusate Sodium/Sennosides 50-8.6 Mg Tab) 1 tab PO BID PRN PRN Reason: Constipation Simvastatin (Simvastatin 20 Mg Tab) 20 mg PO BEDTIME [facility] Last Admin: 04/18/21 20:48 Dose: 20 mg Documented by: Sodium Chloride (Sodium Chloride 0.9% 10 Ml Syringe) 10 ml FLUSH ASDIRECTED PRN PRN Reason: Keep Vein Open Last Admin: 04/17/21 15:03 Dose: 10 ml Documented by: Discontinued Medications Albuterol/Ipratropium (Albuterol/Ipratropium 3.0-0.5 Mg/3 Ml Neb Soln) 3 ml NEB Q6H [facility] Last Admin: 04/18/21 04:21 Dose: 3 ml Documented by: Azithromycin (Azithromycin 500 Mg Tab) 500 mg PO Q24H [facility] Last Admin: 04/14/21 23:22 Dose: 500 mg Documented by: Azithromycin (Azithromycin 500 Mg Tab) 500 mg PO Q24H [facility] Enoxaparin Sodium (Enoxaparin 40 Mg/0.4 Ml Syringe) 40 mg SUBCUT Q24H [facility] Last Admin: 04/14/21 23:23 Dose: 40 mg Documented by: Metformin HCl (Metformin 500 Mg Tab.Er) 500 mg PO DAILY [facility] Last Admin: 04/15/21 09:58 Dose: 500 mg Documented by: Methylprednisolone Sodium Succinate (Methylprednisolone Sodium Succinate 125 Mg/2 Ml Sdv) 125 mg IVPUSH Q8H [facility] Last Admin: 04/15/21 05:26 Dose: 125 mg Documented by: Nitrofurantoin Macrocrystals (Nitrofurantoin Monohydrate/Macrocrystalline 100 Mg Cap) 100 mg PO BID [facility] Stop: 04/19/21 23:59 Last Admin: 04/17/21 20:39 Dose: 100 mg Documented by: Trimethoprim/Sulfamethoxazole (Sulfamethoxazole/Trimethoprim 800-160 Mg Tab) 1 tab PO BID [facility] Last Admin: 04/15/21 09:59 Dose: 1 tab Documented by: Comments:: Patient sitting in bedside chair with nasal cannula, awake, alert - Exam Quality Assessment: Supplemental Oxygen, DVT Prophylaxis General: Alert, Oriented, Cooperative, No Acute Distress Lungs: Decreased Breath Sounds, Crackles Cardiovascular: Regular Rate Extremities: Pedal Edema, Other (Trace bilateral lower extremity edema) Peripheral Pulses: 1+: Dorsalis Pedis (L), Dorsalis Pedis (R), 2+: Radial (L), Radial (R) Skin: Warm, Dry, Intact Neurological: No New Focal Deficit Psy/Mental Status: Alert, Labile Mood, Agitated - Patient Data Lab Results Last 24 hrs: Laboratory Results - last 24 hr 04/18/21 04/19/21 Range/Units 17:28 03:36 POC Glucose 329 H D 181 H D (80-116) mg/dL Result Diagrams: 04/15/21 06:15 04/15/21 06:15 Sepsis Event Note - Evaluation Sepsis Screening Result: No Definite Risk - Focused Exam Vital Signs: Vital Signs Temp Pulse Resp BP Pulse Ox Pulse Ox 04/19/21 07:55 37.2 C 71 14 108/45 L 93 L 04/19/21 05:50 36.9 C 69 18 134/45 L 94 L 94 L 04/18/21 21:00 36.8 C 72 118/55 L 95 04/18/21 20:48 95 - Problem List & Annotations (1) UTI (urinary tract infection) SNOMED Code(s): 80907890 Code(s): N39.0 - URINARY TRACT INFECTION, SITE NOT SPECIFIED Status: Resolved Current Visit: Yes (2) Weakness SNOMED Code(s): 80541928 Code(s): R53.1 - WEAKNESS Status: Acute Current Visit: Yes (3) Supplemental oxygen dependent SNOMED Code(s): 808586460683 Code(s): Z99.81 - DEPENDENCE ON SUPPLEMENTAL OXYGEN Status: Chronic Priority: High Current Visit: Yes Annotation/Comment:: (4) Anxiety SNOMED Code(s): 82528907 Code(s): F41.9 - ANXIETY DISORDER, UNSPECIFIED Status: Chronic Current Visit: No (5) Palliative care encounter SNOMED Code(s): 982923203, 167651847 Code(s): Z51.5 - ENCOUNTER FOR PALLIATIVE CARE Status: Acute Current Visit: No (6) Coronary arteriosclerosis, CAD SNOMED Code(s): 52012662 Code(s): I25.10 - ATHSCL HEART DISEASE OF [place] CORONARY ARTERY W/O ANG PCTRS Status: Chronic Current Visit: No Annotation/Comment:: Continue ASA 81 mg daily. (7) Diabetes mellitus type 2 SNOMED Code(s): 12873033 Code(s): E11.9 - TYPE 2 DIABETES MELLITUS WITHOUT COMPLICATIONS Status: Chronic Current Visit: No Annotation/Comment:: A1c mildly elevated to 6.8%. No bs over 200 mg/dL. (8) Hypothyroidism SNOMED Code(s): 32138232 Code(s): E03.9 - HYPOTHYROIDISM, UNSPECIFIED Status: Chronic Current Visit: No Annotation/Comment:: TSH elevated and restarted her levothyroxine at prior dose. have her in clinic for recheck in 4 wks. (9) Non-adherence to medical treatment SNOMED Code(s): 502987349 Code(s): Z91.19 - PATIENT'S NONCOMPLIANCE W OTH MEDICAL TREATMENT AND REGIMEN Status: Chronic Priority: High Current Visit: No Annotation/Comment:: Education chronic conditions, medical management, indications, side effects and risks nonadherence. (10) Tobacco abuse disorder SNOMED Code(s): 776818967 Code(s): Z72.0 - TOBACCO USE Status: Chronic Current Visit: No Annotation/Comment:: Offered nicotine patch. Patient declined. (11) COPD with exacerbation SNOMED Code(s): 109154245, 476837639 Code(s): J44.1 - CHRONIC OBSTRUCTIVE PULMONARY DISEASE W (ACUTE) EXACERBATION Status: Acute Current Visit: No - Problem List Review Problem List Initiated/Reviewed/Updated: Yes - My Orders Last 24 Hours: My Active Orders 04/18/21 11:00 Albuterol/Ipratropium [DuoNeb 3.0-0.5 MG/3 ML] 3 ml NEB ,,, - Plan Plan:: 1. Patient admitted due to urinary tract infection, acute exacerbation of COPD, weakness, malaise, shortness of breath. Patient has end-stage COPD and has not been able to complete activities of daily living. She has had increasing difficulties with weakness, anxiety, shortness of breath. 2. UTI: Cultures are negative to date, treatment complete, no current symptoms. 3. COPD with exacerbation continue steroids for total of 5 days, today is day 4 of 5, continue breathing treatments and inhalers. 4. Continue home medications for chronic comorbidities including diabetes mellitus, anxiety 5. DVT prophylaxis: Enoxaparin, 40 mg subcu daily 6. GI prophylaxis: Protonix 40 mg daily 7. Disposition: Patient requested discharge to halfway. Patient spoke with palliative care.
[2021-04-19] MEDS: Simvastatin 20 MG Tab PO SCH (20:18)
[2021-04-19] MEDS: Enoxaparin 40 MG/0.4 ML Syringe SUBCUT SCH (20:19)
[2021-04-20] MEDS: Pantoprazole 40 MG Tab.CR PO SCH (06:06)
[2021-04-20] MEDS: Albuterol/Ipratropium 3.0-0.5 MG/3 ML Neb Soln NEB SCH ×4 (06:07→20:31)
[2021-04-20] MEDS: Levothyroxine 100 MCG Tab PO SCH (06:35)
[2021-04-20] MEDS: metFORMIN 500 MG Tab.ER PO SCH ×2 (07:35→17:37)
[2021-04-20] MEDS: predniSONE 20 MG Tab PO SCH (07:35)
--- NOTE | 2021-04-20 08:21 | PCM.PN ---
- General Info Date of Service: 04/20/21 Admission Dx/Problem (Free Text): Weakness, fatigue, shortness of breath, end-stage COPD Subjective Update: Patient has no new complaints today Functional Status: Reports: Pain Controlled, Tolerating Diet, Ambulating, Urinating - Review of Systems General: Reports: Weakness, Fatigue HEENT: Reports: No Symptoms Pulmonary: Reports: Shortness of Breath Cardiovascular: Reports: No Symptoms Gastrointestinal: Reports: No Symptoms Genitourinary: Reports: No Symptoms Musculoskeletal: Reports: No Symptoms Skin: Reports: No Symptoms Neurological: Reports: No Symptoms Psychiatric: Reports: No Symptoms - Patient Data Vitals - Most Recent: Last Vital Signs Temp 37.0 C 04/20/21 07:41 Pulse 90 04/20/21 07:41 Resp 14 04/20/21 07:41 BP 124/52 L 04/20/21 07:41 Pulse Ox 98 04/20/21 07:41 Weight - Most Recent: 83.971 kg I&O - Last 24 Hours: Intake & Output 04/19/21 04/20/21 04/20/21 22:59 06:59 14:59 Intake Total 240 Balance 240 Lab Results Last 24 Hours: Laboratory Results - last 24 hr 04/19/21 04/20/21 Range/Units 17:48 06:10 POC Glucose 221 H 160 H (80-116) mg/dL Med Orders - Current: Current Medications Albuterol (Albuterol 0.083% 2.5 Mg/3 Ml Neb Soln) 2.5 mg NEB Q2H PRN PRN Reason: Dyspnea Last Admin: 04/15/21 19:14 Dose: 2.5 mg Documented by: Albuterol/Ipratropium (Albuterol/Ipratropium 3.0-0.5 Mg/3 Ml Neb Soln) 3 ml NEB ,,16,21 [facility] Last Admin: 04/20/21 06:07 Dose: 3 ml Documented by: Alprazolam (Alprazolam 0.5 Mg Tab) 0.5 mg PO BID PRN PRN Reason: Anxiety Last Admin: 04/18/21 21:02 Dose: 0.5 mg Documented by: Buspirone HCl (Buspirone 15 Mg Tab) 15 mg PO BID [facility] Last Admin: 04/19/21 20:19 Dose: 15 mg Documented by: Enoxaparin Sodium (Enoxaparin 40 Mg/0.4 Ml Syringe) 40 mg SUBCUT Q24H [facility] Last Admin: 04/19/21 20:19 Dose: 40 mg Documented by: Furosemide (Furosemide 40 Mg Tab) 40 mg PO DAILY [facility] Last Admin: 04/19/21 08:11 Dose: 40 mg Documented by: Levothyroxine Sodium (Levothyroxine 100 Mcg Tab) 100 mcg PO ACBREAKFAST [facility] Last Admin: 04/20/21 06:35 Dose: 100 mcg Documented by: Metformin HCl (Metformin 500 Mg Tab.Er) 500 mg PO BIDMEALS [facility] Last Admin: 04/20/21 07:35 Dose: 500 mg Documented by: Mometasone Furoate/Formoterol Fumar (Formoterol/Mometasone 200-5 Mcg 8.8 Gm Inhaler) 2 puff IH BID [facility] Last Admin: 04/19/21 20:19 Dose: 2 puff Documented by: Pantoprazole Sodium (Pantoprazole 40 Mg Tab.Cr) 40 mg PO 0600 [facility] Last Admin: 04/20/21 06:06 Dose: 40 mg Documented by: Prednisone (Prednisone 20 Mg Tab) 20 mg PO WITHBREAKFAST [facility] Last Admin: 04/20/21 07:35 Dose: 20 mg Documented by: Senna/Docusate Sodium (Docusate Sodium/Sennosides 50-8.6 Mg Tab) 1 tab PO BID PRN PRN Reason: Constipation Simvastatin (Simvastatin 20 Mg Tab) 20 mg PO BEDTIME [facility] Last Admin: 04/19/21 20:18 Dose: 20 mg Documented by: Sodium Chloride (Sodium Chloride 0.9% 10 Ml Syringe) 10 ml FLUSH ASDIRECTED PRN PRN Reason: Keep Vein Open Last Admin: 04/17/21 15:03 Dose: 10 ml Documented by: Discontinued Medications Albuterol/Ipratropium (Albuterol/Ipratropium 3.0-0.5 Mg/3 Ml Neb Soln) 3 ml NEB Q6H [facility] Last Admin: 04/18/21 04:21 Dose: 3 ml Documented by: Azithromycin (Azithromycin 500 Mg Tab) 500 mg PO Q24H [facility] Last Admin: 04/14/21 23:22 Dose: 500 mg Documented by: Azithromycin (Azithromycin 500 Mg Tab) 500 mg PO Q24H [facility] Enoxaparin Sodium (Enoxaparin 40 Mg/0.4 Ml Syringe) 40 mg SUBCUT Q24H [facility] Last Admin: 04/14/21 23:23 Dose: 40 mg Documented by: Metformin HCl (Metformin 500 Mg Tab.Er) 500 mg PO DAILY [facility] Last Admin: 04/15/21 09:58 Dose: 500 mg Documented by: Methylprednisolone Sodium Succinate (Methylprednisolone Sodium Succinate 125 Mg/2 Ml Sdv) 125 mg IVPUSH Q8H [facility] Last Admin: 04/15/21 05:26 Dose: 125 mg Documented by: Nitrofurantoin Macrocrystals (Nitrofurantoin Monohydrate/Macrocrystalline 100 Mg Cap) 100 mg PO BID [facility] Stop: 04/19/21 23:59 Last Admin: 04/17/21 20:39 Dose: 100 mg Documented by: Trimethoprim/Sulfamethoxazole (Sulfamethoxazole/Trimethoprim 800-160 Mg Tab) 1 tab PO BID [facility] Last Admin: 04/15/21 09:59 Dose: 1 tab Documented by: Comments:: Patient sitting in bedside chair awake, alert - Exam Quality Assessment: Supplemental Oxygen, DVT Prophylaxis General: Alert, Oriented, Cooperative, No Acute Distress HEENT: EOMI Lungs: Decreased Breath Sounds, Crackles, Wheezing Cardiovascular: Regular Rate, Regular Rhythm Extremities: Normal Inspection Peripheral Pulses: 1+: Dorsalis Pedis (L), Dorsalis Pedis (R), 2+: Radial (L), Radial (R) Skin: Warm, Dry, Intact Neurological: No New Focal Deficit Psy/Mental Status: Labile Mood - Patient Data Lab Results Last 24 hrs: Laboratory Results - last 24 hr 04/19/21 04/20/21 Range/Units 17:48 06:10 POC Glucose 221 H 160 H (80-116) mg/dL Result Diagrams: 04/15/21 06:15 04/15/21 06:15 Sepsis Event Note - Evaluation Sepsis Screening Result: No Definite Risk - Focused Exam Vital Signs: Vital Signs Temp Pulse Resp BP Pulse Ox Pulse Ox 04/20/21 07:41 37.0 C 90 14 124/52 L 98 04/20/21 06:11 65 95 04/20/21 02:34 94 L 04/19/21 23:55 37.0 C 73 16 119/41 L 94 L 04/19/21 20:27 62 04/19/21 20:23 64 94 L - Problem List & Annotations (1) UTI (urinary tract infection) SNOMED Code(s): 79136793 Code(s): N39.0 - URINARY TRACT INFECTION, SITE NOT SPECIFIED Status: Resolved Current Visit: Yes (2) Weakness SNOMED Code(s): 09932511 Code(s): R53.1 - WEAKNESS Status: Acute Current Visit: Yes (3) Supplemental oxygen dependent SNOMED Code(s): 432712004914 Code(s): Z99.81 - DEPENDENCE ON SUPPLEMENTAL OXYGEN Status: Chronic Priority: High Current Visit: Yes Annotation/Comment:: (4) Anxiety SNOMED Code(s): 66877372 Code(s): F41.9 - ANXIETY DISORDER, UNSPECIFIED Status: Chronic Current Visit: No (5) Palliative care encounter SNOMED Code(s): 010572390, 032143066 Code(s): Z51.5 - ENCOUNTER FOR PALLIATIVE CARE Status: Acute Current Visit: No (6) Coronary arteriosclerosis, CAD SNOMED Code(s): 78198659 Code(s): I25.10 - ATHSCL HEART DISEASE OF [place] CORONARY ARTERY W/O ANG PCTRS Status: Chronic Current Visit: No Annotation/Comment:: Continue ASA 81 mg daily. (7) Diabetes mellitus type 2 SNOMED Code(s): 89886011 Code(s): E11.9 - TYPE 2 DIABETES MELLITUS WITHOUT COMPLICATIONS Status: Chronic Current Visit: No Annotation/Comment:: A1c mildly elevated to 6.8%. No bs over 200 mg/dL. (8) Hypothyroidism SNOMED Code(s): 33671734 Code(s): E03.9 - HYPOTHYROIDISM, UNSPECIFIED Status: Chronic Current Visit: No Annotation/Comment:: TSH elevated and restarted her levothyroxine at prior dose. have her in clinic for recheck in 4 wks. (9) Non-adherence to medical treatment SNOMED Code(s): 191255776 Code(s): Z91.19 - PATIENT'S NONCOMPLIANCE W OTH MEDICAL TREATMENT AND REGIMEN Status: Chronic Priority: High Current Visit: No Annotation/Comment:: Education chronic conditions, medical management, indications, side effects and risks nonadherence. (10) Tobacco abuse disorder SNOMED Code(s): 839748349 Code(s): Z72.0 - TOBACCO USE Status: Chronic Current Visit: No Annotation/Comment:: Offered nicotine patch. Patient declined. (11) COPD with exacerbation SNOMED Code(s): 906919993, 079380951 Code(s): J44.1 - CHRONIC OBSTRUCTIVE PULMONARY DISEASE W (ACUTE) EXACERBATION Status: Acute Current Visit: No - Problem List Review Problem List Initiated/Reviewed/Updated: Yes - Plan Plan:: 1. Patient admitted due to urinary tract infection, acute exacerbation of COPD, weakness, malaise, shortness of breath. Patient has end-stage COPD and has not been able to complete activities of daily living. She has had increasing difficulties with weakness, anxiety, shortness of breath. 2. UTI: Cultures are negative to date, treatment complete, no current symptoms. 3. COPD with exacerbation, treatment complete. Changed inhaler to LAMA/LABA. 4. Continue home medications for chronic comorbidities including diabetes mellitus, anxiety 5. DVT prophylaxis: Enoxaparin, 40 mg subcu daily 6. GI prophylaxis: Protonix 40 mg daily 7. Disposition: Patient requested discharge to alf. Patient spoke with palliative care. Patient will likely have choice of 2 or 3 different nursing homes as of this afternoon. She will be discharged to alf care's afternoon or tomorrow depending on timing.
[2021-04-20] MEDS: busPIRone 15 MG Tab PO SCH ×2 (08:38→20:30)
[2021-04-20] MEDS: Furosemide 40 MG Tab PO SCH (08:38)
[2021-04-20] MEDS: Formoterol/Mometasone 200-5 MCG 8.8 GM Inhaler IH SCH ×2 (08:38→20:31)
[2021-04-20] MEDS: Simvastatin 20 MG Tab PO SCH (20:32)
[2021-04-20] MEDS: Enoxaparin 40 MG/0.4 ML Syringe SUBCUT SCH (20:32)
[2021-04-20] MEDS: ALPRAZolam 0.5 MG Tab PO PRN (21:17)
[2021-04-21] MEDS: Pantoprazole 40 MG Tab.CR PO SCH (06:08)
[2021-04-21] MEDS: Albuterol/Ipratropium 3.0-0.5 MG/3 ML Neb Soln NEB SCH ×2 (06:08→10:33)
[2021-04-21] MEDS: Levothyroxine 100 MCG Tab PO SCH ×2 (06:09→06:39)
[2021-04-21] MEDS: metFORMIN 500 MG Tab.ER PO SCH (07:39)
[2021-04-21] MEDS ORDERED: Tuberculin, PPD 5 Units/0.1 ML 1 ML MDV IDERM ONE (08:00)
[2021-04-21] MEDS: busPIRone 15 MG Tab PO SCH (08:25)
[2021-04-21] MEDS: Furosemide 40 MG Tab PO SCH (08:25)
[2021-04-21] MEDS: Formoterol/Mometasone 200-5 MCG 8.8 GM Inhaler IH SCH (08:26)
[2021-04-21 08:37] VITALS: BP 122/43; PULSE 65
--- NOTE | 2021-04-21 08:46 | PCM.DCSUM1 ---
Discharge Summary - Hospital Course HPI Initial Comments: 81-year-old lady came to the emergency department due to weakness. Evaluation in the emergency department found that she likely had a urinary tract infection. She was admitted for occupational/physical therapy and IV antibiotic therapy. She was found to have extreme difficulties with activities of daily living. Her urinary tract infection resolved. She decided on discharge to assisted care/skilled nursing. When change will be made to her home medications. She will be given a Trelegy Ellipta for a once a day use. Diagnosis: Stroke: No - Discharge Data Discharge Date: 04/21/21 Discharge Disposition: DC/Tfer to Other 70 Condition: Good - Referral to Home Health Primary Care Physician: PCP None - Discharge Diagnosis/Problem(s) (1) UTI (urinary tract infection) SNOMED Code(s): 99960721 ICD Code: N39.0 - URINARY TRACT INFECTION, SITE NOT SPECIFIED Status: Resolved Current Visit: Yes (2) Weakness SNOMED Code(s): 77137316 ICD Code: R53.1 - WEAKNESS Status: Acute Current Visit: Yes (3) Supplemental oxygen dependent SNOMED Code(s): 839461134915 ICD Code: Z99.81 - DEPENDENCE ON SUPPLEMENTAL OXYGEN Status: Chronic Priority: High Current Visit: Yes Problem Details: (4) Anxiety SNOMED Code(s): 49405878 ICD Code: F41.9 - ANXIETY DISORDER, UNSPECIFIED Status: Chronic Current Visit: No (5) Palliative care encounter SNOMED Code(s): 100936520, 929972096 ICD Code: Z51.5 - ENCOUNTER FOR PALLIATIVE CARE Status: Acute Current Visit: No (6) Coronary arteriosclerosis, CAD SNOMED Code(s): 27006305 ICD Code: I25.10 - ATHSCL HEART DISEASE OF [place] CORONARY ARTERY W/O ANG PCTRS Status: Chronic Current Visit: No Problem Details: Continue ASA 81 mg daily. (7) Diabetes mellitus type 2 SNOMED Code(s): 05354252 ICD Code: E11.9 - TYPE 2 DIABETES MELLITUS WITHOUT COMPLICATIONS Status: Chronic Current Visit: No Problem Details: A1c mildly elevated to 6.8%. No bs over 200 mg/dL. (8) Hypothyroidism SNOMED Code(s): 46154456 ICD Code: E03.9 - HYPOTHYROIDISM, UNSPECIFIED Status: Chronic Current Visit: No Problem Details: TSH elevated and restarted her levothyroxine at prior dose. have her in clinic for recheck in 4 wks. (9) Non-adherence to medical treatment SNOMED Code(s): 305600784 ICD Code: Z91.19 - PATIENT'S NONCOMPLIANCE W OTH MEDICAL TREATMENT AND REGIMEN Status: Chronic Priority: High Current Visit: No Problem Details: Education chronic conditions, medical management, indications, side effects and risks nonadherence. (10) Tobacco abuse disorder SNOMED Code(s): 413330556 ICD Code: Z72.0 - TOBACCO USE Status: Chronic Current Visit: No Problem Details: Offered nicotine patch. Patient declined. (11) COPD with exacerbation SNOMED Code(s): 364524210, 799165164 ICD Code: J44.1 - CHRONIC OBSTRUCTIVE PULMONARY DISEASE W (ACUTE) EXACERBATION Status: Acute Current Visit: No - Patient Summary/Data Consults: Consultations 04/14/21 22:06 OT Evaluation and Treatment [CONS] Routine Please Evaluate and Treat. OT Reason for Consult: Discharge Planning This query below is only for informational purposes and is not editable. PT Evaluation and Treatment [CONS] Routine Please Evaluate and Treat. PT Reason for Consult: Strengthening Discharge Disposition: [facility] This query below is only for informational purposes and is not editable. 04/17/21 10:30 Consult to Hospice [CONS] Routine Comment: Physician Instructions: - Patient Instructions Diet: Regular Diet as Tolerated Activity: As Tolerated Showering/Bathing: May Shower Notify Provider of: Fever, Nausea and/or Vomiting - Discharge Plan *PRESCRIPTION DRUG MONITORING PROGRAM REVIEWED*: Not Applicable *COPY OF PRESCRIPTION DRUG MONITORING REPORT IN PATIENT ESTRELLA: Not Applicable Prescriptions/Med Rec: Fluticasone/Umeclidin/Vilanter [Trelegy Ellipta 200-62.5-25] 1 each IH DAILY #1 blst.w.dev Home Medications: Home Meds Albuterol [Ventolin HFA] 2 puff INH QID 03/07/14 [History] Simvastatin [Zocor] 20 mg PO BEDTIME 05/23/15 [History] Furosemide [Lasix] 40 mg PO DAILY 10/11/16 [History] Levothyroxine [Synthroid] 100 mcg PO ACBREAKFAST 05/10/19 [History] Albuterol Sulfate 2.5 mg IH QID 02/16/20 [History] ALPRAZolam [Xanax] 0.5 mg PO BID PRN 07/06/20 [History] metFORMIN [Glucophage XR] 500 mg PO DAILY 07/06/20 [History] busPIRone [Buspar] 7.5 mg PO BID 04/14/21 [History] Fluticasone/Umeclidin/Vilanter [Trelegy Ellipta 200-62.5-25] 1 each IH DAILY #1 blst.w.dev 04/21/21 [Rx] Oxygen Therapy Mode: Nasal Cannula Patient Handouts: Chronic Obstructive Pulmonary Disease Exacerbation, Urinary Tract Infection, Adult, Fall Prevention in Hospitals, Adult, Venous Thromboembolism Prevention, Dehydration, Adult Forms: ED Department Discharge Referrals: PCP,None [Primary Care Provider] - - Discharge Summary/Plan Comment DC Time >30 min.: No - General Info Date of Service: 04/21/21 Admission Dx/Problem (Free Text: Weakness, fatigue, shortness of breath, end-stage COPD Subjective Update: Patient states that she is feeling well and she is ready for discharge - Review of Systems General: Reports: No Symptoms HEENT: Reports: No Symptoms Pulmonary: Reports: No Symptoms Cardiovascular: Reports: No Symptoms Gastrointestinal: Reports: No Symptoms Genitourinary: Reports: No Symptoms Musculoskeletal: Reports: No Symptoms Skin: Reports: No Symptoms Neurological: Reports: No Symptoms Psychiatric: Reports: No Symptoms - Patient Data Vitals - Most Recent: Last Vital Signs Temp 36.9 C 04/21/21 08:00 Pulse 65 04/21/21 08:00 Resp 19 04/21/21 08:00 BP 122/43 L 04/21/21 08:00 Pulse Ox 93 L 04/21/21 08:00 Weight - Most Recent: 83.971 kg Lab Results - Last 24 hrs: Laboratory Results - last 24 hr 04/20/21 04/21/21 04/21/21 Range/Units 16:29 06:13 06:29 POC Glucose 271 H D 159 H D (80-116) mg/dL SARS-CoV-2 RNA (ERINN) Negative (NEGATIVE) Med Orders - Current: Current Medications Albuterol (Albuterol 0.083% 2.5 Mg/3 Ml Neb Soln) 2.5 mg NEB Q2H PRN PRN Reason: Dyspnea Last Admin: 04/15/21 19:14 Dose: 2.5 mg Documented by: Albuterol/Ipratropium (Albuterol/Ipratropium 3.0-0.5 Mg/3 Ml Neb Soln) 3 ml NEB ,,16, [facility] Last Admin: 04/21/21 06:08 Dose: 3 ml Documented by: Alprazolam (Alprazolam 0.5 Mg Tab) 0.5 mg PO BID PRN PRN Reason: Anxiety Last Admin: 04/20/21 21:17 Dose: 0.5 mg Documented by: Buspirone HCl (Buspirone 15 Mg Tab) 15 mg PO BID [facility] Last Admin: 04/21/21 08:25 Dose: 15 mg Documented by: Enoxaparin Sodium (Enoxaparin 40 Mg/0.4 Ml Syringe) 40 mg SUBCUT Q24H [facility] Last Admin: 04/20/21 20:32 Dose: 40 mg Documented by: Furosemide (Furosemide 40 Mg Tab) 40 mg PO DAILY [facility] Last Admin: 04/21/21 08:25 Dose: 40 mg Documented by: Levothyroxine Sodium (Levothyroxine 100 Mcg Tab) 100 mcg PO ACBREAKFAST [facility] Last Admin: 04/21/21 06:39 Dose: Not Given Documented by: Metformin HCl (Metformin 500 Mg Tab.Er) 500 mg PO BIDMEALS [facility] Last Admin: 04/21/21 07:39 Dose: 500 mg Documented by: Mometasone Furoate/Formoterol Fumar (Formoterol/Mometasone 200-5 Mcg 8.8 Gm Inhaler) 2 puff IH BID [facility] Last Admin: 04/21/21 08:26 Dose: 2 puff Documented by: Pantoprazole Sodium (Pantoprazole 40 Mg Tab.Cr) 40 mg PO 0600 [facility] Last Admin: 04/21/21 06:08 Dose: 40 mg Documented by: Senna/Docusate Sodium (Docusate Sodium/Sennosides 50-8.6 Mg Tab) 1 tab PO BID PRN PRN Reason: Constipation Simvastatin (Simvastatin 20 Mg Tab) 20 mg PO BEDTIME [facility] Last Admin: 04/20/21 20:32 Dose: 20 mg Documented by: Sodium Chloride (Sodium Chloride 0.9% 10 Ml Syringe) 10 ml FLUSH ASDIRECTED PRN PRN Reason: Keep Vein Open Last Admin: 04/17/21 15:03 Dose: 10 ml Documented by: Discontinued Medications Albuterol/Ipratropium (Albuterol/Ipratropium 3.0-0.5 Mg/3 Ml Neb Soln) 3 ml NEB Q6H [facility] Last Admin: 04/18/21 04:21 Dose: 3 ml Documented by: Azithromycin (Azithromycin 500 Mg Tab) 500 mg PO Q24H [facility] Last Admin: 04/14/21 23:22 Dose: 500 mg Documented by: Azithromycin (Azithromycin 500 Mg Tab) 500 mg PO Q24H [facility] Enoxaparin Sodium (Enoxaparin 40 Mg/0.4 Ml Syringe) 40 mg SUBCUT Q24H [facility] Last Admin: 04/14/21 23:23 Dose: 40 mg Documented by: Metformin HCl (Metformin 500 Mg Tab.Er) 500 mg PO DAILY [facility] Last Admin: 04/15/21 09:58 Dose: 500 mg Documented by: Methylprednisolone Sodium Succinate (Methylprednisolone Sodium Succinate 125 Mg/2 Ml Sdv) 125 mg IVPUSH Q8H [facility] Last Admin: 04/15/21 05:26 Dose: 125 mg Documented by: Nitrofurantoin Macrocrystals (Nitrofurantoin Monohydrate/Macrocrystalline 100 Mg Cap) 100 mg PO BID [facility] Stop: 04/19/21 23:59 Last Admin: 04/17/21 20:39 Dose: 100 mg Documented by: Prednisone (Prednisone 20 Mg Tab) 20 mg PO WITHBREAKFAST [facility] Last Admin: 04/20/21 07:35 Dose: 20 mg Documented by: Trimethoprim/Sulfamethoxazole (Sulfamethoxazole/Trimethoprim 800-160 Mg Tab) 1 tab PO BID [facility] Last Admin: 04/15/21 09:59 Dose: 1 tab Documented by: Tuberculin PPD (Tuberculin, Ppd 5 Units/0.1 Ml 1 Ml Mdv) 5 unit IDERM ONETIME ONE Stop: 04/21/21 08:01 Last Admin: 04/21/21 08:19 Dose: 5 unit Documented by: Comments:: Patient is sitting in bedside chair, awake, alert, nasal cannula in place - Exam Quality Assessment: Reports: Supplemental Oxygen, DVT Prophylaxis General: Reports: Alert, Oriented, Cooperative, No Acute Distress HEENT: Reports: EOMI Lungs: Reports: Decreased Breath Sounds Cardiovascular: Reports: Regular Rate, Regular Rhythm, Other (Heart sounds are distant and difficult to auscultate) GI/Abdominal Exam: Normal Bowel Sounds, Non-Tender Extremities: Normal Inspection Skin: Reports: Warm, Dry, Intact Neurological: Reports: No New Focal Deficit Psy/Mental Status: Reports: Alert, Anxious
[2021-04-21] MEDS: ALPRAZolam 0.5 MG Tab PO PRN (10:36)
== END 2021-04-21 10:48 | disposition other institution (70) | DRG 191 ==
LOC: FB.ED 20:26 → FB.MS 22:06
PROVIDERS: ADMIT Emergency Medicine; ATTEND Student in an Organized Health Care Education/Training Program
DX: J44.1 Chronic obstructive pulmonary disease with (acute) exacerbation (principal); R53.1 Weakness; N39.0 Urinary tract infection, site not specified; F41.9 Anxiety disorder, unspecified; I50.9 Heart failure, unspecified; G62.9 Polyneuropathy, unspecified; E11.9 Type 2 diabetes mellitus without complications; Z51.5 Encounter for palliative care; I25.10 Atherosclerotic heart disease of native coronary artery without angina pectoris; E03.9 Hypothyroidism, unspecified; Z91.048 Other nonmedicinal substance allergy status; E11.42 Type 2 diabetes mellitus with diabetic polyneuropathy; I27.20 Pulmonary hypertension, unspecified; Z20.822 Contact with and (suspected) exposure to COVID-19; H54.7 Unspecified visual loss; E78.00 Pure hypercholesterolemia, unspecified; M19.90 Unspecified osteoarthritis, unspecified site; Z91.19 Patient's noncompliance with other medical treatment and regimen; Z99.81 Dependence on supplemental oxygen; Z79.51 Long term (current) use of inhaled steroids; Z79.890 Hormone replacement therapy; Z79.899 Other long term (current) drug therapy; Z90.49 Acquired absence of other specified parts of digestive tract; Z90.710 Acquired absence of both cervix and uterus; Z98.41 Cataract extraction status, right eye; Z98.42 Cataract extraction status, left eye; Z87.891 Personal history of nicotine dependence; Z85.038 Personal history of other malignant neoplasm of large intestine; Z88.1 Allergy status to other antibiotic agents; Z88.7 Allergy status to serum and vaccine; Z88.0 Allergy status to penicillin; Z79.84 Long term (current) use of oral hypoglycemic drugs
CPT/HCPCS: 36415; 36600; 71045; 80048; 80053; 81001; 82803; 82947; 83036; 83880; 84443; 84484; 85025; 86580; 87086; 93005; 94640; 97165-GO; 99285-25; A9270-GY; J1650; J2930; J7512; J7620-GY; U0002

== ENCOUNTER 2021-09-12 10:51 | Emergency (ER) | payer MEDICARE, BC, MEDICAID ==
--- NOTE | 2021-09-12 11:22 | EDM.PDOC ---
ED HPI GENERAL MEDICAL PROBLEM - General Stated Complaint: SOB Time Seen by Provider: 09/12/21 11:11 Source of Information: Reports: Patient - History of Present Illness INITIAL COMMENTS - FREE TEXT/NARRATIVE: 81-year-old lady with past medical history significant for end-stage COPD was sent the emergency department via EMS from her assisted living/prison community. She was found to be hypoxic and struggling to breathe this morning. Patient is extremely short of breath and is not able to answer questions. Review of her past medical history shows that she was seen in the clinic and treated for constipation on 09/06/2021. Her other past medical history is significant for CAD, pulmonary hypertension, diabetes mellitus, hypothyroidism, and chronic hypoxic respiratory failure. - Related Data Allergies Allergy/AdvReac Type Severity Reaction Status Date / Time perfume Allergy Intermediate Shortness Verified 04/14/21 21:00 of Breath ceftriaxone sodium Allergy Hives Verified 04/14/21 21:00 [From Rocephin] ciprofloxacin [From Cipro] Allergy Hives Verified 04/14/21 21:00 ciprofloxacin HCl Allergy Hives Verified 04/14/21 21:00 [From Cipro] Penicillins Allergy Hives Verified 04/14/21 21:00 pneumococcal vaccine Allergy Swelling Verified 04/14/21 21:00 [Pneumococcal Vaccine] Home Meds: Home Meds Albuterol [Ventolin HFA] 2 puff INH QID 03/07/14 [History] Simvastatin [Zocor] 20 mg PO BEDTIME 05/23/15 [History] Furosemide [Lasix] 40 mg PO DAILY 10/11/16 [History] Levothyroxine [Synthroid] 100 mcg PO ACBREAKFAST 05/10/19 [History] Albuterol Sulfate 2.5 mg IH QID 02/16/20 [History] ALPRAZolam [Xanax] 0.5 mg PO BID PRN 07/06/20 [History] metFORMIN [Glucophage XR] 500 mg PO DAILY 07/06/20 [History] busPIRone [Buspar] 7.5 mg PO BID 04/14/21 [History] Fluticasone/Umeclidin/Vilanter [Trelegy Ellipta 200-62.5-25] 1 each IH DAILY #1 blst.w.dev 04/21/21 [Rx] Azithromycin 500 mg PO DAILY #3 tablet 09/12/21 [Rx] predniSONE [Prednisone] 40 mg PO DAILY #8 tablet 09/12/21 [Rx] Past Medical History HEENT History: Reports: Cataract, Impaired Vision Cardiovascular History: Reports: High Cholesterol, SOB on Exertion Respiratory History: Reports: Bronchitis, Recurrent, COPD Other Respiratory History: Uses home O2. Gastrointestinal History: Reports: Bowel Obstruction, Other (See Below) Other Gastrointestinal History: Had abdominal surgery but patient is not certain what was all involved. Genitourinary History: Reports: UTI, Recurrent [employer] History: Reports: Other [employer] History: Musculoskeletal History: Reports: Arthritis, Fracture Other Musculoskeletal History: Possibly some arthritis. History of fracture right 3rd digit and right great toe. Neurological History: Reports: Migraines Psychiatric History: Reports: Anxiety Endocrine/Metabolic History: Reports: Diabetes, Type II, Hypothyroidism, Obesity/BMI 30+ Other Endocrine/Metabolic History: Thyroidectomy 2007. Hematologic History: Reports: Blood Transfusion(s) Oncologic (Cancer) History: Reports: Colon, Other (See Below) Other Oncologic History: Colon CA--uncertain. Dermatologic History: Reports: Cellulitis, Other (See Below) Other Dermatologic History: Lymphedema. - Infectious Disease History Infectious Disease History: Reports: Mumps Other Infectious Disease History: She is not certain if she had Rubella or Rubeola. - Past Surgical History Head Surgeries/Procedures: Reports: None HEENT Surgical History: Reports: Adenoidectomy, Cataract Surgery, Tonsillectomy, Other (See Below) Other HEENT Surgeries/Procedures: Bilateral cataract surgery. GI Surgical History: Reports: Cholecystectomy, Colon, Colonoscopy, EGD, Hernia Repair/Other Other GI Surgeries/Procedures: History of pssible colon blockage. Female Surgical History: Reports: Hysterectomy Other Female Surgeries/Procedures: Vaginal hysterectomy. Endocrine Surgical History: Reports: Thyroidectomy Musculoskeletal Surgical History: Reports: None Social & Family History - Family History Family Medical History: No Pertinent Family History Dermatologic: Reports: None Oncologic: Reports: Other (See Below) Other Oncologic Family History: Patient doesn't recall the type. - Caffeine Use Caffeine Use: Reports: Coffee Other Caffeine Use: 3-5 cups coffee/day Caffeine Use Comment: 2 CUPS DAILY - Living Situation & Occupation Living situation: Reports: Alone ED ROS GENERAL - Review of Systems Review Of Systems: See Below Constitutional: Reports: Weakness HEENT: Reports: No Symptoms Respiratory: Reports: Shortness of Breath, Wheezing, Cough Cardiovascular: Reports: No Symptoms Endocrine: Reports: No Symptoms GI/Abdominal: Reports: No Symptoms : Reports: No Symptoms Musculoskeletal: Reports: No Symptoms, Muscle Pain Neurological: Reports: Difficulty Walking, Weakness Psychiatric: Reports: No Symptoms Hematologic/Lymphatic: Reports: No Symptoms Immunologic: Reports: No Symptoms ED EXAM, GENERAL - Physical Exam Exam: See Below Exam Limited By: Other (Patient is weak and not speaking full sentences secondary to weakness and shortness of breath) General Appearance: Lethargic Eye Exam: Bilateral Eye: EOMI Head: Atraumatic, Normocephalic Neck: Normal Inspection Respiratory/Chest: Respiratory Distress, Decreased Breath Sounds, Crackles Cardiovascular: Tachycardia Peripheral Pulses: 1+: Dorsalis Pedis (L), Dorsalis Pedis (R), 2+: Radial (L), Radial (R) GI/Abdominal: Normal Bowel Sounds Extremities: Normal Inspection Neurological: Alert Psychiatric: Anxious Skin Exam: Warm, Dry Course - Vital Signs Text/Narrative:: Review of chest x-ray shows no significant changes from prior x-rays earlier this year except that there may be some more fullness in the left hilum and there may be chronic atelectasis along with consolidation in the right middle and lower lobes. No other significant changes. Patient does have a mild leuk ocytosis with mild respiratory acidosis likely secondary to COPD with CO2 retention. Last Recorded V/S: Last Vital Signs Temp 36.6 C 09/12/21 10:53 Pulse 64 09/12/21 10:53 Resp 16 09/12/21 10:53 BP 157/62 H 09/12/21 10:53 Pulse Ox 100 09/12/21 10:53 - Orders/Labs/Meds Orders: Active Orders 24 hr Category Date Time Status RT Aerosol Therapy [RC] ASDIRECTED Care 09/12/21 12:47 Active Chest 1V Frontal [CR] Stat Exams 09/12/21 11:17 Taken Labs: Laboratory Tests 09/12/21 09/12/21 09/12/21 Range/Units 11:40 12:20 12:20 WBC 11.8 H (3.0-10.3) x10-3/uL RBC 4.44 (3.60-5.20) x10(6)uL Hgb 12.4 (11.4-15.5) g/dL Hct 39.3 (34.2-48.2) % MCV 88.6 (76.7-100.5) fL MCH 28.0 (23.9-33.9) pg MCHC 31.6 L (31.9-34.8) g/dL RDW 15.2 (12.3-16.5) % Plt Count 355 (151-488) x10(3)uL MPV 7.2 (7.1-12.4) fL Neut % (Auto) 84.0 H (30.8-76.2) % Lymph % (Auto) 9.2 L (18.4-52.1) % [place] % (Auto) 4.4 (4.4-15.7) % Eos % (Auto) 1.9 (0.6-8.1) % Baso % (Auto) 0.5 (0.2-1.5) % Neut # (Auto) 9.9 H (1.5-6.3) x10-3/uL Lymph # (Auto) 1.1 (1.0-4.4) x10-3/uL [place] # (Auto) 0.5 (0.3-1.0) x10-3/uL Eos # (Auto) 0.2 (0.0-0.8) x10-3/uL Baso # (Auto) 0.1 (0.0-0.1) x10-3/uL POC VBG pH (7.32-7.43) pH Units POC VBG pCO2 (41-51) mmHg POC VBG HCO3 (22-29) mmol/L VBG Base Excess (-2 - 3+) mmol/L O2 Delivery Device Oxygen Flow Rate LPM Sodium 143 (135-145) mmol/L Potassium 4.4 (3.5-5.3) mmol/L Chloride 99 L D (100-110) mmol/L Carbon Dioxide 47 H* (21-32) mmol/L BUN 17 (7-18) mg/dL Creatinine 0.9 (0.55-1.02) mg/dL Est Cr Clr Drug Dosing TNP Estimated GFR (MDRD) > 60 (>60) BUN/Creatinine Ratio 18.9 (9-20) Glucose 153 H D (80-116) mg/dL Calcium 9.1 (8.6-10.2) mg/dL Magnesium 1.9 (1.8-2.5) mg/dL Total Bilirubin 0.3 (0.1-1.3) mg/dL AST 15 (5-25) IU/L ALT 25 D (12-36) U/L Alkaline Phosphatase 119 H (56-112) IU/L Total Protein 7.8 (6.0-8.0) g/dL Albumin 3.7 (3.2-4.6) g/dL Globulin 4.1 g/dL Albumin/Globulin Ratio 0.9 SARS-CoV-2 RNA (ERINN) Negative (NEGATIVE) 09/12/21 Range/Units 12:30 WBC (3.0-10.3) x10-3/uL RBC (3.60-5.20) x10(6)uL Hgb (11.4-15.5) g/dL Hct (34.2-48.2) % MCV (76.7-100.5) fL MCH (23.9-33.9) pg MCHC (31.9-34.8) g/dL RDW (12.3-16.5) % Plt Count (151-488) x10(3)uL MPV (7.1-12.4) fL Neut % (Auto) (30.8-76.2) % Lymph % (Auto) (18.4-52.1) % [place] % (Auto) (4.4-15.7) % Eos % (Auto) (0.6-8.1) % Baso % (Auto) (0.2-1.5) % Neut # (Auto) (1.5-6.3) x10-3/uL Lymph # (Auto) (1.0-4.4) x10-3/uL [place] # (Auto) (0.3-1.0) x10-3/uL Eos # (Auto) (0.0-0.8) x10-3/uL Baso # (Auto) (0.0-0.1) x10-3/uL POC VBG pH 7.30 L (7.32-7.43) pH Units POC VBG pCO2 94 H (41-51) mmHg POC VBG HCO3 46 H (22-29) mmol/L VBG Base Excess 14 H (-2 - 3+) mmol/L O2 Delivery Device Simple mask Oxygen Flow Rate 10 LPM Sodium (135-145) mmol/L Potassium (3.5-5.3) mmol/L Chloride (100-110) mmol/L Carbon Dioxide (21-32) mmol/L BUN (7-18) mg/dL Creatinine (0.55-1.02) mg/dL Est Cr Clr Drug Dosing Estimated GFR (MDRD) (>60) BUN/Creatinine Ratio (9-20) Glucose (80-116) mg/dL Calcium (8.6-10.2) mg/dL Magnesium (1.8-2.5) mg/dL Total Bilirubin (0.1-1.3) mg/dL AST (5-25) IU/L ALT (12-36) U/L Alkaline Phosphatase (56-112) IU/L Total Protein (6.0-8.0) g/dL Albumin (3.2-4.6) g/dL Globulin g/dL Albumin/Globulin Ratio SARS-CoV-2 RNA (ERINN) (NEGATIVE) Meds: Medications Discontinued Medications Generic Name Dose Route Start Last Admin Trade Name Freq PRN Reason Stop Dose Admin Albuterol/Ipratropium 3 ml 09/12/21 12:47 09/12/21 14:36 Albuterol/Ipratropium 3.0-0.5 Mg/3 Ml Neb Soln NEB 09/12/21 12:48 3 ml ONETIME ONE Administration Azithromycin 500 mg/ Sodium 250 mls @ 250 mls/hr 09/12/21 12:45 09/12/21 14:36 Chloride IV 09/12/21 13:44 250 mls/hr ONETIME ONE Administration Methylprednisolone Sodium 100 mls @ 100 mls/hr 09/12/21 12:46 09/12/21 14:15 Succinate 125 mg/ Sodium IV 09/12/21 13:45 Not Given Chloride ONETIME ONE Methylprednisolone Sodium Succinate 125 mg 09/12/21 14:14 09/12/21 14:36 Methylprednisolone Sodium Succinate 125 Mg/2 Ml Sdv IVPUSH 09/12/21 14:15 125 mg ONETIME ONE Administration Departure - Departure Time of Disposition: 14:54 Disposition: Home, Self-Care 01 Condition: Fair Clinical Impression: Acute exacerbation of chronic obstructive pulmonary disease (COPD) - Discharge Information *PRESCRIPTION DRUG MONITORING PROGRAM REVIEWED*: Not Applicable *COPY OF PRESCRIPTION DRUG MONITORING REPORT IN PATIENT ESTRELLA: Not Applicable Prescriptions: Azithromycin 500 mg PO DAILY #3 tablet predniSONE [Prednisone] 40 mg PO DAILY #8 tablet Instructions: Chronic Obstructive Pulmonary Disease, [id number], Chronic Obstructive Pulmonary Disease Exacerbation, [id number] Referrals: Tushar Lopez MD [Primary Care Provider] - Additional Instructions: Patient encouraged to continue to use her inhalers and other medications as prescribed at home. Patient encouraged to start azithromycin 500 mg daily on 09/13/2021 and prednisone 40 mg daily on 09/13/2021 until completed. Patient strongly encouraged to follow-up with her primary care physician. Sepsis Event Note (ED) - Focused Exam Vital Signs: Vital Signs Temp Pulse Resp BP Pulse Ox 09/12/21 10:53 36.6 C 64 16 157/62 H 100 - My Orders Last 24 Hours: My Active Orders 09/12/21 11:17 Chest 1V Frontal [CR] Stat 09/12/21 12:47 RT Aerosol Therapy [RC] ASDIRECTED - Assessment/Plan Last 24 Hours: My Active Orders 09/12/21 11:17 Chest 1V Frontal [CR] Stat 09/12/21 12:47 RT Aerosol Therapy [RC] ASDIRECTED
[2021-09-12 12:33] LABS: BASE EXCESS VENOUS,POC 14 mmol/L (-2 - 3+); PCO2 VENOUS,POC 94 mmHg (41-51)
[2021-09-12] MEDS ORDERED: Azithromycin 500 MG in Sodium Chloride 0.9% 250 ML IV ONE (12:45)
[2021-09-12] MEDS ORDERED: methylPREDNISolone Sod Succ 125 MG in Sodium Chloride 0.9% 100 ML IV ONE (12:46)
[2021-09-12] MEDS ORDERED: Albuterol/Ipratropium 3.0-0.5 MG/3 ML Neb Soln NEB ONE (12:47)
[2021-09-12] MEDS ORDERED: methylPREDNISolone Sodium Succinate 125 MG/2 ML SDV IVPUSH ONE (14:14)
[2021-09-12 16:28] VITALS: BP 146/40; PULSE 60
== END 2021-09-12 16:45 | disposition home or self-care (01) ==
LOC: FB.ED 10:51
DX: J44.1 Chronic obstructive pulmonary disease with (acute) exacerbation (principal); E78.00 Pure hypercholesterolemia, unspecified; E11.9 Type 2 diabetes mellitus without complications; E03.9 Hypothyroidism, unspecified; E66.9 Obesity, unspecified; Z68.32 Body mass index [BMI] 32.0-32.9, adult; Z91.048 Other nonmedicinal substance allergy status; Z88.1 Allergy status to other antibiotic agents; Z88.0 Allergy status to penicillin; Z88.7 Allergy status to serum and vaccine; Z79.899 Other long term (current) drug therapy; Z99.81 Dependence on supplemental oxygen; Z79.84 Long term (current) use of oral hypoglycemic drugs; Z20.822 Contact with and (suspected) exposure to COVID-19
CPT/HCPCS: 36415; 71045; 80053; 83735; 85025; 94640; 96365; 96375; 99285; J0456; J2930; J7050; U0002; J7620-GY

== ENCOUNTER 2022-01-21 16:20 | Emergency (ER) | payer MEDICARE, BC, MEDICAID ==
[2022-01-21] MEDS ORDERED: Sodium Chloride 0.9% 10 ML Syringe FLUSH PRN (16:25)
[2022-01-21] MEDS ORDERED: methylPREDNISolone Sodium Succinate 125 MG/2 ML SDV IVPUSH STA (16:27)
[2022-01-21] MEDS ORDERED: Albuterol/Ipratropium 3.0-0.5 MG/3 ML Neb Soln NEB STA (16:27)
[2022-01-21 16:51] LABS: BASE EXCESS VENOUS,POC 8 mmol/L (-2 - 3+); PCO2 VENOUS,POC 62 mmHg (41-51); PH VENOUS,POC 7.36 pH Units (7.32-7.43)
[2022-01-21] MEDS ORDERED: Azithromycin 500 MG Tab PO STA (17:47)
[2022-01-21 19:30] VITALS: PULSE 78
[2022-01-21 19:43] VITALS: BP 155/55
== END 2022-01-21 18:30 | disposition home or self-care (01) ==
LOC: FB.ED 16:20
DX: J44.1 Chronic obstructive pulmonary disease with (acute) exacerbation (principal); I25.10 Atherosclerotic heart disease of native coronary artery without angina pectoris; E11.9 Type 2 diabetes mellitus without complications; E78.00 Pure hypercholesterolemia, unspecified; E03.9 Hypothyroidism, unspecified; E66.9 Obesity, unspecified; Z68.25 Body mass index [BMI] 25.0-25.9, adult; Z91.048 Other nonmedicinal substance allergy status; Z88.1 Allergy status to other antibiotic agents; Z88.7 Allergy status to serum and vaccine; Z88.0 Allergy status to penicillin; Z79.899 Other long term (current) drug therapy; Z79.84 Long term (current) use of oral hypoglycemic drugs; Z20.822 Contact with and (suspected) exposure to COVID-19
CPT/HCPCS: 36415; 71045; 80053; 83880; 84484; 85025; 93005; 93010; 94640; 96374; 99284; 99285-25; A9270-GY; J2930; J3490; J7620; U0002

== ENCOUNTER 2022-05-09 20:12 | Inpatient (IN) | payer MEDICARE, BC, MEDICAID ==
[2022-05-09] MEDS ORDERED: LORazepam 2 MG/ML SDV IVPUSH STA (20:23)
[2022-05-09] MEDS: Morphine 4 MG/ML VIAL IVPUSH ONE ×2 (20:38→20:53)
[2022-05-09] MEDS ORDERED: Morphine 2 MG/ML SYRINGE IVPUSH STA (20:40)
[2022-05-09] MEDS: Sodium Chloride 0.9% 10 ML Syringe FLUSH PRN ×2 (20:43→20:45)
[2022-05-09 20:56] LABS: ESTIMATED GFR 74 mL/min (>60)
[2022-05-09 20:57] LABS: BASE EXCESS VENOUS,POC 8 mmol/L (-2 - 3+); PCO2 VENOUS,POC 65 mmHg (41-51); PH VENOUS,POC 7.35 pH Units (7.32-7.43)
[2022-05-09] MEDS: Sodium Chloride 0.9% 1,000 ML IV SCH (21:55)
[2022-05-09] MEDS ORDERED: Albuterol/Ipratropium 3.0-0.5 MG/3 ML Neb Soln NEB ONE (22:38)
[2022-05-09] MEDS ORDERED: Ondansetron 4 MG/2 ML SDV IV PRN (23:34)
[2022-05-09] MEDS ORDERED: Albuterol/Ipratropium 3.0-0.5 MG/3 ML Neb Soln NEB SCH (23:45)
[2022-05-09] MEDS ORDERED: methylPREDNISolone Sodium Succinate 125 MG/2 ML SDV IVPUSH SCH (23:45)
[2022-05-09] MEDS ORDERED: Enoxaparin 40 MG/0.4 ML Syringe SUBCUT ONE (23:45)
[2022-05-09] MEDS ORDERED: guaiFENesin 100 MG/5 ML Soln 5 ML UD Cup PO PRN (23:49)
[2022-05-09] MEDS ORDERED: Bisacodyl 10 MG Supp RECTAL PRN (23:49)
[2022-05-09] MEDS ORDERED: Loperamide 2 MG Cap PO PRN (23:49)
[2022-05-09] MEDS ORDERED: Acetaminophen 325 MG Tab PO PRN (23:49)
[2022-05-10] MEDS ORDERED: Aluminum Hydroxide/Magnesium Hydroxide Susp 30 ML Cup PO PRN (00:02)
[2022-05-10] MEDS: Sodium Chloride 0.9% 1,000 ML IV SCH ×3 (00:18→20:30)
[2022-05-10] MEDS: Albuterol/Ipratropium 3.0-0.5 MG/3 ML Neb Soln NEB SCH ×5 (00:53→23:26)
[2022-05-10] MEDS: methylPREDNISolone Sodium Succinate 125 MG/2 ML SDV IVPUSH SCH ×3 (01:00→16:58)
[2022-05-10] MEDS: Albuterol 0.083% 2.5 MG/3 ML Neb Soln NEB PRN (04:37)
[2022-05-10] MEDS ORDERED: Levothyroxine 100 MCG Tab ONE (05:14)
[2022-05-10] MEDS ORDERED: Levofloxacin/Dextrose 5%-Water 0 ML IV ONE (06:42)
[2022-05-10] MEDS: Levofloxacin/Dextrose 5%-Water 500 MG in Premix Bag 1 BAG IV SCH (06:46)
[2022-05-10 07:02] LABS: ESTIMATED GFR 64 mL/min (>60)
[2022-05-10] MEDS ORDERED: Levothyroxine 100 MCG Tab PO SCH (07:30)
[2022-05-10] MEDS ORDERED: Glucagon,Human Recombinant 1 MG Vial IM PRN (08:30)
[2022-05-10] MEDS ORDERED: 50% Dextrose in Water 50 ML Syringe IVPUSH PRN (08:30)
[2022-05-10] MEDS: ALPRAZolam 0.25 MG Tab PO SCH ×4 (08:49→20:26)
[2022-05-10] MEDS: Tiotropium Bromide 4 GM Inhalation Spray (2.5mcg/1 dose; 10 doses) INH SCH (08:50)
[2022-05-10] MEDS: busPIRone 15 MG Tab PO SCH ×2 (08:52→20:24)
[2022-05-10] MEDS: buPROPion 150 MG Tab.ER PO SCH (08:52)
[2022-05-10] MEDS: Citalopram 20 MG Tab PO SCH (08:54)
[2022-05-10] MEDS: Furosemide 20 MG Tab PO SCH (08:54)
[2022-05-10] MEDS: Formoterol/Mometasone 200-5 MCG 8.8 GM Inhaler IH SCH ×2 (08:56→20:24)
[2022-05-10] MEDS ORDERED: Tiotropium BR/Olodaterol HCL 4 GM Inhalation Spray 2.5mcg/1 dose; 10 doses INH SCH (09:00)
[2022-05-10] MEDS ORDERED: Psyllium Husk Powder Sugar Free 5.85 GM Packet PO ONE ×2 (09:00)
[2022-05-10] MEDS ORDERED: Magnesium Hydroxide 400 MG/5 ML Susp 30 ML Cup PO PRN (09:00)
[2022-05-10] MEDS: Psyllium Husk Powder Sugar Free 5.85 GM Packet PO SCH (09:02)
[2022-05-10] MEDS: metFORMIN 500 MG Tab.ER PO SCH (09:16)
[2022-05-10] MEDS ORDERED: Insulin Lispro 100 Unit/ML 3 ML KwikPen SUBCUT ONE (12:01)
[2022-05-10] MEDS: Insulin Lispro 100 Unit/ML 3 ML KwikPen SUBCUT SCH ×2 (12:02→17:40)
[2022-05-10] MEDS: Polyethylene Glycol 3350 Powder 17 GM Packet PO SCH (20:25)
[2022-05-10] MEDS: Enoxaparin 40 MG/0.4 ML Syringe SUBCUT SCH (20:25)
[2022-05-11] MEDS: methylPREDNISolone Sodium Succinate 125 MG/2 ML SDV IVPUSH SCH ×4 (00:13→16:27)
[2022-05-11] MEDS: Albuterol 0.083% 2.5 MG/3 ML Neb Soln NEB PRN (02:10)
[2022-05-11] MEDS: Sodium Chloride 0.9% 10 ML Syringe FLUSH PRN ×2 (04:45→09:01)
[2022-05-11] MEDS: Albuterol/Ipratropium 3.0-0.5 MG/3 ML Neb Soln NEB SCH ×3 (05:32→18:12)
[2022-05-11] MEDS: Levofloxacin/Dextrose 5%-Water 500 MG in Premix Bag 1 BAG IV SCH (05:32)
[2022-05-11] MEDS: Levothyroxine 100 MCG Tab PO SCH (05:33)
[2022-05-11] MEDS ORDERED: Morphine 2 MG/ML SYRINGE ONE (05:50)
[2022-05-11] MEDS: Morphine 2 MG/ML SYRINGE IVPUSH PRN ×2 (06:15→18:43)
[2022-05-11 08:15] LABS: ESTIMATED GFR 86 mL/min (>60)
[2022-05-11] MEDS: Insulin Lispro 100 Unit/ML 3 ML KwikPen SUBCUT SCH ×3 (08:53→18:12)
[2022-05-11] MEDS: Furosemide 20 MG Tab PO SCH (08:54)
[2022-05-11] MEDS: metFORMIN 500 MG Tab.ER PO SCH (08:54)
[2022-05-11] MEDS: Citalopram 20 MG Tab PO SCH (08:54)
[2022-05-11] MEDS: buPROPion 150 MG Tab.ER PO SCH (08:54)
[2022-05-11] MEDS: busPIRone 15 MG Tab PO SCH ×2 (08:54→20:57)
[2022-05-11] MEDS: Formoterol/Mometasone 200-5 MCG 8.8 GM Inhaler IH SCH ×2 (08:54→20:57)
[2022-05-11] MEDS: Tiotropium Bromide 4 GM Inhalation Spray (2.5mcg/1 dose; 10 doses) INH SCH (08:55)
[2022-05-11] MEDS: Psyllium Husk Powder Sugar Free 5.85 GM Packet PO SCH (08:55)
[2022-05-11] MEDS: ALPRAZolam 0.25 MG Tab PO SCH ×4 (08:57→20:58)
[2022-05-11] MEDS: Sodium Chloride 0.9% 1,000 ML IV SCH ×2 (09:03→18:58)
[2022-05-11] MEDS: Polyethylene Glycol 3350 Powder 17 GM Packet PO SCH (20:58)
[2022-05-11] MEDS: Enoxaparin 40 MG/0.4 ML Syringe SUBCUT SCH (20:58)
[2022-05-12] MEDS: Albuterol/Ipratropium 3.0-0.5 MG/3 ML Neb Soln NEB SCH ×5 (00:15→23:29)
[2022-05-12] MEDS: methylPREDNISolone Sodium Succinate 125 MG/2 ML SDV IVPUSH SCH ×4 (00:35→23:13)
[2022-05-12] MEDS: Levofloxacin/Dextrose 5%-Water 500 MG in Premix Bag 1 BAG IV SCH (05:25)
[2022-05-12] MEDS: Levothyroxine 100 MCG Tab PO SCH (05:27)
[2022-05-12] MEDS: Sodium Chloride 0.9% 1,000 ML IV SCH ×2 (05:32→05:35)
[2022-05-12] MEDS: Insulin Lispro 100 Unit/ML 3 ML KwikPen SUBCUT SCH ×3 (08:15→17:35)
[2022-05-12] MEDS: Sodium Chloride 0.9% 10 ML Syringe FLUSH PRN ×3 (08:17→23:14)
[2022-05-12] MEDS: Tiotropium Bromide 4 GM Inhalation Spray (2.5mcg/1 dose; 10 doses) INH SCH (08:21)
[2022-05-12] MEDS: busPIRone 15 MG Tab PO SCH ×2 (08:22→21:20)
[2022-05-12] MEDS: metFORMIN 500 MG Tab.ER PO SCH (08:22)
[2022-05-12] MEDS: buPROPion 150 MG Tab.ER PO SCH (08:22)
[2022-05-12] MEDS: Citalopram 20 MG Tab PO SCH (08:23)
[2022-05-12] MEDS: Formoterol/Mometasone 200-5 MCG 8.8 GM Inhaler IH SCH ×2 (08:23→21:20)
[2022-05-12] MEDS: Furosemide 20 MG Tab PO SCH (08:23)
[2022-05-12] MEDS: Psyllium Husk Powder Sugar Free 5.85 GM Packet PO SCH (08:24)
[2022-05-12] MEDS: ALPRAZolam 0.25 MG Tab PO SCH ×4 (08:35→21:24)
[2022-05-12] MEDS: Enoxaparin 40 MG/0.4 ML Syringe SUBCUT SCH (21:20)
[2022-05-12] MEDS: Polyethylene Glycol 3350 Powder 17 GM Packet PO SCH (21:21)
[2022-05-13] MEDS: Levothyroxine 100 MCG Tab PO SCH (04:59)
[2022-05-13] MEDS: Albuterol/Ipratropium 3.0-0.5 MG/3 ML Neb Soln NEB SCH (04:59)
[2022-05-13] MEDS: Levofloxacin/Dextrose 5%-Water 500 MG in Premix Bag 1 BAG IV SCH (05:00)
[2022-05-13] MEDS: Sodium Chloride 0.9% 10 ML Syringe FLUSH PRN (05:02)
[2022-05-13 07:31] LABS: ESTIMATED GFR 64 mL/min (>60)
[2022-05-13] MEDS: Insulin Lispro 100 Unit/ML 3 ML KwikPen SUBCUT SCH (08:52)
[2022-05-13] MEDS: methylPREDNISolone Sodium Succinate 125 MG/2 ML SDV IVPUSH SCH (08:57)
[2022-05-13] MEDS: metFORMIN 500 MG Tab.ER PO SCH (08:58)
[2022-05-13] MEDS: Citalopram 20 MG Tab PO SCH (08:58)
[2022-05-13] MEDS: busPIRone 15 MG Tab PO SCH (08:58)
[2022-05-13] MEDS: Formoterol/Mometasone 200-5 MCG 8.8 GM Inhaler IH SCH (08:58)
[2022-05-13] MEDS: Furosemide 20 MG Tab PO SCH (08:58)
[2022-05-13] MEDS: Tiotropium Bromide 4 GM Inhalation Spray (2.5mcg/1 dose; 10 doses) INH SCH (08:59)
[2022-05-13] MEDS: buPROPion 150 MG Tab.ER PO SCH (08:59)
[2022-05-13] MEDS: Psyllium Husk Powder Sugar Free 5.85 GM Packet PO SCH (08:59)
[2022-05-13] MEDS: ALPRAZolam 0.25 MG Tab PO SCH (09:01)
[2022-05-13 12:42] VITALS: BP 134/80; PULSE 86
== END 2022-05-13 10:35 | DRG 177 ==
LOC: FB.ED 20:12 → FB.MS 23:34 → UNDOADMIN 23:56 → UNDODISIN 05-13 10:35
PROVIDERS: ADMIT Family Medicine; ATTEND Family Medicine
DX: U07.1 COVID-19 (principal); J12.82 Pneumonia due to coronavirus disease 2019; J18.9 Pneumonia, unspecified organism; J44.1 Chronic obstructive pulmonary disease with (acute) exacerbation; R74.01 Elevation of levels of liver transaminase levels; K59.09 Other constipation; Z51.5 Encounter for palliative care; E11.42 Type 2 diabetes mellitus with diabetic polyneuropathy; J44.0 Chronic obstructive pulmonary disease with (acute) lower respiratory infection; H54.7 Unspecified visual loss; F17.200 Nicotine dependence, unspecified, uncomplicated; R53.1 Weakness; I27.20 Pulmonary hypertension, unspecified; W19.XXXA Unspecified fall, initial encounter; E78.00 Pure hypercholesterolemia, unspecified; Z88.8 Allergy status to other drugs, medicaments and biological substances; M19.90 Unspecified osteoarthritis, unspecified site; E11.9 Type 2 diabetes mellitus without complications; E03.9 Hypothyroidism, unspecified; Z79.899 Other long term (current) drug therapy; Z90.49 Acquired absence of other specified parts of digestive tract; Z90.710 Acquired absence of both cervix and uterus; Z85.3 Personal history of malignant neoplasm of breast; Z98.41 Cataract extraction status, right eye; Z98.42 Cataract extraction status, left eye; Z98.49 Cataract extraction status, unspecified eye; Z88.1 Allergy status to other antibiotic agents; Z88.0 Allergy status to penicillin; Z88.7 Allergy status to serum and vaccine; Z88.9 Allergy status to unspecified drugs, medicaments and biological substances; Z79.84 Long term (current) use of oral hypoglycemic drugs; Z79.890 Hormone replacement therapy; Z99.81 Dependence on supplemental oxygen; Z79.51 Long term (current) use of inhaled steroids
CPT/HCPCS: 36415; 71045; 72128; 72131; 72192; 73560-RT; 80053; 82550; 82947; 83036; 83605; 83880; 84443; 84484; 85025; 93005; 94640; 96361; 96374; 96375; 97161-GP; 97165-GO; 99285-25; A9270-GY; J1650; J1815; J1956; J2060; J2270; J2930; J3490; J7030; J7620; U0002

== ENCOUNTER 2022-10-10 10:28 | Emergency (ER) | payer MEDICARE, BC, MEDICAID ==
[2022-10-10] MEDS ORDERED: Albuterol/Ipratropium 3.0-0.5 MG/3 ML Neb Soln NEB ONE (10:35)
[2022-10-10] MEDS ORDERED: methylPREDNISolone Sodium Succinate 125 MG/2 ML SDV IM ONE (10:35)
[2022-10-10 13:02] VITALS: BP 124/54; PULSE 69
== END 2022-10-10 12:00 | disposition home or self-care (01) ==
LOC: FB.ED 10:28
DX: J44.1 Chronic obstructive pulmonary disease with (acute) exacerbation (principal); E78.00 Pure hypercholesterolemia, unspecified; M19.90 Unspecified osteoarthritis, unspecified site; E11.9 Type 2 diabetes mellitus without complications; E03.9 Hypothyroidism, unspecified; E66.9 Obesity, unspecified; Z79.899 Other long term (current) drug therapy; Z79.4 Long term (current) use of insulin; Z88.7 Allergy status to serum and vaccine; Z91.048 Other nonmedicinal substance allergy status; Z88.1 Allergy status to other antibiotic agents; Z88.0 Allergy status to penicillin
CPT/HCPCS: 71045; 94640; 96372; 99285; J2930; J7620

== ENCOUNTER 2023-01-17 17:49 | Inpatient (IN) | payer MEDICARE, BC, MEDICAID ==
[2023-01-17 18:31] LABS: ESTIMATED GFR 64 mL/min (>60)
[2023-01-17 18:40] LABS: BASE EXCESS VENOUS,POC 7 mmol/L (-2 - 3+); PCO2 VENOUS,POC 106 mmHg (41-51); PH VENOUS,POC 7.19 pH Units (7.32-7.43)
[2023-01-17] MEDS ORDERED: Albuterol/Ipratropium 3.0-0.5 MG/3 ML Neb Soln NEB ONE (19:08)
[2023-01-17] MEDS ORDERED: methylPREDNISolone Sodium Succinate 125 MG/2 ML SDV IVPUSH ONE (19:08)
[2023-01-17 19:10] LABS: CORONAVIRUS COVID-19 NAA NEGATIVE (NEGATIVE)
[2023-01-17] MEDS: Sodium Chloride 0.9% 10 ML Syringe FLUSH PRN (19:16)
[2023-01-17] MEDS ORDERED: Sodium Chloride 0.9% 500 ML IV ONE (20:14)
[2023-01-17 20:22] LABS: BASE EXCESS VENOUS,POC 11 mmol/L (-2 - 3+); PCO2 VENOUS,POC 71 mmHg (41-51); PH VENOUS,POC 7.36 pH Units (7.32-7.43)
[2023-01-17] MEDS ORDERED: Ondansetron 4 MG/2 ML SDV IV PRN (20:43)
[2023-01-17] MEDS ORDERED: Acetaminophen 325 MG Tab PO PRN (20:43)
[2023-01-17] MEDS ORDERED: Magnesium Sulfate/Water 2 GM in Premix Bag 1 BAG IV ONE (20:52)
[2023-01-17] MEDS ORDERED: Glucagon,Human Recombinant 1 MG Vial IM PRN (21:11)
[2023-01-17] MEDS ORDERED: 50% Dextrose in Water 50 ML Syringe IVPUSH PRN (21:11)
[2023-01-17] MEDS: Albuterol/Ipratropium 3.0-0.5 MG/3 ML Neb Soln NEB SCH (21:20)
[2023-01-17] MEDS ORDERED: Doxycycline 100 MG Vial ONE (21:59)
[2023-01-17] MEDS ORDERED: Magnesium Sulfate/Water 50 ML ONE (22:00)
[2023-01-17] MEDS ORDERED: Sodium Chloride 0.9% 1,000 ML IV ONE (22:00)
[2023-01-17] MEDS: Pantoprazole 40 MG Vial IVPUSH SCH (22:12)
[2023-01-17] MEDS: Doxycycline 100 MG in Sodium Chloride 0.9% 100 ML IV SCH (22:13)
[2023-01-17] MEDS: Enoxaparin 40 MG/0.4 ML Syringe SUBCUT SCH (22:13)
[2023-01-17] MEDS: Insulin Lispro 100 Unit/ML 3 ML KwikPen SUBCUT SCH (22:23)
[2023-01-18] MEDS: Albuterol 0.083% 2.5 MG/3 ML Neb Soln NEB PRN ×2 (03:32→13:10)
[2023-01-18] MEDS: Albuterol/Ipratropium 3.0-0.5 MG/3 ML Neb Soln NEB SCH ×4 (06:47→20:09)
[2023-01-18 07:54] LABS: ESTIMATED GFR 86 mL/min (>60)
[2023-01-18] MEDS ORDERED: methylPREDNISolone Sodium Succinate 40 MG/1 ML SDV IVPUSH SCH (08:00)
[2023-01-18 08:07] LABS: BASE EXCESS VENOUS,POC 7 mmol/L (-2 - 3+); PCO2 VENOUS,POC 54 mmHg (41-51)
[2023-01-18] MEDS: Insulin Lispro 100 Unit/ML 3 ML KwikPen SUBCUT SCH ×4 (08:27→20:06)
[2023-01-18] MEDS: Pantoprazole 40 MG Vial IVPUSH SCH ×2 (09:05→20:11)
[2023-01-18] MEDS: Doxycycline 100 MG in Sodium Chloride 0.9% 100 ML IV SCH ×2 (09:09→20:26)
[2023-01-18] MEDS: Budesonide 0.5 MG/2 ML Neb Susp NEB SCH ×2 (09:39→20:11)
[2023-01-18] MEDS: Sodium Chloride 0.9% 10 ML Syringe FLUSH PRN ×2 (10:04→20:10)
[2023-01-18] MEDS ORDERED: Acetaminophen 325 MG Tab PO PRN (10:24)
[2023-01-18] MEDS: ALPRAZolam 0.5 MG Tab PO SCH ×4 (10:34→20:17)
[2023-01-18] MEDS: busPIRone 15 MG Tab PO SCH ×2 (11:38→20:09)
[2023-01-18] MEDS: buPROPion 150 MG Tab.ER PO SCH (11:38)
[2023-01-18] MEDS: Levothyroxine 100 MCG Tab PO SCH (11:38)
[2023-01-18] MEDS: Citalopram 20 MG Tab PO SCH (11:38)
[2023-01-18] MEDS: Furosemide 20 MG Tab PO SCH (11:38)
[2023-01-18] MEDS: Fluticasone NASAL Spray 16 GM Bottle NASBOTH SCH (20:10)
[2023-01-18] MEDS: Enoxaparin 40 MG/0.4 ML Syringe SUBCUT SCH (20:11)
[2023-01-18] MEDS: TERBINAFINE HCL 250 MG PO SCH (20:12)
[2023-01-19] MEDS: Albuterol 0.083% 2.5 MG/3 ML Neb Soln NEB PRN ×2 (01:52→04:01)
[2023-01-19] MEDS: Albuterol/Ipratropium 3.0-0.5 MG/3 ML Neb Soln NEB SCH ×4 (06:26→21:28)
[2023-01-19] MEDS: Levothyroxine 100 MCG Tab PO SCH (06:26)
[2023-01-19] MEDS: Budesonide 0.5 MG/2 ML Neb Susp NEB SCH ×2 (06:26→21:28)
[2023-01-19 07:07] LABS: ESTIMATED GFR 74 mL/min (>60)
[2023-01-19] MEDS: Insulin Lispro 100 Unit/ML 3 ML KwikPen SUBCUT SCH ×4 (08:14→21:22)
[2023-01-19] MEDS: Furosemide 20 MG Tab PO SCH (08:16)
[2023-01-19] MEDS: Citalopram 20 MG Tab PO SCH (08:16)
[2023-01-19] MEDS: buPROPion 150 MG Tab.ER PO SCH (08:16)
[2023-01-19] MEDS: busPIRone 15 MG Tab PO SCH ×2 (08:16→21:28)
[2023-01-19] MEDS: Fluticasone NASAL Spray 16 GM Bottle NASBOTH SCH ×2 (08:16→21:28)
[2023-01-19] MEDS: Pantoprazole 40 MG Vial IVPUSH SCH ×2 (08:17→21:31)
[2023-01-19] MEDS: Doxycycline 100 MG in Sodium Chloride 0.9% 100 ML IV SCH ×2 (08:18→22:18)
[2023-01-19] MEDS: ALPRAZolam 0.5 MG Tab PO SCH ×4 (08:42→21:26)
[2023-01-19] MEDS ORDERED: methylPREDNISolone Sodium Succinate 40 MG/1 ML SDV IVPUSH SCH (09:00)
[2023-01-19] MEDS: Sennosides 8.6 MG Tab PO SCH (11:22)
[2023-01-19] MEDS: Enoxaparin 40 MG/0.4 ML Syringe SUBCUT SCH (21:29)
[2023-01-19] MEDS: Sodium Chloride 0.9% 10 ML Syringe FLUSH PRN ×2 (21:29→22:18)
[2023-01-19] MEDS: TERBINAFINE HCL 250 MG PO SCH (21:30)
[2023-01-20] MEDS ORDERED: hydrOXYzine HCl 25 MG Tab PO PRN (04:44)
[2023-01-20] MEDS: Levothyroxine 100 MCG Tab PO SCH (05:00)
[2023-01-20] MEDS: Budesonide 0.5 MG/2 ML Neb Susp NEB SCH ×3 (05:27→20:33)
[2023-01-20] MEDS: Albuterol/Ipratropium 3.0-0.5 MG/3 ML Neb Soln NEB SCH ×5 (05:27→20:32)
[2023-01-20] MEDS: Insulin Lispro 100 Unit/ML 3 ML KwikPen SUBCUT SCH ×4 (07:28→20:54)
[2023-01-20] MEDS: Fluticasone NASAL Spray 16 GM Bottle NASBOTH SCH ×2 (08:30→20:34)
[2023-01-20] MEDS: Citalopram 20 MG Tab PO SCH (08:31)
[2023-01-20] MEDS: Furosemide 20 MG Tab PO SCH (08:31)
[2023-01-20] MEDS: buPROPion 150 MG Tab.ER PO SCH (08:31)
[2023-01-20] MEDS: busPIRone 15 MG Tab PO SCH ×2 (08:31→20:35)
[2023-01-20] MEDS: Sennosides 8.6 MG Tab PO SCH (08:31)
[2023-01-20] MEDS: ALPRAZolam 0.5 MG Tab PO SCH ×2 (09:41→13:15)
[2023-01-20] MEDS: Doxycycline 100 MG Tab PO SCH ×2 (09:42→20:43)
[2023-01-20] MEDS: Pantoprazole 40 MG Tab.CR PO SCH ×2 (09:42→17:55)
[2023-01-20] MEDS ORDERED: Psyllium Husk Powder Sugar Free 5.85 GM Packet PO PRN (11:57)
[2023-01-20] MEDS: ALPRAZolam 0.25 MG Tab PO SCH ×2 (17:55→20:43)
[2023-01-20] MEDS: Albuterol 0.083% 2.5 MG/3 ML Neb Soln NEB PRN (18:35)
[2023-01-20] MEDS: Enoxaparin 40 MG/0.4 ML Syringe SUBCUT SCH (20:34)
[2023-01-20] MEDS: Codeine/guaiFENesin 10-100 MG/5 ML Syrup 5 ML Cup PO PRN (20:44)
[2023-01-21] MEDS: Levothyroxine 100 MCG Tab PO SCH (05:27)
[2023-01-21] MEDS: Albuterol/Ipratropium 3.0-0.5 MG/3 ML Neb Soln NEB SCH ×4 (07:12→20:52)
[2023-01-21] MEDS: Pantoprazole 40 MG Tab.CR PO SCH ×2 (07:12→17:38)
[2023-01-21] MEDS: Budesonide 0.5 MG/2 ML Neb Susp NEB SCH ×2 (07:12→20:52)
[2023-01-21] MEDS: Insulin Lispro 100 Unit/ML 3 ML KwikPen SUBCUT SCH ×4 (07:14→20:47)
[2023-01-21] MEDS: busPIRone 15 MG Tab PO SCH ×2 (08:26→20:51)
[2023-01-21] MEDS: Citalopram 20 MG Tab PO SCH (08:26)
[2023-01-21] MEDS: Sennosides 8.6 MG Tab PO SCH (08:26)
[2023-01-21] MEDS: Doxycycline 100 MG Tab PO SCH ×2 (08:26→20:51)
[2023-01-21] MEDS: buPROPion 150 MG Tab.ER PO SCH (08:26)
[2023-01-21] MEDS: ALPRAZolam 0.25 MG Tab PO SCH ×4 (08:26→20:51)
[2023-01-21] MEDS: Furosemide 20 MG Tab PO SCH (08:26)
[2023-01-21] MEDS: Fluticasone NASAL Spray 16 GM Bottle NASBOTH SCH ×2 (08:27→20:51)
[2023-01-21] MEDS ORDERED: Bisacodyl 10 MG Supp RECTAL ONE (09:29)
[2023-01-21] MEDS: Psyllium Husk Powder Sugar Free 5.85 GM Packet PO SCH ×2 (10:18→20:51)
[2023-01-21] MEDS: Codeine/guaiFENesin 10-100 MG/5 ML Syrup 5 ML Cup PO PRN (20:52)
[2023-01-21] MEDS: Enoxaparin 40 MG/0.4 ML Syringe SUBCUT SCH (20:53)
[2023-01-22] MEDS: Albuterol 0.083% 2.5 MG/3 ML Neb Soln NEB PRN ×2 (03:27→17:19)
[2023-01-22] MEDS: Pantoprazole 40 MG Tab.CR PO SCH ×2 (06:46→17:22)
[2023-01-22] MEDS: Albuterol/Ipratropium 3.0-0.5 MG/3 ML Neb Soln NEB SCH ×4 (06:46→20:21)
[2023-01-22] MEDS: Budesonide 0.5 MG/2 ML Neb Susp NEB SCH ×2 (06:46→20:21)
[2023-01-22] MEDS: Levothyroxine 100 MCG Tab PO SCH (06:46)
[2023-01-22] MEDS: Insulin Lispro 100 Unit/ML 3 ML KwikPen SUBCUT SCH ×4 (09:01→20:41)
[2023-01-22] MEDS: buPROPion 150 MG Tab.ER PO SCH (09:02)
[2023-01-22] MEDS: Furosemide 20 MG Tab PO SCH (09:02)
[2023-01-22] MEDS: Citalopram 20 MG Tab PO SCH (09:02)
[2023-01-22] MEDS: busPIRone 15 MG Tab PO SCH ×3 (09:02→20:23)
[2023-01-22] MEDS: Sennosides 8.6 MG Tab PO SCH (09:03)
[2023-01-22] MEDS: Doxycycline 100 MG Tab PO SCH ×2 (09:03→20:34)
[2023-01-22] MEDS: ALPRAZolam 0.25 MG Tab PO SCH ×4 (09:03→20:35)
[2023-01-22] MEDS: Fluticasone NASAL Spray 16 GM Bottle NASBOTH SCH ×2 (09:04→20:24)
[2023-01-22] MEDS: Psyllium Husk Powder Sugar Free 5.85 GM Packet PO SCH ×2 (09:15→20:34)
[2023-01-22 10:48] LABS: ESTIMATED GFR 74 mL/min (>60)
[2023-01-22] MEDS ORDERED: acetaZOLAMIDE 250 MG Tab PO ONE (10:51)
[2023-01-22] MEDS: Enoxaparin 40 MG/0.4 ML Syringe SUBCUT SCH (20:22)
[2023-01-23] MEDS: Albuterol/Ipratropium 3.0-0.5 MG/3 ML Neb Soln NEB SCH ×4 (06:01→21:28)
[2023-01-23] MEDS: Levothyroxine 100 MCG Tab PO SCH (06:01)
[2023-01-23] MEDS: Budesonide 0.5 MG/2 ML Neb Susp NEB SCH ×2 (06:02→21:29)
[2023-01-23] MEDS: Pantoprazole 40 MG Tab.CR PO SCH ×2 (06:30→16:59)
[2023-01-23 07:05] LABS: ESTIMATED GFR 74 mL/min (>60)
[2023-01-23] MEDS ORDERED: acetaZOLAMIDE 250 MG Tab PO ONE (08:43)
[2023-01-23] MEDS: Insulin Lispro 100 Unit/ML 3 ML KwikPen SUBCUT SCH ×2 (08:51→13:47)
[2023-01-23] MEDS: Doxycycline 100 MG Tab PO SCH ×2 (08:54→21:29)
[2023-01-23] MEDS: Sennosides 8.6 MG Tab PO SCH (08:55)
[2023-01-23] MEDS: busPIRone 15 MG Tab PO SCH ×3 (08:55→21:28)
[2023-01-23] MEDS: buPROPion 150 MG Tab.ER PO SCH (08:55)
[2023-01-23] MEDS: Furosemide 20 MG Tab PO SCH (08:55)
[2023-01-23] MEDS: Citalopram 20 MG Tab PO SCH (08:55)
[2023-01-23] MEDS: Fluticasone NASAL Spray 16 GM Bottle NASBOTH SCH ×2 (08:56→21:29)
[2023-01-23] MEDS: Psyllium Husk Powder Sugar Free 5.85 GM Packet PO SCH ×2 (08:56→21:29)
[2023-01-23] MEDS: ALPRAZolam 0.25 MG Tab PO SCH ×4 (09:04→21:31)
[2023-01-23] MEDS: Codeine/guaiFENesin 10-100 MG/5 ML Syrup 5 ML Cup PO SCH ×4 (09:38→21:31)
[2023-01-23] MEDS: Enoxaparin 40 MG/0.4 ML Syringe SUBCUT SCH (21:29)
[2023-01-24] MEDS: Levothyroxine 100 MCG Tab PO SCH (05:10)
[2023-01-24] MEDS: Albuterol/Ipratropium 3.0-0.5 MG/3 ML Neb Soln NEB SCH ×2 (06:02→10:28)
[2023-01-24] MEDS: Budesonide 0.5 MG/2 ML Neb Susp NEB SCH (06:03)
[2023-01-24] MEDS: Pantoprazole 40 MG Tab.CR PO SCH (06:33)
[2023-01-24 06:49] LABS: ESTIMATED GFR 64 mL/min (>60)
[2023-01-24] MEDS: busPIRone 15 MG Tab PO SCH (08:52)
[2023-01-24] MEDS: Fluticasone NASAL Spray 16 GM Bottle NASBOTH SCH (08:52)
[2023-01-24] MEDS: Citalopram 20 MG Tab PO SCH (08:52)
[2023-01-24] MEDS: buPROPion 150 MG Tab.ER PO SCH (08:52)
[2023-01-24] MEDS: Furosemide 20 MG Tab PO SCH (08:53)
[2023-01-24] MEDS: Sennosides 8.6 MG Tab PO SCH (08:53)
[2023-01-24] MEDS: Psyllium Husk Powder Sugar Free 5.85 GM Packet PO SCH (08:53)
[2023-01-24] MEDS: Doxycycline 100 MG Tab PO SCH (08:54)
[2023-01-24] MEDS: ALPRAZolam 0.25 MG Tab PO SCH (08:54)
[2023-01-24] MEDS: Codeine/guaiFENesin 10-100 MG/5 ML Syrup 5 ML Cup PO SCH (09:00)
[2023-01-24 11:08] VITALS: BP 126/51; PULSE 70
== END 2023-01-24 11:00 | disposition home health service (06) | DRG 189 ==
LOC: FB.ED 17:49 → FB.MS 20:57
PROVIDERS: ADMIT Emergency Medicine; ATTEND Family Medicine
PROC: 5A09357 Assistance with Respiratory Ventilation, Less than 24 Consecutive Hours, Continuous Positive Airway Pressure (ICD-10-PCS; principal; 2023-01-17)
DX: J96.21 Acute and chronic respiratory failure with hypoxia (principal); J44.1 Chronic obstructive pulmonary disease with (acute) exacerbation; J96.22 Acute and chronic respiratory failure with hypercapnia; Z20.822 Contact with and (suspected) exposure to COVID-19; F41.9 Anxiety disorder, unspecified; I50.9 Heart failure, unspecified; E86.0 Dehydration; Z51.5 Encounter for palliative care; E03.9 Hypothyroidism, unspecified; Z66 Do not resuscitate; F17.210 Nicotine dependence, cigarettes, uncomplicated; E66.3 Overweight; E11.22 Type 2 diabetes mellitus with diabetic chronic kidney disease; N18.9 Chronic kidney disease, unspecified; M19.90 Unspecified osteoarthritis, unspecified site; E66.9 Obesity, unspecified; E78.00 Pure hypercholesterolemia, unspecified; Z98.890 Other specified postprocedural states; Z79.899 Other long term (current) drug therapy; Z79.51 Long term (current) use of inhaled steroids; Z90.89 Acquired absence of other organs; Z98.41 Cataract extraction status, right eye; Z98.42 Cataract extraction status, left eye; Z90.49 Acquired absence of other specified parts of digestive tract; Z90.710 Acquired absence of both cervix and uterus
CPT/HCPCS: 0241U; 36415; 71045; 80048; 80053; 82947; 83605; 83735; 83880; 84484; 85025; 86140; 87040; 93005; 93010; 94150; 94640; 94660; 94762; 96361; 96374; 97161-GP; 99222; 99232; 99233; 99238; 99285; 99285-25; A9270-GY; C9113; J1650; J1815; J2920; J2930; J3475; J3490; J7030; J7040; J7620

== ENCOUNTER 2023-01-25 21:08 | Emergency (ER) | payer MEDICARE, BC, MEDICAID ==
[2023-01-25] MEDS ORDERED: Albuterol/Ipratropium 3.0-0.5 MG/3 ML Neb Soln NEB ONE (21:42)
[2023-01-25] MEDS ORDERED: LORazepam 2 MG/ML SDV IVPUSH ONE (21:42)
[2023-01-25] MEDS ORDERED: methylPREDNISolone Sodium Succinate 125 MG/2 ML SDV IVPUSH ONE (21:44)
[2023-01-25 22:43] LABS: BASE EXCESS VENOUS,POC 12 mmol/L (-2 - 3+); PCO2 VENOUS,POC 86 mmHg (41-51)
[2023-01-25 22:50] LABS: ESTIMATED GFR 74 mL/min (>60)
[2023-01-25] MEDS ORDERED: methylPREDNISolone Sodium Succinate 125 MG/2 ML SDV ONE (22:54)
[2023-01-25] MEDS ORDERED: Albuterol/Ipratropium 3.0-0.5 MG/3 ML Neb Soln ONE (22:55)
[2023-01-25] MEDS ORDERED: LORazepam 2 MG/ML SDV ONE (23:00)
[2023-01-25] MEDS: Sodium Chloride 0.9% 10 ML Syringe FLUSH PRN ×2 (23:04→23:07)
[2023-01-25] MEDS ORDERED: Azithromycin 500 MG Tab PO STA (23:34)
[2023-01-26] MEDS ORDERED: Budesonide 0.5 MG/2 ML Neb Susp NEB ONE (02:48)
[2023-01-26] MEDS ORDERED: Albuterol/Ipratropium 3.0-0.5 MG/3 ML Neb Soln NEB STA (02:48)
[2023-01-26] MEDS ORDERED: Albuterol/Ipratropium 3.0-0.5 MG/3 ML Neb Soln ONE (06:23)
[2023-01-26] MEDS ORDERED: Budesonide 0.5 MG/2 ML Neb Susp ONE (06:24)
[2023-01-26 11:06] VITALS: BP 131/53; PULSE 75
== END 2023-01-26 10:15 | disposition home or self-care (01) ==
LOC: FB.ED 21:08
DX: J44.1 Chronic obstructive pulmonary disease with (acute) exacerbation (principal); E11.9 Type 2 diabetes mellitus without complications; E66.9 Obesity, unspecified; E89.0 Postprocedural hypothyroidism; F17.210 Nicotine dependence, cigarettes, uncomplicated; Z91.048 Other nonmedicinal substance allergy status; Z88.1 Allergy status to other antibiotic agents; Z88.0 Allergy status to penicillin; Z88.7 Allergy status to serum and vaccine; Z79.51 Long term (current) use of inhaled steroids; Z79.899 Other long term (current) drug therapy
CPT/HCPCS: 36415; 71045; 80053; 83880; 84484; 85025; 93005; 94640; 96374; 96375; 99285-25; A9270-GY; J2060; J2930; J3490; J7620

== ENCOUNTER 2023-02-01 02:52 | Emergency (ER) | payer MEDICARE, BC, MEDICAID ==
[2023-02-01 04:03] VITALS: BP 150/88; PULSE 89
[2023-02-01 04:08] LABS: ESTIMATED GFR 86 mL/min (>60)
[2023-02-01] MEDS ORDERED: Albuterol/Ipratropium 3.0-0.5 MG/3 ML Neb Soln NEB ONE (04:12)
[2023-02-01 04:19] LABS: BASE EXCESS VENOUS,POC 13 mmol/L (-2 - 3+); PCO2 VENOUS,POC 78 mmHg (41-51); PH VENOUS,POC 7.34 pH Units (7.32-7.43)
[2023-02-01 05:33] LABS: CORONAVIRUS COVID-19 NAA NEGATIVE (NEGATIVE)
[2023-02-01] MEDS ORDERED: Acetaminophen 325 MG Tab PO ONE (05:47)
[2023-02-01] MEDS ORDERED: Acetaminophen 500 MG Tab PO ONE (05:51)
== END 2023-02-01 07:14 | disposition home or self-care (01) ==
LOC: FB.ED 02:52
DX: R09.89 Other specified symptoms and signs involving the circulatory and respiratory systems (principal); J44.9 Chronic obstructive pulmonary disease, unspecified; E11.9 Type 2 diabetes mellitus without complications; E03.9 Hypothyroidism, unspecified; E66.9 Obesity, unspecified; Z68.30 Body mass index [BMI] 30.0-30.9, adult; Z72.0 Tobacco use; Z91.048 Other nonmedicinal substance allergy status; Z88.0 Allergy status to penicillin; Z88.7 Allergy status to serum and vaccine; Z88.1 Allergy status to other antibiotic agents; Z20.822 Contact with and (suspected) exposure to COVID-19
CPT/HCPCS: 0240U; 36415; 71045; 80053; 83605; 83735; 84484; 85025; 86140; 87040; 94640; 99285; A9270-GY; J7620

== ENCOUNTER 2023-02-01 19:55 | Emergency (ER) | payer MEDICARE, BC, MEDICAID ==
[2023-02-01] MEDS ORDERED: Albuterol/Ipratropium 3.0-0.5 MG/3 ML Neb Soln NEB ONE (20:00)
[2023-02-01] MEDS ORDERED: Sodium Chloride 0.9% 10 ML Syringe FLUSH PRN (20:00)
[2023-02-01] MEDS ORDERED: methylPREDNISolone Sodium Succinate 125 MG/2 ML SDV IVPUSH ONE ×2 (20:00→21:56)
[2023-02-01] MEDS ORDERED: methylPREDNISolone Sodium Succinate 125 MG/2 ML SDV IM ONE (20:47)
[2023-02-01 21:57] VITALS: BP 146/66; PULSE 74
[2023-02-01] MEDS ORDERED: LORazepam 1 MG Tab PO ONE (21:58)
== END 2023-02-01 22:28 | disposition home or self-care (01) ==
LOC: FB.ED 19:55
DX: F41.9 Anxiety disorder, unspecified (principal); J44.9 Chronic obstructive pulmonary disease, unspecified; E11.9 Type 2 diabetes mellitus without complications; E03.9 Hypothyroidism, unspecified; E66.9 Obesity, unspecified; Z68.31 Body mass index [BMI] 31.0-31.9, adult; Z87.891 Personal history of nicotine dependence; Z88.1 Allergy status to other antibiotic agents; Z88.0 Allergy status to penicillin; Z88.7 Allergy status to serum and vaccine; Z91.048 Other nonmedicinal substance allergy status; Z79.899 Other long term (current) drug therapy
CPT/HCPCS: 99284; A9270-GY; J2930; J7620

== ENCOUNTER 2023-02-21 06:15 | Emergency (ER) | payer MEDICARE, BC, MEDICAID ==
[2023-02-21] MEDS: Sodium Chloride 0.9% 10 ML Syringe FLUSH PRN ×2 (06:35→07:39)
[2023-02-21 07:19] LABS: BASOPHILS PERCENT AUTO 0.5 % (0.2-1.5); EOSINOPHILS ABSOLUTE AUTO 0.4 x10-3/uL (0.0-0.8); EOSINOPHILS PERCENT AUTO 4.9 % (0.6-8.1); HEMOGLOBIN 11.7 g/dL (11.4-15.5); LYMPHOCYTES ABSOLUTE AUTO 0.8 x10-3/uL (1.0-4.4); LYMPHOCYTES PERCENT AUTO 10.6 % (18.4-52.1); MEAN CORPUSCULAR HEMOGLOBIN 28.8 pg (23.9-33.9); MEAN CORPUSCULAR HGB CONC 32.5 g/dL (31.9-34.8); MEAN CORPUSCULAR VOLUME 88.8 fL (76.7-100.5); MEAN PLATELET VOLUME 7.2 fL (7.1-12.4); MONOCYTES ABSOLUTE AUTO 0.5 x10-3/uL (0.3-1.0); MONOCYTES PERCENT AUTO 6.7 % (4.4-15.7); NEUTROPHILS ABSOLUTE AUTO 5.8 x10-3/uL (1.5-6.3); NEUTROPHILS PERCENT AUTO 77.3 % (30.8-76.2); PLATELET COUNT,PLT 316 x10(3)uL (151-488); RED BLOOD CELL COUNT 4.06 x10(6)uL (3.60-5.20); RED CELL DISTRIBUTION WIDTH 15.6 % (12.3-16.5); WHITE BLOOD CELL COUNT,WBC 7.5 x10-3/uL (3.0-10.3)
[2023-02-21] MEDS ORDERED: methylPREDNISolone Sodium Succinate 125 MG/2 ML SDV IVPUSH ONE (07:19)
[2023-02-21] MEDS ORDERED: Albuterol/Ipratropium 3.0-0.5 MG/3 ML Neb Soln NEB ONE (07:19)
[2023-02-21 07:23] LABS: BASE EXCESS VENOUS,POC 16 mmol/L (-2 - 3+); PCO2 VENOUS,POC 75 mmHg (41-51); PH VENOUS,POC 7.38 pH Units (7.32-7.43)
[2023-02-21 07:26] LABS: A/G RATIO 0.9; ALANINE AMINOTRANSFERASE,ALT 19 U/L (12-36); ALBUMIN 3.2 g/dL (3.2-4.6); ALKALINE PHOSPHATASE 108 IU/L (56-112); ASPARTATE AMNIOTRANSFERASE,AST 17 IU/L (5-25); BILIRUBIN TOTAL 0.4 mg/dL (0.1-1.3); BLOOD UREA NITROGEN,BUN 13 mg/dL (7-18); BUN/CREATININE RATIO 18.6 (9-20); CALCIUM 9.4 mg/dL (8.6-10.2); CHLORIDE,CL 98 mmol/L (100-110); CREATININE 0.7 mg/dL (0.55-1.02); EST CRCL DRUG DOSING (CG) 53.51 mL/min; ESTIMATED GFR 86 mL/min (>60); GLUCOSE RANDOM 172 mg/dL (80-116); POTASSIUM,K 4.5 mmol/L (3.5-5.3); PROTEIN TOTAL,TP 6.7 g/dL (6.0-8.0); SODIUM,NA 141 mmol/L (135-145)
[2023-02-21 07:27] LABS: CARBON DIOXIDE,CO2 41 mmol/L (21-32)
[2023-02-21 07:33] LABS: TROPONIN I 20.5 pg/mL (4.0-60.3)
[2023-02-21 09:03] VITALS: BP 135/41; PULSE 71
== END 2023-02-21 10:00 | disposition home or self-care (01) ==
LOC: FB.ED 06:15
DX: J44.1 Chronic obstructive pulmonary disease with (acute) exacerbation (principal); F17.210 Nicotine dependence, cigarettes, uncomplicated; E03.9 Hypothyroidism, unspecified; E11.9 Type 2 diabetes mellitus without complications; E66.9 Obesity, unspecified; Z68.27 Body mass index [BMI] 27.0-27.9, adult; Z79.899 Other long term (current) drug therapy; Z88.0 Allergy status to penicillin; Z88.1 Allergy status to other antibiotic agents; Z88.7 Allergy status to serum and vaccine; Z91.048 Other nonmedicinal substance allergy status
CPT/HCPCS: 36415; 71045; 80053; 83880; 84484; 85025; 96374; 99285; J2930; J3490; J7620

== ENCOUNTER 2023-03-11 01:42 | Inpatient (IN) | payer MEDICARE, BC, MEDICAID ==
[2023-03-11] MEDS ORDERED: methylPREDNISolone Sodium Succinate 125 MG/2 ML SDV IVPUSH ONE (01:45)
[2023-03-11] MEDS ORDERED: Albuterol/Ipratropium 3.0-0.5 MG/3 ML Neb Soln NEB ONE (02:13)
[2023-03-11 02:24] LABS: BASE EXCESS VENOUS,POC 9 mmol/L (-2 - 3+); PCO2 VENOUS,POC 80 mmHg (41-51)
[2023-03-11 02:26] LABS: BASOPHILS ABSOLUTE AUTO 0.1 x10-3/uL (0.0-0.1); BASOPHILS PERCENT AUTO 0.7 % (0.2-1.5); EOSINOPHILS ABSOLUTE AUTO 0.3 x10-3/uL (0.0-0.8); EOSINOPHILS PERCENT AUTO 4.3 % (0.6-8.1); HEMATOCRIT 36.9 % (34.2-48.2); HEMOGLOBIN 11.9 g/dL (11.4-15.5); LYMPHOCYTES ABSOLUTE AUTO 0.9 x10-3/uL (1.0-4.4); LYMPHOCYTES PERCENT AUTO 12.3 % (18.4-52.1); MEAN CORPUSCULAR HEMOGLOBIN 28.7 pg (23.9-33.9); MEAN CORPUSCULAR HGB CONC 32.2 g/dL (31.9-34.8); MEAN CORPUSCULAR VOLUME 89.1 fL (76.7-100.5); MEAN PLATELET VOLUME 7.6 fL (7.1-12.4); MONOCYTES ABSOLUTE AUTO 0.6 x10-3/uL (0.3-1.0); MONOCYTES PERCENT AUTO 8.2 % (4.4-15.7); NEUTROPHILS ABSOLUTE AUTO 5.4 x10-3/uL (1.5-6.3); NEUTROPHILS PERCENT AUTO 74.5 % (30.8-76.2); PLATELET COUNT,PLT 364 x10(3)uL (151-488); RED BLOOD CELL COUNT 4.14 x10(6)uL (3.60-5.20); RED CELL DISTRIBUTION WIDTH 16.1 % (12.3-16.5); WHITE BLOOD CELL COUNT,WBC 7.3 x10-3/uL (3.0-10.3)
[2023-03-11 02:27] LABS: A/G RATIO 0.9; ALANINE AMINOTRANSFERASE,ALT 22 U/L (12-36); ALBUMIN 3.7 g/dL (3.2-4.6); ALKALINE PHOSPHATASE 125 IU/L (56-112); ASPARTATE AMNIOTRANSFERASE,AST 29 IU/L (5-25); BILIRUBIN TOTAL 0.4 mg/dL (0.1-1.3); BLOOD UREA NITROGEN,BUN 18 mg/dL (7-18); BUN/CREATININE RATIO 25.7 (9-20); CHLORIDE,CL 99 mmol/L (100-110); CREATININE 0.7 mg/dL (0.55-1.02); ESTIMATED GFR 86 mL/min (>60); GLUCOSE RANDOM 154 mg/dL (80-116); POTASSIUM,K 4.8 mmol/L (3.5-5.3); PROTEIN TOTAL,TP 7.7 g/dL (6.0-8.0); SODIUM,NA 140 mmol/L (135-145)
[2023-03-11 02:29] LABS: CARBON DIOXIDE,CO2 41 mmol/L (21-32)
[2023-03-11] MEDS: Sodium Chloride 0.9% 10 ML Syringe FLUSH PRN (02:31)
[2023-03-11 02:33] LABS: TROPONIN I 16.9 pg/mL (4.0-60.3)
[2023-03-11] MEDS ORDERED: Ondansetron 4 MG/2 ML SDV IV PRN (02:48)
[2023-03-11] MEDS ORDERED: Acetaminophen 325 MG Tab PO PRN (02:48)
[2023-03-11] MEDS ORDERED: Albuterol 0.083% 2.5 MG/3 ML Neb Soln NEB PRN (02:48)
[2023-03-11] MEDS ORDERED: Albuterol/Ipratropium 3.0-0.5 MG/3 ML Neb Soln NEB SCH (07:00)
[2023-03-11] MEDS ORDERED: guaiFENesin/Dextromethorphan 100-10 MG/5 ML Soln 5 ML Cup PO PRN (09:07)
[2023-03-11] MEDS ORDERED: busPIRone 15 MG Tab PO SCH (09:15)
[2023-03-11] MEDS ORDERED: methylPREDNISolone Sodium Succinate 125 MG/2 ML SDV IVPUSH SCH (10:00)
[2023-03-11] MEDS: Enoxaparin 40 MG/0.4 ML Syringe SUBCUT SCH (10:47)
[2023-03-11] MEDS: Citalopram 20 MG Tab PO SCH (10:49)
[2023-03-11] MEDS: Furosemide 20 MG Tab PO SCH (10:50)
[2023-03-11] MEDS: Psyllium Husk Powder Sugar Free 5.85 GM Packet PO SCH ×2 (10:51→21:17)
[2023-03-11] MEDS: predniSONE 20 MG Tab PO SCH (10:51)
[2023-03-11] MEDS: buPROPion 150 MG Tab.ER PO SCH (10:52)
[2023-03-11] MEDS: Azithromycin 500 MG Tab PO SCH (10:52)
[2023-03-11] MEDS: INCRUSE ELLIPTA INH SCH (10:53)
[2023-03-11] MEDS: SYMBICORT INH SCH ×2 (10:53→20:35)
[2023-03-11] MEDS: busPIRone 5 MG Tab PO SCH ×2 (10:57→20:35)
[2023-03-11 11:55] LABS: INFLUENZA A NAA NEGATIVE (NEGATIVE); INFLUENZA B NAA NEGATIVE (NEGATIVE)
[2023-03-11 11:57] LABS: CORONAVIRUS COVID-19 NAA NEGATIVE (NEGATIVE)
[2023-03-11] MEDS: ALPRAZolam 0.25 MG Tab PO SCH ×3 (12:49→20:35)
[2023-03-12] MEDS: Albuterol/Ipratropium 3.0-0.5 MG/3 ML Neb Soln NEB PRN ×4 (06:24→21:07)
[2023-03-12 06:42] LABS: BASOPHILS PERCENT AUTO 0.2 % (0.2-1.5); EOSINOPHILS ABSOLUTE AUTO 0.1 x10-3/uL (0.0-0.8); EOSINOPHILS PERCENT AUTO 1.1 % (0.6-8.1); HEMATOCRIT 32.7 % (34.2-48.2); HEMOGLOBIN 10.7 g/dL (11.4-15.5); LYMPHOCYTES ABSOLUTE AUTO 1.3 x10-3/uL (1.0-4.4); MEAN CORPUSCULAR HEMOGLOBIN 28.6 pg (23.9-33.9); MEAN CORPUSCULAR HGB CONC 32.7 g/dL (31.9-34.8); MEAN CORPUSCULAR VOLUME 87.3 fL (76.7-100.5); MEAN PLATELET VOLUME 7.4 fL (7.1-12.4); MONOCYTES ABSOLUTE AUTO 0.9 x10-3/uL (0.3-1.0); MONOCYTES PERCENT AUTO 8.2 % (4.4-15.7); NEUTROPHILS ABSOLUTE AUTO 8.4 x10-3/uL (1.5-6.3); NEUTROPHILS PERCENT AUTO 78.5 % (30.8-76.2); PLATELET COUNT,PLT 343 x10(3)uL (151-488); RED BLOOD CELL COUNT 3.74 x10(6)uL (3.60-5.20); RED CELL DISTRIBUTION WIDTH 15.6 % (12.3-16.5); WHITE BLOOD CELL COUNT,WBC 10.7 x10-3/uL (3.0-10.3)
[2023-03-12 06:44] LABS: BASE EXCESS VENOUS,POC 13 mmol/L (-2 - 3+); PCO2 VENOUS,POC 71 mmHg (41-51); PH VENOUS,POC 7.37 pH Units (7.32-7.43)
[2023-03-12 06:58] LABS: ALANINE AMINOTRANSFERASE,ALT 18 U/L (12-36); ALBUMIN 3.2 g/dL (3.2-4.6); ALKALINE PHOSPHATASE 101 IU/L (56-112); ASPARTATE AMNIOTRANSFERASE,AST 15 IU/L (5-25); BILIRUBIN TOTAL 0.4 mg/dL (0.1-1.3); BLOOD UREA NITROGEN,BUN 22 mg/dL (7-18); BUN/CREATININE RATIO 27.5 (9-20); CHLORIDE,CL 99 mmol/L (100-110); CREATININE 0.8 mg/dL (0.55-1.02); EST CRCL DRUG DOSING (CG) 46.82 mL/min; ESTIMATED GFR 74 mL/min (>60); GLUCOSE RANDOM 140 mg/dL (80-116); POTASSIUM,K 3.9 mmol/L (3.5-5.3); PROTEIN TOTAL,TP 6.3 g/dL (6.0-8.0); SODIUM,NA 139 mmol/L (135-145)
[2023-03-12 06:59] LABS: CARBON DIOXIDE,CO2 40 mmol/L (21-32)
[2023-03-12] MEDS ORDERED: Levothyroxine 100 MCG Tab PO SCH (07:30)
[2023-03-12] MEDS: ALPRAZolam 0.25 MG Tab PO SCH ×4 (09:13→20:38)
[2023-03-12] MEDS: predniSONE 20 MG Tab PO SCH (09:13)
[2023-03-12] MEDS: busPIRone 5 MG Tab PO SCH ×2 (09:14→20:38)
[2023-03-12] MEDS: Azithromycin 500 MG Tab PO SCH (09:14)
[2023-03-12] MEDS: Enoxaparin 40 MG/0.4 ML Syringe SUBCUT SCH (09:14)
[2023-03-12] MEDS: Citalopram 20 MG Tab PO SCH (09:14)
[2023-03-12] MEDS: Furosemide 20 MG Tab PO SCH (09:14)
[2023-03-12] MEDS: INCRUSE ELLIPTA INH SCH (09:15)
[2023-03-12] MEDS: Psyllium Husk Powder Sugar Free 5.85 GM Packet PO SCH ×2 (09:15→20:39)
[2023-03-12] MEDS: SYMBICORT INH SCH ×2 (09:16→20:38)
[2023-03-12] MEDS ORDERED: Tiotropium Bromide 4 GM Inhalation Spray (2.5mcg/1 dose; 10 doses) INH SCH ×2 (09:45→21:00)
[2023-03-12] MEDS: buPROPion 150 MG Tab.ER PO SCH (09:53)
[2023-03-12] MEDS: Sodium Chloride 0.9% 10 ML Syringe FLUSH PRN (16:31)
[2023-03-13] MEDS: Albuterol/Ipratropium 3.0-0.5 MG/3 ML Neb Soln NEB PRN (04:56)
[2023-03-13] MEDS ORDERED: Levothyroxine 100 MCG Tab PO SCH (06:00)
[2023-03-13 06:45] LABS: BASOPHILS ABSOLUTE AUTO 0.1 x10-3/uL (0.0-0.1); BASOPHILS PERCENT AUTO 0.7 % (0.2-1.5); EOSINOPHILS ABSOLUTE AUTO 0.2 x10-3/uL (0.0-0.8); EOSINOPHILS PERCENT AUTO 1.6 % (0.6-8.1); HEMATOCRIT 34.6 % (34.2-48.2); HEMOGLOBIN 11.3 g/dL (11.4-15.5); LYMPHOCYTES ABSOLUTE AUTO 1.6 x10-3/uL (1.0-4.4); LYMPHOCYTES PERCENT AUTO 16.6 % (18.4-52.1); MEAN CORPUSCULAR HEMOGLOBIN 28.5 pg (23.9-33.9); MEAN CORPUSCULAR HGB CONC 32.5 g/dL (31.9-34.8); MEAN CORPUSCULAR VOLUME 87.7 fL (76.7-100.5); MEAN PLATELET VOLUME 7.7 fL (7.1-12.4); MONOCYTES ABSOLUTE AUTO 0.8 x10-3/uL (0.3-1.0); MONOCYTES PERCENT AUTO 8.3 % (4.4-15.7); NEUTROPHILS ABSOLUTE AUTO 7.1 x10-3/uL (1.5-6.3); NEUTROPHILS PERCENT AUTO 72.8 % (30.8-76.2); PLATELET COUNT,PLT 347 x10(3)uL (151-488); RED BLOOD CELL COUNT 3.95 x10(6)uL (3.60-5.20); RED CELL DISTRIBUTION WIDTH 16.1 % (12.3-16.5); WHITE BLOOD CELL COUNT,WBC 9.8 x10-3/uL (3.0-10.3)
[2023-03-13 06:49] LABS: BLOOD UREA NITROGEN,BUN 20 mg/dL (7-18); CALCIUM 9.2 mg/dL (8.6-10.2); CHLORIDE,CL 95 mmol/L (100-110); CREATININE 0.8 mg/dL (0.55-1.02); EST CRCL DRUG DOSING (CG) 46.82 mL/min; ESTIMATED GFR 74 mL/min (>60); GLUCOSE RANDOM 135 mg/dL (80-116); POTASSIUM,K 4.2 mmol/L (3.5-5.3); SODIUM,NA 137 mmol/L (135-145)
[2023-03-13 06:50] LABS: CARBON DIOXIDE,CO2 40 mmol/L (21-32)
[2023-03-13] MEDS: buPROPion 150 MG Tab.ER PO SCH (08:36)
[2023-03-13] MEDS: SYMBICORT INH SCH (08:37)
[2023-03-13] MEDS: Enoxaparin 40 MG/0.4 ML Syringe SUBCUT SCH (08:37)
[2023-03-13] MEDS: Citalopram 20 MG Tab PO SCH (08:37)
[2023-03-13] MEDS: Furosemide 20 MG Tab PO SCH (08:37)
[2023-03-13] MEDS: ALPRAZolam 0.25 MG Tab PO SCH (08:39)
[2023-03-13] MEDS: Psyllium Husk Powder Sugar Free 5.85 GM Packet PO SCH (08:41)
[2023-03-13] MEDS ORDERED: predniSONE 10 MG Tab PO SCH (09:00)
[2023-03-13] MEDS ORDERED: busPIRone 15 MG Tab PO SCH (09:00)
[2023-03-13] MEDS: Azithromycin 500 MG Tab PO SCH (09:50)
[2023-03-13 10:59] VITALS: BP 153/70; PULSE 78
[2023-03-13] MEDS ORDERED: Psyllium Husk Powder Sugar Free 5.85 GM Packet PO SCH (21:00)
== END 2023-03-13 10:35 | disposition home or self-care (01) | DRG 189 ==
LOC: FB.ED 01:42 → FB.MS 02:48
PROVIDERS: ADMIT Emergency Medicine; ATTEND Family Medicine
DX: J96.21 Acute and chronic respiratory failure with hypoxia (principal); J96.11 Chronic respiratory failure with hypoxia; J96.12 Chronic respiratory failure with hypercapnia; F17.200 Nicotine dependence, unspecified, uncomplicated; E87.20 Acidosis, unspecified; I50.9 Heart failure, unspecified; J44.1 Chronic obstructive pulmonary disease with (acute) exacerbation; J96.22 Acute and chronic respiratory failure with hypercapnia; E11.9 Type 2 diabetes mellitus without complications; I25.10 Atherosclerotic heart disease of native coronary artery without angina pectoris; E78.00 Pure hypercholesterolemia, unspecified; E03.9 Hypothyroidism, unspecified; F17.210 Nicotine dependence, cigarettes, uncomplicated; Z79.52 Long term (current) use of systemic steroids; Z20.822 Contact with and (suspected) exposure to COVID-19; M19.90 Unspecified osteoarthritis, unspecified site; E66.9 Obesity, unspecified; I87.2 Venous insufficiency (chronic) (peripheral); F41.9 Anxiety disorder, unspecified; G43.909 Migraine, unspecified, not intractable, without status migrainosus; I27.20 Pulmonary hypertension, unspecified; Z99.81 Dependence on supplemental oxygen; Z79.890 Hormone replacement therapy; Z79.899 Other long term (current) drug therapy; Z95.1 Presence of aortocoronary bypass graft; Z98.890 Other specified postprocedural states; Z98.49 Cataract extraction status, unspecified eye; Z90.89 Acquired absence of other organs; Z90.49 Acquired absence of other specified parts of digestive tract; Z90.710 Acquired absence of both cervix and uterus; Z88.1 Allergy status to other antibiotic agents; Z88.0 Allergy status to penicillin; Z68.28 Body mass index [BMI] 28.0-28.9, adult
CPT/HCPCS: 0240U; 36415; 71045; 80048; 80053; 83880; 84484; 85025; 93005; 94640; 96374; 99285-25; A9270-GY; J1650; J2930; J3490; J7512; J7620

== ENCOUNTER 2023-04-01 20:10 | Emergency (ER) | payer MEDICARE, BC, MEDICAID ==
[2023-04-01 20:32] LABS: BASOPHILS PERCENT AUTO 0.4 % (0.2-1.5); EOSINOPHILS ABSOLUTE AUTO 0.4 x10-3/uL (0.0-0.8); EOSINOPHILS PERCENT AUTO 4.8 % (0.6-8.1); HEMATOCRIT 36.7 % (34.2-48.2); HEMOGLOBIN 11.9 g/dL (11.4-15.5); LYMPHOCYTES PERCENT AUTO 12.4 % (18.4-52.1); MEAN CORPUSCULAR HEMOGLOBIN 28.9 pg (23.9-33.9); MEAN CORPUSCULAR HGB CONC 32.4 g/dL (31.9-34.8); MEAN CORPUSCULAR VOLUME 89.1 fL (76.7-100.5); MEAN PLATELET VOLUME 7.2 fL (7.1-12.4); MONOCYTES ABSOLUTE AUTO 0.6 x10-3/uL (0.3-1.0); MONOCYTES PERCENT AUTO 7.2 % (4.4-15.7); NEUTROPHILS PERCENT AUTO 75.2 % (30.8-76.2); PLATELET COUNT,PLT 302 x10(3)uL (151-488); RED BLOOD CELL COUNT 4.12 x10(6)uL (3.60-5.20); RED CELL DISTRIBUTION WIDTH 15.8 % (12.3-16.5); WHITE BLOOD CELL COUNT,WBC 7.9 x10-3/uL (3.0-10.3)
[2023-04-01 20:36] LABS: BLOOD UREA NITROGEN,BUN 14 mg/dL (7-18); BUN/CREATININE RATIO 15.6 (9-20); CALCIUM 8.9 mg/dL (8.6-10.2); CHLORIDE,CL 101 mmol/L (100-110); CREATININE 0.9 mg/dL (0.55-1.02); ESTIMATED GFR 63 mL/min (>60); GLUCOSE RANDOM 163 mg/dL (80-116); POTASSIUM,K 4.4 mmol/L (3.5-5.3); SODIUM,NA 142 mmol/L (135-145)
[2023-04-01 20:38] LABS: CARBON DIOXIDE,CO2 41 mmol/L (21-32)
[2023-04-02 01:36] VITALS: BP 126/49; PULSE 71
== END 2023-04-02 00:30 | disposition home or self-care (01) ==
LOC: FB.ED 20:10
DX: F41.9 Anxiety disorder, unspecified (principal); J44.9 Chronic obstructive pulmonary disease, unspecified; E11.9 Type 2 diabetes mellitus without complications; E03.9 Hypothyroidism, unspecified; E66.9 Obesity, unspecified; Z68.42 Body mass index [BMI] 45.0-49.9, adult; Z79.899 Other long term (current) drug therapy; Z88.0 Allergy status to penicillin; Z88.1 Allergy status to other antibiotic agents; Z91.048 Other nonmedicinal substance allergy status; Z88.7 Allergy status to serum and vaccine
CPT/HCPCS: 36415; 71045; 80048; 83880; 84484; 85025; 93005; 99285

== ENCOUNTER 2023-05-01 07:41 | Inpatient (IN) | payer MEDICARE, BC, MEDICAID ==
[2023-05-01] MEDS ORDERED: methylPREDNISolone Sodium Succinate 125 MG/2 ML SDV IVPUSH ONE (07:52)
[2023-05-01] MEDS ORDERED: Albuterol/Ipratropium 3.0-0.5 MG/3 ML Neb Soln NEB ONE (07:52)
[2023-05-01 08:56] LABS: BASOPHILS PERCENT AUTO 0.5 % (0.2-1.5); EOSINOPHILS ABSOLUTE AUTO 0.6 x10-3/uL (0.0-0.8); EOSINOPHILS PERCENT AUTO 6.7 % (0.6-8.1); HEMATOCRIT 35.7 % (34.2-48.2); HEMOGLOBIN 11.7 g/dL (11.4-15.5); LYMPHOCYTES ABSOLUTE AUTO 0.7 x10-3/uL (1.0-4.4); LYMPHOCYTES PERCENT AUTO 8.4 % (18.4-52.1); MEAN CORPUSCULAR HEMOGLOBIN 28.8 pg (23.9-33.9); MEAN CORPUSCULAR HGB CONC 32.7 g/dL (31.9-34.8); MEAN PLATELET VOLUME 7.2 fL (7.1-12.4); MONOCYTES ABSOLUTE AUTO 0.7 x10-3/uL (0.3-1.0); MONOCYTES PERCENT AUTO 8.6 % (4.4-15.7); NEUTROPHILS ABSOLUTE AUTO 6.3 x10-3/uL (1.5-6.3); NEUTROPHILS PERCENT AUTO 75.8 % (30.8-76.2); PLATELET COUNT,PLT 343 x10(3)uL (151-488); RED BLOOD CELL COUNT 4.06 x10(6)uL (3.60-5.20); RED CELL DISTRIBUTION WIDTH 15.3 % (12.3-16.5); WHITE BLOOD CELL COUNT,WBC 8.3 x10-3/uL (3.0-10.3)
[2023-05-01] MEDS: Sodium Chloride 0.9% 10 ML Syringe FLUSH PRN (08:59)
[2023-05-01 09:03] LABS: BASE EXCESS VENOUS,POC 10 mmol/L (-2 - 3+); PCO2 VENOUS,POC 64 mmHg (41-51); PH VENOUS,POC 7.38 pH Units (7.32-7.43)
[2023-05-01 09:03] LABS: BLOOD UREA NITROGEN,BUN 14 mg/dL (7-18); BUN/CREATININE RATIO 15.6 (9-20); CALCIUM 9.3 mg/dL (8.6-10.2); CARBON DIOXIDE,CO2 39 mmol/L (21-32); CHLORIDE,CL 96 mmol/L (100-110); CREATININE 0.9 mg/dL (0.55-1.02); ESTIMATED GFR 63 mL/min (>60); GLUCOSE RANDOM 147 mg/dL (80-116); POTASSIUM,K 4.3 mmol/L (3.5-5.3); SODIUM,NA 134 mmol/L (135-145)
[2023-05-01 09:09] LABS: ALANINE AMINOTRANSFERASE,ALT 19 U/L (12-36); ALBUMIN 3.5 g/dL (3.2-4.6); ALKALINE PHOSPHATASE 112 IU/L (56-112); ASPARTATE AMNIOTRANSFERASE,AST 16 IU/L (5-25); BILIRUBIN TOTAL 0.3 mg/dL (0.1-1.3)
[2023-05-01 09:16] LABS: TROPONIN I 21.2 pg/mL (4.0-60.3)
[2023-05-01 09:51] LABS: LACTIC ACID 0.4 mmol/L (0.4-2.0)
[2023-05-01 09:53] LABS: BILIRUBIN,URINE NEGATIVE (NEGATIVE); GLUCOSE,URINE NORMAL (NORMAL); KETONES,URINE NEGATIVE (NEGATIVE); LEUKOCYTE ESTERASE,URINE LARGE (NEGATIVE); NITRITE,URINE NEGATIVE (NEGATIVE); OCCULT BLOOD,URINE MODERATE (NEGATIVE); PH,URINE 6.5 (5.0-6.5); PROTEIN,URINE TRACE mg/dL (NEGATIVE); UROBILINOGEN,URINE 1 mg/dL (NEGATIVE)
[2023-05-01 09:57] LABS: APPEARANCE,URINE SLIGHTLY CLOUDY (CLEAR); COLOR,URINE YELLOW (YELLOW)
[2023-05-01 09:59] LABS: RBC,URINE 0-5 (0-5); SQUAMOUS EPITHELIAL CELLS,UR MODERATE (NS,R,O); WBC,URINE >100 (0-5)
[2023-05-01 10:00] LABS: BACTERIA,URINE MODERATE (NS)
[2023-05-01] MEDS ORDERED: Iopamidol 755 Mg/ML 100 ML Bottle IV ONE (10:06)
[2023-05-01] MEDS: Sodium Chloride 0.9% 1,000 ML IV SCH (10:40)
[2023-05-01] MEDS: Sulfamethoxazole/Trimethoprim 800-160 MG Tab PO SCH ×2 (10:41→20:22)
[2023-05-01] MEDS ORDERED: Sennosides/Docusate Sodium 50-8.6 MG Tab PO PRN (10:45)
[2023-05-01] MEDS ORDERED: Albuterol 0.083% 2.5 MG/3 ML Neb Soln NEB PRN (10:45)
[2023-05-01] MEDS ORDERED: Ondansetron 4 MG/2 ML SDV IV PRN (10:45)
[2023-05-01] MEDS ORDERED: Acetaminophen 325 MG Tab PO PRN (10:45)
[2023-05-01] MEDS ORDERED: Clindamycin in 0.9 % Sod Chlor 600 MG/50 ML BAG IV SCH (11:00)
[2023-05-01] MEDS ORDERED: Albuterol/Ipratropium 3.0-0.5 MG/3 ML Neb Soln NEB SCH (11:00)
[2023-05-01] MEDS: Doxycycline 100 MG in Sodium Chloride 0.9% 100 ML IV SCH ×2 (12:39→22:45)
[2023-05-01] MEDS: Pantoprazole 40 MG Tab.CR PO SCH (13:51)
[2023-05-01] MEDS: Enoxaparin 40 MG/0.4 ML Syringe SUBCUT SCH (13:51)
[2023-05-01] MEDS: Albuterol/Ipratropium 3.0-0.5 MG/3 ML Neb Soln NEB SCH ×2 (16:35→20:23)
[2023-05-01] MEDS: methylPREDNISolone Sodium Succinate 40 MG/1 ML SDV IVPUSH SCH (16:35)
[2023-05-01] MEDS: ALPRAZolam 0.25 MG Tab PO PRN ×2 (18:05→23:10)
[2023-05-01] MEDS: Citalopram 20 MG Tab PO SCH (20:22)
[2023-05-01] MEDS: busPIRone 15 MG Tab PO SCH (20:22)
[2023-05-01] MEDS: Formoterol/Mometasone 200-5 MCG 8.8 GM Inhaler IH SCH (20:23)
[2023-05-01] MEDS: Tiotropium Bromide 4 GM Inhalation Spray (2.5mcg/1 dose; 10 doses) INH SCH (20:23)
[2023-05-01] MEDS: Fluticasone NASAL Spray 16 GM Bottle NASBOTH SCH (20:23)
[2023-05-02] MEDS: Sodium Chloride 0.9% 1,000 ML IV SCH (00:02)
[2023-05-02] MEDS: methylPREDNISolone Sodium Succinate 40 MG/1 ML SDV IVPUSH SCH ×3 (00:09→16:58)
[2023-05-02] MEDS: Levothyroxine 100 MCG Tab PO SCH (05:04)
[2023-05-02] MEDS: buPROPion 150 MG Tab.ER PO SCH (08:01)
[2023-05-02] MEDS: busPIRone 15 MG Tab PO SCH ×2 (08:01→21:02)
[2023-05-02] MEDS: Furosemide 20 MG Tab PO SCH (08:02)
[2023-05-02] MEDS: Pantoprazole 40 MG Tab.CR PO SCH (08:02)
[2023-05-02] MEDS: Sulfamethoxazole/Trimethoprim 800-160 MG Tab PO SCH ×3 (08:03→21:03)
[2023-05-02] MEDS: Fluticasone NASAL Spray 16 GM Bottle NASBOTH SCH ×2 (08:04→21:03)
[2023-05-02] MEDS: Albuterol/Ipratropium 3.0-0.5 MG/3 ML Neb Soln NEB SCH (08:04)
[2023-05-02] MEDS: Formoterol/Mometasone 200-5 MCG 8.8 GM Inhaler IH SCH ×2 (08:04→21:03)
[2023-05-02] MEDS ORDERED: ALPRAZolam 0.5 MG Tab PO PRN (08:10)
[2023-05-02] MEDS: Doxycycline 100 MG Tab PO SCH ×2 (08:54→21:02)
[2023-05-02] MEDS: ALPRAZolam 0.5 MG Tab PO SCH ×3 (08:54→21:01)
[2023-05-02] MEDS ORDERED: Non-Formulary Medication 1 Each (Terbinafine Hcl [Terbinafine Hcl] 250 MG Tablet) PO SCH (09:00)
[2023-05-02] MEDS: Enoxaparin 40 MG/0.4 ML Syringe SUBCUT SCH (10:48)
[2023-05-02] MEDS: Albuterol/Ipratropium 3.0-0.5 MG/3 ML Neb Soln NEB PRN (12:00)
[2023-05-02] MEDS: Albuterol 0.083% 2.5 MG/3 ML Neb Soln NEB SCH ×3 (13:17→21:04)
[2023-05-02] MEDS: Sodium Chloride 0.9% 10 ML Syringe FLUSH PRN (17:00)
[2023-05-02] MEDS: Citalopram 20 MG Tab PO SCH (21:02)
[2023-05-02] MEDS: Tiotropium Bromide 4 GM Inhalation Spray (2.5mcg/1 dose; 10 doses) INH SCH (21:04)
[2023-05-03] MEDS: Sodium Chloride 0.9% 10 ML Syringe FLUSH PRN ×2 (01:05→08:31)
[2023-05-03] MEDS: methylPREDNISolone Sodium Succinate 40 MG/1 ML SDV IVPUSH SCH ×3 (01:06→17:39)
[2023-05-03] MEDS: Albuterol/Ipratropium 3.0-0.5 MG/3 ML Neb Soln NEB PRN (05:51)
[2023-05-03] MEDS: Levothyroxine 100 MCG Tab PO SCH (05:54)
[2023-05-03] MEDS: Pantoprazole 40 MG Tab.CR PO SCH (08:23)
[2023-05-03] MEDS: ALPRAZolam 0.5 MG Tab PO SCH ×3 (08:23→13:40)
[2023-05-03] MEDS: busPIRone 15 MG Tab PO SCH (08:23)
[2023-05-03] MEDS: Sulfamethoxazole/Trimethoprim 800-160 MG Tab PO SCH (08:23)
[2023-05-03] MEDS: Furosemide 20 MG Tab PO SCH (08:23)
[2023-05-03] MEDS: Fluticasone NASAL Spray 16 GM Bottle NASBOTH SCH (08:24)
[2023-05-03] MEDS: Albuterol 0.083% 2.5 MG/3 ML Neb Soln NEB SCH ×3 (08:24→17:39)
[2023-05-03] MEDS: Formoterol/Mometasone 200-5 MCG 8.8 GM Inhaler IH SCH (08:24)
[2023-05-03] MEDS: Doxycycline 100 MG Tab PO SCH (08:25)
[2023-05-03] MEDS: buPROPion 150 MG Tab.ER PO SCH (08:25)
[2023-05-03] MEDS: Enoxaparin 40 MG/0.4 ML Syringe SUBCUT SCH (11:27)
[2023-05-03 17:37] VITALS: BP 130/61; PULSE 65
== END 2023-05-03 17:30 | disposition home or self-care (01) | DRG 603 ==
LOC: FB.ED 07:41 → FB.MS 10:45 → UNDOADMIN 11:01
PROVIDERS: ADMIT Emergency Medicine; ATTEND Student in an Organized Health Care Education/Training Program
DX: L03.115 Cellulitis of right lower limb (principal); J44.1 Chronic obstructive pulmonary disease with (acute) exacerbation; N39.0 Urinary tract infection, site not specified; L03.116 Cellulitis of left lower limb; I25.10 Atherosclerotic heart disease of native coronary artery without angina pectoris; E11.42 Type 2 diabetes mellitus with diabetic polyneuropathy; I87.2 Venous insufficiency (chronic) (peripheral); I50.9 Heart failure, unspecified; E03.9 Hypothyroidism, unspecified; M19.90 Unspecified osteoarthritis, unspecified site; E66.9 Obesity, unspecified; G43.909 Migraine, unspecified, not intractable, without status migrainosus; F41.9 Anxiety disorder, unspecified; I27.20 Pulmonary hypertension, unspecified; Z99.81 Dependence on supplemental oxygen; I25.2 Old myocardial infarction; Z79.899 Other long term (current) drug therapy; Z79.890 Hormone replacement therapy; Z88.1 Allergy status to other antibiotic agents; Z88.0 Allergy status to penicillin; Z88.7 Allergy status to serum and vaccine; Z88.8 Allergy status to other drugs, medicaments and biological substances; Z98.890 Other specified postprocedural states; Z90.49 Acquired absence of other specified parts of digestive tract; Z90.89 Acquired absence of other organs; Z98.49 Cataract extraction status, unspecified eye; Z90.710 Acquired absence of both cervix and uterus; Z87.891 Personal history of nicotine dependence; Z68.28 Body mass index [BMI] 28.0-28.9, adult
CPT/HCPCS: 36415; 71045; 74177; 80053; 81001; 83605; 83880; 84443; 84484; 85025; 86140; 87086; 94640; 97165-GO; 99223; 99233; 99239; A9270-GY; J1650; J2920; J2930; J3490; J7030; J7620; Q9967; U0002

== ENCOUNTER 2023-05-07 13:44 | Emergency (ER) | payer MEDICARE, BC, MEDICAID ==
[2023-05-07] MEDS ORDERED: Sodium Chloride 0.9% 10 ML Syringe FLUSH PRN (13:58)
[2023-05-07] MEDS ORDERED: methylPREDNISolone Sodium Succinate 125 MG/2 ML SDV IVPUSH ONE (14:13)
[2023-05-07] MEDS ORDERED: Albuterol/Ipratropium 3.0-0.5 MG/3 ML Neb Soln NEB ONE (14:13)
[2023-05-07 14:27] LABS: HEMOGLOBIN 12.7 g/dL (11.4-15.5); MEAN CORPUSCULAR HEMOGLOBIN 28.7 pg (23.9-33.9); MEAN CORPUSCULAR HGB CONC 33.4 g/dL (31.9-34.8); MEAN CORPUSCULAR VOLUME 86.1 fL (76.7-100.5); MEAN PLATELET VOLUME 7.3 fL (7.1-12.4); PLATELET COUNT,PLT 403 x10(3)uL (151-488); RED BLOOD CELL COUNT 4.42 x10(6)uL (3.60-5.20); RED CELL DISTRIBUTION WIDTH 15.5 % (12.3-16.5); WHITE BLOOD CELL COUNT,WBC 9.7 x10-3/uL (3.0-10.3)
[2023-05-07 14:32] LABS: BLOOD UREA NITROGEN,BUN 22 mg/dL (7-18); CALCIUM 9.5 mg/dL (8.6-10.2); CARBON DIOXIDE,CO2 33 mmol/L (21-32); CHLORIDE,CL 93 mmol/L (100-110); CREATININE 1.1 mg/dL (0.55-1.02); ESTIMATED GFR 50 mL/min (>60); GLUCOSE RANDOM 179 mg/dL (80-116); POTASSIUM,K 4.3 mmol/L (3.5-5.3); SODIUM,NA 135 mmol/L (135-145)
[2023-05-07 14:37] LABS: A/G RATIO 1.2; ALANINE AMINOTRANSFERASE,ALT 33 U/L (12-36); ALBUMIN 4.1 g/dL (3.2-4.6); ALKALINE PHOSPHATASE 99 IU/L (56-112); ASPARTATE AMNIOTRANSFERASE,AST 24 IU/L (5-25); BILIRUBIN TOTAL 0.6 mg/dL (0.1-1.3); PROTEIN TOTAL,TP 7.6 g/dL (6.0-8.0)
[2023-05-07 14:42] LABS: EOSINOPHILS PERCENT MAN 2 % (0-5); LYMPHOCYTES PERCENT MAN 4 % (13-37); MONOCYTES PERCENT MAN 8 % (4-12); SEG NEUTROPHILS PERCENT MAN 86 % (46-82)
[2023-05-07 14:46] LABS: TROPONIN I 20.8 pg/mL (4.0-60.3); TSH ULTRASENSITIVE 3.3 IU/mL (0.36-3.74)
[2023-05-07] MEDS ORDERED: Iopamidol 755 Mg/ML 100 ML Bottle IV ONE (14:47)
[2023-05-07] MEDS ORDERED: Sodium Chloride 0.9% 1,000 ML IV SCH (15:00)
[2023-05-07 16:00] LABS: BILIRUBIN,URINE NEGATIVE (NEGATIVE); GLUCOSE,URINE NORMAL (NORMAL); KETONES,URINE 15 mg/dL (NEGATIVE); LEUKOCYTE ESTERASE,URINE SMALL (NEGATIVE); NITRITE,URINE NEGATIVE (NEGATIVE); OCCULT BLOOD,URINE NEGATIVE (NEGATIVE); PROTEIN,URINE NEGATIVE (NEGATIVE); UROBILINOGEN,URINE NORMAL (NEGATIVE)
[2023-05-07 16:15] LABS: APPEARANCE,URINE CLEAR (CLEAR); BACTERIA,URINE FEW (NS); COLOR,URINE YELLOW (YELLOW); RBC,URINE 0-5 (0-5); SQUAMOUS EPITHELIAL CELLS,UR FEW (NS,R,O); WBC,URINE 0-5 (0-5)
[2023-05-07 18:51] VITALS: BP 142/83; PULSE 80
== END 2023-05-07 17:30 | disposition home or self-care (01) ==
LOC: FB.ED 13:44
DX: J44.1 Chronic obstructive pulmonary disease with (acute) exacerbation (principal); G89.29 Other chronic pain; R10.31 Right lower quadrant pain; R10.32 Left lower quadrant pain; I25.10 Atherosclerotic heart disease of native coronary artery without angina pectoris; I50.9 Heart failure, unspecified; E78.00 Pure hypercholesterolemia, unspecified; J44.9 Chronic obstructive pulmonary disease, unspecified; E11.9 Type 2 diabetes mellitus without complications; E03.9 Hypothyroidism, unspecified; E66.9 Obesity, unspecified; Z91.09 Other allergy status, other than to drugs and biological substances; Z79.51 Long term (current) use of inhaled steroids; Z88.8 Allergy status to other drugs, medicaments and biological substances; Z88.1 Allergy status to other antibiotic agents; Z88.0 Allergy status to penicillin; Z79.899 Other long term (current) drug therapy
CPT/HCPCS: 36415; 71045; 74177; 80053; 81001; 83880; 84443; 84484; 85025; 93005; 93010; 96361; 96374; 99283; 99285-25; J2930; J7030; J7620; Q9967

== ENCOUNTER 2023-05-09 11:40 | Emergency (ER) | payer MEDICARE, BC, MEDICAID ==
[2023-05-09 13:05] LABS: BASE EXCESS VENOUS,POC 4 mmol/L (-2 - 3+); PCO2 VENOUS,POC 47 mmHg (41-51)
[2023-05-09 13:11] LABS: BLOOD UREA NITROGEN,BUN 33 mg/dL (7-18); CALCIUM 8.9 mg/dL (8.6-10.2); CARBON DIOXIDE,CO2 29 mmol/L (21-32); CHLORIDE,CL 94 mmol/L (100-110); CREATININE 1.1 mg/dL (0.55-1.02); ESTIMATED GFR 50 mL/min (>60); GLUCOSE RANDOM 136 mg/dL (80-116); SODIUM,NA 133 mmol/L (135-145)
[2023-05-09 13:18] LABS: HEMATOCRIT 38.5 % (34.2-48.2); HEMOGLOBIN 12.5 g/dL (11.4-15.5); MEAN CORPUSCULAR HEMOGLOBIN 28.5 pg (23.9-33.9); MEAN CORPUSCULAR HGB CONC 32.6 g/dL (31.9-34.8); MEAN CORPUSCULAR VOLUME 87.5 fL (76.7-100.5); MEAN PLATELET VOLUME 7.6 fL (7.1-12.4); PLATELET COUNT,PLT 320 x10(3)uL (151-488); RED CELL DISTRIBUTION WIDTH 15.5 % (12.3-16.5); WHITE BLOOD CELL COUNT,WBC 12.1 x10-3/uL (3.0-10.3)
[2023-05-09 13:31] LABS: EOSINOPHILS PERCENT MAN 1 % (0-5); LYMPHOCYTES PERCENT MAN 8 % (13-37); MONOCYTES PERCENT MAN 3 % (4-12); SEG NEUTROPHILS PERCENT MAN 88 % (46-82)
[2023-05-09 13:36] LABS: APPEARANCE,URINE CLEAR (CLEAR); BACTERIA,URINE MODERATE (NS); BILIRUBIN,URINE NEGATIVE (NEGATIVE); COLOR,URINE YELLOW (YELLOW); GLUCOSE,URINE NORMAL (NORMAL); KETONES,URINE NEGATIVE (NEGATIVE); LEUKOCYTE ESTERASE,URINE SMALL (NEGATIVE); NITRITE,URINE NEGATIVE (NEGATIVE); OCCULT BLOOD,URINE NEGATIVE (NEGATIVE); PROTEIN,URINE NEGATIVE (NEGATIVE); SQUAMOUS EPITHELIAL CELLS,UR FEW (NS,R,O); UROBILINOGEN,URINE NORMAL (NEGATIVE); WBC,URINE 0-5 (0-5)
[2023-05-09 16:59] VITALS: BP 126/56; PULSE 88
== END 2023-05-09 16:41 | disposition home or self-care (01) ==
LOC: FB.ED 11:40
DX: E86.0 Dehydration (principal); R79.89 Other specified abnormal findings of blood chemistry; R29.6 Repeated falls; E11.9 Type 2 diabetes mellitus without complications; I25.10 Atherosclerotic heart disease of native coronary artery without angina pectoris; E78.00 Pure hypercholesterolemia, unspecified; E66.9 Obesity, unspecified; Z88.0 Allergy status to penicillin; Z88.1 Allergy status to other antibiotic agents; Z88.8 Allergy status to other drugs, medicaments and biological substances; Z91.048 Other nonmedicinal substance allergy status; Z79.899 Other long term (current) drug therapy
CPT/HCPCS: 36415; 70450; 80048; 81001; 85025; 86140; 87086; 87088; 87186; 99285

== ENCOUNTER 2023-05-22 09:21 | Emergency (ER) | payer MEDICARE, BC ==
[2023-05-22 09:51] LABS: BASE EXCESS VENOUS,POC 11 mmol/L (-2 - 3+); PCO2 VENOUS,POC 57 mmHg (41-51); PH VENOUS,POC 7.43 pH Units (7.32-7.43)
[2023-05-22] MEDS ORDERED: Sodium Chloride 0.9% 10 ML Syringe FLUSH PRN (09:56)
[2023-05-22 10:04] LABS: BASOPHILS PERCENT AUTO 0.3 % (0.2-1.5); EOSINOPHILS ABSOLUTE AUTO 0.6 x10-3/uL (0.0-0.8); EOSINOPHILS PERCENT AUTO 5.6 % (0.6-8.1); HEMATOCRIT 36.3 % (34.2-48.2); HEMOGLOBIN 11.8 g/dL (11.4-15.5); LYMPHOCYTES ABSOLUTE AUTO 0.7 x10-3/uL (1.0-4.4); LYMPHOCYTES PERCENT AUTO 5.8 % (18.4-52.1); MEAN CORPUSCULAR HGB CONC 32.6 g/dL (31.9-34.8); MEAN PLATELET VOLUME 7.7 fL (7.1-12.4); MONOCYTES ABSOLUTE AUTO 0.8 x10-3/uL (0.3-1.0); MONOCYTES PERCENT AUTO 7.3 % (4.4-15.7); NEUTROPHILS ABSOLUTE AUTO 9.2 x10-3/uL (1.5-6.3); PLATELET COUNT,PLT 236 x10(3)uL (151-488); RED BLOOD CELL COUNT 4.08 x10(6)uL (3.60-5.20); RED CELL DISTRIBUTION WIDTH 15.7 % (12.3-16.5); WHITE BLOOD CELL COUNT,WBC 11.4 x10-3/uL (3.0-10.3)
[2023-05-22 10:14] LABS: A/G RATIO 0.8; ALANINE AMINOTRANSFERASE,ALT 19 U/L (12-36); ALBUMIN 3.2 g/dL (3.2-4.6); ALKALINE PHOSPHATASE 138 IU/L (56-112); ASPARTATE AMNIOTRANSFERASE,AST 16 IU/L (5-25); BILIRUBIN TOTAL 0.3 mg/dL (0.1-1.3); BLOOD UREA NITROGEN,BUN 18 mg/dL (7-18); BUN/CREATININE RATIO 22.5 (9-20); CALCIUM 9.4 mg/dL (8.6-10.2); CARBON DIOXIDE,CO2 39 mmol/L (21-32); CHLORIDE,CL 94 mmol/L (100-110); CREATININE 0.8 mg/dL (0.55-1.02); EST CRCL DRUG DOSING (CG) 46.01 mL/min; ESTIMATED GFR 73 mL/min (>60); GLUCOSE RANDOM 176 mg/dL (80-116); MAGNESIUM 1.8 mg/dL (1.8-2.5); POTASSIUM,K 4.8 mmol/L (3.5-5.3); SODIUM,NA 137 mmol/L (135-145)
[2023-05-22 10:21] LABS: TROPONIN I 26.3 pg/mL (4.0-60.3)
[2023-05-22 10:22] LABS: C-REACTIVE PROTEIN 5.13 mg/dL (<0.33)
[2023-05-22 10:41] LABS: CORONAVIRUS COVID-19 NAA NEGATIVE (NEGATIVE); INFLUENZA A NAA NEGATIVE (NEGATIVE); INFLUENZA B NAA NEGATIVE (NEGATIVE); RESPIRATORY SYNCYTIAL VIR NAA NEGATIVE (NEGATIVE)
[2023-05-22 11:26] LABS: BILIRUBIN,URINE NEGATIVE (NEGATIVE); GLUCOSE,URINE NORMAL (NORMAL); KETONES,URINE NEGATIVE (NEGATIVE); LEUKOCYTE ESTERASE,URINE SMALL (NEGATIVE); NITRITE,URINE NEGATIVE (NEGATIVE); OCCULT BLOOD,URINE NEGATIVE (NEGATIVE); PROTEIN,URINE NEGATIVE (NEGATIVE); UROBILINOGEN,URINE NORMAL (NEGATIVE)
[2023-05-22 11:27] LABS: APPEARANCE,URINE CLEAR (CLEAR); BACTERIA,URINE NOT SEEN (NS); COLOR,URINE YELLOW (YELLOW); RBC,URINE NOT SEEN (0-5); WBC,URINE NOT SEEN (0-5)
[2023-05-22] MEDS ORDERED: Doxycycline 100 MG Tab PO ONE (11:44)
[2023-05-22] MEDS ORDERED: predniSONE 20 MG Tab PO ONE (11:44)
[2023-05-22 14:25] VITALS: BP 105/50; PULSE 67
== END 2023-05-22 12:38 | disposition home or self-care (01) ==
LOC: FB.ED 09:21
DX: J44.1 Chronic obstructive pulmonary disease with (acute) exacerbation (principal); J18.9 Pneumonia, unspecified organism; F17.210 Nicotine dependence, cigarettes, uncomplicated; E11.9 Type 2 diabetes mellitus without complications; E66.9 Obesity, unspecified; E03.9 Hypothyroidism, unspecified; I25.10 Atherosclerotic heart disease of native coronary artery without angina pectoris; I50.9 Heart failure, unspecified; E78.00 Pure hypercholesterolemia, unspecified; Z79.899 Other long term (current) drug therapy; Z91.048 Other nonmedicinal substance allergy status; Z88.8 Allergy status to other drugs, medicaments and biological substances; Z88.1 Allergy status to other antibiotic agents; Z88.0 Allergy status to penicillin; Z88.7 Allergy status to serum and vaccine
CPT/HCPCS: 0241U; 36410; 36415; 71045; 80053; 81001; 83605; 83735; 83880; 84484; 85025; 86140; 93005; 99285; A9270; J3490; J7512; 93010; 99283

== ENCOUNTER 2023-06-18 09:10 | Emergency (ER) | payer MEDICARE, BC ==
[2023-06-18 11:12] LABS: BASOPHILS PERCENT AUTO 0.2 % (0.2-1.5); EOSINOPHILS ABSOLUTE AUTO 0.3 x10-3/uL (0.0-0.8); HEMATOCRIT 35.6 % (34.2-48.2); HEMOGLOBIN 11.5 g/dL (11.4-15.5); LYMPHOCYTES ABSOLUTE AUTO 0.7 x10-3/uL (1.0-4.4); LYMPHOCYTES PERCENT AUTO 8.7 % (18.4-52.1); MEAN CORPUSCULAR HEMOGLOBIN 29.1 pg (23.9-33.9); MEAN CORPUSCULAR HGB CONC 32.2 g/dL (31.9-34.8); MEAN CORPUSCULAR VOLUME 90.3 fL (76.7-100.5); MEAN PLATELET VOLUME 7.2 fL (7.1-12.4); MONOCYTES ABSOLUTE AUTO 0.7 x10-3/uL (0.3-1.0); MONOCYTES PERCENT AUTO 9.3 % (4.4-15.7); NEUTROPHILS PERCENT AUTO 77.8 % (30.8-76.2); PLATELET COUNT,PLT 259 x10(3)uL (151-488); RED BLOOD CELL COUNT 3.95 x10(6)uL (3.60-5.20); RED CELL DISTRIBUTION WIDTH 15.3 % (12.3-16.5); WHITE BLOOD CELL COUNT,WBC 7.8 x10-3/uL (3.0-10.3)
[2023-06-18 11:14] LABS: BLOOD UREA NITROGEN,BUN 16 mg/dL (7-18); BUN/CREATININE RATIO 17.8 (9-20); CALCIUM 9.2 mg/dL (8.6-10.2); CHLORIDE,CL 95 mmol/L (100-110); CREATININE 0.9 mg/dL (0.55-1.02); ESTIMATED GFR 63 mL/min (>60); GLUCOSE RANDOM 155 mg/dL (80-116); POTASSIUM,K 4.3 mmol/L (3.5-5.3); SODIUM,NA 139 mmol/L (135-145)
[2023-06-18 11:18] LABS: BASE EXCESS VENOUS,POC 13 mmol/L (-2 - 3+); PCO2 VENOUS,POC 68 mmHg (41-51); PH VENOUS,POC 7.39 pH Units (7.32-7.43)
[2023-06-18 11:20] LABS: A/G RATIO 1.1; ALANINE AMINOTRANSFERASE,ALT 19 U/L (12-36); ALBUMIN 3.5 g/dL (3.2-4.6); ALKALINE PHOSPHATASE 119 IU/L (56-112); ASPARTATE AMNIOTRANSFERASE,AST 16 IU/L (5-25); BILIRUBIN TOTAL 0.4 mg/dL (0.1-1.3); PROTEIN TOTAL,TP 6.7 g/dL (6.0-8.0)
[2023-06-18 11:22] LABS: CARBON DIOXIDE,CO2 46 mmol/L (21-32)
[2023-06-18 12:07] VITALS: BP 128/84
[2023-06-18 13:02] VITALS: PULSE 89
== END 2023-06-18 13:00 | disposition home or self-care (01) ==
LOC: FB.ED 09:10
DX: J44.9 Chronic obstructive pulmonary disease, unspecified (principal); F17.210 Nicotine dependence, cigarettes, uncomplicated; I25.10 Atherosclerotic heart disease of native coronary artery without angina pectoris; E78.00 Pure hypercholesterolemia, unspecified; E11.9 Type 2 diabetes mellitus without complications; E03.9 Hypothyroidism, unspecified; E66.9 Obesity, unspecified; Z68.30 Body mass index [BMI] 30.0-30.9, adult; Z91.048 Other nonmedicinal substance allergy status; Z88.0 Allergy status to penicillin; Z88.7 Allergy status to serum and vaccine; Z88.1 Allergy status to other antibiotic agents; Z79.899 Other long term (current) drug therapy
CPT/HCPCS: 36415; 71045; 80053; 85025; 86140; 99285